=== PATIENT | female | born 1940 | race Caucasian/White ===

== ENCOUNTER 2017-03-06 11:25 | Inpatient (IN) | payer MEDICARE, BC, OTHER ==
[~2017-03-06] VITALS: Ht 152.4 cm; Wt 73.5 kg
[~2017-03-06 11:25] MED LIST: /METO25TAB PO; ALBU17IN INH; AMLO5TAB2 PO; AUGM875T27 PO; FURO20TA2 PO; LEVO25TA4 PO; LISI5TAB PO; MICR10CA PO; MUCI600T34 PO; PANT40TA2 PO; PRED10TA PO; PRED1TAB32 PO; PRED5PAK PO; SIMV20TA2 PO; SPIRIVA INH; SYMB16INH INH; TYLE325T5 PO; ZOCO20TA PO; [UNRECOGNIZED DRUG - OTHER]
[2017-03-06] MEDS ORDERED: methylPREDNISolone INJ 125 MG/2 ML VIAL (J2930) IV ONE (12:30)
[2017-03-06] MEDS: IPRATROPIUM 0.5MG/ALBUTEROL 2.5MG INH SOL UD 3ML (DUONEB)(J7620) NEB PRN ×3 (12:43→13:20)
[2017-03-06 12:47] LABS: BASO % 0.1 % (0.0-1.0); EOS % 0.1 % (0.0-3.0); LARGE UNSTAINED CELL # 0.1 K/mm3 (0.0-0.4); LARGE UNSTAINED CELL % 0.8 % (0.0-4.0); LYMPH # 0.5 K/mm3 (1.5-4.5); LYMPH % 4.7 % (24.0-44.0); MEAN CORPUSCULAR HEMOGLOBIN 31.8 pg (27.0-33.0); MEAN CORPUSCULAR HGB CONC 34.2 g/dl (32.0-36.5); MEAN CORPUSCULAR VOLUME 92.7 fl (80.0-96.0); MONO # 0.3 K/mm3 (0.0-0.8); MONO % 3.1 % (0.0-5.0); NEUTROPHILS # 9.2 K/mm3 (1.8-7.7); NEUTROPHILS % 91.2 % (36.0-66.0); PLATELET COUNT, AUTOMATED 301 k/mm3 (150-450); RED CELL DISTRIBUTION WIDTH 12.7 % (11.5-14.5)
[2017-03-06 12:53] LABS: INR 0.91
[2017-03-06 12:53] LABS: ANION GAP 4 MEQ/L (8-16); BLOOD UREA NITROGEN 34 MG/DL (7-18); CALCIUM LEVEL 9.8 MG/DL (8.8-10.2); CARBON DIOXIDE LEVEL 40 MEQ/L (21-32); CHLORIDE LEVEL 92 MEQ/L (98-107); CREATININE FOR GFR 1.26 MG/DL (0.55-1.02); GLOMERULAR FILTRATION RATE 44.2 (>39); GLUCOSE, FASTING 150 MG/DL (83-110); SODIUM LEVEL 136 MEQ/L (136-145)
--- NOTE | 2017-03-06 12:56 | REP ---
PA and lateral chest: Comparison is 09/21/2012. The lung rinaldi are clear. The cardiac size is normal The dedra, mediastinum, and bony thorax are unremarkable. Impression: Negative PA and lateral chest. There is no interval change. Signed by Rickey Adame MD 03/06/2017 12:47 P
[2017-03-06] MEDS ORDERED: LISI10TA4 PO ×2 (14:05)
[2017-03-06] MEDS ORDERED: AZIT250T3 PO (14:05)
[2017-03-06] MEDS ORDERED: FURO20TA2 PO (14:05)
[2017-03-06] MEDS ORDERED: DOXY100T PO (14:05)
[2017-03-06] MEDS ORDERED: METO12TA PO (14:05)
[2017-03-06] MEDS ORDERED: SPIR12.9 INH (14:05)
[2017-03-06] MEDS ORDERED: SODI3NEB INH (14:05)
[2017-03-06] MEDS ORDERED: ZOCO20TA PO (14:05)
[2017-03-06] MEDS ORDERED: SYMB16INH INH (14:05)
[2017-03-06] MEDS ORDERED: PANT40TA2 PO (14:05)
[2017-03-06] MEDS ORDERED: PRED5TA PO (14:05)
[2017-03-06] MEDS ORDERED: ALBU17IN INH (14:05)
[2017-03-06] MEDS ORDERED: AMLO5TAB2 PO (14:05)
[2017-03-06] MEDS ORDERED: SYNT25TA PO (14:05)
[2017-03-06] MEDS ORDERED: VITA500046 PO (14:08)
[2017-03-06] MEDS ORDERED: MUCI600T34 PO (14:08)
[2017-03-06] MEDS ORDERED: BACITAB3 PO (14:08)
[2017-03-06] MEDS ORDERED: ROBISYP7 PO (14:08)
[2017-03-06] MEDS ORDERED: PRED10TA PO (14:10)
--- NOTE | 2017-03-06 14:36 | HPEPDOC ---
Medical History and Physical Date of Admission 03/06/17 History and Physical ATTENDING: Dr. Walton PCP: Dr [facility] Dr Poe CC: SOB HPI: 76yoF with a past medical history significant for O2/Steroid dependent COPD , who returned from [place] one week ago. She states she has not been feeling well. She called Dr. Poe on Friday and was placed on prednisone 40 mg daily for 5 days. Her PCP diagnosed her with bronchitis and she was placed on oral antibiotics including doxycycline and Zithromax. The patient states this was ineffective. For the past 2-3 days she has been noticing increased dyspnea, sputum production which has been yellow, orthopnea and PND, she has been sleeping in her recliner. She denies fevers or chills. No chest pain. No abdominal pain. Decreased appetite. Denies any FREEMAN, palpitations, N/V/D or changes in bowel or bladder habits. Upon presentation to the hospital the patient was found to have COPD exacerbation, thus the hospitalist team was consulted. PMHx: COPD Hypertension Hypothyroidism Hyperlipidemia CKD3 PSHX: Tubal ligation SOCHX: Resides in: [facility] Marital Status: Tobacco use: quit 5 yr ago ETOH: denies Illicit Drugs: Denies Recent travel: recently drove home from [facility] 1 week ago ROS: As noted in HPI, otherwise 11pt ROS of systems reviewed and unremarkable. PE: GEN: 76yoF, appears stated age. No acute distress. Alert and oriented x 3. HEENT: Normocephalic, atraumatic. Pupils are equal, round, and reactive to light. Extraocular movements are intact. No nystagmus appreciated. Sclera are nonicteric. Conjunctiva without injection. Nose midline. Nasal turbinates without bogginess. EACs both patent BL. TMs both visualized and chilel with good cone of light, no bulging or erythema. No facial asymmetry. Moist mucous membranes. Dentition fair. Pharynx pink and moist, no cobblestoning. Neck supple , trachea midline. No lymphadenopathy or thyromegaly appreciated. CHEST: Regular rate and rhythm, +S1, +S2 LUNGS: Decreased breath sounds bilaterally. Coarse rhonchi, expiratory wheezes scattered. No accessory muscle use. ABD: Round, soft, non-tender, non-distended. +Bowel sounds throughout. No rebound or guarding. No costovertebral angle tenderness. EXT: Pulses 2+ bilaterally dorsalis pedis and radial. Trace RLE edema appreciated. SKIN: [place], dry, warm. Capillary refill <2sec. No rashes. NEURO: Alert and oriented x 3. Cranial nerves III-XII are intact. No focal deficits appreciated. CXR: 03/06/17 Negative PA and lateral chest. There is no interval change. BLOOD CULTURES: pending. A&P: 76yoF with a past medical history significant for O2/Steroid dependent COPD, who returned from [place] one week ago. She states she has not been feeling well. She called Dr. Poe on Friday and was placed on prednisone 40 mg daily for 5 days. Her PCP diagnosed her with bronchitis and she was placed on oral antibiotics including doxycycline and Zithromax. The patient states this was ineffective. For the past 2-3 days she has been noticing increased dyspnea, sputum production which has been yellow, orthopnea and PND, she has been sleeping in her recliner. The patient will be admitted to [facility] for at least [address] Walton's service. 1. COPD exacerbation. Blood culture pending. Sputum culture pending. Supplemental O2, nebulizer treatments, IV Solu-Medrol 60 mg every 6 hours. IV Rocephin 1 g every 24, IV Zithromax 500 mg every 24. 2. COPD. Pt is steroid and O2 dependent at home. 3. Hypertension. Continue metoprolol and Norvasc with hold parameters. 4. Hyperlipidemia. Continue statin 5. CKD3. Baseline 1.08- 1.18. 1.26 on admission. Patient states she has had poor appetite/poor po intake. Will temporarily hold oral Lasix and lisinopril. Reassess with [facility] in a.m. 6. Right lower extremity edema. Will check lower extremity ultrasound to rule out DVT with recent h/o prolonged driving. 7. Hypothyroid. Cont supplement. DVT prophylaxis. The patient is a Full code. Vital Signs Vital Signs Date Time Temp Pulse Resp B/P Pulse Ox O2 Delivery O2 Flow Rate FiO2 03/06/17 13:30 118 93 03/06/17 12:48 18 136/82 Nasal Cannula 3 03/06/17 11:35 98.1 Laboratory Data Labs 24H Laboratory Tests 2 03/06/17 11:42: Anion Gap 4L, B-Type Natriuretic Peptide 30.2, White Blood Count 10.0, Red Blood Count 4.19, Hemoglobin 13.3, Hematocrit 38.9, Mean Corpuscular Volume 92.7 , Mean Corpuscular Hemoglobin 31.8, Mean Corpuscular Hemoglobin Concent 34.2, Red Cell Distribution Width 12.7, Platelet Count 301, Neutrophils (%) (Auto) 91.2H, Lymphocytes (%) (Auto) 4.7L, Monocytes (%) (Auto) 3.1, Eosinophils (%) ( Auto) 0.1, Basophils (%) (Auto) 0.1, Neutrophils # (Auto) 9.2H, Lymphocytes # ( Auto) 0.5L, Monocytes # (Auto) 0.3, Eosinophils # (Auto) 0.0, Basophils # (Auto ) 0.0, Blood Urea Nitrogen 34H, Creatinine 1.26H, Sodium Level 136, Potassium Level 4.0, Chloride Level 92L, Carbon Dioxide Level 40H, Calcium Level 9.8, Glomerular Filtration Rate 44.2, Large Unclassified Cells # 0.1, Large Unclassified Cells % 0.8 03/06/17 12:33: Prothromb Time International Ratio 0.91, Prothrombin Time 12.4 CBC/BMP Laboratory Tests 03/06/17 11:42 Calcium Level 9.8, Red Blood Count 4.19, Mean Corpuscular Volume 92.7, Mean Corpuscular Hemoglobin 31.8, Mean Corpuscular Hemoglobin Concent 34.2, Red Cell Distribution Width 12.7, Neutrophils (%) (Auto) 91.2 H, Lymphocytes (%) (Auto) 4.7 L, Monocytes (%) (Auto) 3.1, Eosinophils (%) (Auto) 0.1, Basophils (%) (Auto ) 0.1, Neutrophils # (Auto) 9.2 H, Lymphocytes # (Auto) 0.5 L, Monocytes # (Auto ) 0.3, Eosinophils # (Auto) 0.0, Basophils # (Auto) 0.0 Microbiology Microbiology 03/06/17 Blood Culture, Received Pending Home Medications Scheduled Amlodipine Besylate (Amlodipine Besylate) 5 Mg Tab 5 MG PO DAILY Azithromycin (Azithromycin) 250 Mg Tab 250 MG PO DAILY TO END ON 03/08/17 Budesonide/Formoterol (Symbicort 160-4.5 Mcg/Act) 60 Puff/Inhaler Aers 2 PUFF INH BID Cholecalciferol (Vitamin D) 5,000 Unit Tab 5,000 UNIT PO DAILY Doxycycline Hyclate (Doxycycline Hyclate) 100 Mg Tab 100 MG PO BID TO END 03/13/17 Furosemide (Furosemide) 20 Mg Tab 20 MG PO DAILY Guaifenesin (Mucinex) 600 Mg Tab 600 MG PO BID Lactobacillus Acidophilus (Bacid) 1 Tab Tab 1 TAB PO DAILY Levothyroxine Sodium (Synthroid) 25 Mcg Tab 25 MCG PO QAM Lisinopril (Lisinopril) 10 Mg Tab 10 MG PO BID Metoprolol Tartrate (Metoprolol Tartrate) 25 Mg Tab 25 MG PO DAILY Pantoprazole Sodium (Pantoprazole Sodium) 40 Mg Tab 40 MG PO DAILY Prednisone (Prednisone) 5 Mg Tab 5 MG PO DAILY Prednisone (Prednisone) 10 Mg Tab 10 MG PO ASDIRECTED TAPERING DOSE ALONG WITH 5MG DAILY 40MG DAILY X 5 DAYS 30MG DAILY X 5 DAYS 20MG DAILY X 5 DAYS 10MG DAILY X 5 DAYS 5MG DAILY X 5 DAYS FILLED 03/03 Simvastatin (Zocor) 20 Mg Tab 20 MG PO QPM Tiotropium Bentley Monohydrate (Spiriva Respimat) 2.5 Mcg/Act Spr 2 INHALATION INH DAILY Scheduled PRN (Robitussin Peak Cold Dm 100-10 mg/5Ml) 1 Syp Syp 10 ML PO Q6H PRN PRN COUGH Albuterol Sulfate (Ventolin Hfa) 200 Puff/8 Gm Aers 2 PUFF INH Q4H PRN PRN SHORTNESS OF BREATH Sodium Chloride (Sodium Chloride 3% Neb Yasmin) 15 Ml Nebu 1 DOSE INH Q4H PRN PRN SHORTNESS OF BREATH Allergies Coded Allergies: No Known Drug Allergy (Unverified Allergy, Unknown, 02/18/13) Corinna Paiz Mar 06, 2017 14:36
[2017-03-06] MEDS: cefTRIAXone SOD 1 GM in D5W MINI-BAG PLUS 50 ML IV SCH (15:18)
[2017-03-06] MEDS: amLODIPine 5 MG TAB PO SCH (15:19)
[2017-03-06] MEDS: METOPROLOL TART 25 MG TABLET PO SCH (15:19)
[2017-03-06] MEDS: PANTOPRAZOLE 40MG TAB (PROTONIX) PO SCH (15:19)
--- NOTE | 2017-03-06 16:11 | REP ---
Duplex extremity venous ultrasound: Bilateral lower extremity. History: Bilateral lower extremity edema. Findings: Scan quality is mildly inhibited by a patient positioning factors. The deep veins are anechoic and fully compressible from the groin to the popliteal fossa in the right and left lower extremity. Color flow imaging is homogeneous. Spectral Doppler interrogation demonstrates intact respiratory variation in flow and normal manual augmentation of flow. There is no evidence of deep vein thrombosis. Impression: Negative bilateral lower extremity duplex venous ultrasound. No evidence of deep vein thrombosis. Signed by Randy Gentile MD 03/06/2017 04:02 P
[2017-03-06] MEDS: AZITHROMYCIN INJ 500 MG, VIAL MATE ADAPTER 1 EACH in D5W 250 ML IV SCH (16:35)
[2017-03-06 17:50] VITALS: BP 182/97
[2017-03-06] MEDS: LACTOBACILLUS ACIDOPHILUS CAP (BACID) PO SCH (17:52)
[2017-03-06] MEDS: methylPREDNISolone INJ 125 MG/2 ML VIAL (J2930) IV SCH (17:52)
[2017-03-06] MEDS: IPRATROPIUM 0.5MG/ALBUTEROL 2.5MG INH SOL UD 3ML (DUONEB)(J7620) NEB SCH (20:14)
[2017-03-06] MEDS: guaiFENesin ER 600 MG TAB PO SCH (21:06)
[2017-03-06] MEDS: SIMVASTATIN 20 MG TAB PO SCH (21:07)
[2017-03-06 22:00] VITALS: BP 170/70
[2017-03-07] MEDS: methylPREDNISolone INJ 125 MG/2 ML VIAL (J2930) IV SCH ×2 (00:42→06:09)
[2017-03-07] MEDS: IPRATROPIUM 0.5MG/ALBUTEROL 2.5MG INH SOL UD 3ML (DUONEB)(J7620) NEB SCH ×4 (02:18→19:38)
[2017-03-07 05:13] LABS: BASO % 0.2 % (0.0-1.0); EOS % 0.3 % (0.0-3.0); LARGE UNSTAINED CELL # 0.1 K/mm3 (0.0-0.4); LARGE UNSTAINED CELL % 0.6 % (0.0-4.0); LYMPH # 0.5 K/mm3 (1.5-4.5); LYMPH % 6.2 % (24.0-44.0); MEAN CORPUSCULAR HEMOGLOBIN 30.2 pg (27.0-33.0); MEAN CORPUSCULAR HGB CONC 32.7 g/dl (32.0-36.5); MEAN CORPUSCULAR VOLUME 92.5 fl (80.0-96.0); MONO # 0.2 K/mm3 (0.0-0.8); MONO % 2.2 % (0.0-5.0); NEUTROPHILS # 6.7 K/mm3 (1.8-7.7); NEUTROPHILS % 90.5 % (36.0-66.0); PLATELET COUNT, AUTOMATED 255 k/mm3 (150-450); RED CELL DISTRIBUTION WIDTH 12.7 % (11.5-14.5); WHITE BLOOD COUNT 7.4 K/mm3 (4.0-10.0)
[2017-03-07 05:35] LABS: ALBUMIN 3.2 GM/DL (3.2-5.2); ALBUMIN/GLOBULIN RATIO 1.14 (1.00-1.93); ALKALINE PHOSPHATASE 46 U/L (45-117); ALT/SGPT 37 U/L (12-78); ANION GAP 3 MEQ/L (8-16); AST/SGOT 31 U/L (15-37); BILIRUBIN,TOTAL 0.3 MG/DL (0.2-1.0); BLOOD UREA NITROGEN 24 MG/DL (7-18); CARBON DIOXIDE LEVEL 38 MEQ/L (21-32); CHLORIDE LEVEL 97 MEQ/L (98-107); CREATININE FOR GFR 0.95 MG/DL (0.55-1.02); GLOMERULAR FILTRATION RATE > 60.0 (>39); GLUCOSE, FASTING 137 MG/DL (83-110); POTASSIUM SERUM 4.5 MEQ/L (3.5-5.1); SODIUM LEVEL 138 MEQ/L (136-145)
[2017-03-07 06:00] VITALS: BP 135/75
[2017-03-07] MEDS: LEVOTHYROXINE 0.025 MG TAB (25 MCG) PO SCH (06:09)
--- NOTE | 2017-03-07 08:44 | IPNPDOC ---
Subjective Date Seen The patient was seen on 03/07/17. Subjective Chief Complaint/HPI The patient is a 76-year-old female admitted with a reason for visit of Copd With Exacerbation. Events since last encounter Pt this morning reports some improvement in her breathing. States hard to tell for sure as I woke her when I came in. She has not been up or moving around yet. General: Denies: Fatigue Constitutional: Denies: Chills, Fever ENT: Denies: Head Aches Pulmonary: Reports: Cough, Dyspnea Cardiovascular: Denies: Chest Pain, Palpitations Gastrointestinal: Denies: Diarrhea, Nausea, Vomiting Neurological: Denies: Weakness Psych: Reports: Mood Normal Objective Physical Examination General Exam: Positive: Alert, No Acute Distress ENT Exam: Positive: Mucous membr. moist/pink Chest Exam: Positive: Diminished, Wheezing (end exp wheeze, throughout), Negative: Clear to auscultation, Normal air movement Heart Exam: Positive: Normal S1, Normal S2, Rate Normal Abdomen Exam: Positive: Normal bowel sounds, Soft, Negative: Tenderness Extremity Exam: Negative: Edema Psych Exam: Positive: Mental status NL, Mood NL Assessment /Plan Problems (1) COPD with exacerbation Status: Acute Response to Treatment: Stable, Improving Discussed With: Patient Problem Specific Plan: Monitor Clinically, Repeat Labs Problem Text: Pt admitted on Solumedrol 60 mg Q6h, will reduce to 40 mg q6h today, she has had improvement in her resp status since arrival. D 2 Azithromycin, Rocephin. Cont Duonebs. Home O2 rate 3LMP. (2) Hypertension Status: Chronic Response to Treatment: Stable Problem Specific Plan: Monitor Clinically Problem Text: On Norvasc 5 mg daily, Lopressor 25 mg daily (HD) - will restart Lisinopril 10 mg daily, cont to hold on Lasix 20 mg daily, monitor. (3) Acute kidney injury Status: Resolved Response to Treatment: Improving Discussed With: Patient Problem Specific Plan: Monitor Clinically, Repeat Labs Problem Text: Scr slightly elevated on admission, improved today. PEDRO and Lasix held on admission. Will resume PEDRO today as pressures are elevated. Plan/VTE VTE Prophylaxis Ordered?: Yes Plan Family Medicine Attending Note: Patient seen and examined this afternoon; I d/w Rosa Barney PA-C and I agree with her note above. Lungs are still quite tight with decreased air movement; patient had recent URI symptoms, which is the likely triggering factor. She does ear 2 L/min of O2 at home, but is requiring O2 above her baseline. She had some desaturations this morning with movement and ambulation, but O2 saturation rapidly recovered after a minute of deep breathing. Continue with plan as above. (KES) VS, I&O, 24H, Fishbone Vital Signs/I&O Vital Signs Date Time Temp Pulse Resp B/P Pulse Ox O2 Delivery O2 Flow Rate FiO2 03/07/17 06:00 100.0 83 18 135/75 98 Nasal Cannula 4.0 I&O- Last 24 Hours up to 6 AM 03/07/17 06:00 Intake Total 170 ml Balance 170 ml Laboratory Data 24H LABS Laboratory Tests 2 03/06/17 11:42: Anion Gap 4L, B-Type Natriuretic Peptide 30.2, White Blood Count 10.0, Red Blood Count 4.19, Hemoglobin 13.3, Hematocrit 38.9, Mean Corpuscular Volume 92.7 , Mean Corpuscular Hemoglobin 31.8, Mean Corpuscular Hemoglobin Concent 34.2, Red Cell Distribution Width 12.7, Platelet Count 301, Neutrophils (%) (Auto) 91.2H, Lymphocytes (%) (Auto) 4.7L, Monocytes (%) (Auto) 3.1, Eosinophils (%) ( Auto) 0.1, Basophils (%) (Auto) 0.1, Neutrophils # (Auto) 9.2H, Lymphocytes # ( Auto) 0.5L, Monocytes # (Auto) 0.3, Eosinophils # (Auto) 0.0, Basophils # (Auto ) 0.0, Blood Urea Nitrogen 34H, Creatinine 1.26H, Sodium Level 136, Potassium Level 4.0, Chloride Level 92L, Carbon Dioxide Level 40H, Calcium Level 9.8, Total Creatine Kinase 244H, Creatine Kinase MB 8.1H, Creatine Kinase MB Relative Index 3.31, Glomerular Filtration Rate 44.2, Large Unclassified Cells # 0.1, Large Unclassified Cells % 0.8, Troponin I < 0.02 03/06/17 12:33: Prothromb Time International Ratio 0.91, Prothrombin Time 12.4 03/07/17 04:40: Anion Gap 3L, White Blood Count 7.4, Red Blood Count 3.94L, Hemoglobin 11.9L, Hematocrit 36.4, Mean Corpuscular Volume 92.5, Mean Corpuscular Hemoglobin 30.2 , Mean Corpuscular Hemoglobin Concent 32.7, Red Cell Distribution Width 12.7, Platelet Count 255, Neutrophils (%) (Auto) 90.5H, Lymphocytes (%) (Auto) 6.2L, Monocytes (%) (Auto) 2.2, Eosinophils (%) (Auto) 0.3, Basophils (%) (Auto) 0.2, Neutrophils # (Auto) 6.7, Lymphocytes # (Auto) 0.5L, Monocytes # (Auto) 0.2, Eosinophils # (Auto) 0.0, Basophils # (Auto) 0.0, Blood Urea Nitrogen 24H, Creatinine 0.95, Sodium Level 138, Potassium Level 4.5, Chloride Level 97L, Carbon Dioxide Level 38H, Calcium Level 9.0, Total Creatine Kinase 234H, Creatine Kinase MB 9.7H, Creatine Kinase MB Relative Index 4.14H, Glomerular Filtration Rate > 60.0, Large Unclassified Cells # 0.1, Large Unclassified Cells % 0.6, Troponin I < 0.02, Aspartate Amino Transf (AST/SGOT) 31, Alanine Aminotransferase (ALT/SGPT) 37, Alkaline Phosphatase 46, Total Bilirubin 0.3, Total Protein 6.0L, Albumin 3.2, Albumin/Globulin Ratio 1.14 CBC/BMP Laboratory Tests 03/06/17 11:42 Calcium Level 9.8, Total Creatine Kinase 244 H, Red Blood Count 4.19, Mean Corpuscular Volume 92.7, Mean Corpuscular Hemoglobin 31.8, Mean Corpuscular Hemoglobin Concent 34.2, Red Cell Distribution Width 12.7, Neutrophils (%) (Auto ) 91.2 H, Lymphocytes (%) (Auto) 4.7 L, Monocytes (%) (Auto) 3.1, Eosinophils (% ) (Auto) 0.1, Basophils (%) (Auto) 0.1, Neutrophils # (Auto) 9.2 H, Lymphocytes # (Auto) 0.5 L, Monocytes # (Auto) 0.3, Eosinophils # (Auto) 0.0, Basophils # ( Auto) 0.0 03/07/17 04:40 Calcium Level 9.0, Total Creatine Kinase 234 H, Red Blood Count 3.94 L, Mean Corpuscular Volume 92.5, Mean Corpuscular Hemoglobin 30.2, Mean Corpuscular Hemoglobin Concent 32.7, Red Cell Distribution Width 12.7, Neutrophils (%) (Auto ) 90.5 H, Lymphocytes (%) (Auto) 6.2 L, Monocytes (%) (Auto) 2.2, Eosinophils (% ) (Auto) 0.3, Basophils (%) (Auto) 0.2, Neutrophils # (Auto) 6.7, Lymphocytes # (Auto) 0.5 L, Monocytes # (Auto) 0.2, Eosinophils # (Auto) 0.0, Basophils # ( Auto) 0.0, Aspartate Amino Transf (AST/SGOT) 31, Alanine Aminotransferase (ALT/ SGPT) 37, Alkaline Phosphatase 46, Total Bilirubin 0.3, Total Protein 6.0 L, Albumin 3.2 Microbiology Microbiology 03/06/17 Blood Culture, Received Pending 03/06/17 Respiratory Virus Panel (PCR) ([facility]) - Final, Complete 03/06/17 Gram Stain - Final, Resulted 03/06/17 Sputum Culture, Resulted Pending ROSA BARNEY PA-C Mar 07, 2017 08:44 NAOMI ESTES MD Mar 07, 2017 15:42
[2017-03-07] MEDS: PANTOPRAZOLE 40MG TAB (PROTONIX) PO SCH (10:11)
[2017-03-07] MEDS: VITAMIN D 1,000 INTERNATIONAL UNITS TABLET PO SCH (10:11)
[2017-03-07] MEDS: ENOXAPARIN 40 MG/0.4 ML SYRINGE (J1650) SC SCH (10:11)
[2017-03-07] MEDS: guaiFENesin ER 600 MG TAB PO SCH ×2 (10:12→20:38)
[2017-03-07] MEDS: LACTOBACILLUS ACIDOPHILUS CAP (BACID) PO SCH (10:12)
[2017-03-07] MEDS: LISINOPRIL 10 MG TAB PO SCH (10:12)
[2017-03-07] MEDS: amLODIPine 5 MG TAB PO SCH (10:13)
[2017-03-07] MEDS: METOPROLOL TART 25 MG TABLET PO SCH (10:13)
[2017-03-07 14:00] VITALS: BP 133/70
[2017-03-07] MEDS: methylPREDNISolone INJ 40 MG/1 ML VIAL (J2920) IV SCH ×2 (14:41→20:38)
[2017-03-07] MEDS: cefTRIAXone SOD 1 GM in D5W MINI-BAG PLUS 50 ML IV SCH (17:09)
[2017-03-07] MEDS: IPRATROPIUM 0.5MG/ALBUTEROL 2.5MG INH SOL UD 3ML (DUONEB)(J7620) NEB PRN (17:24)
[2017-03-07] MEDS: AZITHROMYCIN INJ 500 MG, VIAL MATE ADAPTER 1 EACH in D5W 250 ML IV SCH (17:58)
[2017-03-07 19:30] VITALS: O2SAT 96
[2017-03-07] MEDS: SIMVASTATIN 20 MG TAB PO SCH (20:38)
[2017-03-07 22:00] VITALS: BP 148/70
[2017-03-08] MEDS: IPRATROPIUM 0.5MG/ALBUTEROL 2.5MG INH SOL UD 3ML (DUONEB)(J7620) NEB SCH ×2 (01:12→07:08)
[2017-03-08] MEDS: methylPREDNISolone INJ 40 MG/1 ML VIAL (J2920) IV SCH ×3 (05:49→21:41)
[2017-03-08] MEDS: LEVOTHYROXINE 0.025 MG TAB (25 MCG) PO SCH (05:50)
[2017-03-08 06:00] VITALS: BP 146/78
[2017-03-08 06:06] LABS: BASO % 0.1 % (0.0-1.0); EOS # 0.1 K/mm3 (0.0-0.50); EOS % 0.5 % (0.0-3.0); LARGE UNSTAINED CELL # 0.1 K/mm3 (0.0-0.4); LARGE UNSTAINED CELL % 0.7 % (0.0-4.0); LYMPH # 0.5 K/mm3 (1.5-4.5); LYMPH % 3.2 % (24.0-44.0); MEAN CORPUSCULAR HEMOGLOBIN 30.1 pg (27.0-33.0); MEAN CORPUSCULAR HGB CONC 31.8 g/dl (32.0-36.5); MEAN CORPUSCULAR VOLUME 94.6 fl (80.0-96.0); MONO # 0.7 K/mm3 (0.0-0.8); MONO % 4.7 % (0.0-5.0); NEUTROPHILS # 13.6 K/mm3 (1.8-7.7); NEUTROPHILS % 90.8 % (36.0-66.0); PLATELET COUNT, AUTOMATED 279 k/mm3 (150-450); RED CELL DISTRIBUTION WIDTH 12.5 % (11.5-14.5)
[2017-03-08 06:33] LABS: ALBUMIN 3.4 GM/DL (3.2-5.2); ALBUMIN/GLOBULIN RATIO 1.26 (1.00-1.93); ALKALINE PHOSPHATASE 47 U/L (45-117); ALT/SGPT 37 U/L (12-78); ANION GAP 2 MEQ/L (8-16); AST/SGOT 26 U/L (15-37); BILIRUBIN,TOTAL 0.2 MG/DL (0.2-1.0); BLOOD UREA NITROGEN 26 MG/DL (7-18); CALCIUM LEVEL 9.6 MG/DL (8.8-10.2); CARBON DIOXIDE LEVEL 42 MEQ/L (21-32); CHLORIDE LEVEL 96 MEQ/L (98-107); CREATININE FOR GFR 1.01 MG/DL (0.55-1.02); GLUCOSE, FASTING 120 MG/DL (83-110); POTASSIUM SERUM 4.8 MEQ/L (3.5-5.1); SODIUM LEVEL 140 MEQ/L (136-145); TOTAL PROTEIN 6.1 GM/DL (6.4-8.2)
[2017-03-08] MEDS: METOPROLOL TART 25 MG TABLET PO SCH (10:40)
[2017-03-08] MEDS: VITAMIN D 1,000 INTERNATIONAL UNITS TABLET PO SCH (10:41)
[2017-03-08] MEDS: amLODIPine 5 MG TAB PO SCH (10:41)
[2017-03-08] MEDS: PANTOPRAZOLE 40MG TAB (PROTONIX) PO SCH (10:41)
[2017-03-08] MEDS: LACTOBACILLUS ACIDOPHILUS CAP (BACID) PO SCH (10:42)
[2017-03-08] MEDS: ENOXAPARIN 40 MG/0.4 ML SYRINGE (J1650) SC SCH (10:42)
[2017-03-08] MEDS: guaiFENesin ER 600 MG TAB PO SCH ×2 (10:42→21:42)
[2017-03-08] MEDS: IPRATROPIUM 0.5MG/ALBUTEROL 2.5MG INH SOL UD 3ML (DUONEB)(J7620) NEB PRN ×3 (10:47→23:12)
[2017-03-08] MEDS ORDERED: ALBUTEROL SULFATE 2.5 MG/0.5 ML INH NEB SOLN NEB PRN (11:45)
[2017-03-08 11:57] LABS: ABG BASE EXCESS 8.1 (-2.0-2.0); ABG HCO3 36.6 MEQ/L (22.0-26.0); ABG PARTIAL PRESSURE O2 196.2 mmHg (75.0-100.0); ABG TOTAL CO2 38.8 MEQ/L (23.0-31.0); ABG pH (ARTERIAL) 7.327 UNITS (7.350-7.450)
[2017-03-08 11:59] LABS: ABG PARTIAL PRESSURE CO2 71.5 mmHg (35.0-45.0)
[2017-03-08] MEDS: SODIUM CHLORIDE HYPERTONIC 3% 15ML NEB SOL INH SCH ×4 (12:00→23:13)
[2017-03-08] MEDS: ALBUTEROL SULFATE 2.5 MG/0.5 ML INH NEB SOLN NEB SCH ×3 (12:00→19:45)
[2017-03-08] MEDS: LISINOPRIL 10 MG TAB PO SCH (13:11)
[2017-03-08 14:00] VITALS: BP 144/78
[2017-03-08] MEDS: ACETAMINOPHEN TAB 650MG DOSE (2X325MG) PO PRN (15:48)
[2017-03-08] MEDS: cefTRIAXone SOD 1 GM in D5W MINI-BAG PLUS 50 ML IV SCH (15:48)
[2017-03-08 16:00] VITALS: BP 180/88
--- NOTE | 2017-03-08 16:23 | IPNPDOC ---
Subjective Date Seen The patient was seen on 03/08/17. Subjective Chief Complaint/HPI The patient is a 76-year-old female admitted with a reason for visit of Copd With Exacerbation. Events since last encounter Nursing reports some concerns that she desaturated last night while she was sleeping. She apparently had to be on FiO2 of 50% which they were able to wean back down to her usual 3 L by nasal cannula by shift change at 7 AM. The night nurses reported some concern for sleep apnea. They also wondered whether she was refluxing gastric contents and at this related to her dyspnea and some way. This morning the patient reports that she does not feel well. She feels like she has a lump in her throat. General: Reports: Other Symptoms (globus sensation) Constitutional: Reports: Weakness, Denies: Chills, Fever Pulmonary: Reports: Cough Cardiovascular: Denies: Chest Pain, Palpitations Hematologic: Denies: Bleeding Excessively, Bruising Psych: Reports: Anxiety Objective Physical Examination General Exam: Positive: Alert Eye Exam: Positive: Conjunctiva & lids normal, Negative: Sclera icteric ENT Exam: Positive: Tongue Midline, Negative: Pharyngeal Edema Neck Exam: Negative: Lymphadenopathy Chest Exam: Positive: Diminished, Wheezing (end expiratory) Heart Exam: Positive: Normal S1, Normal S2, Rate Normal, Negative: Gallops Abdomen Exam: Positive: Normal bowel sounds, Soft, Negative: Tenderness Extremity Exam: Negative: Edema Psych Exam: Positive: Anxiety (with no clear focus for her anxiety, other than a sense of tightness in her throat) Assessment /Plan Problems (1) COPD with exacerbation Status: Acute Response to Treatment: Stable, Improving Discussed With: Patient, Family with Pt Consent Problem Specific Plan: Monitor Clinically, Repeat Labs Problem Text: She had an episode last night. Not sure if it was mucus plugging or possibly reflux may be exacerbated by the steroids. Per the family's request I have consulted pulmonology. I'll also order nocturnal oximetry for tonight. On Solumedrol 40 mg q8h today. D 3 Azithromycin, Rocephin. Cont Duonebs. Home O2 rate 3LMP. (2) Hypertension Status: Chronic Response to Treatment: Stable Problem Specific Plan: Monitor Clinically Problem Text: On Norvasc 5 mg daily, Lopressor 25 mg daily (HD), spironolactone 50 mg, lisinopril 10 mg was restarted. Cont to hold on Lasix 20 mg daily, monitor. (3) Acute kidney injury Status: Resolved Response to Treatment: Improving Discussed With: Patient Problem Specific Plan: Monitor Clinically, Repeat Labs Problem Text: After the readdition of PEDRO inhibitor recently her GFR is drifting down again. I spoke about this with Dr. Poe and we opted to stop her spironolactone because she is also becoming hyperkalemic. If this does not work we may need to stop the PEDRO inhibitor as well. We'll monitor. (4) Hyperkalemia Status: Acute Response to Treatment: Worse Discussed With: Forming Process Worker Problem Specific Plan: Repeat Labs Problem Text: I stopped her spironolactone today. We'll monitor potassium level. I ordered a magnesium to be checked in the morning Plan/VTE VTE Prophylaxis Ordered?: Yes (Lovenox and SCDs) VS, I&O, 24H, Fishbone Vital Signs/I&O Vital Signs Date Time Temp Pulse Resp B/P Pulse Ox O2 Delivery O2 Flow Rate FiO2 03/08/17 15:59 100.4 03/08/17 14:00 81 20 144/78 92 Nasal Cannula 2.0 03/08/17 08:22 40 I&O- Last 24 Hours up to 6 AM 03/08/17 06:00 Intake Total 1210 ml Output Total 150 ml Balance 1060 ml Laboratory Data 24H LABS Laboratory Tests 2 03/08/17 05:49: Blood Urea Nitrogen 26H, Creatinine 1.01, Sodium Level 140, Potassium Level 4.8 , Chloride Level 96L, Carbon Dioxide Level 42H, Calcium Level 9.6, Aspartate Amino Transf (AST/SGOT) 26, Alanine Aminotransferase (ALT/SGPT) 37, Alkaline Phosphatase 47, Total Bilirubin 0.2, Total Protein 6.1L, Albumin 3.4, Albumin/ Globulin Ratio 1.26, Anion Gap 2L, White Blood Count 15.0H, Red Blood Count 3.94L, Hemoglobin 11.9L, Hematocrit 37.2, Mean Corpuscular Volume 94.6, Mean Corpuscular Hemoglobin 30.1, Mean Corpuscular Hemoglobin Concent 31.8L, Red Cell Distribution Width 12.5, Platelet Count 279, Neutrophils (%) (Auto) 90.8H, Lymphocytes (%) (Auto) 3.2L, Monocytes (%) (Auto) 4.7, Eosinophils (%) (Auto) 0.5, Basophils (%) (Auto) 0.1, Neutrophils # (Auto) 13.6H, Lymphocytes # (Auto) 0.5L, Monocytes # (Auto) 0.7, Eosinophils # (Auto) 0.1, Basophils # (Auto) 0.0, C-Reactive Protein, Quantitative < 0.30, Glomerular Filtration Rate 57.0, Large Unclassified Cells # 0.1, Large Unclassified Cells % 0.7 03/08/17 11:46: Arterial Blood pH 7.327L, Arterial Blood Partial Pressure CO2 71.5*H, Arterial Blood Partial Pressure O2 196.2H, Arterial Blood Total CO2 38.8H, Arterial Blood HCO3 36.6H, Arterial Blood Base Excess 8.1H, Arterial Blood Oxygen Saturation 99.5H, Blood Gas Bicarbonate Standard 32.0H CBC/BMP Laboratory Tests 03/08/17 05:49 Calcium Level 9.6, Aspartate Amino Transf (AST/SGOT) 26, Alanine Aminotransferase (ALT/SGPT) 37, Alkaline Phosphatase 47, Total Bilirubin 0.2, Total Protein 6.1 L, Albumin 3.4, Red Blood Count 3.94 L, Mean Corpuscular Volume 94.6, Mean Corpuscular Hemoglobin 30.1, Mean Corpuscular Hemoglobin Concent 31.8 L, Red Cell Distribution Width 12.5, Neutrophils (%) (Auto) 90.8 H , Lymphocytes (%) (Auto) 3.2 L, Monocytes (%) (Auto) 4.7, Eosinophils (%) (Auto ) 0.5, Basophils (%) (Auto) 0.1, Neutrophils # (Auto) 13.6 H, Lymphocytes # ( Auto) 0.5 L, Monocytes # (Auto) 0.7, Eosinophils # (Auto) 0.1, Basophils # (Auto ) 0.0 Microbiology Microbiology 03/06/17 Blood Culture - Preliminary, Resulted No Growth after 48 hours. All Specime... 03/06/17 Respiratory Virus Panel (PCR) ([facility]) - Final, Complete 03/06/17 Gram Stain - Final, Complete 03/06/17 Sputum Culture - Final, Complete Yeast Like Organism Garett Jones MD Mar 08, 2017 4:23 pm
[2017-03-08] MEDS: AZITHROMYCIN INJ 500 MG, VIAL MATE ADAPTER 1 EACH in D5W 250 ML IV SCH (16:26)
[2017-03-08 18:34] LABS: ABG BASE EXCESS 8.2 (-2.0-2.0); ABG HCO3 36.6 MEQ/L (22.0-26.0); ABG PARTIAL PRESSURE O2 77.7 mmHg (75.0-100.0); ABG STANDARD HCO3 31.9 MEQ/L (22.0-26.0); ABG TOTAL CO2 38.8 MEQ/L (23.0-31.0)
[2017-03-08 18:35] LABS: ABG PARTIAL PRESSURE CO2 71.1 mmHg (35.0-45.0)
[2017-03-08] MEDS: ACETYLCYSTEINE 20% 4 ML VIAL (200MG/ML) INH SCH (19:45)
[2017-03-08 20:00] VITALS: BP 134/96
[2017-03-08] MEDS: SIMVASTATIN 20 MG TAB PO SCH (21:41)
[2017-03-08 23:59] VITALS: BP 181/113
[2017-03-09] MEDS: IPRATROPIUM 0.5MG/ALBUTEROL 2.5MG INH SOL UD 3ML (DUONEB)(J7620) NEB PRN (02:50)
[2017-03-09] MEDS: SODIUM CHLORIDE HYPERTONIC 3% 15ML NEB SOL INH SCH ×5 (02:50→19:41)
[2017-03-09 04:00] VITALS: BP 166/73
[2017-03-09 05:19] LABS: ABG BASE EXCESS 15.7 (-2.0-2.0); ABG HCO3 44.9 MEQ/L (22.0-26.0); ABG STANDARD HCO3 39.6 MEQ/L (22.0-26.0); ABG TOTAL CO2 47.4 MEQ/L (23.0-31.0)
[2017-03-09 05:22] LABS: ABG PARTIAL PRESSURE CO2 75.6 mmHg (35.0-45.0); ABG PARTIAL PRESSURE O2 146.5 mmHg (75.0-100.0); ABG pH (ARTERIAL) 7.362 UNITS (7.350-7.450)
[2017-03-09] MEDS: methylPREDNISolone INJ 40 MG/1 ML VIAL (J2920) IV SCH ×3 (05:53→21:10)
[2017-03-09] MEDS: LEVOTHYROXINE 0.025 MG TAB (25 MCG) PO SCH (05:53)
[2017-03-09 06:49] LABS: BASO % 0.1 % (0.0-1.0); EOS % 0.1 % (0.0-3.0); LARGE UNSTAINED CELL # 0.1 K/mm3 (0.0-0.4); LARGE UNSTAINED CELL % 0.4 % (0.0-4.0); LYMPH # 0.3 K/mm3 (1.5-4.5); LYMPH % 2.9 % (24.0-44.0); MEAN CORPUSCULAR HEMOGLOBIN 33.1 pg (27.0-33.0); MEAN CORPUSCULAR HGB CONC 34.9 g/dl (32.0-36.5); MEAN CORPUSCULAR VOLUME 94.8 fl (80.0-96.0); MONO # 0.3 K/mm3 (0.0-0.8); MONO % 2.8 % (0.0-5.0); NEUTROPHILS # 10.7 K/mm3 (1.8-7.7); NEUTROPHILS % 93.7 % (36.0-66.0); PLATELET COUNT, AUTOMATED 244 k/mm3 (150-450); RED CELL DISTRIBUTION WIDTH 12.7 % (11.5-14.5); WHITE BLOOD COUNT 11.4 K/mm3 (4.0-10.0)
[2017-03-09 07:07] LABS: ALBUMIN 3.3 GM/DL (3.2-5.2); ALBUMIN/GLOBULIN RATIO 1.22 (1.00-1.93); ALKALINE PHOSPHATASE 43 U/L (45-117); ALT/SGPT 38 U/L (12-78); ANION GAP 3 MEQ/L (8-16); AST/SGOT 25 U/L (15-37); BILIRUBIN,TOTAL 0.3 MG/DL (0.2-1.0); BLOOD UREA NITROGEN 27 MG/DL (7-18); CALCIUM LEVEL 9.6 MG/DL (8.8-10.2); CARBON DIOXIDE LEVEL 42 MEQ/L (21-32); CHLORIDE LEVEL 96 MEQ/L (98-107); CREATININE FOR GFR 0.95 MG/DL (0.55-1.02); GLOMERULAR FILTRATION RATE > 60.0 (>39); GLUCOSE, FASTING 120 MG/DL (83-110); POTASSIUM SERUM 4.3 MEQ/L (3.5-5.1); SODIUM LEVEL 141 MEQ/L (136-145)
[2017-03-09] MEDS: ACETYLCYSTEINE 20% 4 ML VIAL (200MG/ML) INH SCH ×2 (07:47→19:41)
[2017-03-09] MEDS: ALBUTEROL SULFATE 2.5 MG/0.5 ML INH NEB SOLN NEB SCH ×4 (07:47→19:41)
[2017-03-09 08:00] VITALS: BP 177/75
[2017-03-09] MEDS: LACTOBACILLUS ACIDOPHILUS CAP (BACID) PO SCH (09:12)
[2017-03-09] MEDS: guaiFENesin ER 600 MG TAB PO SCH ×2 (09:12→21:10)
[2017-03-09] MEDS: LISINOPRIL 10 MG TAB PO SCH (09:13)
[2017-03-09] MEDS: VITAMIN D 1,000 INTERNATIONAL UNITS TABLET PO SCH (09:13)
[2017-03-09] MEDS: amLODIPine 5 MG TAB PO SCH (09:13)
[2017-03-09] MEDS: METOPROLOL TART 25 MG TABLET PO SCH (09:13)
[2017-03-09] MEDS: PANTOPRAZOLE 40MG TAB (PROTONIX) PO SCH (09:13)
[2017-03-09] MEDS: ENOXAPARIN 40 MG/0.4 ML SYRINGE (J1650) SC SCH (09:14)
[2017-03-09 12:00] VITALS: BP 158/72
[2017-03-09] MEDS: cefTRIAXone SOD 1 GM in D5W MINI-BAG PLUS 50 ML IV SCH (15:57)
[2017-03-09 16:00] VITALS: BP 156/67
[2017-03-09] MEDS: AZITHROMYCIN INJ 500 MG, VIAL MATE ADAPTER 1 EACH in D5W 250 ML IV SCH (17:21)
[2017-03-09 20:00] VITALS: BP 182/96
[2017-03-09] MEDS: SIMVASTATIN 20 MG TAB PO SCH (21:10)
--- NOTE | 2017-03-09 21:44 | IPNPDOC ---
Subjective Date Seen The patient was seen on 03/09/17. Subjective Chief Complaint/HPI The patient is a 76-year-old female admitted with a reason for visit of Copd With Exacerbation. Events since last encounter She reports that she still feels terrible today. However she has coughed up a bunch of since we started working to activate clear her bronchiectasis yesterday. She feels she is not able to get up and move around new the way she would like to and this is discouraging to her. General: Reports: Fatigue Constitutional: Reports: Fever (subjective, this is not borne out by her vitals ), Weakness Pulmonary: Reports: Cough, Dyspnea, Denies: Pleuritic Chest Pain Cardiovascular: Denies: Palpitations Psych: Reports: Anxiety Objective Physical Examination General Exam: Positive: Cooperative (but a little drowsy this afternoon. She has had family visiting was the day and I wonder if she is getting tired out.) Eye Exam: Positive: Conjunctiva & lids normal, Negative: Sclera icteric ENT Exam: Positive: Atraumatic, Mucous membr. moist/pink Neck Exam: Negative: Lymphadenopathy Chest Exam: Positive: Diminished, Other (her bronchitic cough is still present but is much improved from yesterday), Wheezing (end expiratory) Heart Exam: Positive: Normal S1, Normal S2, Rate Normal Extremity Exam: Negative: Edema Psych Exam: Positive: Anxiety (improved from yesterday but still present) Assessment /Plan Problems (1) COPD with exacerbation Status: Acute Response to Treatment: Improving Discussed With: Nurse, Patient, Family with Pt Consent Problem Specific Plan: Monitor Clinically, Repeat Labs Problem Text: She is improved after the Mucomyst administration yesterday and clearance of a large amount of thick mucus. On Solumedrol 40 mg q8h today. D 4 Azithromycin, Rocephin. Cont Duonebs. Home O2 rate 3LMP. (2) Hypertension Status: Chronic Response to Treatment: Stable Problem Specific Plan: Monitor Clinically Problem Text: Her pressures are running a little high today. I believe that it is related to her anxiety and I'm not inclined to change her regimen at this time. On Norvasc 5 mg daily, Lopressor 25 mg daily (HD), spironolactone 50 mg, lisinopril 10 mg was restarted. Cont to hold on Lasix 20 mg daily, monitor. (3) Delirium due to multiple etiologies Status: Acute Response to Treatment: Stable, Improving Problem Text: Her mental status fluctuates a little bit. I think some of this has to do with her age (hospital-acquired delirium) and some this has to do with CO2 retention (CO2 narcosis). At this time none of this is causing a significant problem with her medical care. We will need to monitor her carefully. (4) BMI 33.0-33.9,adult Status: Chronic Response to Treatment: Stable Problem Text: Her obese status does complicate her recovery. In particular she has some difficulty moving around because of this and she is more likely to fatigue while moving a large body mass. Also the weight of her chest wall does not assist her already poor respiration. (5) CKD (chronic kidney disease), stage III Status: Chronic Response to Treatment: Stable Problem Text: If anything her kidneys are functioning well this admission. We' ll monitor. Plan/VTE VTE Prophylaxis Ordered?: Yes (Lovenox and SCDs) VS, I&O, 24H, Fishbone Vital Signs/I&O Vital Signs Date Time Temp Pulse Resp B/P Pulse Ox O2 Delivery O2 Flow Rate FiO2 03/09/17 16:00 97.6 76 18 156/67 97 Nasal Cannula 2.0 03/08/17 08:22 40 I&O- Last 24 Hours up to 6 AM 03/09/17 06:00 Intake Total 960 ml Output Total 0 ml Balance 960 ml Laboratory Data 24H LABS Laboratory Tests 2 03/09/17 04:26: Blood Urea Nitrogen 27H, Creatinine 0.95, Sodium Level 141, Potassium Level 4.3 , Chloride Level 96L, Carbon Dioxide Level 42H, Calcium Level 9.6, Aspartate Amino Transf (AST/SGOT) 25, Alanine Aminotransferase (ALT/SGPT) 38, Alkaline Phosphatase 43L, Total Bilirubin 0.3, Total Protein 6.0L, Albumin 3.3, Albumin/ Globulin Ratio 1.22, Anion Gap 3L, White Blood Count 11.4H, Red Blood Count 3.80L, Hemoglobin 12.6, Hematocrit 36.0, Mean Corpuscular Volume 94.8, Mean Corpuscular Hemoglobin 33.1H, Mean Corpuscular Hemoglobin Concent 34.9, Red Cell Distribution Width 12.7, Platelet Count 244, Neutrophils (%) (Auto) 93.7H, Lymphocytes (%) (Auto) 2.9L, Monocytes (%) (Auto) 2.8, Eosinophils (%) (Auto) 0.1, Basophils (%) (Auto) 0.1, Neutrophils # (Auto) 10.7H, Lymphocytes # (Auto) 0.3L, Monocytes # (Auto) 0.3, Eosinophils # (Auto) 0.0, Basophils # (Auto) 0.0, C-Reactive Protein, Quantitative < 0.30, Glomerular Filtration Rate > 60.0, Large Unclassified Cells # 0.1, Large Unclassified Cells % 0.4 03/09/17 05:13: Arterial Blood pH 7.362, Arterial Blood Partial Pressure CO2 75.6*H, Arterial Blood Partial Pressure O2 146.5H, Arterial Blood Total CO2 47.4H, Arterial Blood HCO3 44.9H, Arterial Blood Base Excess 15.7H, Arterial Blood Oxygen Saturation 98.8, Blood Gas Bicarbonate Standard 39.6H CBC/BMP Laboratory Tests 03/09/17 04:26 Calcium Level 9.6, Aspartate Amino Transf (AST/SGOT) 25, Alanine Aminotransferase (ALT/SGPT) 38, Alkaline Phosphatase 43 L, Total Bilirubin 0.3, Total Protein 6.0 L, Albumin 3.3, Red Blood Count 3.80 L, Mean Corpuscular Volume 94.8, Mean Corpuscular Hemoglobin 33.1 H, Mean Corpuscular Hemoglobin Concent 34.9, Red Cell Distribution Width 12.7, Neutrophils (%) (Auto) 93.7 H, Lymphocytes (%) (Auto) 2.9 L, Monocytes (%) (Auto) 2.8, Eosinophils (%) (Auto) 0.1, Basophils (%) (Auto) 0.1, Neutrophils # (Auto) 10.7 H, Lymphocytes # (Auto ) 0.3 L, Monocytes # (Auto) 0.3, Eosinophils # (Auto) 0.0, Basophils # (Auto) 0.0 Microbiology Microbiology 03/06/17 Blood Culture - Preliminary, Resulted No Growth after 72 hours. All specime... 03/06/17 Respiratory Virus Panel (PCR) ([facility]) - Final, Complete 03/06/17 Gram Stain - Final, Complete 03/06/17 Sputum Culture - Final, Complete Yeast Like Organism Garett Jones MD Mar 09, 2017 9:43 pm
[2017-03-09] MEDS ORDERED: FUROSEMIDE 20 MG TAB PO ONE (22:00)
[2017-03-09 23:59] VITALS: BP 178/96
[2017-03-10] MEDS: SODIUM CHLORIDE HYPERTONIC 3% 15ML NEB SOL INH SCH ×5 (03:20→21:21)
[2017-03-10] MEDS: IPRATROPIUM 0.5MG/ALBUTEROL 2.5MG INH SOL UD 3ML (DUONEB)(J7620) NEB PRN (03:20)
[2017-03-10 05:00] VITALS: BP 174/88
[2017-03-10 05:21] LABS: BASO % 0.1 % (0.0-1.0); EOS % 0.2 % (0.0-3.0); LARGE UNSTAINED CELL % 0.5 % (0.0-4.0); LYMPH # 0.4 K/mm3 (1.5-4.5); LYMPH % 4.2 % (24.0-44.0); MEAN CORPUSCULAR HEMOGLOBIN 30.5 pg (27.0-33.0); MEAN CORPUSCULAR HGB CONC 32.6 g/dl (32.0-36.5); MEAN CORPUSCULAR VOLUME 93.4 fl (80.0-96.0); MONO # 0.4 K/mm3 (0.0-0.8); MONO % 4.5 % (0.0-5.0); NEUTROPHILS # 8.4 K/mm3 (1.8-7.7); NEUTROPHILS % 90.6 % (36.0-66.0); PLATELET COUNT, AUTOMATED 243 k/mm3 (150-450); RED CELL DISTRIBUTION WIDTH 12.6 % (11.5-14.5); WHITE BLOOD COUNT 9.2 K/mm3 (4.0-10.0)
[2017-03-10 05:39] LABS: ALBUMIN 3.1 GM/DL (3.2-5.2); ALBUMIN/GLOBULIN RATIO 1.11 (1.00-1.93); ALKALINE PHOSPHATASE 40 U/L (45-117); ALT/SGPT 33 U/L (12-78); ANION GAP 6 MEQ/L (8-16); AST/SGOT 20 U/L (15-37); BILIRUBIN,TOTAL 0.3 MG/DL (0.2-1.0); BLOOD UREA NITROGEN 29 MG/DL (7-18); CARBON DIOXIDE LEVEL 42 MEQ/L (21-32); CHLORIDE LEVEL 95 MEQ/L (98-107); CREATININE FOR GFR 0.91 MG/DL (0.55-1.02); GLOMERULAR FILTRATION RATE > 60.0 (>39); GLUCOSE, FASTING 130 MG/DL (83-110); POTASSIUM SERUM 4.1 MEQ/L (3.5-5.1); SODIUM LEVEL 143 MEQ/L (136-145); TOTAL PROTEIN 5.9 GM/DL (6.4-8.2)
[2017-03-10] MEDS: methylPREDNISolone INJ 40 MG/1 ML VIAL (J2920) IV SCH ×3 (05:58→21:35)
[2017-03-10] MEDS: LEVOTHYROXINE 0.025 MG TAB (25 MCG) PO SCH (05:58)
[2017-03-10] MEDS: ALBUTEROL SULFATE 2.5 MG/0.5 ML INH NEB SOLN NEB SCH ×4 (07:37→21:21)
[2017-03-10] MEDS: ACETYLCYSTEINE 20% 4 ML VIAL (200MG/ML) INH SCH ×2 (07:37→21:21)
[2017-03-10 08:00] VITALS: BP 174/74
--- NOTE | 2017-03-10 08:08 | IPNPDOC ---
Subjective Date Seen The patient was seen on 03/10/17. Subjective Chief Complaint/HPI The patient is a 76-year-old female admitted with a reason for visit of Copd With Exacerbation. Events since last encounter Pt states she is still SOB. Denies pain. Knows that she is in the hospital and knows the year. Constitutional: Denies: Chills, Fever Pulmonary: Reports: Cough, Dyspnea Cardiovascular: Denies: Chest Pain Gastrointestinal: Denies: Abdominal Pain Objective Physical Examination General Exam: Positive: Alert, No Acute Distress Eye Exam: Positive: Conjunctiva & lids normal, Negative: Sclera icteric ENT Exam: Positive: Atraumatic, Mucous membr. moist/pink Neck Exam: Negative: Lymphadenopathy Chest Exam: Positive: Diminished, Wheezing (end expiratory) Heart Exam: Positive: Normal S1, Normal S2, Rate Normal Extremity Exam: Negative: Edema Psych Exam: Positive: Oriented x 3 Assessment /Plan Problems (1) COPD with exacerbation Status: Acute Response to Treatment: Improving Discussed With: Nurse, Patient, Family with Pt Consent Problem Specific Plan: Monitor Clinically, Repeat Labs Problem Text: 03/10 - On Solumedrol 40 mg q8h today. D 5 Azithromycin, Rocephin. Cont Duonebs. On 2 L O2. Pulmonary following. 03/09 - She is improved after the Mucomyst administration yesterday and clearance of a large amount of thick mucus. On Solumedrol 40 mg q8h today. D 4 Azithromycin, Rocephin. Cont Duonebs. Home O2 rate 3LMP. (2) Hypertension Status: Chronic Response to Treatment: Stable Problem Specific Plan: Monitor Clinically Problem Text: 03/10 - On Norvasc 5 mg daily, Lopressor 25 mg daily (HD), spironolactone 50 mg, lisinopril 10 mg. Lasix 20 mg daily restarted. 03/09 - Her pressures are running a little high today. I believe that it is related to her anxiety and I'm not inclined to change her regimen at this time. On Norvasc 5 mg daily, Lopressor 25 mg daily (HD), spironolactone 50 mg, lisinopril 10 mg was restarted. Cont to hold on Lasix 20 mg daily, monitor. (3) Delirium due to multiple etiologies Status: Acute Response to Treatment: Stable, Improving Problem Text: Her mental status fluctuates a little bit. I think some of this has to do with her age (hospital-acquired delirium) and some this has to do with CO2 retention (CO2 narcosis). At this time none of this is causing a significant problem with her medical care. We will need to monitor her carefully. (4) BMI 33.0-33.9,adult Status: Chronic Response to Treatment: Stable Problem Text: Her obese status does complicate her recovery. In particular she has some difficulty moving around because of this and she is more likely to fatigue while moving a large body mass. Also the weight of her chest wall does not assist her already poor respiration. (5) CKD (chronic kidney disease), stage III Status: Chronic Response to Treatment: Stable Problem Text: If anything her kidneys are functioning well this admission. We' ll monitor. Plan/VTE VTE Prophylaxis Ordered?: Yes (Lovenox and SCDs) VS, I&O, 24H, Fishbone Vital Signs/I&O Vital Signs Date Time Temp Pulse Resp B/P Pulse Ox O2 Delivery O2 Flow Rate FiO2 03/10/17 05:00 98.9 90 20 174/88 98 Nasal Cannula 2.0 03/08/17 08:22 40 I&O- Last 24 Hours up to 6 AM 03/10/17 06:00 Intake Total 1400 ml Output Total 0 ml Balance 1400 ml Laboratory Data 24H LABS Laboratory Tests 2 03/10/17 04:37: Blood Urea Nitrogen 29H, Creatinine 0.91, Sodium Level 143, Potassium Level 4.1 , Chloride Level 95L, Carbon Dioxide Level 42H, Calcium Level 9.0, Aspartate Amino Transf (AST/SGOT) 20, Alanine Aminotransferase (ALT/SGPT) 33, Alkaline Phosphatase 40L, Total Bilirubin 0.3, Total Protein 5.9L, Albumin 3.1L, Albumin/ Globulin Ratio 1.11, Anion Gap 6L, White Blood Count 9.2, Red Blood Count 4.01, Hemoglobin 12.2, Hematocrit 37.4, Mean Corpuscular Volume 93.4, Mean Corpuscular Hemoglobin 30.5, Mean Corpuscular Hemoglobin Concent 32.6, Red Cell Distribution Width 12.6, Platelet Count 243, Neutrophils (%) (Auto) 90.6H, Lymphocytes (%) (Auto) 4.2L, Monocytes (%) (Auto) 4.5, Eosinophils (%) (Auto) 0.2, Basophils (%) (Auto) 0.1, Neutrophils # (Auto) 8.4H, Lymphocytes # (Auto) 0.4L, Monocytes # (Auto) 0.4, Eosinophils # (Auto) 0.0, Basophils # (Auto) 0.0, Glomerular Filtration Rate > 60.0, Large Unclassified Cells # 0.0, Large Unclassified Cells % 0.5 CBC/BMP Laboratory Tests 03/10/17 04:37 Calcium Level 9.0, Aspartate Amino Transf (AST/SGOT) 20, Alanine Aminotransferase (ALT/SGPT) 33, Alkaline Phosphatase 40 L, Total Bilirubin 0.3, Total Protein 5.9 L, Albumin 3.1 L, Red Blood Count 4.01, Mean Corpuscular Volume 93.4, Mean Corpuscular Hemoglobin 30.5, Mean Corpuscular Hemoglobin Concent 32.6, Red Cell Distribution Width 12.6, Neutrophils (%) (Auto) 90.6 H, Lymphocytes (%) (Auto) 4.2 L, Monocytes (%) (Auto) 4.5, Eosinophils (%) (Auto) 0.2, Basophils (%) (Auto) 0.1, Neutrophils # (Auto) 8.4 H, Lymphocytes # (Auto) 0.4 L, Monocytes # (Auto) 0.4, Eosinophils # (Auto) 0.0, Basophils # (Auto) 0.0 Microbiology Microbiology 03/06/17 Blood Culture - Preliminary, Resulted No Growth after 72 hours. All specime... 03/06/17 Respiratory Virus Panel (PCR) ([facility]) - Final, Complete 03/06/17 Gram Stain - Final, Complete 03/06/17 Sputum Culture - Final, Complete Yeast Like Organism Edu Rendon RPA-C Mar 10, 2017 08:08
[2017-03-10] MEDS: VITAMIN D 1,000 INTERNATIONAL UNITS TABLET PO SCH (10:06)
[2017-03-10] MEDS: LACTOBACILLUS ACIDOPHILUS CAP (BACID) PO SCH (10:06)
[2017-03-10] MEDS: guaiFENesin ER 600 MG TAB PO SCH ×2 (10:07→21:35)
[2017-03-10] MEDS: PANTOPRAZOLE 40MG TAB (PROTONIX) PO SCH (10:07)
[2017-03-10] MEDS: amLODIPine 5 MG TAB PO SCH (10:08)
[2017-03-10] MEDS: LISINOPRIL 10 MG TAB PO SCH (10:09)
[2017-03-10] MEDS: METOPROLOL TART 25 MG TABLET PO SCH (10:10)
[2017-03-10] MEDS: ENOXAPARIN 40 MG/0.4 ML SYRINGE (J1650) SC SCH (10:11)
[2017-03-10] MEDS: FUROSEMIDE 20 MG TAB PO SCH (10:19)
[2017-03-10 12:00] VITALS: BP 152/70
[2017-03-10] MEDS: ACETAMINOPHEN TAB 650MG DOSE (2X325MG) PO PRN (14:56)
[2017-03-10] MEDS: cefTRIAXone SOD 1 GM in D5W MINI-BAG PLUS 50 ML IV SCH (15:50)
[2017-03-10 16:00] VITALS: BP 158/72
[2017-03-10] MEDS: AZITHROMYCIN INJ 500 MG, VIAL MATE ADAPTER 1 EACH in D5W 250 ML IV SCH (17:37)
[2017-03-10 20:08] VITALS: BP 163/70
[2017-03-10] MEDS: SIMVASTATIN 20 MG TAB PO SCH (21:35)
[2017-03-10 23:15] VITALS: BP 155/69
[2017-03-11] VITALS (7 sets, daily range): BP systolic 135–182; BP diastolic 65–102
[2017-03-11] MEDS: SODIUM CHLORIDE HYPERTONIC 3% 15ML NEB SOL INH SCH ×6 (04:00→21:12)
[2017-03-11 05:44] LABS: BASO % 0.1 % (0.0-1.0); EOS % 0.2 % (0.0-3.0); LARGE UNSTAINED CELL # 0.1 K/mm3 (0.0-0.4); LARGE UNSTAINED CELL % 0.5 % (0.0-4.0); LYMPH # 0.5 K/mm3 (1.5-4.5); LYMPH % 4.5 % (24.0-44.0); MEAN CORPUSCULAR HEMOGLOBIN 31.2 pg (27.0-33.0); MEAN CORPUSCULAR HGB CONC 33.9 g/dl (32.0-36.5); MEAN CORPUSCULAR VOLUME 92.1 fl (80.0-96.0); MONO # 0.4 K/mm3 (0.0-0.8); MONO % 4.6 % (0.0-5.0); NEUTROPHILS # 8.5 K/mm3 (1.8-7.7); PLATELET COUNT, AUTOMATED 250 k/mm3 (150-450); RED CELL DISTRIBUTION WIDTH 12.4 % (11.5-14.5); WHITE BLOOD COUNT 9.5 K/mm3 (4.0-10.0)
[2017-03-11] MEDS: LEVOTHYROXINE 0.025 MG TAB (25 MCG) PO SCH (05:47)
[2017-03-11] MEDS: methylPREDNISolone INJ 40 MG/1 ML VIAL (J2920) IV SCH ×3 (05:47→22:32)
[2017-03-11 06:06] LABS: ALBUMIN/GLOBULIN RATIO 1.11 (1.00-1.93); ALKALINE PHOSPHATASE 37 U/L (45-117); ALT/SGPT 29 U/L (12-78); ANION GAP 4 MEQ/L (8-16); AST/SGOT 20 U/L (15-37); BILIRUBIN,TOTAL 0.3 MG/DL (0.2-1.0); BLOOD UREA NITROGEN 33 MG/DL (7-18); CALCIUM LEVEL 8.7 MG/DL (8.8-10.2); CARBON DIOXIDE LEVEL 44 MEQ/L (21-32); CHLORIDE LEVEL 93 MEQ/L (98-107); CREATININE FOR GFR 0.82 MG/DL (0.55-1.02); GLOMERULAR FILTRATION RATE > 60.0 (>39); GLUCOSE, FASTING 115 MG/DL (83-110); POTASSIUM SERUM 4.1 MEQ/L (3.5-5.1); SODIUM LEVEL 141 MEQ/L (136-145); TOTAL PROTEIN 5.7 GM/DL (6.4-8.2)
[2017-03-11] MEDS: ALBUTEROL SULFATE 2.5 MG/0.5 ML INH NEB SOLN NEB SCH ×4 (08:05→21:12)
[2017-03-11] MEDS: ACETYLCYSTEINE 20% 4 ML VIAL (200MG/ML) INH SCH ×2 (08:05→21:12)
[2017-03-11] MEDS: guaiFENesin ER 600 MG TAB PO SCH ×2 (08:38→22:33)
[2017-03-11] MEDS: VITAMIN D 1,000 INTERNATIONAL UNITS TABLET PO SCH (08:38)
[2017-03-11] MEDS: LISINOPRIL 10 MG TAB PO SCH (08:38)
[2017-03-11] MEDS: LACTOBACILLUS ACIDOPHILUS CAP (BACID) PO SCH (08:38)
[2017-03-11] MEDS: ENOXAPARIN 40 MG/0.4 ML SYRINGE (J1650) SC SCH (08:39)
[2017-03-11] MEDS: amLODIPine 5 MG TAB PO SCH (08:39)
[2017-03-11] MEDS: METOPROLOL TART 25 MG TABLET PO SCH (08:39)
[2017-03-11] MEDS: PANTOPRAZOLE 40MG TAB (PROTONIX) PO SCH (08:39)
[2017-03-11] MEDS: FUROSEMIDE 20 MG TAB PO SCH (08:39)
--- NOTE | 2017-03-11 09:14 | IPNPDOC ---
Subjective Date Seen The patient was seen on 03/11/17. Subjective Chief Complaint/HPI The patient is a 76-year-old female admitted with a reason for visit of Copd With Exacerbation. Events since last encounter Still with SOB but pt notes slow improvement. Denies CP, Abd pain. Constitutional: Denies: Chills, Fever Pulmonary: Reports: Cough, Dyspnea Cardiovascular: Denies: Chest Pain Gastrointestinal: Denies: Abdominal Pain, Nausea, Vomiting Objective Physical Examination General Exam: Positive: Alert, No Acute Distress Eye Exam: Positive: Conjunctiva & lids normal, Negative: Sclera icteric ENT Exam: Positive: Atraumatic, Mucous membr. moist/pink Neck Exam: Negative: Lymphadenopathy Chest Exam: Positive: Diminished, Wheezing (end expiratory) Heart Exam: Positive: Normal S1, Normal S2, Rate Normal Extremity Exam: Negative: Edema Psych Exam: Positive: Oriented x 3 Assessment /Plan Problems (1) COPD with exacerbation Status: Acute Response to Treatment: Improving Discussed With: Nurse, Patient, Family with Pt Consent Problem Specific Plan: Monitor Clinically, Repeat Labs Problem Text: 03/11 - On Solumedrol 40 mg q8h. Received 5 days Azithromycin, Rocephin. Will D/C and start PO Omnicef. Cont Duonebs. On 2 L O2. Pulmonary following 03/10 - On Solumedrol 40 mg q8h today. D 5 Azithromycin, Rocephin. Cont Duonebs. On 2 L O2. Pulmonary following. 03/09 - She is improved after the Mucomyst administration yesterday and clearance of a large amount of thick mucus. On Solumedrol 40 mg q8h today. D 4 Azithromycin, Rocephin. Cont Duonebs. Home O2 rate 3LMP. (2) Hypertension Status: Chronic Response to Treatment: Stable Problem Specific Plan: Monitor Clinically Problem Text: 03/11 - On Norvasc 5 mg daily, Lopressor 25 mg daily (HD), spironolactone 50 mg, lisinopril 10 mg, Lasix 20 mg daily. BPs still high. Will increase Norvasc to 10 mg daily. 03/10 - On Norvasc 5 mg daily, Lopressor 25 mg daily (HD), spironolactone 50 mg, lisinopril 10 mg. Lasix 20 mg daily restarted. 03/09 - Her pressures are running a little high today. I believe that it is related to her anxiety and I'm not inclined to change her regimen at this time. On Norvasc 5 mg daily, Lopressor 25 mg daily (HD), spironolactone 50 mg, lisinopril 10 mg was restarted. Cont to hold on Lasix 20 mg daily, monitor. (3) Delirium due to multiple etiologies Status: Acute Response to Treatment: Stable, Improving Problem Text: Her mental status fluctuates a little bit. I think some of this has to do with her age (hospital-acquired delirium) and some this has to do with CO2 retention (CO2 narcosis). At this time none of this is causing a significant problem with her medical care. We will need to monitor her carefully. (4) BMI 33.0-33.9,adult Status: Chronic Response to Treatment: Stable Problem Text: Her obese status does complicate her recovery. In particular she has some difficulty moving around because of this and she is more likely to fatigue while moving a large body mass. Also the weight of her chest wall does not assist her already poor respiration. (5) CKD (chronic kidney disease), stage III Status: Chronic Response to Treatment: Stable Problem Text: If anything her kidneys are functioning well this admission. We' ll monitor. Plan/VTE VTE Prophylaxis Ordered?: Yes (Lovenox and SCDs) VS, [facility] Vital Signs Date Time Temp Pulse Resp B/P Pulse Ox O2 Delivery O2 Flow Rate FiO2 03/11/17 08:39 75 182/102 03/11/17 07:45 98.3 24 97 Nasal Cannula 2.0 03/08/17 08:22 40 I&O- Last 24 Hours up to 6 AM 03/11/17 06:00 Intake Total 2720 ml Output Total 0 ml Balance 2720 ml Laboratory Data 24H LABS Laboratory Tests 2 03/11/17 05:00: Blood Urea Nitrogen 33H, Creatinine 0.82, Sodium Level 141, Potassium Level 4.1 , Chloride Level 93L, Carbon Dioxide Level 44H, Calcium Level 8.7L, Aspartate Amino Transf (AST/SGOT) 20, Alanine Aminotransferase (ALT/SGPT) 29, Alkaline Phosphatase 37L, Total Bilirubin 0.3, Total Protein 5.7L, Albumin 3.0L, Albumin/ Globulin Ratio 1.11, Anion Gap 4L, White Blood Count 9.5, Red Blood Count 4.24, Hemoglobin 13.3, Hematocrit 39.1, Mean Corpuscular Volume 92.1, Mean Corpuscular Hemoglobin 31.2, Mean Corpuscular Hemoglobin Concent 33.9, Red Cell Distribution Width 12.4, Platelet Count 250, Neutrophils (%) (Auto) 90.0H, Lymphocytes (%) (Auto) 4.5L, Monocytes (%) (Auto) 4.6, Eosinophils (%) (Auto) 0.2, Basophils (%) (Auto) 0.1, Neutrophils # (Auto) 8.5H, Lymphocytes # (Auto) 0.5L, Monocytes # (Auto) 0.4, Eosinophils # (Auto) 0.0, Basophils # (Auto) 0.0, Glomerular Filtration Rate > 60.0, Large Unclassified Cells # 0.1, Large Unclassified Cells % 0.5 CBC/BMP Laboratory Tests 03/11/17 05:00 Calcium Level 8.7 L, Aspartate Amino Transf (AST/SGOT) 20, Alanine Aminotransferase (ALT/SGPT) 29, Alkaline Phosphatase 37 L, Total Bilirubin 0.3, Total Protein 5.7 L, Albumin 3.0 L, Red Blood Count 4.24, Mean Corpuscular Volume 92.1, Mean Corpuscular Hemoglobin 31.2, Mean Corpuscular Hemoglobin Concent 33.9, Red Cell Distribution Width 12.4, Neutrophils (%) (Auto) 90.0 H, Lymphocytes (%) (Auto) 4.5 L, Monocytes (%) (Auto) 4.6, Eosinophils (%) (Auto) 0.2, Basophils (%) (Auto) 0.1, Neutrophils # (Auto) 8.5 H, Lymphocytes # (Auto) 0.5 L, Monocytes # (Auto) 0.4, Eosinophils # (Auto) 0.0, Basophils # (Auto) 0.0 Microbiology Microbiology 03/06/17 Blood Culture - Preliminary, Resulted No Growth after 72 hours. All specime... 03/10/17 Gram Stain - Final, Resulted 03/10/17 Sputum Culture, Resulted Pending 03/06/17 Respiratory Virus Panel (PCR) ([facility]) - Final, Complete 03/06/17 Gram Stain - Final, Complete 03/06/17 Sputum Culture - Final, Complete Yeast Like Organism Edu Rendon RPA-C Mar 11, 2017 09:14
[2017-03-11] MEDS ORDERED: amLODIPine 5 MG TAB PO ONE (09:30)
[2017-03-11] MEDS: CEFDINIR 300 MG CAP (OMNICEF) PO SCH ×2 (11:11→22:32)
[2017-03-11] MEDS: THEOPHYLLINE (THEO-24) 100MG SR **CAPSULE PO SCH (12:04)
[2017-03-11] MEDS: SIMVASTATIN 20 MG TAB PO SCH (22:33)
[2017-03-12] MEDS: SODIUM CHLORIDE HYPERTONIC 3% 15ML NEB SOL INH SCH ×6 (04:00→19:22)
[2017-03-12 04:48] VITALS: BP 145/67
[2017-03-12] MEDS: LEVOTHYROXINE 0.025 MG TAB (25 MCG) PO SCH (05:20)
[2017-03-12] MEDS: methylPREDNISolone INJ 40 MG/1 ML VIAL (J2920) IV SCH (05:21)
[2017-03-12 05:51] LABS: BASO % 0.3 % (0.0-1.0); EOS % 0.4 % (0.0-3.0); LARGE UNSTAINED CELL % 0.3 % (0.0-4.0); LYMPH # 0.4 K/mm3 (1.5-4.5); LYMPH % 3.2 % (24.0-44.0); MEAN CORPUSCULAR HEMOGLOBIN 29.9 pg (27.0-33.0); MEAN CORPUSCULAR HGB CONC 32.1 g/dl (32.0-36.5); MEAN CORPUSCULAR VOLUME 93.4 fl (80.0-96.0); MONO # 0.4 K/mm3 (0.0-0.8); MONO % 3.6 % (0.0-5.0); NEUTROPHILS # 11.3 K/mm3 (1.8-7.7); NEUTROPHILS % 92.2 % (36.0-66.0); PLATELET COUNT, AUTOMATED 254 k/mm3 (150-450); RED CELL DISTRIBUTION WIDTH 12.5 % (11.5-14.5); WHITE BLOOD COUNT 12.2 K/mm3 (4.0-10.0)
[2017-03-12 07:06] LABS: ALKALINE PHOSPHATASE 33 U/L (45-117); ALT/SGPT 27 U/L (12-78); AST/SGOT 17 U/L (15-37); BILIRUBIN,TOTAL 0.4 MG/DL (0.2-1.0); BLOOD UREA NITROGEN 36 MG/DL (7-18); CALCIUM LEVEL 9.5 MG/DL (8.8-10.2); CHLORIDE LEVEL 94 MEQ/L (98-107); CREATININE FOR GFR 0.81 MG/DL (0.55-1.02); GLUCOSE, FASTING 126 MG/DL (83-110); POTASSIUM SERUM 3.9 MEQ/L (3.5-5.1); SODIUM LEVEL 143 MEQ/L (136-145); TOTAL PROTEIN 5.4 GM/DL (6.4-8.2)
[2017-03-12 07:16] LABS: ANION GAP 7 MEQ/L (8-16); CARBON DIOXIDE LEVEL 42 MEQ/L (21-32)
[2017-03-12 08:00] VITALS: BP 170/87
[2017-03-12 08:03] LABS: ALBUMIN 2.9 GM/DL (3.2-5.2); ALBUMIN/GLOBULIN RATIO 1.16 (1.00-1.93)
[2017-03-12] MEDS: ACETYLCYSTEINE 20% 4 ML VIAL (200MG/ML) INH SCH ×2 (08:13→19:22)
[2017-03-12] MEDS: ALBUTEROL SULFATE 2.5 MG/0.5 ML INH NEB SOLN NEB SCH ×4 (08:14→19:22)
--- NOTE | 2017-03-12 08:23 | IPNPDOC ---
Subjective Date Seen The patient was seen on 03/12/17. Subjective Chief Complaint/HPI The patient is a 76-year-old female admitted with a reason for visit of Copd With Exacerbation. Events since last encounter Pt states she is feeling a little better today. Denies CP, SOB. Constitutional: Denies: Chills, Fever Pulmonary: Reports: Dyspnea Cardiovascular: Denies: Chest Pain Gastrointestinal: Denies: Abdominal Pain Objective Physical Examination General Exam: Positive: Alert, No Acute Distress Eye Exam: Positive: Conjunctiva & lids normal, Negative: Sclera icteric ENT Exam: Positive: Atraumatic, Mucous membr. moist/pink Neck Exam: Negative: Lymphadenopathy Chest Exam: Positive: Wheezing (end expiratory), Diminished Heart Exam: Positive: Rate Normal, Normal S1, Normal S2 Extremity Exam: Negative: Edema Psych Exam: Positive: Oriented x 3 Assessment /Plan Problems (1) COPD with exacerbation Status: Acute Response to Treatment: Improving Discussed With: Nurse, Patient, Family with Pt Consent Problem Specific Plan: Monitor Clinically, Repeat Labs Problem Text: 03/12 - On Solumedrol 40 mg q8h. Received 5 days Azithromycin, Rocephin. No on PO Omnicef. Getting nebs. On 2L O2. Pulmonary following. Getting chest PT. 03/11 - On Solumedrol 40 mg q8h. Received 5 days Azithromycin, Rocephin. Will D /C and start PO Omnicef. Cont Duonebs. On 2 L O2. Pulmonary following 03/10 - On Solumedrol 40 mg q8h today. D 5 Azithromycin, Rocephin. Cont Duonebs. On 2 L O2. Pulmonary following. 03/09 - She is improved after the Mucomyst administration yesterday and clearance of a large amount of thick mucus. On Solumedrol 40 mg q8h today. D 4 Azithromycin, Rocephin. Cont Duonebs. Home O2 rate 3LMP. (2) Hypertension Status: Chronic Response to Treatment: Stable Problem Specific Plan: Monitor Clinically Problem Text: 03/12 - Yesterday, Norvasc was increased from 5 mg to 10 mg daily. BPs improved. Also on Lopressor 25 mg daily (HD), spironolactone 50 mg , lisinopril 10 mg, Lasix 20 mg daily. 03/11 - On Norvasc 5 mg daily, Lopressor 25 mg daily (HD), spironolactone 50 mg, lisinopril 10 mg, Lasix 20 mg daily. BPs still high. Will increase Norvasc to 10 mg daily. 03/10 - On Norvasc 5 mg daily, Lopressor 25 mg daily (HD), spironolactone 50 mg, lisinopril 10 mg. Lasix 20 mg daily restarted. 03/09 - Her pressures are running a little high today. I believe that it is related to her anxiety and I'm not inclined to change her regimen at this time. On Norvasc 5 mg daily, Lopressor 25 mg daily (HD), spironolactone 50 mg, lisinopril 10 mg was restarted. Cont to hold on Lasix 20 mg daily, monitor. (3) Delirium due to multiple etiologies Status: Acute Response to Treatment: Stable, Improving Problem Text: Her mental status fluctuates a little bit. I think some of this has to do with her age (hospital-acquired delirium) and some this has to do with CO2 retention (CO2 narcosis). At this time none of this is causing a significant problem with her medical care. We will need to monitor her carefully. (4) BMI 33.0-33.9,adult Status: Chronic Response to Treatment: Stable Problem Text: Her obese status does complicate her recovery. In particular she has some difficulty moving around because of this and she is more likely to fatigue while moving a large body mass. Also the weight of her chest wall does not assist her already poor respiration. (5) CKD (chronic kidney disease), stage III Status: Chronic Response to Treatment: Stable Problem Text: If anything her kidneys are functioning well this admission. We' ll monitor. Plan/VTE VTE Prophylaxis Ordered?: Yes (Lovenox and SCDs) VS, I&O, 24H, Fishbone Vital Signs/I&O Vital Signs Date Time Temp Pulse Resp B/P (MAP) Pulse Ox O2 Delivery O2 Flow Rate FiO2 03/12/17 04:48 99.1 78 20 145/67 (93) 97 Nasal Cannula 2.0 03/08/17 08:22 40 I&O- Last 24 Hours up to 6 AM 03/12/17 06:00 Intake Total 1280 ml Output Total 1000 ml Balance 280 ml Laboratory Data 24H LABS Laboratory Tests 2 03/12/17 05:37: White Blood Count 12.2H, Red Blood Count 4.32, Hemoglobin 12.9, Hematocrit 40.3 , Mean Corpuscular Volume 93.4, Mean Corpuscular Hemoglobin 29.9, Mean Corpuscular Hemoglobin Concent 32.1, Red Cell Distribution Width 12.5, Platelet Count 254, Neutrophils (%) (Auto) 92.2H, Lymphocytes (%) (Auto) 3.2L, Monocytes (%) (Auto) 3.6, Eosinophils (%) (Auto) 0.4, Basophils (%) (Auto) 0.3, Neutrophils # (Auto) 11.3H, Lymphocytes # (Auto) 0.4L, Monocytes # (Auto) 0.4, Eosinophils # (Auto) 0.0, Basophils # (Auto) 0.0, Large Unclassified Cells % 0.3 , Large Unclassified Cells # 0.0 03/12/17 06:26: CBC/BMP Laboratory Tests 03/12/17 05:37 Red Blood Count 4.32, Mean Corpuscular Volume 93.4, Mean Corpuscular Hemoglobin 29.9, Mean Corpuscular Hemoglobin Concent 32.1, Red Cell Distribution Width 12.5 , Neutrophils (%) (Auto) 92.2 H, Lymphocytes (%) (Auto) 3.2 L, Monocytes (%) ( Auto) 3.6, Eosinophils (%) (Auto) 0.4, Basophils (%) (Auto) 0.3, Neutrophils # ( Auto) 11.3 H, Lymphocytes # (Auto) 0.4 L, Monocytes # (Auto) 0.4, Eosinophils # (Auto) 0.0, Basophils # (Auto) 0.0 Microbiology Microbiology 03/06/17 Blood Culture - Final, Complete NO GROWTH AFTER 5 DAYS 03/10/17 Gram Stain - Final, Resulted 03/10/17 Sputum Culture, Resulted Pending 03/06/17 Respiratory Virus Panel (PCR) ([facility]) - Final, Complete 03/06/17 Gram Stain - Final, Complete 03/06/17 Sputum Culture - Final, Complete Yeast Like Organism Edu Rendon RPA-C Mar 12, 2017 08:22
[2017-03-12] MEDS: ENOXAPARIN 40 MG/0.4 ML SYRINGE (J1650) SC SCH (09:36)
[2017-03-12] MEDS: THEOPHYLLINE (THEO-24) 100MG SR **CAPSULE PO SCH (09:36)
[2017-03-12] MEDS: CEFDINIR 300 MG CAP (OMNICEF) PO SCH ×2 (09:36→20:21)
[2017-03-12] MEDS: LACTOBACILLUS ACIDOPHILUS CAP (BACID) PO SCH (09:37)
[2017-03-12] MEDS: guaiFENesin ER 600 MG TAB PO SCH ×2 (09:37→20:22)
[2017-03-12] MEDS: LISINOPRIL 10 MG TAB PO SCH (09:37)
[2017-03-12] MEDS: amLODIPine 10 MG TAB PO SCH (09:37)
[2017-03-12] MEDS: VITAMIN D 1,000 INTERNATIONAL UNITS TABLET PO SCH (09:37)
[2017-03-12] MEDS: PANTOPRAZOLE 40MG TAB (PROTONIX) PO SCH (09:37)
[2017-03-12] MEDS: predniSONE 20 MG TAB PO SCH (09:37)
[2017-03-12] MEDS: METOPROLOL TART 25 MG TABLET PO SCH (09:38)
[2017-03-12] MEDS: FUROSEMIDE 20 MG TAB PO SCH (09:38)
[2017-03-12] MEDS ORDERED: SLF 3 ML SYR IV PRN (10:15)
[2017-03-12 12:30] VITALS: BP 152/68
[2017-03-12] MEDS: SLF 3 ML SYR IV SCH ×2 (13:22→20:22)
[2017-03-12] MEDS: NYSTATIN 500,000 U/5 ML SUSP UDC SS SCH (20:21)
[2017-03-12] MEDS: SIMVASTATIN 20 MG TAB PO SCH (20:22)
[2017-03-12 20:58] VITALS: BP 123/65
[2017-03-13] MEDS: NYSTATIN 500,000 U/5 ML SUSP UDC SS SCH ×5 (00:22→23:44)
[2017-03-13] MEDS: IPRATROPIUM 0.5MG/ALBUTEROL 2.5MG INH SOL UD 3ML (DUONEB)(J7620) NEB PRN (02:12)
[2017-03-13] MEDS: SODIUM CHLORIDE HYPERTONIC 3% 15ML NEB SOL INH SCH ×5 (02:13→19:36)
[2017-03-13 03:44] VITALS: BP 119/54
[2017-03-13] MEDS: SLF 3 ML SYR IV SCH ×3 (05:44→22:32)
[2017-03-13] MEDS: LEVOTHYROXINE 0.025 MG TAB (25 MCG) PO SCH (05:44)
[2017-03-13 05:48] LABS: BASO % 0.4 % (0.0-1.0); EOS # 0.1 K/mm3 (0.0-0.50); EOS % 0.5 % (0.0-3.0); LARGE UNSTAINED CELL # 0.1 K/mm3 (0.0-0.4); LYMPH # 1.1 K/mm3 (1.5-4.5); LYMPH % 8.4 % (24.0-44.0); MEAN CORPUSCULAR HGB CONC 32.6 g/dl (32.0-36.5); MONO % 7.9 % (0.0-5.0); NEUTROPHILS # 9.8 K/mm3 (1.8-7.7); NEUTROPHILS % 81.8 % (36.0-66.0); PLATELET COUNT, AUTOMATED 237 k/mm3 (150-450); RED CELL DISTRIBUTION WIDTH 12.5 % (11.5-14.5)
[2017-03-13 06:00] LABS: ALBUMIN 2.7 GM/DL (3.2-5.2); ALBUMIN/GLOBULIN RATIO 1.17 (1.00-1.93); BILIRUBIN,TOTAL 0.3 MG/DL (0.2-1.0); CALCIUM LEVEL 9.5 MG/DL (8.8-10.2); CREATININE FOR GFR 1.01 MG/DL (0.55-1.02); POTASSIUM SERUM 3.2 MEQ/L (3.5-5.1)
[2017-03-13] MEDS: ACETYLCYSTEINE 20% 4 ML VIAL (200MG/ML) INH SCH ×2 (07:36→19:37)
[2017-03-13] MEDS: ALBUTEROL SULFATE 2.5 MG/0.5 ML INH NEB SOLN NEB SCH ×4 (07:36→19:36)
--- NOTE | 2017-03-13 07:55 | IPNPDOC ---
Subjective Date Seen The patient was seen on 03/13/17. Subjective Chief Complaint/HPI The patient is a 76-year-old female admitted with a reason for visit of Copd With Exacerbation. Events since last encounter Pt states she doesn't feel good today. Still with SOB. Denies CP, Abd pain. Currently Afebrile but temp was 100.6 last night. Constitutional: Denies: Chills, Fever Pulmonary: Reports: Dyspnea Cardiovascular: Denies: Chest Pain Gastrointestinal: Denies: Abdominal Pain Objective Physical Examination General Exam: Positive: Alert, No Acute Distress Eye Exam: Positive: Conjunctiva & lids normal, Negative: Sclera icteric ENT Exam: Positive: Atraumatic, Mucous membr. moist/pink Neck Exam: Negative: Lymphadenopathy Chest Exam: Positive: Wheezing (end expiratory), Diminished Heart Exam: Positive: Rate Normal, Normal S1, Normal S2 Extremity Exam: Negative: Edema Psych Exam: Positive: Oriented x 3 Assessment /Plan Problems (1) COPD with exacerbation Status: Acute Response to Treatment: Improving Discussed With: Nurse, Patient, Family with Pt Consent Problem Specific Plan: Monitor Clinically, Repeat Labs Problem Text: 03/13 - Currently afebrile but had temp of 100.6 last night aroung 8pm. Received 5 days Azithromycin, Rocephin. Now on PO Omnicef. Now on PO Prednisone and off IV Solumedrol. Getting nebs. On 2L O2. Pulmonary following. Getting chest PT. Not yet safe per PT. 03/12 - On Solumedrol 40 mg q8h. Received 5 days Azithromycin, Rocephin. Now on PO Omnicef. Getting nebs. On 2L O2. Pulmonary following. Getting chest PT. 03/11 - On Solumedrol 40 mg q8h. Received 5 days Azithromycin, Rocephin. Will D /C and start PO Omnicef. Cont Duonebs. On 2 L O2. Pulmonary following 03/10 - On Solumedrol 40 mg q8h today. D 5 Azithromycin, Rocephin. Cont Duonebs. On 2 L O2. Pulmonary following. 03/09 - She is improved after the Mucomyst administration yesterday and clearance of a large amount of thick mucus. On Solumedrol 40 mg q8h today. D 4 Azithromycin, Rocephin. Cont Duonebs. Home O2 rate 3LMP. (2) Hypertension Status: Chronic Response to Treatment: Stable Problem Specific Plan: Monitor Clinically Problem Text: 03/13 - Norvasc was recently increased from 5 mg to 10 mg daily. BPs improved. Also on Lopressor 25 mg daily (HD), spironolactone 50 mg, lisinopril 10 mg, Lasix 20 mg daily. 03/12 - Yesterday, Norvasc was increased from 5 mg to 10 mg daily. BPs improved. Also on Lopressor 25 mg daily (HD), spironolactone 50 mg, lisinopril 10 mg, Lasix 20 mg daily. 03/11 - On Norvasc 5 mg daily, Lopressor 25 mg daily (HD), spironolactone 50 mg, lisinopril 10 mg, Lasix 20 mg daily. BPs still high. Will increase Norvasc to 10 mg daily. 03/10 - On Norvasc 5 mg daily, Lopressor 25 mg daily (HD), spironolactone 50 mg, lisinopril 10 mg. Lasix 20 mg daily restarted. 03/09 - Her pressures are running a little high today. I believe that it is related to her anxiety and I'm not inclined to change her regimen at this time. On Norvasc 5 mg daily, Lopressor 25 mg daily (HD), spironolactone 50 mg, lisinopril 10 mg was restarted. Cont to hold on Lasix 20 mg daily, monitor. (3) Delirium due to multiple etiologies Status: Acute Response to Treatment: Stable, Improving Problem Text: Her mental status fluctuates a little bit. I think some of this has to do with her age (hospital-acquired delirium) and some this has to do with CO2 retention (CO2 narcosis). At this time none of this is causing a significant problem with her medical care. We will need to monitor her carefully. (4) BMI 33.0-33.9,adult Status: Chronic Response to Treatment: Stable Problem Text: Her obese status does complicate her recovery. In particular she has some difficulty moving around because of this and she is more likely to fatigue while moving a large body mass. Also the weight of her chest wall does not assist her already poor respiration. (5) CKD (chronic kidney disease), stage III Status: Chronic Response to Treatment: Stable Problem Text: If anything her kidneys are functioning well this admission. We' ll monitor. (6) Hypokalemia Status: Acute Problem Specific Plan: Monitor Clinically, Repeat Labs Problem Text: 03/13 - K 3.2. Will give replacement today. Monitor. Plan/VTE VTE Prophylaxis Ordered?: Yes (Lovenox and SCDs) VS, I&O, 24H, Fishbone Vital Signs/I&O Vital Signs Date Time Temp Pulse Resp B/P (MAP) Pulse Ox O2 Delivery O2 Flow Rate FiO2 03/13/17 07:42 Nasal Cannula 2.0 03/13/17 03:44 98.7 69 18 119/54 (75) 98 03/08/17 08:22 40 I&O- Last 24 Hours up to 6 AM 03/13/17 05:59 Intake Total 1140 ml Output Total 1050 ml Balance 90 ml Laboratory Data 24H LABS Laboratory Tests 2 03/13/17 05:14: White Blood Count 12.0H, Red Blood Count 3.93L, Hemoglobin 11.8L, Hematocrit 36.2, Mean Corpuscular Volume 92.0, Mean Corpuscular Hemoglobin 30.0, Mean Corpuscular Hemoglobin Concent 32.6, Red Cell Distribution Width 12.5, Platelet Count 237, Neutrophils (%) (Auto) 81.8H, Lymphocytes (%) (Auto) 8.4L, Monocytes (%) (Auto) 7.9H, Eosinophils (%) (Auto) 0.5, Basophils (%) (Auto) 0.4, Neutrophils # (Auto) 9.8H, Lymphocytes # (Auto) 1.1L, Monocytes # (Auto) 1.0H, Eosinophils # (Auto) 0.1, Basophils # (Auto) 0.0, Large Unclassified Cells % 1.0 , Large Unclassified Cells # 0.1, Anion Gap 3L, Glomerular Filtration Rate 57.0 , Blood Urea Nitrogen 34H, Creatinine 1.01, Sodium Level 143, Potassium Level 3.2L, Chloride Level 96L, Carbon Dioxide Level 44H, Calcium Level 9.5, Aspartate Amino Transf (AST/SGOT) 16, Alanine Aminotransferase (ALT/SGPT) 26, Alkaline Phosphatase 29L, Total Bilirubin 0.3, Total Protein 5.0L, Albumin 2.7L , Albumin/Globulin Ratio 1.17 CBC/BMP Laboratory Tests 03/13/17 05:14 Red Blood Count 3.93 L, Mean Corpuscular Volume 92.0, Mean Corpuscular Hemoglobin 30.0, Mean Corpuscular Hemoglobin Concent 32.6, Red Cell Distribution Width 12.5, Neutrophils (%) (Auto) 81.8 H, Lymphocytes (%) (Auto) 8.4 L, Monocytes (%) (Auto) 7.9 H, Eosinophils (%) (Auto) 0.5, Basophils (%) ( Auto) 0.4, Neutrophils # (Auto) 9.8 H, Lymphocytes # (Auto) 1.1 L, Monocytes # ( Auto) 1.0 H, Eosinophils # (Auto) 0.1, Basophils # (Auto) 0.0, Calcium Level 9.5 , Aspartate Amino Transf (AST/SGOT) 16, Alanine Aminotransferase (ALT/SGPT) 26, Alkaline Phosphatase 29 L, Total Bilirubin 0.3, Total Protein 5.0 L, Albumin 2.7 L Microbiology Microbiology 03/06/17 Blood Culture - Final, Complete NO GROWTH AFTER 5 DAYS 03/10/17 Gram Stain - Final, Complete 03/10/17 Sputum Culture - Final, Complete Organism Part Of Normal Zoraida Yeast Like Organism 03/06/17 Respiratory Virus Panel (PCR) ([facility]) - Final, Complete 03/06/17 Gram Stain - Final, Complete 03/06/17 Sputum Culture - Final, Complete Yeast Like Organism 03/13/17 Viral Culture, Received Pending Edu Rendon Mar 13, 2017 07:54
[2017-03-13] MEDS ORDERED: POTASSIUM CHLORIDE 10 MEQ SR TABLET PO ONE (08:00)
[2017-03-13 08:07] VITALS: BP 172/78
[2017-03-13] MEDS: THEOPHYLLINE (THEO-24) 100MG SR **CAPSULE PO SCH (09:05)
[2017-03-13] MEDS: guaiFENesin ER 600 MG TAB PO SCH ×2 (09:05→20:00)
[2017-03-13] MEDS: FUROSEMIDE 20 MG TAB PO SCH (09:05)
[2017-03-13] MEDS: predniSONE 20 MG TAB PO SCH (09:05)
[2017-03-13] MEDS: LACTOBACILLUS ACIDOPHILUS CAP (BACID) PO SCH (09:05)
[2017-03-13] MEDS: PANTOPRAZOLE 40MG TAB (PROTONIX) PO SCH (09:06)
[2017-03-13] MEDS: CEFDINIR 300 MG CAP (OMNICEF) PO SCH ×2 (09:06→20:00)
[2017-03-13] MEDS: VITAMIN D 1,000 INTERNATIONAL UNITS TABLET PO SCH (09:07)
[2017-03-13] MEDS: METOPROLOL TART 25 MG TABLET PO SCH (09:07)
[2017-03-13] MEDS: amLODIPine 10 MG TAB PO SCH (09:07)
[2017-03-13] MEDS: LISINOPRIL 10 MG TAB PO SCH (09:08)
[2017-03-13] MEDS: ENOXAPARIN 40 MG/0.4 ML SYRINGE (J1650) SC SCH (09:08)
[2017-03-13 15:40] VITALS: BP 130/65
[2017-03-13 16:20] VITALS: BP 146/65
[2017-03-13] MEDS: SIMVASTATIN 20 MG TAB PO SCH (20:00)
[2017-03-13 22:00] VITALS: BP 129/60
[2017-03-13] MEDS: ACETAMINOPHEN TAB 650MG DOSE (2X325MG) PO PRN (23:44)
[2017-03-14] MEDS: SODIUM CHLORIDE HYPERTONIC 3% 15ML NEB SOL INH SCH ×6 (04:00→19:07)
[2017-03-14] MEDS: NYSTATIN 500,000 U/5 ML SUSP UDC SS SCH ×4 (05:03→23:04)
[2017-03-14] MEDS: ACETAMINOPHEN TAB 650MG DOSE (2X325MG) PO PRN ×2 (05:03→22:59)
[2017-03-14] MEDS: LEVOTHYROXINE 0.025 MG TAB (25 MCG) PO SCH (05:54)
[2017-03-14] MEDS: SLF 3 ML SYR IV SCH ×3 (05:54→20:02)
[2017-03-14 06:00] VITALS: BP 115/57
[2017-03-14 06:00] LABS: BASO % 0.2 % (0.0-1.0); EOS % 0.5 % (0.0-3.0); LARGE UNSTAINED CELL # 0.1 K/mm3 (0.0-0.4); LARGE UNSTAINED CELL % 1.3 % (0.0-4.0); LYMPH # 1.4 K/mm3 (1.5-4.5); LYMPH % 14.4 % (24.0-44.0); MEAN CORPUSCULAR HEMOGLOBIN 31.2 pg (27.0-33.0); MEAN CORPUSCULAR HGB CONC 33.3 g/dl (32.0-36.5); MEAN CORPUSCULAR VOLUME 93.6 fl (80.0-96.0); MONO # 0.8 K/mm3 (0.0-0.8); MONO % 8.3 % (0.0-5.0); NEUTROPHILS # 7.3 K/mm3 (1.8-7.7); NEUTROPHILS % 75.2 % (36.0-66.0); PLATELET COUNT, AUTOMATED 222 k/mm3 (150-450); RED CELL DISTRIBUTION WIDTH 12.5 % (11.5-14.5); WHITE BLOOD COUNT 9.7 K/mm3 (4.0-10.0)
[2017-03-14 06:15] LABS: ALBUMIN 2.6 GM/DL (3.2-5.2); ALBUMIN/GLOBULIN RATIO 1.18 (1.00-1.93); ALKALINE PHOSPHATASE 31 U/L (45-117); ALT/SGPT 31 U/L (12-78); ANION GAP 3 MEQ/L (8-16); AST/SGOT 16 U/L (15-37); BILIRUBIN,TOTAL 0.4 MG/DL (0.2-1.0); BLOOD UREA NITROGEN 26 MG/DL (7-18); CALCIUM LEVEL 8.5 MG/DL (8.8-10.2); CARBON DIOXIDE LEVEL 42 MEQ/L (21-32); CHLORIDE LEVEL 98 MEQ/L (98-107); CREATININE FOR GFR 0.93 MG/DL (0.55-1.02); GLOMERULAR FILTRATION RATE > 60.0 (>39); GLUCOSE, FASTING 95 MG/DL (83-110); POTASSIUM SERUM 3.1 MEQ/L (3.5-5.1); SODIUM LEVEL 143 MEQ/L (136-145); THEOPHYLLINE LEVEL 10.9 UG/ML (10.0-20.0); TOTAL PROTEIN 4.8 GM/DL (6.4-8.2)
[2017-03-14] MEDS: ACETYLCYSTEINE 20% 4 ML VIAL (200MG/ML) INH SCH ×2 (08:04→19:06)
[2017-03-14] MEDS: ALBUTEROL SULFATE 2.5 MG/0.5 ML INH NEB SOLN NEB SCH ×4 (08:04→19:07)
[2017-03-14] MEDS ORDERED: POTASSIUM CHLORIDE 10 MEQ SR TABLET PO ONE (08:15)
--- NOTE | 2017-03-14 08:25 | IPNPDOC ---
Subjective Date Seen The patient was seen on 03/14/17. Subjective Chief Complaint/HPI The patient is a 76-year-old female admitted with a reason for visit of Copd With Exacerbation. Events since last encounter States breathing is not at baseline. temp overnight: 99.6 otherwise afebrile. Constitutional: Denies: Chills, Fever, Night Sweats Skin: Denies: Rash, Lesions, Breakdown Pulmonary: Denies: Dyspnea, Cough Gastrointestinal: Denies: Nausea, Vomiting, Abdominal Pain, Diarrhea, Constipation Genitourinary: Denies: Dysuria, Frequency, Incontinence, Retention Psych: Reports: Mood Normal, Denies: Depression, Memory Issues Objective Physical Examination General Exam: Positive: Alert, No Acute Distress Eye Exam: Positive: Conjunctiva & lids normal, Negative: Sclera icteric ENT Exam: Positive: Atraumatic, Mucous membr. moist/pink Neck Exam: Negative: Lymphadenopathy Chest Exam: Positive: Wheezing (end expiratory), Diminished Heart Exam: Positive: Rate Normal, Normal S1, Normal S2 Extremity Exam: Negative: Edema Psych Exam: Positive: Oriented x 3 Assessment /Plan Problems (1) COPD with exacerbation Status: Acute Response to Treatment: Improving Discussed With: Nurse, Patient, Family with Pt Consent Problem Specific Plan: Monitor Clinically, Repeat Labs Problem Text: 03/14/2017: feels not at baseline. Anticipate DC home tomorrow. Has oxygen and walker at home. 03/13 - Currently afebrile but had temp of 100.6 last night around 8pm. Received 5 days Azithromycin, Rocephin. Now on PO Omnicef. Now on PO Prednisone and off IV Solumedrol. Getting nebs. On 2L O2. Pulmonary following. Getting chest PT. Not yet safe per PT. 03/12 - On Solumedrol 40 mg q8h. Received 5 days Azithromycin, Rocephin. Now on PO Omnicef. Getting nebs. On 2L O2. Pulmonary following. Getting chest PT. 03/11 - On Solumedrol 40 mg q8h. Received 5 days Azithromycin, Rocephin. Will D /C and start PO Omnicef. Cont Duonebs. On 2 L O2. Pulmonary following 03/10 - On Solumedrol 40 mg q8h today. D 5 Azithromycin, Rocephin. Cont Duonebs. On 2 L O2. Pulmonary following. 03/09 - She is improved after the Mucomyst administration yesterday and clearance of a large amount of thick mucus. On Solumedrol 40 mg q8h today. D 4 Azithromycin, Rocephin. Cont Duonebs. Home O2 rate 3LMP. (2) Hypertension Status: Chronic Response to Treatment: Stable Problem Specific Plan: Monitor Clinically Problem Text: 03/13 - Norvasc was recently increased from 5 mg to 10 mg daily. BPs improved. Also on Lopressor 25 mg daily (HD), spironolactone 50 mg, lisinopril 10 mg, Lasix 20 mg daily. 03/12 - Yesterday, Norvasc was increased from 5 mg to 10 mg daily. BPs improved. Also on Lopressor 25 mg daily (HD), spironolactone 50 mg, lisinopril 10 mg, Lasix 20 mg daily. 03/11 - On Norvasc 5 mg daily, Lopressor 25 mg daily (HD), spironolactone 50 mg, lisinopril 10 mg, Lasix 20 mg daily. BPs still high. Will increase Norvasc to 10 mg daily. 03/10 - On Norvasc 5 mg daily, Lopressor 25 mg daily (HD), spironolactone 50 mg, lisinopril 10 mg. Lasix 20 mg daily restarted. 03/09 - Her pressures are running a little high today. I believe that it is related to her anxiety and I'm not inclined to change her regimen at this time. On Norvasc 5 mg daily, Lopressor 25 mg daily (HD), spironolactone 50 mg, lisinopril 10 mg was restarted. Cont to hold on Lasix 20 mg daily, monitor. (3) Delirium due to multiple etiologies Status: Acute Response to Treatment: Stable, Improving Problem Text: Her mental status fluctuates a little bit. I think some of this has to do with her age (hospital-acquired delirium) and some this has to do with CO2 retention (CO2 narcosis). At this time none of this is causing a significant problem with her medical care. We will need to monitor her carefully. (4) BMI 33.0-33.9,adult Status: Chronic Response to Treatment: Stable Problem Text: Her obese status does complicate her recovery. In particular she has some difficulty moving around because of this and she is more likely to fatigue while moving a large body mass. Also the weight of her chest wall does not assist her already poor respiration. (5) CKD (chronic kidney disease), stage III Status: Chronic Response to Treatment: Stable Problem Text: If anything her kidneys are functioning well this admission. We' ll monitor. (6) Hypokalemia Status: Acute Problem Specific Plan: Monitor Clinically, Repeat Labs Problem Text: 03/13 - K 3.2. Will give replacement today. Monitor. Plan/VTE VTE Prophylaxis Ordered?: Yes (Lovenox and SCDs) VS, I&O, 24H, Fishbone Vital Signs/I&O Vital Signs Date Time Temp Pulse Resp B/P (MAP) Pulse Ox O2 Delivery O2 Flow Rate FiO2 03/14/17 06:00 96.9 70 20 115/57 (76) 99 Nasal Cannula 2.0 03/08/17 08:22 40 I&O- Last 24 Hours up to 6 AM 03/14/17 06:00 Intake Total 540 ml Output Total 850 ml Balance -310 ml Laboratory Data 24H LABS Laboratory Tests 2 03/14/17 05:37: White Blood Count 9.7, Red Blood Count 3.88L, Hemoglobin 12.1, Hematocrit 36.3, Mean Corpuscular Volume 93.6, Mean Corpuscular Hemoglobin 31.2, Mean Corpuscular Hemoglobin Concent 33.3, Red Cell Distribution Width 12.5, Platelet Count 222, Neutrophils (%) (Auto) 75.2H, Lymphocytes (%) (Auto) 14.4L, Monocytes (%) (Auto) 8.3H, Eosinophils (%) (Auto) 0.5, Basophils (%) (Auto) 0.2 , Neutrophils # (Auto) 7.3, Lymphocytes # (Auto) 1.4L, Monocytes # (Auto) 0.8, Eosinophils # (Auto) 0.0, Basophils # (Auto) 0.0, Large Unclassified Cells % 1.3 , Large Unclassified Cells # 0.1, Anion Gap 3L, Glomerular Filtration Rate > 60.0, Blood Urea Nitrogen 26H, Creatinine 0.93, Sodium Level 143, Potassium Level 3.1L, Chloride Level 98, Carbon Dioxide Level 42H, Calcium Level 8.5L, Aspartate Amino Transf (AST/SGOT) 16, Alanine Aminotransferase (ALT/SGPT) 31, Alkaline Phosphatase 31L, Total Bilirubin 0.4, Total Protein 4.8L, Albumin 2.6L , Albumin/Globulin Ratio 1.18, Theophylline Level 10.9 CBC/BMP Laboratory Tests 03/14/17 05:37 Red Blood Count 3.88 L, Mean Corpuscular Volume 93.6, Mean Corpuscular Hemoglobin 31.2, Mean Corpuscular Hemoglobin Concent 33.3, Red Cell Distribution Width 12.5, Neutrophils (%) (Auto) 75.2 H, Lymphocytes (%) (Auto) 14.4 L, Monocytes (%) (Auto) 8.3 H, Eosinophils (%) (Auto) 0.5, Basophils (%) ( Auto) 0.2, Neutrophils # (Auto) 7.3, Lymphocytes # (Auto) 1.4 L, Monocytes # ( Auto) 0.8, Eosinophils # (Auto) 0.0, Basophils # (Auto) 0.0, Calcium Level 8.5 L , Aspartate Amino Transf (AST/SGOT) 16, Alanine Aminotransferase (ALT/SGPT) 31, Alkaline Phosphatase 31 L, Total Bilirubin 0.4, Total Protein 4.8 L, Albumin 2.6 L Microbiology Microbiology 03/06/17 Blood Culture - Final, Complete NO GROWTH AFTER 5 DAYS 03/10/17 Gram Stain - Final, Complete 03/10/17 Sputum Culture - Final, Complete Organism Part Of Normal Zoraida Yeast Like Organism 03/06/17 Respiratory Virus Panel (PCR) ([facility]) - Final, Complete 03/06/17 Gram Stain - Final, Complete 03/06/17 Sputum Culture - Final, Complete Yeast Like Organism 03/13/17 Viral Culture, Received Pending Brianna Springer [facility] Mar 14, 2017 08:25
[2017-03-14] MEDS: THEOPHYLLINE (THEO-24) 100MG SR **CAPSULE PO SCH (08:55)
[2017-03-14] MEDS: CEFDINIR 300 MG CAP (OMNICEF) PO SCH ×2 (08:56→20:01)
[2017-03-14] MEDS: LACTOBACILLUS ACIDOPHILUS CAP (BACID) PO SCH (08:56)
[2017-03-14] MEDS: VITAMIN D 1,000 INTERNATIONAL UNITS TABLET PO SCH (08:56)
[2017-03-14] MEDS: PANTOPRAZOLE 40MG TAB (PROTONIX) PO SCH (08:56)
[2017-03-14] MEDS: LISINOPRIL 10 MG TAB PO SCH (08:56)
[2017-03-14] MEDS: predniSONE 20 MG TAB PO SCH (08:57)
[2017-03-14] MEDS: FUROSEMIDE 20 MG TAB PO SCH (08:57)
[2017-03-14 08:58] VITALS: BP 136/62
[2017-03-14] MEDS: amLODIPine 10 MG TAB PO SCH (08:58)
[2017-03-14] MEDS: guaiFENesin ER 600 MG TAB PO SCH ×2 (08:58→20:01)
[2017-03-14] MEDS: METOPROLOL TART 25 MG TABLET PO SCH (08:58)
[2017-03-14] MEDS: ENOXAPARIN 40 MG/0.4 ML SYRINGE (J1650) SC SCH (08:59)
[2017-03-14 12:38] LABS: CALCIUM LEVEL 9.1 MG/DL (8.8-10.2); CREATININE FOR GFR 1.14 MG/DL (0.55-1.02); GLOMERULAR FILTRATION RATE 49.6 (>39)
[2017-03-14 14:00] VITALS: BP 134/74
[2017-03-14] MEDS: SIMVASTATIN 20 MG TAB PO SCH (20:02)
[2017-03-14 20:55] VITALS: BP 121/59
[2017-03-15] MEDS: NYSTATIN 500,000 U/5 ML SUSP UDC SS SCH ×2 (05:35→12:09)
[2017-03-15] MEDS: LEVOTHYROXINE 0.025 MG TAB (25 MCG) PO SCH (05:35)
[2017-03-15 06:25] VITALS: BP 145/65
[2017-03-15] MEDS: SODIUM CHLORIDE HYPERTONIC 3% 15ML NEB SOL INH SCH ×4 (07:31→12:00)
[2017-03-15] MEDS: SLF 3 ML SYR IV SCH (07:31)
[2017-03-15] MEDS: predniSONE 20 MG TAB PO SCH (08:01)
[2017-03-15] MEDS: amLODIPine 10 MG TAB PO SCH (08:01)
[2017-03-15] MEDS: LISINOPRIL 10 MG TAB PO SCH (08:01)
[2017-03-15] MEDS: FUROSEMIDE 20 MG TAB PO SCH (08:01)
[2017-03-15] MEDS: CEFDINIR 300 MG CAP (OMNICEF) PO SCH (08:01)
[2017-03-15] MEDS: VITAMIN D 1,000 INTERNATIONAL UNITS TABLET PO SCH (08:01)
[2017-03-15] MEDS: PANTOPRAZOLE 40MG TAB (PROTONIX) PO SCH (08:02)
[2017-03-15] MEDS: THEOPHYLLINE (THEO-24) 100MG SR **CAPSULE PO SCH (08:02)
[2017-03-15] MEDS: guaiFENesin ER 600 MG TAB PO SCH (08:02)
[2017-03-15] MEDS: METOPROLOL TART 25 MG TABLET PO SCH (08:02)
[2017-03-15] MEDS: LACTOBACILLUS ACIDOPHILUS CAP (BACID) PO SCH (08:02)
[2017-03-15] MEDS: ENOXAPARIN 40 MG/0.4 ML SYRINGE (J1650) SC SCH (08:03)
[2017-03-15] MEDS: IPRATROPIUM 0.5MG/ALBUTEROL 2.5MG INH SOL UD 3ML (DUONEB)(J7620) NEB PRN (08:34)
[2017-03-15] MEDS: ACETYLCYSTEINE 20% 4 ML VIAL (200MG/ML) INH SCH (08:35)
[2017-03-15] MEDS: ALBUTEROL SULFATE 2.5 MG/0.5 ML INH NEB SOLN NEB SCH ×2 (08:36→12:00)
[2017-03-15] MEDS ORDERED: PRED10TA PO (11:51)
[2017-03-15] MEDS ORDERED: PRED5TA PO (11:51)
[2017-03-15] MEDS ORDERED: BREO1INH INH (11:51)
[2017-03-15] MEDS ORDERED: PRED20TA PO (11:51)
--- NOTE | 2017-03-15 11:53 | DS.PDOC ---
Discharge Summary General Date of Admission Mar 06, 2017 at 15:06 Date of Discharge 03/15/17 Primary Care Physician: Abdulaziz Headley M.D. Attending Physician: PATRICIA CLEMENTE MD Discharge Summary PROCEDURES PERFORMED DURING STAY: None. ADMITTING DIAGNOSES: 1. COPD exacerbation 2. COPD 3. Hypertension 4. Hyperlipidemia 5. CK D stage III 6. Right lower extreme edema 7. Hypothyroidism DISCHARGE DIAGNOSES: 1. Acute on chronic hypoxic respiratory failure 2. COPD exacerbation 3. Hypertension 4. Hyperlipidemia 5. CK D stage III 6. Dependent edema 7. Hypothyroidism COMPLICATIONS/CHIEF COMPLAINT: Copd With Exacerbation. HISTORY OF PRESENT ILLNESS/ Hospital course: This is a 76-year-old patient of Dr. Headley, who presented to the hospital 2016, and was admitted for acute on chronic hypoxic respiratory failure secondary to COPD exacerbation. She was treated with oxygen, steroids, azithromycin, and ceftriaxone. On the day of discharge, her breathing was at baseline, she reported minimal wheezing, denied shortness of breath, and was on her home dose of oxygen. She denies any complaints or concerns, fevers, chills, or sweats. She plans to follow-up with Dr. Headley, and Dr. Poe after discharge. A prescription for Breo was transmitted to her pharmacy for her to try in place of Symbicort. Patient notes that she frequently forgets to take her Symbicort twice daily. She will follow-up Dr. Poe to discuss other possibilities to reduce her incidence of COPD exacerbation. DISCHARGE MEDICATIONS: Please see below. ALLERGIES: Please see below. PHYSICAL EXAMINATION ON DISCHARGE: VITAL SIGNS: Please see below. GENERAL: Alert, sitting at bedside, no acute distress, chronically ill-appearing HEENT: Nasal cannula in place, bilateral conjunctival injection NECK: Increased diameter CARDIOVASCULAR EXAMINATION: Regular rate and rhythm, S1, S2, no murmurs, no rubs , no gallops, faint heart tones RESPIRATORY EXAMINATION: Occasional expiratory wheeze, poor air movement throughout, prolonged expiratory phase, increased AP diameter ABDOMINAL EXAMINATION: Soft, nontender, nondistended, + bowel sounds EXTREMITIES: Trace right lower extremity edema SKIN: Warm, dry, photo aged NEUROLOGICAL EXAMINATION: A and O 3, no focal deficits PSYCHIATRIC EXAMINATION: Normal mood and affect LABORATORY DATA: Please see below. IMAGING: Chest x-ray: Clear lung rinaldi, normal cardiac size, dedra and mediastinum unremarkable PROGNOSIS: Fair; chronic progressive ACTIVITY: As tolerated. DIET: Regular DISCHARGE PLAN: Discharge to home DISPOSITION: Self-care DISCHARGE INSTRUCTIONS: 1. Try Breo once daily inhaler in place of Symbicort 2. Continue Spiriva 3. Continue rescue inhaler with spacer as needed for shortness of breath 4. Continue home oxygen at 2 L 5. Complete prednisone taper as instructed 6. Follow-up with Dr. Headley on Friday or Friday; follow-up Dr. Poe in 1-2 weeks ITEMS TO FOLLOWUP ON ON OUTPATIENT: 1. Review therapy for COPD; patient reports forgetting to take her Symbicort; Breo may or may not be approved but would be once daily so she may have better compliance with this. DISCHARGE CONDITION: Stable. TIME SPENT ON DISCHARGE: Greater than 30 minutes. Patricia Clemente MD Vital Signs/I&Os Vital Signs Date Time Temp Pulse Resp B/P (MAP) Pulse Ox O2 Delivery O2 Flow Rate FiO2 03/15/17 09:00 Nasal Cannula 2.0 03/15/17 06:25 98.5 79 17 145/65 (91) 98 I&O- Last 24 Hours up to 6 AM 03/15/17 06:00 Intake Total 1440 ml Output Total 775 ml Balance 665 ml Laboratory Data Labs 24H Laboratory Tests 2 03/14/17 11:54: Anion Gap 6L, Glomerular Filtration Rate 49.6, Blood Urea Nitrogen 26H, Creatinine 1.14H, Sodium Level 142, Potassium Level 4.0#, Chloride Level 96L, Carbon Dioxide Level 40H, Calcium Level 9.1 CBC/BMP Laboratory Tests 03/14/17 11:54 Calcium Level 9.1 Microbiology Microbiology 03/06/17 Blood Culture - Final, Complete NO GROWTH AFTER 5 DAYS 03/10/17 Gram Stain - Final, Complete 03/10/17 Sputum Culture - Final, Complete Organism Part Of Normal Zoraida Yeast Like Organism 03/06/17 Respiratory Virus Panel (PCR) ([facility]AN) - Final, Complete 03/06/17 Gram Stain - Final, Complete 03/06/17 Sputum Culture - Final, Complete Yeast Like Organism 03/13/17 Viral Culture, Received Pending Discharge Medications Scheduled Amlodipine Besylate (Amlodipine Besylate) 5 Mg Tab, 5 MG PO DAILY, (Reported) Cholecalciferol (Vitamin D) 5,000 Unit Tab, 5,000 UNIT PO DAILY, (Reported) Doxycycline Hyclate (Doxycycline Hyclate) 100 Mg Tab, 100 MG PO BID, (Reported) TO END 03/13/17 Fluticasone/Vilanterol (Breo Ellipta 100-25 Mcg/INH) 1 Inh Inh, 1 PUFF INH DAILY Furosemide (Furosemide) 20 Mg Tab, 20 MG PO DAILY, (Reported) Guaifenesin (Mucinex) 600 Mg Tab, 600 MG PO BID, (Reported) Lactobacillus Acidophilus (Bacid) 1 Tab Tab, 1 TAB PO DAILY, (Reported) Levothyroxine Sodium (Synthroid) 25 Mcg Tab, 25 MCG PO QAM, (Reported) Lisinopril (Lisinopril) 10 Mg Tab, 10 MG PO BID, (Reported) Metoprolol Tartrate (Metoprolol Tartrate) 25 Mg Tab, 25 MG PO DAILY, (Reported) Pantoprazole Sodium (Pantoprazole Sodium) 40 Mg Tab, 40 MG PO DAILY, (Reported) Prednisone (Prednisone) 5 Mg Tab, 5 MG PO DAILY Start after completing 10 mg tabs. Take 5 mg daily for 10 days, then stop Prednisone (Prednisone) 10 Mg Tab, 10 MG PO DAILY Start after completing 20 mg tabs. Take 10 mg daily for 5 days, then change to 5 mg tabs. Prednisone (Prednisone) 20 Mg Tab, 20 MG PO DAILY Simvastatin (Zocor) 20 Mg Tab, 20 MG PO QPM, (Reported) Tiotropium Fraser Monohydrate (Spiriva Respimat) 2.5 Mcg/Act Spr, 2 INHALATION INH DAILY, (Reported) Scheduled PRN Albuterol Sulfate (Ventolin Hfa) 200 Puff/8 Gm Aers, 2 PUFF INH Q4H PRN for SHORTNESS OF BREATH, (Reported) Sodium Chloride (Sodium Chloride 3% Neb Yasmin) 15 Ml Nebu, 1 DOSE INH Q4H PRN for SHORTNESS OF BREATH, (Reported) Allergies Coded Allergies: No Known Drug Allergy (Unverified Allergy, Unknown, 02/18/13) PATRICIA CLEMENTE MD Mar 15, 2017 11:52
== END 2017-03-15 14:08 | disposition home or self-care (01) | DRG 191 ==
LOC: EDBD 11:25 → M ED 13:05 → M ED INP 15:06 → M MS5PR 17:10 → M PCU 03-08 16:05 → M MSPAV 03-13 16:17
PROVIDERS: ADMIT Internal Medicine; ATTEND Family Medicine
DX: J44.1 Chronic obstructive pulmonary disease with (acute) exacerbation (principal); F05 Delirium due to known physiological condition; I12.9 Hypertensive chronic kidney disease with stage 1 through stage 4 chronic kidney disease, or unspecified chronic kidney disease; E78.5 Hyperlipidemia, unspecified; N18.3 Chronic kidney disease, stage 3 (moderate); E03.9 Hypothyroidism, unspecified; R60.0 Localized edema; E66.9 Obesity, unspecified; Z99.81 Dependence on supplemental oxygen; Z79.52 Long term (current) use of systemic steroids; Z79.899 Other long term (current) drug therapy; Z98.51 Tubal ligation status; Z87.891 Personal history of nicotine dependence; Z68.33 Body mass index [BMI] 33.0-33.9, adult

== ENCOUNTER → 2017-04-03 | Outpatient (REF) | payer MEDICARE, OTHER ==
[~2017-04-03] MED LIST changes: +AZIT250T3 PO; +BACITAB3 PO; +BREO1INH INH; +DOXY100T PO; +LISI10TA4 PO; +METO12TA PO; +PRED20TA PO; +PRED5TA PO; +ROBISYP7 PO; +SODI3NEB INH; +SPIR12.9 INH; +SYNT25TA PO; +VITA500046 PO
[2017-04-03 15:59] LABS: BASO % 0.5 % (0.0-1.0); EOS # 0.2 K/mm3 (0.0-0.50); EOS % 2.6 % (0.0-3.0); LARGE UNSTAINED CELL # 0.1 K/mm3 (0.0-0.4); LARGE UNSTAINED CELL % 1.7 % (0.0-4.0); LYMPH % 11.1 % (24.0-44.0); MEAN CORPUSCULAR HEMOGLOBIN 31.1 pg (27.0-33.0); MEAN CORPUSCULAR HGB CONC 32.4 g/dl (32.0-36.5); MEAN CORPUSCULAR VOLUME 95.9 fl (80.0-96.0); MONO # 0.6 K/mm3 (0.0-0.8); MONO % 6.6 % (0.0-5.0); NEUTROPHILS # 6.6 K/mm3 (1.8-7.7); NEUTROPHILS % 77.5 % (36.0-66.0); PLATELET COUNT, AUTOMATED 385 k/mm3 (150-450); RED CELL DISTRIBUTION WIDTH 12.9 % (11.5-14.5); WHITE BLOOD COUNT 8.5 K/mm3 (4.0-10.0)
[2017-04-03 17:00] LABS: ALBUMIN 3.4 GM/DL (3.2-5.2); ALBUMIN/GLOBULIN RATIO 1.26 (1.00-1.93); ALKALINE PHOSPHATASE 52 U/L (45-117); ALT/SGPT 27 U/L (12-78); ANION GAP 7 MEQ/L (8-16); AST/SGOT 17 U/L (15-37); BILIRUBIN,TOTAL 0.5 MG/DL (0.2-1.0); BLOOD UREA NITROGEN 20 MG/DL (7-18); CALCIUM LEVEL 9.1 MG/DL (8.8-10.2); CARBON DIOXIDE LEVEL 35 MEQ/L (21-32); CHLORIDE LEVEL 101 MEQ/L (98-107); CHOLESTEROL LEVEL 201 MG/DL (<200); CREATININE FOR GFR 1.02 MG/DL (0.55-1.02); FERRITIN 187 NG/ML (8-252); FREE T4 1.44 NG/DL (0.76-1.46); GLOMERULAR FILTRATION RATE 56.4 (>39); GLUCOSE, FASTING 89 MG/DL (83-110); PERCENT SATURATION 23.8 % (13.2-37.4); POTASSIUM SERUM 3.8 MEQ/L (3.5-5.1); SODIUM LEVEL 143 MEQ/L (136-145); TOTAL IRON BINDING CAPACITY 260 UG/DL (250-450); TOTAL PROTEIN 6.1 GM/DL (6.4-8.2); TRIGLYCERIDES LEVEL 151 MG/DL (<150)
[2017-04-03 17:03] LABS: VITAMIN B12 LEVEL 980 PG/ML (247-911)
[2017-04-08 11:58] LABS: ALBUMIN % 57.3 % (55.8-66.1); GAMMA GLOBULIN % 6.8 % (11.1-18.8)
== END ==
LOC: M SFHCPLAZ 12:37
PROVIDERS: ATTEND Family Medicine
DX: N18.3 Chronic kidney disease, stage 3 (moderate) (principal); E78.2 Mixed hyperlipidemia; E03.9 Hypothyroidism, unspecified; Z79.899 Other long term (current) drug therapy
CPT/HCPCS: 36415; 80053; 80061; 82550; 82607; 82728; 83550; 84165; 84439; 84443; 85025; G0463

== ENCOUNTER → 2017-08-19 | Outpatient (REF) | payer MEDICARE, OTHER ==
[~2017-08-19] MED LIST changes: +AZIT-12 PO; -AZIT250T3 PO; +BACITAB PO; -BACITAB3 PO; -METO12TA PO; +METO1TAB87 PO; +MUCI600T37 PO; +PRED10TA2 PO
[2017-08-19 15:50] LABS: BASO # 0.1 10^3/uL (0.0-0.2); BASO % 0.5 % (0.0-1.0); EOS # 0.1 10^3/uL (0.0-0.50); EOS % 0.8 % (0.0-3.0); IMMATURE GRANULOCYTE % 1.1 % (0-0); LYMPH # 1.6 10^3/uL (1.5-4.5); LYMPH % 13.8 % (24.0-44.0); MEAN CORPUSCULAR HGB CONC 32.6 g/dl (32.0-36.5); MONO # 0.7 10^3/uL (0.0-0.8); NEUTROPHILS # 8.8 10^3/uL (1.8-7.7); NEUTROPHILS % 77.8 % (36.0-66.0); PLATELET COUNT, AUTOMATED 272 10^3/uL (150-450); RED CELL DISTRIBUTION WIDTH 12.6 % (11.5-14.5); WHITE BLOOD COUNT 11.4 10^3/uL (4.0-10.0)
[2017-08-19 16:37] LABS: ADD MORPHOLOGY? NO; ALBUMIN 3.9 GM/DL (3.2-5.2); ALBUMIN/GLOBULIN RATIO 1.44 (1.00-1.93); ALKALINE PHOSPHATASE 52 U/L (45-117); ALT/SGPT 24 U/L (12-78); ANION GAP 6 MEQ/L (8-16); AST/SGOT 16 U/L (15-37); BILIRUBIN,TOTAL 0.6 MG/DL (0.2-1.0); BLOOD UREA NITROGEN 15 MG/DL (7-18); CALCIUM LEVEL 9.2 MG/DL (8.8-10.2); CARBON DIOXIDE LEVEL 36 MEQ/L (21-32); CHLORIDE LEVEL 101 MEQ/L (98-107); FREE T4 1.25 NG/DL (0.76-1.46); GLOMERULAR FILTRATION RATE 57.5 (>39); GLUCOSE, FASTING 87 MG/DL (83-110); MAGNESIUM LEVEL 2.2 MG/DL (1.8-2.4); POTASSIUM SERUM 4.2 MEQ/L (3.5-5.1); SODIUM LEVEL 143 MEQ/L (136-145); TOTAL PROTEIN 6.6 GM/DL (6.4-8.2)
== END ==
LOC: M SFHCPLAZ 14:44
PROVIDERS: ATTEND Family Medicine
DX: N18.3 Chronic kidney disease, stage 3 (moderate) (principal); D75.89 Other specified diseases of blood and blood-forming organs; E55.9 Vitamin D deficiency, unspecified; E03.9 Hypothyroidism, unspecified; J44.9 Chronic obstructive pulmonary disease, unspecified; Z79.52 Long term (current) use of systemic steroids; Z79.82 Long term (current) use of aspirin; Z79.899 Other long term (current) drug therapy
CPT/HCPCS: 36415; 80053; 82306; 83036; 83735; 83880; 83970; 84439; 84443; 85025; 86334; G0463

== ENCOUNTER → 2018-03-30 | Outpatient (REF) | payer MEDICARE, OTHER ==
[2018-03-30 16:00] LABS: BASO # 0.1 10^3/uL (0.0-0.2); BASO % 0.7 % (0.0-1.0); EOS # 0.1 10^3/uL (0.0-0.50); EOS % 0.7 % (0.0-3.0); HEMATOCRIT 37.8 % (36.0-47.0); HEMOGLOBIN 12.3 g/dl (12.0-15.5); IMMATURE GRANULOCYTE % 1.2 % (0-3.0); LYMPH # 1.2 10^3/uL (1.5-4.5); LYMPH % 14.5 % (24.0-44.0); MEAN CORPUSCULAR HEMOGLOBIN 30.6 pg (27.0-33.0); MEAN CORPUSCULAR HGB CONC 32.5 g/dl (32.0-36.5); MONO # 0.6 10^3/uL (0.0-0.8); MONO % 6.7 % (0.0-5.0); NEUTROPHILS # 6.5 10^3/uL (1.8-7.7); NEUTROPHILS % 76.2 % (36.0-66.0); PLATELET COUNT, AUTOMATED 260 10^3/uL (150-450); RED BLOOD COUNT 4.02 10^6/uL (4.00-5.40); RED CELL DISTRIBUTION WIDTH 12.9 % (11.5-14.5); RETIC HEMOGLOBIN EQUIVALENT 36.1 pg (24-36); RETICULOCYTE # 62.7 10^9/L (17-77); RETICULOCYTE % 1.6 % (0.5-1.5); WHITE BLOOD COUNT 8.6 10^3/uL (4.0-10.0)
[2018-03-30 16:20] LABS: ALBUMIN 3.8 GM/DL (3.2-5.2); ALBUMIN/GLOBULIN RATIO 1.41 (1.00-1.93); ALKALINE PHOSPHATASE 43 U/L (45-117); ALT/SGPT 23 U/L (12-78); ANION GAP 6 MEQ/L (8-16); AST/SGOT 17 U/L (7-37); BILIRUBIN,TOTAL 0.5 MG/DL (0.2-1.0); BLOOD UREA NITROGEN 17 MG/DL (7-18); CALCIUM LEVEL 8.9 MG/DL (8.8-10.2); CARBON DIOXIDE LEVEL 33 MEQ/L (21-32); CHLORIDE LEVEL 106 MEQ/L (98-107); CREATININE FOR GFR 1.01 MG/DL (0.55-1.30); ESTIMATED AVERAGE GLUCOSE 91 MG/DL (60-110); FREE T4 1.15 NG/DL (0.76-1.46); GLOMERULAR FILTRATION RATE 56.9 (>39); GLUCOSE, FASTING 97 MG/DL (70-100); HEMOGLOBIN A1c 4.8 %; SODIUM LEVEL 145 MEQ/L (136-145); TOTAL PROTEIN 6.5 GM/DL (6.4-8.2)
[2018-03-30 16:23] LABS: PTH INTACT 93.2 PG/ML (18.5-88.0)
== END ==
LOC: M SFHCPLAZ 14:18
DX: R73.01 Impaired fasting glucose (principal); E03.9 Hypothyroidism, unspecified; N18.3 Chronic kidney disease, stage 3 (moderate); E55.9 Vitamin D deficiency, unspecified
CPT/HCPCS: 83525

== ENCOUNTER 2019-03-08 02:22 | Inpatient (IN) | payer MEDICARE, BC, OTHER ==
[~2019-03-08] VITALS: Ht 152.4 cm; Wt 74.3 kg
[2019-03-08] VITALS (7 sets, daily range): BP systolic 160–216; BP diastolic 67–97
[~2019-03-08 02:22] MED LIST changes: -/METO25TAB PO; +AMLO5TAB6 PO; +PANT40TA3 PO; +PRED-351 PO; -PRED10TA PO
[2019-03-08] MEDS ORDERED: IPRATROPIUM 0.5MG/ALBUTEROL 2.5MG INH SOL UD 3ML (DUONEB)(J7620) NEB ONE (02:45)
[2019-03-08 02:53] LABS: ABG BASE EXCESS 3.3 (-2.0-2.0); ABG HCO3 32.8 MEQ/L (22.0-26.0); ABG O2 SATURATION 99.5 % (95.0-99.0); ABG PARTIAL PRESSURE O2 221.1 mmHg (75.0-100.0); ABG STANDARD HCO3 27.4 MEQ/L (22.0-26.0); ABG TOTAL CO2 35.2 MEQ/L (23.0-31.0)
[2019-03-08 02:56] LABS: ABG pH (ARTERIAL) 7.237 UNITS (7.350-7.450)
[2019-03-08 02:57] LABS: ABG PARTIAL PRESSURE CO2 78.9 mmHg (35.0-45.0)
[2019-03-08 03:01] LABS: BASO # 0.1 10^3/uL (0.0-0.2); BASO % 0.8 % (0.0-1.0); EOS # 0.2 10^3/uL (0.0-0.50); EOS % 1.1 % (0.0-3.0); HEMOGLOBIN 12.7 g/dl (12.0-15.5); LYMPH # 2.9 10^3/uL (1.5-4.5); LYMPH % 19.2 % (24.0-44.0); MEAN CORPUSCULAR HEMOGLOBIN 30.8 pg (27.0-33.0); MEAN CORPUSCULAR HGB CONC 31.8 g/dl (32.0-36.5); MEAN CORPUSCULAR VOLUME 96.9 fl (80.0-96.0); MONO # 1.3 10^3/uL (0.0-0.8); MONO % 8.5 % (0.0-5.0); NEUTROPHILS # 10.2 10^3/uL (1.8-7.7); NEUTROPHILS % 68.7 % (36.0-66.0); PLATELET COUNT, AUTOMATED 287 10^3/uL (150-450); RED BLOOD COUNT 4.13 10^6/uL (4.00-5.40); WHITE BLOOD COUNT 14.9 10^3/uL (4.0-10.0)
[2019-03-08 03:20] LABS: BLOOD UREA NITROGEN 19 MG/DL (7-18); CARBON DIOXIDE LEVEL 37 MEQ/L (21-32); CHLORIDE LEVEL 99 MEQ/L (98-107); CPK CREATINE PHOSPHOKINASE 227 U/L (26-192); CREATININE FOR GFR 1.26 MG/DL (0.55-1.30); GLUCOSE, FASTING 144 MG/DL (70-100); MB/CK RELATIVE INDEX 2.64 (< OR =4); NT-PRO BNP 460 PG/ML (<450); POTASSIUM SERUM 4.5 MEQ/L (3.5-5.1); SODIUM LEVEL 142 MEQ/L (136-145); TROPONIN I < 0.02 NG/ML (< 0.10)
[2019-03-08] MEDS ORDERED: ISOVUE-370 76% 100ML VIAL (Q9967) As Ordered ONE (03:40)
[2019-03-08 04:35] LABS: ABG BASE EXCESS 7.4 (-2.0-2.0); ABG HCO3 33.9 MEQ/L (22.0-26.0); ABG O2 SATURATION 98.9 % (95.0-99.0); ABG PARTIAL PRESSURE CO2 57.1 mmHg (35.0-45.0); ABG PARTIAL PRESSURE O2 168.8 mmHg (75.0-100.0); ABG STANDARD HCO3 31.2 MEQ/L (22.0-26.0); ABG TOTAL CO2 35.6 MEQ/L (23.0-31.0); ABG pH (ARTERIAL) 7.391 UNITS (7.350-7.450)
--- NOTE | 2019-03-08 05:06 | REPVR ---
EXAM: CT Angiography Chest With Contrast EXAM DATE/TIME: 03/08/2019 4:50 AM CLINICAL HISTORY: 78 years old, female; Chest pain; Additional info: SOB, long car ride TECHNIQUE: Imaging protocol: Axial computed tomographic angiography images of the chest with intravenous contrast using CT angiography protocol. Coronal and sagittal reformatted images were created and reviewed. 3D rendering: MIP reconstructed images were created and reviewed. Radiation optimization: All CT scans at this facility use at least one of these dose optimization techniques: automated exposure control; mA and/or kV adjustment per patient size (includes targeted exams where dose is matched to clinical indication); or iterative reconstruction. Contrast material: ISO 370; Contrast volume: 75 ml; Contrast route: IV; COMPARISON: CT Chest without contrast 04/14/2015 3:43 PM FINDINGS: Pulmonary arteries: The main pulmonary artery measures 26 mm. No pulmonary embolism is identified. Aorta: The ascending thoracic aorta measures 33 mm. Lungs: Minimal bullous change, greatest in the lower lobes with minimal scattered interstitial prominence and scar and minimal patchy infiltrates in the right lung. Pleural space: Normal. No pneumothorax. No pleural effusion. Heart: Normal. No cardiomegaly. No pericardial effusion. Liver: Left hepatic cyst with associated calcifications which measures 11 mm. Lymph nodes: Unremarkable. No enlarged lymph nodes. Bones/joints: Unremarkable. No acute fracture. Soft tissues: Unremarkable. IMPRESSION: 1. Minimal bullous change, greatest in the lower lobes with minimal scattered interstitial prominence and scar and minimal patchy infiltrates in the right lung. 2. No pulmonary embolism is identified. Electronically signed by: Jeremy Khan On 03/08/2019 05:06:26 AM
[2019-03-08] MEDS ORDERED: LevoFLOXacin IV 750 MG in APPROPRIATE DILUENT 1 EA IV ONE (05:45)
[2019-03-08] MEDS ORDERED: VENTAER INH (05:56)
[2019-03-08] MEDS ORDERED: IPRATROPIUM 0.5MG/ALBUTEROL 2.5MG INH SOL UD 3ML (DUONEB)(J7620) NEB PRN (06:00)
[2019-03-08] MEDS ORDERED: methylPREDNISolone INJ 40 MG/1 ML VIAL (J2920) IV SCH (06:00)
--- NOTE | 2019-03-08 06:04 | HPEPDOC ---
General Date of Admission Mar 08, 2019 at 05:46 Chief Complaint The patient is a 78-year-old female admitted with a reason for visit of Acute R espiratory Failure With Hypercapnia. History of Present Illness 78-year-old female with past medical history of hypertension, dyslipidemia, hypothyroidism, CKD stage III, steroid and oxygen dependent COPD presents to the ER with a chief complaint of increased shortness of breath, nonproductive cough over the last several days. The patient states that she has been driving up from [place] over the last 3 days and reached [place] today. As soon as she got home, the patient states that she came to the emergency room because her shortness of breath and cough had progressed. In addition, the patient also noted having subjective fevers and chills during this time. She denies any chest pain, palpitations, abdominal pain, sick contacts, increasing lower extremity edema, PND, orthopnea, or any nausea/vomiting/diarrhea. In the ER, the patient was noted to be in hypercapnic respiratory failure. She was started on BiPAP and has been taken off at this time by the ER as her ABG n umbers have normalized. The patient will be admitted under the [facility] for further evaluation and management this morning. Home Medications Scheduled Amlodipine Besylate (Amlodipine Besylate) 5 Mg Tab, 5 MG PO DAILY, (Reported) Cholecalciferol (Vitamin D) 5,000 Unit Tab, 5,000 UNIT PO DAILY, (Reported) Doxycycline Hyclate (Doxycycline Hyclate) 100 Mg Tab, 100 MG PO BID, (Reported) TO END 03/13/17 Fluticasone/Vilanterol (Breo Ellipta 100-25 Mcg INH) 1 Inh Inh, 1 PUFF INH DAILY Furosemide (Furosemide) 20 Mg Tab, 20 MG PO DAILY, (Reported) Guaifenesin (Mucinex) 600 Mg Tab, 600 MG PO BID, (Reported) L.acidoph/L.bulg/B.bif/S.therm (Bacid Caplet) 1 Tab Tab, 1 TAB PO DAILY, (Reported) Levothyroxine Sodium (Synthroid) 25 Mcg Tab, 25 MCG PO QAM, (Reported) Lisinopril (Lisinopril) 10 Mg Tab, 10 MG PO BID, (Reported) Metoprolol Tartrate (Metoprolol Tartrate) 25 Mg Tab, 25 MG PO DAILY, (Reported) Pantoprazole Sodium (Pantoprazole Sodium) 40 Mg Tab, 40 MG PO DAILY, (Reported) Prednisone (Prednisone) 5 Mg Tab, 5 MG PO DAILY Start after completing 10 mg tabs. Take 5 mg daily for 10 days, then stop Prednisone (Prednisone) 10 Mg Tab, 10 MG PO DAILY Start after completing 20 mg tabs. Take 10 mg daily for 5 days, then change to 5 mg tabs. Prednisone (Prednisone) 20 Mg Tab, 20 MG PO DAILY Simvastatin (Zocor) 20 Mg Tab, 20 MG PO QPM, (Reported) Tiotropium [place] (Spiriva Respimat) 2.5 Mcg/Act Spr, 2 INHALATION INH DAILY, (Reported) Scheduled PRN Albuterol Sulfate (Ventolin Hfa) 18 Gm Hfa.aer.ad, 2 PUFF INH Q4-6HP PRN for wheezing, (Reported) Sodium Chloride (Sodium Chloride 3% Neb Yasmin) 15 Ml Nebu, 1 DOSE INH Q4H PRN for SHORTNESS OF BREATH, (Reported) Allergies Coded Allergies: No Known Allergies (Unverified , 03/08/19) Past Medical History Medical History As noted in HPI. Surgical History Tubal ligation Social History * Smoker: former Smoker (smoked 1 pack per day for 30+ years, quit in 2011) Alcohol: occationally Drugs: denies Review of Systems Other systems 10 point review of systems negative unless otherwise specified in HPI. Physical Examination General Exam: Positive: Alert, Cooperative, No Acute Distress ENT Exam: Positive: Atraumatic, Mucous membr. moist/pink Chest Exam: Positive: Wheezing (faint expiratory wheezing noted diffusely), Diminished; Negative: Rales Heart Exam: Positive: Rate Normal, Normal S1, Normal S2 Abdomen Exam: Positive: Soft; Negative: Tenderness Extremity Exam: Positive: Swelling (right lower extremity with 1+ edema, left lower extremity normal); Negative: Tenderness Psych Exam: Positive: Oriented x 3 Vital Signs Vital Signs Date Time Temp Pulse Resp B/P (MAP) Pulse Ox O2 Delivery O2 Flow Rate FiO2 03/08/19 04:48 172/74 (106) 03/08/19 04:37 85 03/08/19 04:22 21 98 NIPPV (BIPAP/CPAP) 03/08/19 02:54 40 03/08/19 02:34 98.8 03/08/19 02:27 6.0 Laboratory Data Labs 24H Laboratory Tests 2 03/08/19 02:38: Blood Gas Bicarbonate Standard 27.4H, Arterial Blood pH 7.237*L, Arterial Blood Partial Pressure CO2 78.9*H, Arterial Blood Partial Pressure O2 221.1H, Arterial Blood Total CO2 35.2H, Arterial Blood HCO3 32.8H, Arterial Blood Base Excess 3.3H, Arterial Blood Oxygen Saturation 99.5H 03/08/19 02:39: Immature Granulocyte % (Auto) 1.7, White Blood Count 14.9H, Red Blood Count 4.13, Hemoglobin 12.7, Hematocrit 40.0, Mean Corpuscular Volume 96.9H, Mean Corpuscular Hemoglobin 30.8, Mean Corpuscular Hemoglobin Concent 31.8L, Red Cell Distribution Width 13.1, Platelet Count 287, Neutrophils (%) (Auto) 68.7H, Lymphocytes (%) (Auto) 19.2L, Monocytes (%) (Auto) 8.5H, Eosinophils (%) (Auto) 1.1, Basophils (%) (Auto) 0.8, Neutrophils # (Auto) 10.2H, Lymphocytes # (Auto) 2.9, Monocytes # (Auto) 1.3H, Eosinophils # (Auto) 0.2, Basophils # (Auto) 0.1, Nucleated Red Blood Cells % (auto) 0.0, Anion Gap 6L, Glomerular Filtration Rate 44.0, Lactic Acid Level 0.8, Blood Urea Nitrogen 19H, Creatinine 1.26, Sodium Level 142, Potassium Level 4.5, Chloride Level 99, Carbon Dioxide Level 37H, Calcium Level 9.0, Total Creatine Kinase 227H, Creatine Kinase MB 6.0H, Creatine Kinase MB Relative Index 2.64, Troponin I < 0.02, SH-Ptc-B-Type Natriuretic Peptide 460H 03/08/19 03:34: Blood Gas Bicarbonate Standard 31.2H, Arterial Blood pH 7.391, Arterial Blood Partial Pressure CO2 57.1H, Arterial Blood Partial Pressure O2 168.8H, Arterial Blood Total CO2 35.6H, Arterial Blood HCO3 33.9H, Arterial Blood Base Excess 7.4H, Arterial Blood Oxygen Saturation 98.9 CBC/BMP Laboratory Tests 03/08/19 02:39 Red Blood Count 4.13, Mean Corpuscular Volume 96.9 H, Mean Corpuscular Hemoglobin 30.8, Mean Corpuscular Hemoglobin Concent 31.8 L, Red Cell Distribution Width 13.1, Neutrophils (%) (Auto) 68.7 H, Lymphocytes (%) (Auto) 19.2 L, Monocytes (%) (Auto) 8.5 H, Eosinophils (%) (Auto) 1.1, Basophils (%) (Auto) 0.8, Neutrophils # (Auto) 10.2 H, Lymphocytes # (Auto) 2.9, Monocytes # (Auto) 1.3 H, Eosinophils # (Auto) 0.2, Basophils # (Auto) 0.1, Calcium Level 9.0, Total Creatine Kinase 227 H Microbiology Microbiology 03/08/19 Blood Culture, Received Pending 03/08/19 Blood Culture, Received Pending 03/08/19 Respiratory Virus Panel (PCR) (DILLAN), Received Pending Plan / VTE VTE Prophylaxis Ordered?: Yes Plan Plan Hypercapnic Respiratory Failure 2/2 COPD Exacerbation CTA Chest negative for PE, however patchy infiltrates noted Resp panel, procalcitonin level, and sputum culture ordered We will cover the patient with Rocephin and azithromycin at this time IV Solumedrol, Serial Nebs, and Inhaler therapy as ordered The patient has been taken off of BiPAP in the ER as her ABG numbers have normalized, and she is able to speak in full sentences at this time. However, we will admit the patient to the intensive care unit in case the patient needs to be placed back on BiPAP. RLE swelling edema Patient states that this is chronic--however given her long road trip we will obtain an U/S of the LE to r/o DVT Hypertension Continue meds as ordered Dyslipidemia Continue statin Chronic kidney disease stage III Serum creatinine at baseline Hypothyroidism Continue levothyroxine GERD Continue PPI DVT prophylaxis Lovenox subcutaneous The patient will be admitted under the service of Dr. Jones of the [facility] who will begin to follow the patient on 03/08/19 at 7 AM. ALEJANDRO SUBRAMANIAN MD Mar 08, 2019 06:04
[2019-03-08] MEDS ORDERED: PROAAER10 INH (06:05)
[2019-03-08] MEDS ORDERED: NATU1TAB5 PO (06:05)
[2019-03-08] MEDS ORDERED: SYMB16INH INH (06:05)
[2019-03-08] MEDS ORDERED: ALBU83IN NEB (06:05)
[2019-03-08] MEDS ORDERED: PRED5TA PO (06:05)
[2019-03-08] MEDS ORDERED: BUDE0.254 INH (06:05)
[2019-03-08] MEDS ORDERED: MUCI600T31 PO (06:05)
[2019-03-08] MEDS: cefTRIAXone SOD 1 GM in D5W MINI-BAG PLUS 50 ML IV SCH (06:50)
[2019-03-08] MEDS ORDERED: FUROSEMIDE 40 MG/4 ML VIAL (J1940) IV ONE (07:45)
--- NOTE | 2019-03-08 07:50 | IPNPDOC ---
Subjective Date Seen The patient was seen on 03/08/19. Subjective Chief Complaint/HPI SOB, hypercapnia Events since last encounter Admitted overnight with hypercapnia, respiratory distress. Has been feeling ill for 1 week prior to presentation to ED. Recently returned from [place], [place] angio negative for PE> + RLE swelling which patient states is chronic, LE duplex is pending. States compliance with medications and inhalers at home. Uses 2lNC continuous at baseline. Placed on BIpap overnight. Removed BIpap at 0600 this am. Today, states mild improvement. Constitutional: Denies: Chills, Fever, Night Sweats ENT: Denies: Head Aches, Ear Pain, Dysphagia Pulmonary: Reports: Dyspnea, Cough Cardiovascular: Reports: Orthopnea, Edema; Denies: Chest Pain, Palpitations, Lt Headedness Gastrointestinal: Denies: Nausea, Vomiting, Abdominal Pain, Diarrhea, Constipation Genitourinary: Denies: Dysuria, Frequency, Incontinence, Retention Hematologic: Reports: Bruising (chronic easy bruising since started taking prednisone chronically) Psych: Reports: Mood Normal; Denies: Depression, Memory Issues Objective Physical Examination General Exam: Positive: Alert, Cooperative, No Acute Distress ENT Exam: Positive: Atraumatic, Mucous membr. moist/pink Chest Exam: Positive: Diminished (throughout, minimal breath sounds); Negative: Rales, Wheezing Heart Exam: Positive: Rate Normal, Normal S1, Normal S2 Abdomen Exam: Positive: Normal bowel sounds, Soft; Negative: Tenderness Extremity Exam: Positive: Swelling (right lower extremity with trace edema, ecchymosis to BLE); Negative: Tenderness Skin Exam: Positive: Other skin issue (ecchymotis areas to BLE) Psych Exam: Positive: Oriented x 3 Assessment /Plan Problems (1) Acute respiratory failure with hypercapnia Status: Acute Problem Text: Day #1 Rocephin and azithromycin for RLL patchy infiltrates. Solumedrol 80 mg IV q 8 hrs. Continue with nebs. Currently requiring 4LNC oxygen. Bipap DCd this am. Respiratory panel + for parainfluenza (2) Parainfluenza Status: Acute Problem Text: see above plan. Pro-calcitonin levels are still pending. (3) Hypertension Status: Chronic Problem Text: poorly controlled BP today. Will resume anti-hypertensives: amlodipine, Lisinopril and Metoprolol. Furosemide 40 mg IV x 1 added on. (4) CKD (chronic kidney disease), stage III Status: Chronic Response to Treatment: Stable (5) Edema Status: Acute Problem Text: RLE edema. hx of TVR. Last echo was 2010 in [place]. will repeat echo today. Plan/VTE VTE Prophylaxis Ordered?: Yes Plan Family Medicine Attending Note: I saw and examined Ms. Gonzalez, discussed with KARLA Kirby. Agree with her note as documented. The patient was comfortable when I saw her around lunchtime. She did report she doesn't have much of an appetite and doesn't feel great yet. About 2:30 this afternoon an ABG was reported to me that shows she is very mildly acidotic, her pCO2 levels drifting back up, and her pO2 level is coming down. Nonetheless she is still has a high pO2, and an adequate oxygen saturation. I asked the nursing staff to slowly wean her oxygen until her saturations are in the 88-92% range. I ordered a repeat ABG in about 4 hours. Hopefully this resolves the problem, if not, I will need to consult pulmonology for assistance with management of noninvasive ventilation. 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) VS, I&O, 24H, Fishbone Vital Signs/I&O Vital Signs Date Time Temp Pulse Resp B/P (MAP) Pulse Ox O2 Delivery O2 Flow Rate FiO2 03/08/19 06:52 98.1 88 24 216/96 (136) 98 4.0 03/08/19 06:03 Nasal Cannula 03/08/19 02:54 40 Laboratory Data 24H LABS Laboratory Tests 2 03/08/19 02:38: Blood Gas Bicarbonate Standard 27.4H, Arterial Blood pH 7.237*L, Arterial Blood Partial Pressure CO2 78.9*H, Arterial Blood Partial Pressure O2 221.1H, Arterial Blood Total CO2 35.2H, Arterial Blood HCO3 32.8H, Arterial Blood Base Excess 3.3H, Arterial Blood Oxygen Saturation 99.5H 03/08/19 02:39: Immature Granulocyte % (Auto) 1.7, White Blood Count 14.9H, Red Blood Count 4.13, Hemoglobin 12.7, Hematocrit 40.0, Mean Corpuscular Volume 96.9H, Mean Corpuscular Hemoglobin 30.8, Mean Corpuscular Hemoglobin Concent 31.8L, Red Cell Distribution Width 13.1, Platelet Count 287, Neutrophils (%) (Auto) 68.7H, Lymphocytes (%) (Auto) 19.2L, Monocytes (%) (Auto) 8.5H, Eosinophils (%) (Auto) 1.1, Basophils (%) (Auto) 0.8, Neutrophils # (Auto) 10.2H, Lymphocytes # (Auto) 2.9, Monocytes # (Auto) 1.3H, Eosinophils # (Auto) 0.2, Basophils # (Auto) 0.1, Nucleated Red Blood Cells % (auto) 0.0, Anion Gap 6L, Glomerular Filtration Rate 44.0, Lactic Acid Level 0.8, Blood Urea Nitrogen 19H, Creatinine 1.26, Sodium Level 142, Potassium Level 4.5, Chloride Level 99, Carbon Dioxide Level 37H, Calcium Level 9.0, Total Creatine Kinase 227H, Creatine Kinase MB 6.0H, Creatine Kinase MB Relative Index 2.64, Troponin I < 0.02, IG-Oiw-N-Type Natriuretic Peptide 460H 03/08/19 03:34: Blood Gas Bicarbonate Standard 31.2H, Arterial Blood pH 7.391, Arterial Blood Partial Pressure CO2 57.1H, Arterial Blood Partial Pressure O2 168.8H, Arterial Blood Total CO2 35.6H, Arterial Blood HCO3 33.9H, Arterial Blood Base Excess 7.4H, Arterial Blood Oxygen Saturation 98.9 CBC/BMP Laboratory Tests 03/08/19 02:39 Red Blood Count 4.13, Mean Corpuscular Volume 96.9 H, Mean Corpuscular Hemoglobin 30.8, Mean Corpuscular Hemoglobin Concent 31.8 L, Red Cell Distribution Width 13.1, Neutrophils (%) (Auto) 68.7 H, Lymphocytes (%) (Auto) 19.2 L, Monocytes (%) (Auto) 8.5 H, Eosinophils (%) (Auto) 1.1, Basophils (%) (Auto) 0.8, Neutrophils # (Auto) 10.2 H, Lymphocytes # (Auto) 2.9, Monocytes # (Auto) 1.3 H, Eosinophils # (Auto) 0.2, Basophils # (Auto) 0.1, Calcium Level 9.0, Total Creatine Kinase 227 H Microbiology Microbiology 03/08/19 Blood Culture, Received Pending 03/08/19 Blood Culture, Received Pending 03/08/19 Respiratory Virus Panel (PCR) (DILLAN) - Final, Complete Parainfluenza 3 (Piv3) Alberry,Brianna D MAGNETIZER Mar 08, 2019 07:50 Garett Jones MD Mar 08, 2019 14:41
[2019-03-08] MEDS: IPRATROPIUM 0.5MG/ALBUTEROL 2.5MG INH SOL UD 3ML (DUONEB)(J7620) NEB SCH ×5 (08:01→23:53)
[2019-03-08] MEDS: ADVAIR HFA 230/21MCG INHALER INH SCH ×2 (08:01→21:11)
[2019-03-08 08:03] LABS: BASO # 0.1 10^3/uL (0.0-0.2); BASO % 0.4 % (0.0-1.0); HEMATOCRIT 37.9 % (36.0-47.0); HEMOGLOBIN 12.2 g/dl (12.0-15.5); LYMPH # 0.3 10^3/uL (1.5-4.5); LYMPH % 2.6 % (24.0-44.0); MEAN CORPUSCULAR HEMOGLOBIN 30.4 pg (27.0-33.0); MEAN CORPUSCULAR HGB CONC 32.2 g/dl (32.0-36.5); MEAN CORPUSCULAR VOLUME 94.5 fl (80.0-96.0); MONO # 0.3 10^3/uL (0.0-0.8); MONO % 2.4 % (0.0-5.0); NEUTROPHILS % 93.3 % (36.0-66.0); PLATELET COUNT, AUTOMATED 253 10^3/uL (150-450); RED BLOOD COUNT 4.01 10^6/uL (4.00-5.40); WHITE BLOOD COUNT 12.8 10^3/uL (4.0-10.0)
--- NOTE | 2019-03-08 08:09 | REP ---
Oral chest x-ray: Single view. History: Shortness of breath. Comparison chest x-ray: March 14, 2017. Findings: EKG monitoring electrodes overlie the chest. Lungs are well inflated and clear. The pleural angles are sharp. Heart is not enlarged. Pulmonary vasculature is not increased. The aorta is calcific. Impression: No acute disease. Electronically Signed by Randy Gentile MD 03/08/2019 08:01 A
[2019-03-08] MEDS: AZITHROMYCIN INJ 500 MG, VIAL MATE ADAPTER 1 EACH in D5W 250 ML IV SCH (08:16)
[2019-03-08] MEDS: amLODIPine 5 MG TAB PO SCH (08:17)
[2019-03-08] MEDS: LISINOPRIL 10 MG TAB PO SCH ×2 (08:17→20:03)
[2019-03-08] MEDS: LEVOTHYROXINE 25MCG TABLET (0.025MG) PO SCH (08:17)
[2019-03-08] MEDS: PANTOPRAZOLE 40MG TAB (PROTONIX) PO SCH (08:17)
[2019-03-08] MEDS: ENOXAPARIN 40 MG/0.4 ML SYRINGE (J1650) SC SCH (08:18)
[2019-03-08] MEDS ORDERED: METOPROLOL TART 25 MG TABLET PO SCH (09:00)
[2019-03-08 09:05] LABS: ALBUMIN 3.8 GM/DL (3.2-5.2); BILIRUBIN,TOTAL 0.6 MG/DL (0.2-1.0); CALCIUM LEVEL 9.2 MG/DL (8.8-10.2); CREATININE FOR GFR 1.3 MG/DL (0.55-1.30); GLOMERULAR FILTRATION RATE 42.4 (>39); POTASSIUM SERUM 4.6 MEQ/L (3.5-5.1); TOTAL PROTEIN 6.7 GM/DL (6.4-8.2)
[2019-03-08 14:10] LABS: ABG BASE EXCESS 6.4 (-2.0-2.0); ABG O2 SATURATION 97.7 % (95.0-99.0); ABG PARTIAL PRESSURE O2 105.8 mmHg (75.0-100.0); ABG STANDARD HCO3 30.3 MEQ/L (22.0-26.0); ABG TOTAL CO2 37.2 MEQ/L (23.0-31.0); ABG pH (ARTERIAL) 7.311 UNITS (7.350-7.450)
[2019-03-08 14:13] LABS: ABG PARTIAL PRESSURE CO2 70.9 mmHg (35.0-45.0)
[2019-03-08] MEDS: methylPREDNISolone INJ 125 MG/2 ML VIAL (J2930) IV SCH ×2 (15:43→22:37)
[2019-03-08 18:11] LABS: ABG HCO3 35.7 MEQ/L (22.0-26.0); ABG O2 SATURATION 95.5 % (95.0-99.0); ABG STANDARD HCO3 31.8 MEQ/L (22.0-26.0); ABG TOTAL CO2 37.7 MEQ/L (23.0-31.0); ABG pH (ARTERIAL) 7.357 UNITS (7.350-7.450)
[2019-03-08 18:14] LABS: ABG PARTIAL PRESSURE CO2 65.1 mmHg (35.0-45.0)
[2019-03-08] MEDS: SIMVASTATIN 20 MG TAB PO SCH (20:02)
[2019-03-09] VITALS (12 sets, daily range): BP systolic 128–204; BP diastolic 65–88
[2019-03-09] MEDS ORDERED: **hydrALAZINE HCL** 25 MG TAB As Ordered ONE ×2 (00:20→02:53)
--- NOTE | 2019-03-09 01:09 | ECGEPIP ---
Stationary ECG Study [facility] - ED Test Date: 2019-03-08 Pat Name: HONEY KRISHNAN Department: Room: [place] [address] Gender: F Project Technician: YOON : 1940 Requested By: WANDA Riojas Order Number: [id number] Reading MD: Campos Pruitt Measurements Intervals [place] Rate: 94 P: 70 NC: 142 QRS: 61 QRSD: 80 T: 62 QT: 340 QTc: 426 Interpretive Statements SINUS RHYTHM WITH SINUS ARRHYTHMIA NO PRIORS FOR COMPARISON Electronically Signed On 03-09-2019 1:09:06 EDT by Campos Pruitt
[2019-03-09] MEDS ORDERED: **hydrALAZINE HCL** 25 MG TAB PO ONE (03:00)
[2019-03-09] MEDS: IPRATROPIUM 0.5MG/ALBUTEROL 2.5MG INH SOL UD 3ML (DUONEB)(J7620) NEB SCH ×6 (03:34→23:34)
[2019-03-09] MEDS: cefTRIAXone SOD 1 GM in D5W MINI-BAG PLUS 50 ML IV SCH (05:04)
[2019-03-09] MEDS: LEVOTHYROXINE 25MCG TABLET (0.025MG) PO SCH (05:04)
[2019-03-09 05:18] LABS: HEMATOCRIT 36.5 % (36.0-47.0); HEMOGLOBIN 11.8 g/dl (12.0-15.5); MEAN CORPUSCULAR HEMOGLOBIN 30.2 pg (27.0-33.0); MEAN CORPUSCULAR HGB CONC 32.3 g/dl (32.0-36.5); MEAN CORPUSCULAR VOLUME 93.4 fl (80.0-96.0); PLATELET COUNT, AUTOMATED 279 10^3/uL (150-450); RED BLOOD COUNT 3.91 10^6/uL (4.00-5.40); WHITE BLOOD COUNT 16.7 10^3/uL (4.0-10.0)
[2019-03-09 05:52] LABS: ALBUMIN 3.8 GM/DL (3.2-5.2); BILIRUBIN,TOTAL 0.4 MG/DL (0.2-1.0); CALCIUM LEVEL 9.4 MG/DL (8.8-10.2); CREATININE FOR GFR 1.33 MG/DL (0.55-1.30); GLOMERULAR FILTRATION RATE 41.3 (>39); MAGNESIUM LEVEL 2.4 MG/DL (1.8-2.4); POTASSIUM SERUM 4.5 MEQ/L (3.5-5.1)
[2019-03-09] MEDS ORDERED: **hydrALAZINE HCL** 25 MG TAB PO SCH ×2 (06:00)
[2019-03-09] MEDS: methylPREDNISolone INJ 125 MG/2 ML VIAL (J2930) IV SCH (06:20)
--- NOTE | 2019-03-09 07:06 | ECHO ---
DATE OF PROCEDURE: 03/08/2019 REFERRING PROVIDER: Brianna Springer INDICATION: Edema. HEIGHT: 152 cm WEIGHT: 79 kg DIMENSIONS: IVS: 0.9. LV: 4.3 LVPW: 0.9 LA: 2.8 Aorta: 2.9 Mitral E wave velocity: 71 A wave: 96 E prime septal: 8.1 E prime lateral: 8.4 IVC: 1.3 FINDINGS: The study is of very limited technical quality with difficult visualization. The patient is in sinus rhythm. Left ventricle is normal size and systolic function, I estimate ejection fraction (EF) around 60%. This is based on very poor visualization and consequently subtle wall motion abnormalities could have been easily missed. Right ventricle was poorly seen, but appears grossly normal. Both atria appear normal. Aortic, mitral and tricuspid valves were poorly visualized, but grossly appear normal. The pulmonic valve was not seen. Very prominent pericardial fat pad is noted. Inferior vena cava is normal size. Aortic root is normal. Aortic arch and abdominal aorta were not seen. Doppler interrogation reveals no significant aortic, mitral or tricuspid valvular disease. Mitral inflow pattern and tissue Doppler imaging of mitral annulus revealed grade 1 diastolic dysfunction. CONCLUSIONS: 1. Study is of very limited technical quality. 2. Normal LV size with grossly preserved LV systolic function and grade 1 diastolic dysfunction. 3. No significant aortic, mitral and tricuspid valvular disease. 4. Likely normal central venous pressure. 5. Unable to reliably estimate pulmonary artery pressure. COMMENT: Subacute bacterial endocarditis (SBE) prophylaxis is not recommended. The study is not overly supportive of diagnosis of congestive heart failure and it seems likely that the patient's edema is of a noncardiac etiology.
[2019-03-09] MEDS: ADVAIR HFA 230/21MCG INHALER INH SCH ×2 (08:32→19:55)
[2019-03-09] MEDS ORDERED: ALPRAZolam 0.25 MG TAB PO PRN (08:45)
[2019-03-09] MEDS ORDERED: FUROSEMIDE 20 MG TAB PO SCH (09:00)
--- NOTE | 2019-03-09 09:03 | IPNPDOC ---
Subjective Date Seen The patient was seen on 03/09/19. Subjective Chief Complaint/HPI hypoxia, SOB Events since last encounter Weaned oxygen down to 2LNC. Nursing and patient/ report increased agitation and anxiety associated with SOB. Also noting HTN: 200s/100s. Received doses of hydralazine with effect. Constitutional: Denies: Chills, Fever, Night Sweats Pulmonary: Reports: Dyspnea, Cough Cardiovascular: Denies: Chest Pain, Palpitations, Orthopnea, Paroxysmal Noc. Dyspnea, Lt Headedness Gastrointestinal: Denies: Nausea, Vomiting, Abdominal Pain, Diarrhea, Constipation Genitourinary: Denies: Dysuria, Frequency, Incontinence, Retention Psych: Reports: Anxiety Objective Physical Examination General Exam: Positive: Alert, Cooperative, Mild Distress (respiratory distress related to her anxiety) ENT Exam: Positive: Atraumatic, Mucous membr. moist/pink Chest Exam: Positive: Diminished (throughout); Negative: Rales, Wheezing Heart Exam: Positive: Rate Normal, Normal S1, Normal S2 Abdomen Exam: Positive: Normal bowel sounds, Soft; Negative: Tenderness Extremity Exam: Negative: Tenderness, Swelling Skin Exam: Positive: Other skin issue (ecchymotis areas to BLE) Psych Exam: Positive: Oriented x 3 Assessment /Plan Problems (1) Acute respiratory failure with hypercapnia Status: Acute Problem Text: 03/09/19: Day #2 Rocephin and Azithromycin. continue with abx. Procalcitonin level of 0.27 noted. Wean oxygen. wean solumedrol to po Prednisone due to agitation. WBC elevated, may be steroid effect. repeat CXR today. Day #1 Rocephin and azithromycin for RLL patchy infiltrates. Solumedrol 80 mg IV q 8 hrs. Continue with nebs. Currently requiring 4LNC oxygen. Bipap DCd this am. Respiratory panel + for parainfluenza (2) Parainfluenza Status: Acute Problem Text: see above plan. (3) Hypertension Status: Chronic Problem Text: 03/09/19: Increased Metoprolol dosing to 50 mg po daily as her HTN is also associated with tachycardia. Stop Hydralazine as anxiety is a side effect. Monitor. poorly controlled BP today. Will resume anti-hypertensives: amlodipine, Lisinopril and Metoprolol. Furosemide 40 mg IV x 1 added on. (4) CKD (chronic kidney disease), stage III Status: Chronic Response to Treatment: Stable (5) Edema Status: Acute Problem Text: 03/09/19: US completed. results are pending. RLE edema. hx of TVR. Last echo was 2010 in [place]. will repeat echo today. (6) Hyponatremia Status: Acute Problem Text: Na level trending down. elevated BUN/Cr/ noted. Added on NaCl IVF at 100 cc per hour. monitor. Plan/VTE VTE Prophylaxis Ordered?: Yes Plan Family Medicine Attending Note: I saw and examined Ms. Gonzalez, discussed with KARLA Kirby. Agree with her note as documented. Nursing reported concern for increased lethargy over the morning. This was after she received the alprazolam for anxiety. Repeat blood gases were done which showed a pH of 7.25 in the pCO2 of 86. I consulted pulmonology and they're managing her with noninvasive ventilation now. Appreciate their assistance. 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) VS, I&O, 24H, Fishbone Vital Signs/I&O Vital Signs Date Time Temp Pulse Resp B/P (MAP) Pulse Ox O2 Delivery O2 Flow Rate FiO2 03/09/19 06:00 102 24 146/65 (92) 96 2.0 03/09/19 04:00 97.0 03/08/19 06:03 Nasal Cannula 03/08/19 02:54 40 I&O- Last 24 Hours up to 6 AM 03/09/19 06:00 Intake Total 1240 ml Output Total 500 ml Balance 740 ml Laboratory Data 24H LABS Laboratory Tests 2 03/08/19 13:36: Blood Gas Bicarbonate Standard 30.3H, Arterial Blood pH 7.311L, Arterial Blood Partial Pressure CO2 70.9*H, Arterial Blood Partial Pressure O2 105.8H, Arterial Blood Total CO2 37.2H, Arterial Blood HCO3 35.0H, Arterial Blood Base Excess 6.4H, Arterial Blood Oxygen Saturation 97.7 03/08/19 18:01: Blood Gas Bicarbonate Standard 31.8H, Arterial Blood pH 7.357, Arterial Blood Partial Pressure CO2 65.1*H, Arterial Blood Partial Pressure O2 79.0, Arterial Blood Total CO2 37.7H, Arterial Blood HCO3 35.7H, Arterial Blood Base Excess 8.0H, Arterial Blood Oxygen Saturation 95.5 03/09/19 04:55: Nucleated Red Blood Cells % (auto) 0.0, Anion Gap 5L, Glomerular Filtration Rate 41.3, Blood Urea Nitrogen 31H, Creatinine 1.33H, Sodium Level 134L, Potassium Level 4.5, Chloride Level 95L, Carbon Dioxide Level 34H, Calcium Level 9.4, Aspartate Amino Transf (AST/SGOT) 51H, Alanine Aminotransferase (ALT/SGPT) 30, Alkaline Phosphatase 55, Total Bilirubin 0.4, Total Protein 7.0, Albumin 3.8, Magnesium Level 2.4, Albumin/Globulin Ratio 1.19 CBC/BMP Laboratory Tests 03/09/19 04:55 Red Blood Count 3.91 L, Mean Corpuscular Volume 93.4, Mean Corpuscular Hemoglobin 30.2, Mean Corpuscular Hemoglobin Concent 32.3, Red Cell Distribution Width 13.0, Calcium Level 9.4, Aspartate Amino Transf (AST/SGOT) 51 H, Alanine Aminotransferase (ALT/SGPT) 30, Alkaline Phosphatase 55, Total Bilirubin 0.4, Total Protein 7.0, Albumin 3.8 Microbiology Microbiology 03/08/19 Blood Culture - Preliminary, Resulted No growth after 24 hours . All specim... 03/08/19 Blood Culture - Preliminary, Resulted No growth after 24 hours . All specim... 03/08/19 Respiratory Virus Panel (PCR) (DILLAN) - Final, Complete Parainfluenza 3 (Piv3) Brianna Springer Mar 09, 2019 09:03 Garett Jones MD Mar 09, 2019 16:21
[2019-03-09] MEDS: PANTOPRAZOLE 40MG TAB (PROTONIX) PO SCH (09:08)
[2019-03-09] MEDS: amLODIPine 5 MG TAB PO SCH (09:16)
[2019-03-09] MEDS: LISINOPRIL 10 MG TAB PO SCH ×2 (09:16→20:11)
[2019-03-09] MEDS: METOPROLOL TART 50 MG TAB PO SCH (09:17)
[2019-03-09] MEDS: AZITHROMYCIN INJ 500 MG, VIAL MATE ADAPTER 1 EACH in D5W 250 ML IV SCH (09:18)
[2019-03-09] MEDS: ENOXAPARIN 40 MG/0.4 ML SYRINGE (J1650) SC SCH (09:18)
[2019-03-09] MEDS: NS 1,000 ML IV SCH ×2 (09:19→19:42)
--- NOTE | 2019-03-09 11:25 | REP ---
Duplex extremity venous ultrasound: Bilateral lower extremity. History: Rule out DVT. Findings: The deep veins are anechoic and fully compressible from the groin to the popliteal fossa in the left and right lower extremity. Color flow imaging is homogeneous. Spectral Doppler interrogation demonstrates intact respiratory variation in flow and normal manual augmentation of flow. There is no evidence of deep vein thrombosis. Impression: Negative bilateral lower extremity duplex venous ultrasound. No evidence of deep vein thrombosis. Electronically Signed by Randy Gentile MD 03/09/2019 11:16 A
[2019-03-09 12:16] LABS: ABG HCO3 37.1 MEQ/L (22.0-26.0); ABG O2 SATURATION 91.9 % (95.0-99.0); ABG PARTIAL PRESSURE O2 70.1 mmHg (75.0-100.0); ABG STANDARD HCO3 30.7 MEQ/L (22.0-26.0); ABG TOTAL CO2 39.7 MEQ/L (23.0-31.0); ABG pH (ARTERIAL) 7.254 UNITS (7.350-7.450)
[2019-03-09 12:19] LABS: ABG PARTIAL PRESSURE CO2 85.7 mmHg (35.0-45.0)
[2019-03-09] MEDS: guaiFENesin ER 600 MG TAB PO SCH ×2 (12:28→20:11)
[2019-03-09] MEDS ORDERED: predniSONE 20 MG TAB PO ONE (13:00)
[2019-03-09 17:52] LABS: ABG HCO3 30.4 MEQ/L (22.0-26.0); ABG O2 SATURATION 85.6 % (95.0-99.0); ABG PARTIAL PRESSURE O2 54.4 mmHg (75.0-100.0); ABG STANDARD HCO3 26.9 MEQ/L (22.0-26.0); ABG TOTAL CO2 32.3 MEQ/L (23.0-31.0); ABG pH (ARTERIAL) 7.322 UNITS (7.350-7.450)
[2019-03-09 17:56] LABS: ABG PARTIAL PRESSURE CO2 60.1 mmHg (35.0-45.0)
[2019-03-09] MEDS: SIMVASTATIN 20 MG TAB PO SCH (20:11)
[2019-03-10] VITALS (17 sets, daily range): BP systolic 123–167; BP diastolic 60–106
[2019-03-10] MEDS: IPRATROPIUM 0.5MG/ALBUTEROL 2.5MG INH SOL UD 3ML (DUONEB)(J7620) NEB SCH ×5 (03:43→19:52)
[2019-03-10] MEDS: NS 1,000 ML IV SCH ×2 (05:00→18:31)
[2019-03-10 05:50] LABS: ALBUMIN 3.5 GM/DL (3.2-5.2); CREATININE FOR GFR 1.45 MG/DL (0.55-1.30); GLOMERULAR FILTRATION RATE 37.4 (>39); POTASSIUM SERUM 4.5 MEQ/L (3.5-5.1)
[2019-03-10] MEDS: cefTRIAXone SOD 1 GM in D5W MINI-BAG PLUS 50 ML IV SCH (06:00)
[2019-03-10] MEDS: LEVOTHYROXINE 25MCG TABLET (0.025MG) PO SCH (06:15)
[2019-03-10] MEDS: ADVAIR HFA 230/21MCG INHALER INH SCH ×2 (07:07→19:53)
[2019-03-10] MEDS: AZITHROMYCIN INJ 500 MG, VIAL MATE ADAPTER 1 EACH in D5W 250 ML IV SCH (08:00)
--- NOTE | 2019-03-10 08:35 | IPNPDOC ---
Subjective Date Seen The patient was seen on 03/10/19. Subjective Chief Complaint/HPI hypoxia, pneumonia Events since last encounter Developed lethargy and hypoxia with increased work of breathing. placed on Bipap after Pulmonary consult. Evaluated alongside Pulmonary this morning. See Pulm consult note. Patient continues to c/o dyspnea, SOB. Afebrile. Rested well overnight. Constitutional: Denies: Chills, Fever, Night Sweats Pulmonary: Reports: Dyspnea, Cough Cardiovascular: Denies: Chest Pain, Palpitations, Orthopnea, Paroxysmal Noc. Dyspnea, Lt Headedness Gastrointestinal: Denies: Nausea, Vomiting, Abdominal Pain, Diarrhea, Constipation Psych: Reports: Mood Normal, Anxiety; Denies: Depression, Memory Issues Objective Physical Examination General Exam: Positive: Alert, Cooperative, Mild Distress (respiratory distress related to her anxiety) ENT Exam: Positive: Atraumatic, Mucous membr. moist/pink Chest Exam: Positive: Diminished (throughout); Negative: Rales, Wheezing Heart Exam: Positive: Rate Normal, Normal S1, Normal S2 Abdomen Exam: Positive: Normal bowel sounds, Soft; Negative: Tenderness Extremity Exam: Negative: Tenderness, Swelling Skin Exam: Positive: Other skin issue (ecchymotis areas to BLE) Psych Exam: Positive: Oriented x 3 Assessment /Plan Problems (1) Acute respiratory failure with hypercapnia Status: Acute Problem Text: 03/10/19: DC abx per Pulmonology recommendations. Prednisone 60 mg po today then 40 mg po tomorrow. Continue nebs, CPT, acapella. Trial off of Bipa p today. Encouraged po fluids. level 2 soft diet ordered to limit work of breathing with nutrition. DC Xanax due to poor response yesterday. Attempt alternate methods to assist with anxiety related to SOB/dyspnea. Reviewed code status with patient and daughter: remains FULL CODE. Keep Oxygen saturations between 85-90% due to hypercapnia. Reviewed plan with patient and daughter. 03/09/19: Day #2 Rocephin and Azithromycin. continue with abx. Procalcitonin level of 0.27 noted. Wean oxygen. wean solumedrol to po Prednisone due to agitation. WBC elevated, may be steroid effect. repeat CXR today. Day #1 Rocephin and azithromycin for RLL patchy infiltrates. Solumedrol 80 mg IV q 8 hrs. Continue with nebs. Currently requiring 4LNC oxygen. Bipap DCd this am. Respiratory panel + for parainfluenza (2) Parainfluenza Status: Acute Problem Text: see above plan. (3) Pneumonia Status: Acute Problem Text: received 2 doses of Azithromycin and Rocephin. Stopped abx. Most likely viral in etiology. (4) Hypertension Status: Chronic Problem Text: 03/09/19: Increased Metoprolol dosing to 50 mg po daily as her HTN is also associated with tachycardia. Stop Hydralazine as anxiety is a side effect. Monitor. poorly controlled BP today. Will resume anti-hypertensives: amlodipine, Lisinopril and Metoprolol. Furosemide 40 mg IV x 1 added on. (5) CKD (chronic kidney disease), stage III Status: Chronic Response to Treatment: Stable (6) Edema Status: Acute Problem Text: 03/09/19: US completed. results are pending. RLE edema. hx of TVR. Last echo was 2010 in [place]. will repeat echo today. (7) Hyponatremia Status: Resolved Problem Text: 03/10/19: Sodium normalized today. Na level trending down. elevated BUN/Cr/ noted. Added on NaCl IVF at 100 cc per hour. monitor. Plan/VTE VTE Prophylaxis Ordered?: Yes Plan Family Medicine Attending Note: I saw and examined Ms. Gonzalez, discussed with KARLA Kirby. Agree with her note as documented. 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) VS, I&O, 24H, Fishbone Vital Signs/I&O Vital Signs Date Time Temp Pulse Resp B/P (MAP) Pulse Ox O2 Delivery O2 Flow Rate FiO2 03/10/19 08:02 93 24 03/10/19 07:29 99 132/79 (96) 03/10/19 04:00 99.0 32 03/09/19 11:30 2.0 03/08/19 06:03 Nasal Cannula I&O- Last 24 Hours up to 6 AM 03/10/19 06:00 Intake Total 2110 ml Balance 2110 ml Laboratory Data 24H LABS Laboratory Tests 2 03/09/19 12:03: Blood Gas Bicarbonate Standard 30.7H, Arterial Blood pH 7.254L, Arterial Blood Partial Pressure CO2 85.7*H, Arterial Blood Partial Pressure O2 70.1L, Arterial Blood Total CO2 39.7H, Arterial Blood HCO3 37.1H, Arterial Blood Base Excess 7.0H, Arterial Blood Oxygen Saturation 91.9L 03/09/19 17:34: Blood Gas Bicarbonate Standard 26.9H, Arterial Blood pH 7.322L, Arterial Blood P artial Pressure CO2 60.1*H, Arterial Blood Partial Pressure O2 54.4L, Arterial Blood Total CO2 32.3H, Arterial Blood HCO3 30.4H, Arterial Blood Base Excess 3.0H, Arterial Blood Oxygen Saturation 85.6L 03/10/19 05:01: Blood Urea Nitrogen 45H, Creatinine 1.45H, Sodium Level 136, Potassium Level 4.5, Chloride Level 97L, Carbon Dioxide Level 30, Anion Gap 9, Glomerular Filtration Rate 37.4L, Calcium Level 9.0, Phosphorus Level 4.0, HD-Rcq-F-Type Natriuretic Peptide 7H, Albumin 3.5 CBC/BMP Laboratory Tests 03/10/19 05:01 Anion Gap 9 Microbiology Microbiology 03/08/19 Blood Culture - Preliminary, Resulted No Growth after 48 hours. All Specime... 03/08/19 Blood Culture - Preliminary, Resulted No Growth after 48 hours. All Specime... 03/08/19 Respiratory Virus Panel (PCR) ([facility]) - Final, Complete Parainfluenza 3 (Piv3) Brianna Springer Mar 10, 2019 08:35 Garett Jones MD Mar 10, 2019 19:22
[2019-03-10] MEDS: guaiFENesin ER 600 MG TAB PO SCH ×2 (08:39→20:14)
[2019-03-10] MEDS: ENOXAPARIN 40 MG/0.4 ML SYRINGE (J1650) SC SCH (08:40)
[2019-03-10] MEDS: PANTOPRAZOLE 40MG TAB (PROTONIX) PO SCH (08:40)
[2019-03-10] MEDS: LISINOPRIL 10 MG TAB PO SCH ×2 (08:41→20:14)
[2019-03-10] MEDS: amLODIPine 5 MG TAB PO SCH (08:41)
[2019-03-10] MEDS: METOPROLOL TART 50 MG TAB PO SCH (08:41)
[2019-03-10] MEDS ORDERED: predniSONE 20 MG TAB PO SCH (09:00)
--- NOTE | 2019-03-10 10:40 | CR ---
DATE OF CONSULTATION: 03/09/2019 CHIEF COMPLAINT: Asked by Dr. Jones to emergently evaluate Ms. Gonzalez for acute chronic hypercapnic respiratory failure. Ms. Goznalez is a 78-year-old white female with a past medical history most significant for chronic obstructive pulmonary disease (COPD) who presented to the emergency department on 03/08/2019 with increased shortness of breath and a nonproductive cough over several days. She had been driving up from [place] for the 3 days prior to her presentation to the emergency department. She has had subjective fevers and chills. She denies chest pain, palpitations, abdominal pain, sick contacts, lower extremity edema, paroxysmal nocturnal dyspnea (PND), orthopnea, or nausea, vomiting, or emesis. She was evaluated in the emergency department, where she was felt to have acute and chronic hypercapnic respiratory failure. The acute portion felt secondary to a COPD exacerbation. She had a CT pulmonary angiogram done, which was negative for pulmonary emboli but did show some patchy infiltrates. In the emergency department, she was treated with Rocephin and azithromycin, as well as intravenous (IV) Solu-Medrol and bronchodilator therapy. She had initially been on noninvasive mechanical ventilation, but that was discontinued in the emergency department (ED), as her blood gas was normalized, and she was able to speak in full sentences. She was admitted to the intensive care unit. Apparently, over the next 24 hours, she has had several blood gases, which had shown some fluctuation, though I am not certain that she required going back on the noninvasive mechanical ventilation (NIMV). This morning, she was agitated and was given a Xanax 0.25 mg dose. After that, she became somnolent. Arterial blood gas again showed acute and chronic hypercapnic respiratory failure, and telephone services sales representative was consulted for NIMV intervention. After she had been on that modality for several hours, an arterial blood gas showed improvement in her respiratory acidemia, though not complete resolution. At the present time, she is wearing the noninvasive mechanical ventilator mask. She is easily arousable. She indicates she is getting enough air. She denies any discomfort. ALLERGIES: No known drug allergies. MEDICATIONS ON ADMISSION: - albuterol nebulization every 4 hours as needed - ProAir HFA two puffs every 4 hours as needed - amlodipine 5 mg by mouth every day - budesonide 0.25 mg nebulization twice a day - Symbicort 160/4.5 mcg two puffs twice a day - vitamin D3 5000 units by mouth every day - Lasix 20 mg by mouth every day - Mucinex 600 mg by mouth twice a day - Bacid caplet one by mouth every day - Synthroid 25 mcg by mouth every day - lisinopril 10 mg by mouth twice a day - metoprolol 25 mg by mouth every day - pantoprazole 40 mg by mouth every day - prednisone 5 mg by mouth every day - Zocor 20 mg by mouth nightly - sodium chloride 3% nebulization one every 4 hours as needed - Spiriva 2.5 mcg two puffs daily PAST MEDICAL HISTORY: 1. COPD, very severe. A. FEV1 0.38 (23%) and FVC 0.89 (40%), FEV1/FVC ratio 43% (57% predicted) on spirometry 04/20/2018. B. Hypercapnia and hypoxemia. C. Outpatient medications include bronchodilators, prednisone 5 mg daily, Trelegy, and azithromycin. 2. Emphysema. 3. History of pulmonary nodule. 4. History of childhood asthma. 5. Hypertension. 6. Dyslipidemia. 7. Anxiety. 8. Allergic rhinitis. 9. Gastroesophageal reflux disease (GERD). 10. Hypothyroidism. 11. Chronic kidney disease stage III. 12. History of tobacco usage. SOCIAL HISTORY: Ms. Gonzalez has a [id number] history and quit in 2010. Occasional alcohol intake. No illicit drug usage. She previously worked in the [employer] in [employer]. FAMILY HISTORY: Her father at age 35 from myocardial infarction. She has grandchildren with asthma. REVIEW OF SYSTEMS: Per history of present illness (HPI). Remainder of pertinent review of systems is negative. PHYSICAL EXAMINATION: Ms. Gonzalez is lying in bed, in no acute distress. She appears comfortable on the NIMV. VITAL SIGNS: Temperature 97.5, respiratory rate 21, pulse 82, blood pressure 164/76 with a mean arterial pressure (MAP) of 105, SpO2 96% on FIO2 of 0.3 through an NIMV with an inspiratory positive airway pressure (IPAP) at 16 and expiratory positive airway pressure (EPAP) of 6. HEENT: Anicteric. Pupil on the left side is 2 mm and reactive on the right side 3 mm and reactive. Nares and oropharynx not examined secondary to full face mask. NECK: Supple, without appreciable jugular venous distention (JVD), though difficult examination given body habitus and noninvasive mechanical ventilation mask. LYMPHATICS: Without cervical or supraclavicular lymphadenopathy. CHEST: increased AP diameter. LUNGS: Symmetric excursion, markedly diminished air entry. No wheeze, rhonchi, or crackle appreciated on tidal excursion. prolonged expiratory phase. No accessory muscle usage or retractions. CARDIOVASCULAR: Regular rate and rhythm with a normal S1, S2. No murmur, rub, or gallop appreciated. ABDOMEN: Normoactive bowel sounds, soft, nondistended, nontender. No hepatosplenomegaly or masses appreciated. EXTREMITIES: Warm and well-perfused without clubbing or cyanosis. Positive edema. LABORATORY DATA: Arterial blood gas from this morning was 7.254/86/70 with a measured saturation of 92% and a base excess 7.0. That was drawn on 2 or 4 liters by nasal cannula. Repeat arterial blood gas on NIMV with an IPAP of 16, EPAP of 6, and an FIO2 0.3 was 7.32/60/54 with a measured saturation of 86% and a base excess of 3.0. MICROBIOLOGY: Was positive parainfluenza. Blood cultures are negative to date. Chemistries show sodium 134, potassium 4.5, chloride 95, bicarbonate 34, anion gap 5, BUN 31, creatinine 1.3, glucose 147, calcium 9.4, magnesium 2.4, total bilirubin 0.4, AST 51, ALT 30, alkaline phosphatase 55, total protein 7.0, albumin 3.8, procalcitonin 0.27. Complete blood count (CBC) from this morning showed a hemoglobin of 11.8, hematocrit 36.5, platelet count 279,000, white blood cell count 16,700. I reviewed her chest CT pulmonary angiogram, as well as the report, from 03/08/2019. That CT scan showed normal-appearing cardiac silhouette, pulmonary vascular shadows. No mediastinal or hilar adenopathy. There were bilateral emphysematous changes. There are minimal patchy infiltrates in the right lung. No pulmonary emboli. IMPRESSION: 1. Acute and chronic respiratory failure, both hypoxemic and hypercapnic. I suspect that her acute problem is secondary to a COPD exacerbation, but the event this morning was likely related to the benzodiazepine. 2. Parainfluenza pneumonia. 3. Minimal patchy right-sided ground-glass infiltrates. 4. Chronic obstructive pulmonary disease exacerbation secondary to parainfluenza. 5. Chronic obstructive pulmonary disease, very severe at baseline with hypercapnia and hypoxemia. 6. Chronic high-risk medication usage (prednisone). 7. Obesity. 8. Question obstructive sleep apnea. 9. Hypothyroidism. RECOMMENDATIONS: 1. Will continue noninvasive mechanical ventilation overnight, as her respiratory acidemia is not completely corrected, and I suspect that she has underlying obstructive sleep apnea. 2. If an anxiolytic is needed, would consider further decreasing the Xanax dose. I have anecdotally had success with using 0.125 mg three times a day as needed. 3. Given the low procalcitonin findings, parainfluenza, and minimal chest CT findings, I would discontinue the antibiotics. 4. I feel it is reasonable to continue on the azithromycin orally that she is on as an outpatient. 5. Continue systemic corticosteroids and hopefully can begin to wean tomorrow. CRITICAL CARE TIME: 35 minutes, not including procedure time. JOHN
[2019-03-10] MEDS: ACETAMINOPHEN TAB 650MG DOSE (2X325MG) PO PRN (11:39)
[2019-03-10] MEDS: AZITHROMYCIN 250 MG TAB PO SCH (12:37)
[2019-03-10] MEDS ORDERED: LIDOCAINE 1% MDV 20ML VIAL As Ordered ONE (16:30)
[2019-03-10 16:57] LABS: ABG BASE EXCESS -2.8 (-2.0-2.0); ABG HCO3 23.8 MEQ/L (22.0-26.0); ABG O2 SATURATION 96.1 % (95.0-99.0); ABG PARTIAL PRESSURE CO2 48.6 mmHg (35.0-45.0); ABG PARTIAL PRESSURE O2 93.2 mmHg (75.0-100.0); ABG STANDARD HCO3 22.1 MEQ/L (22.0-26.0); ABG TOTAL CO2 25.2 MEQ/L (23.0-31.0); ABG pH (ARTERIAL) 7.307 UNITS (7.350-7.450)
[2019-03-10] MEDS: SIMVASTATIN 20 MG TAB PO SCH (20:15)
[2019-03-10] MEDS ORDERED: SODIUM CHLORIDE 0.9% INJ 10 ML SYR IV PRN (20:30)
[2019-03-11] VITALS (14 sets, daily range): BP systolic 137–190; BP diastolic 63–115
[2019-03-11] MEDS: IPRATROPIUM 0.5MG/ALBUTEROL 2.5MG INH SOL UD 3ML (DUONEB)(J7620) NEB SCH ×6 (00:24→20:00)
[2019-03-11 05:00] LABS: BASO % 0.2 % (0.0-1.0); HEMATOCRIT 34.4 % (36.0-47.0); LYMPH # 0.6 10^3/uL (1.5-4.5); LYMPH % 4.8 % (24.0-44.0); MEAN CORPUSCULAR HEMOGLOBIN 30.1 pg (27.0-33.0); MEAN CORPUSCULAR VOLUME 94.2 fl (80.0-96.0); MONO % 8.2 % (0.0-5.0); NEUTROPHILS # 10.4 10^3/uL (1.8-7.7); PLATELET COUNT, AUTOMATED 261 10^3/uL (150-450); RED BLOOD COUNT 3.65 10^6/uL (4.00-5.40); WHITE BLOOD COUNT 12.1 10^3/uL (4.0-10.0)
[2019-03-11 05:29] LABS: ALBUMIN 3.4 GM/DL (3.2-5.2); BILIRUBIN,TOTAL 0.4 MG/DL (0.2-1.0); CALCIUM LEVEL 9.2 MG/DL (8.8-10.2); CREATININE FOR GFR 1.39 MG/DL (0.55-1.30); GLOMERULAR FILTRATION RATE 39.2 (>39); POTASSIUM SERUM 4.3 MEQ/L (3.5-5.1); TOTAL PROTEIN 6.2 GM/DL (6.4-8.2)
[2019-03-11] MEDS: SODIUM CHLORIDE 0.9% INJ 10 ML SYR IV SCH ×2 (06:09→17:59)
[2019-03-11] MEDS: LEVOTHYROXINE 25MCG TABLET (0.025MG) PO SCH (06:10)
--- NOTE | 2019-03-11 07:50 | CCN ---
DATE: 03/10/2019 Ms. Gonzalez remains critically ill with acute on chronic respiratory failure leading to non-invasive mechanical ventilation. She tolerated the device overnight. This morning she is alert and awake. She denies chest pain or pressure. She still notes some shortness of breath. When the mask was removed, she felt more short of breath, but I am not certain how far that is from her baseline. She also has had difficulty with anxiety because of shortness of breath. No paroxysmal nocturnal dyspnea (PND) or orthopnea. No nausea or emesis. She is concerned that she is not getting intravenous (IV) fluids (no access at this time). OBJECTIVE: PHYSICAL EXAMINATION: GENERAL: Ms. Gonzalez is ill appearing and lying on her left side with the non-invasive mechanical ventilation on her face. VITAL SIGNS: Temperature 96.8 with a maximal temperature of 99, pulse of 119, blood pressure 160/65 with a mean arterial pressure (MAP) of 96, SpO2 of 98% on FiO2 of 3 after the non-invasive mechanical ventilation was removed. HEENT: Anicteric. Nares and oropharynx not examined secondary to full-face mask. NECK: Supple without jugular venous distention (JVD), without thyromegaly or masses. Trachea is midline. LYMPH: Without cervical or supraclavicular lymphadenopathy. LUNGS: Symmetric excursion. Markedly diminished air entry. No wheeze, rhonchi, or crackle on tidal excursion. Prolonged expiratory phase. No accessory muscle usage or retractions. CARDIOVASCULAR: Tachycardic, regular rhythm. Normal S1, S2. No murmur, rub, or gallop appreciated. ABDOMEN: Positive bowel sounds. Soft, nondistended. No hepatosplenomegaly or masses appreciated. EXTREMITIES: Without clubbing, cyanosis, or edema. SKIN: No significant subcutaneous heme on her upper extremities. LABORATORY DATA: CBC showed a hemoglobin 11.8, hematocrit 36.5, platelet count 279,000, white blood cell count 16,700. Chemistries showed sodium 136, potassium 4.5, chloride 97, bicarbonate 30, anion gap 9, BUN 45, creatinine 1.5, glucose 119, calcium 9.0, phosphorus 4.0. BNP 2027. Albumin 3.5. IMPRESSION: 1. Acute on chronic hypercapnic hypoxemic respiratory failure. Acute portion felt secondary to chronic obstructive pulmonary disease (COPD) exacerbation accentuated by the use of benzodiazepine. 2. Parainfluenza pneumonia. 3. Minimal patchy right upper lobe infiltrate, likely related to the virus. 4. COPD exacerbation secondary to parainfluenza. 5. COPD, very severe at baseline with hypercapnia and hypoxemia. 6. Chronic high-risk medication usage, prednisone (on 5 mg daily as outpatient). 7. Obesity. 8. Questionable obstructive sleep apnea. 9. Hypothyroidism. RECOMMENDATIONS: 1. We will discontinue the bilevel device at this time and see how she does clinically. She appeared to have enough resolution of her COPD exacerbation yesterday to not require it, and yesterday's requirement was felt secondary to benzodiazepine. 2. Continue to wean corticosteroid. Suggest going to 40 mg by mouth daily. 3. Agree with peripherally inserted central catheter (PICC) line placement. 4. Would discontinue IV antibiotics but would continue the oral azithromycin that she is on at baseline. 5. Depending on how she does today, will obtain an arterial blood gas this afternoon. Would recommend use of bilevel therapy nocturnally and with naps for the immediate future and wean from that. As she does not wear bilevel /CPAP as an outpatient, I am doubtful she would tolerate them given her level of anxiety. 6. Further discussions need to be made regarding code status, particularly given her known FEV1 of 24% with hypercapnic and hypoxemia. She is on an external ventilator and unlikely to do significantly better if intubated and would be difficult to extubate if she fails the external modality. This discussion may be assisted with her primary marketing account executive, Dr. Poe, who takes over the service evening. CRITICAL CARE TIME: 25 minutes, not including procedure time. JOHN
[2019-03-11] MEDS: ADVAIR HFA 230/21MCG INHALER INH SCH (08:08)
--- NOTE | 2019-03-11 08:27 | REP ---
Oral chest x-ray: Single view. History: Follow-up pneumonia. Comparison study: March 08, 2019 and March 06, 2017. Findings: The lungs are hyperinflated. Pleural angles are sharp. Heart size is normal. No significant bony abnormality is seen. There is a nodular opacity the left perihilar region superimposed on the 6th posterior rib. This measures 9 mm in diameter. No pulmonary nodule is seen in the left lung on chest CT study from March 08, 2019 to correspond with this. It is most likely artifact therefore. Thorax overlying costal cartilage. Impression: No active disease. Some hyperinflation. No infiltrate seen. Electronically Signed by Randy Gentile MD 03/11/2019 08:18 A
--- NOTE | 2019-03-11 09:15 | IPNPDOC ---
Subjective Date Seen The patient was seen on 03/11/19. Subjective Chief Complaint/HPI hypoxia, pnuemonia, COPD Events since last encounter c/o continuing dyspnea. Nursing reports difficulty weaning patient off of Bipap. Remains afebrile. Poor tolerance of chest PT. Constitutional: Denies: Chills, Fever, Night Sweats Pulmonary: Reports: Dyspnea, Cough Cardiovascular: Reports: Paroxysmal Noc. Dyspnea; Denies: Chest Pain, Palpitations, Orthopnea, Lt Headedness Psych: Reports: Anxiety Objective Physical Examination General Exam: Positive: Alert, Cooperative, Mild Distress (respiratory distress related to her anxiety) ENT Exam: Positive: Atraumatic, Mucous membr. moist/pink Chest Exam: Positive: Diminished (throughout); Negative: Rales, Wheezing Heart Exam: Positive: Rate Normal, Normal S1, Normal S2 Abdomen Exam: Positive: Normal bowel sounds, Soft; Negative: Tenderness Extremity Exam: Negative: Tenderness, Swelling Skin Exam: Positive: Other skin issue (ecchymotis areas to BLE) Psych Exam: Positive: Oriented x 3 A-FIB/CHADSVASC A-FIB History Current/History of A-Fib/PAF?: No Assessment /Plan Problems (1) Acute respiratory failure with hypercapnia Status: Acute Problem Text: 03/11/19: Poor tolerance of weaning off of Bipap. Continue to attempt to wean as much as possible. Continue CPT, acapella and nebs. Transition to Prednisone 40 mg po daily per Pulmonology recommendations. Patient expressed interest in DNR/advanced directives when family not at bedside to nursing staff. Will attempt to have discussion with patient later today. 03/10/19: DC abx per Pulmonology recommendations. Prednisone 60 mg po today then 40 mg po tomorrow. Continue nebs, CPT, acapella. Trial off of Bipap today. Encouraged po fluids. level 2 soft diet ordered to limit work of breathing with nutrition. DC Xanax due to poor response yesterday. Attempt alternate methods to assist with anxiety related to SOB/dyspnea. Reviewed code status with patient and daughter: remains FULL CODE. Keep Oxygen saturations between 85-90% due to hypercapnia. Reviewed plan with patient and daughter. 03/09/19: Day #2 Rocephin and Azithromycin. continue with abx. Procalcitonin level of 0.27 noted. Wean oxygen. wean solumedrol to po Prednisone due to agitation. WBC elevated, may be steroid effect. repeat CXR today. Day #1 Rocephin and azithromycin for RLL patchy infiltrates. Solumedrol 80 mg IV q 8 hrs. Continue with nebs. Currently requiring 4LNC oxygen. Bipap DCd this am. Respiratory panel + for parainfluenza (2) Parainfluenza Status: Acute Problem Text: see above plan. (3) Pneumonia Status: Acute Problem Text: received 2 doses of Azithromycin and Rocephin. Stopped abx. Most likely viral (parainfluenza) in etiology. (4) Edema Status: Acute Problem Text: 03/11/19: negative DVT. Most likely Chronic venous changes. Will resume Lasix today and monitor cr. levels. 03/09/19: US completed. results are pending. RLE edema. hx of TVR. Last echo was 2010 in [place]. will repeat echo today. (5) Hypertension Status: Chronic Problem Text: 03/09/19: Increased Metoprolol dosing to 50 mg po daily as her HTN is also associated with tachycardia. Stop Hydralazine as anxiety is a side effect. Monitor. poorly controlled BP today. Will resume anti-hypertensives: amlodipine, Lisinopril and Metoprolol. Furosemide 40 mg IV x 1 added on. (6) CKD (chronic kidney disease), stage III Status: Chronic Response to Treatment: Stable Problem Text: Cr improved today. monitor. (7) Hyponatremia Status: Resolved Problem Text: 03/10/19: Sodium normalized today. Na level trending down. elevated BUN/Cr/ noted. Added on NaCl IVF at 100 cc per hour. monitor. Plan/VTE VTE Prophylaxis Ordered?: Yes (Lovenox) Plan Family Medicine Attending Note: I saw and examined Ms. Gonzalez, discussed with KARLA Kirby. Agree with her note as documented. When I saw the patient in the afternoon she was still on bilevel noninvasive pressure support. Her daughter (who is in the room with her) reported she had been sleeping most of the day. I will work to further discuss the patient's advanced directives with her, but when she is more alert, and when her per family is not present. Continue current regimen for now. 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, I&O, 24H, Fishbone Vital Signs/I&O Vital Signs Date Time Temp Pulse Resp B/P (MAP) Pulse Ox O2 Delivery O2 Flow Rate FiO2 03/11/19 08:10 24 03/11/19 07:35 97.4 90 32 187/83 (117) 92 03/10/19 15:35 3.0 03/08/19 06:03 Nasal Cannula I&O- Last 24 Hours up to 6 AM 03/11/19 06:00 Intake Total 990 ml Output Total 1265 ml Balance -275 ml Laboratory Data 24H LABS Laboratory Tests 2 03/10/19 16:47: Blood Gas Bicarbonate Standard 22.1, Arterial Blood pH 7.307L, Arterial Blood Partial Pressure CO2 48.6H, Arterial Blood Partial Pressure O2 93.2, Arterial Blood Total CO2 25.2, Arterial Blood HCO3 23.8, Arterial Blood Base Excess - 2.8L, Arterial Blood Oxygen Saturation 96.1 03/11/19 04:14: Immature Granulocyte % (Auto) 0.8, White Blood Count 12.1H, Red Blood Count 3.65L, Hemoglobin 11.0L, Hematocrit 34.4L, Mean Corpuscular Volume 94.2, Mean Corpuscular Hemoglobin 30.1, Mean Corpuscular Hemoglobin Concent 32.0, Red Cell Distribution Width 13.0, Platelet Count 261, Neutrophils (%) (Auto) 86.0H, Lymphocytes (%) (Auto) 4.8L, Monocytes (%) (Auto) 8.2H, Eosinophils (%) (Auto) 0.0, Basophils (%) (Auto) 0.2, Neutrophils # (Auto) 10.4H, Lymphocytes # (Auto) 0.6L, Monocytes # (Auto) 1.0H, Eosinophils # (Auto) 0.0, Basophils # (Auto) 0.0, Nucleated Red Blood Cells % (auto) 0.0, Anion Gap 6L, Glomerular Filtration Rate 39.2, Blood Urea Nitrogen 52H, Creatinine 1.39H, Sodium Level 139, Potassium Level 4.3, Chloride Level 101, Carbon Dioxide Level 32, Calcium Level 9.2, Aspartate Amino Transf (AST/SGOT) 42H, Alanine Aminotransferase (ALT/SGPT) 36, Alkaline Phosphatase 44L, Total Bilirubin 0.4, Total Protein 6.2L, Albumin 3.4, Albumin/Globulin Ratio 1.21 CBC/BMP Laboratory Tests 03/11/19 04:14 Red Blood Count 3.65 L, Mean Corpuscular Volume 94.2, Mean Corpuscular Hemo globin 30.1, Mean Corpuscular Hemoglobin Concent 32.0, Red Cell Distribution Width 13.0, Neutrophils (%) (Auto) 86.0 H, Lymphocytes (%) (Auto) 4.8 L, Monocytes (%) (Auto) 8.2 H, Eosinophils (%) (Auto) 0.0, Basophils (%) (Auto) 0.2, Neutrophils # (Auto) 10.4 H, Lymphocytes # (Auto) 0.6 L, Monocytes # (Auto) 1.0 H, Eosinophils # (Auto) 0.0, Basophils # (Auto) 0.0, Calcium Level 9.2, Aspartate Amino Transf (AST/SGOT) 42 H, Alanine Aminotransferase (ALT/SGPT) 36, Alkaline Phosphatase 44 L, Total Bilirubin 0.4, Total Protein 6.2 L, Albumin 3.4 Microbiology Microbiology 03/08/19 Blood Culture - Preliminary, Resulted No Growth after 72 hours. All specime... 03/08/19 Blood Culture - Preliminary, Resulted No Growth after 72 hours. All specime... 03/08/19 Respiratory Virus Panel (PCR) ([facility]) - Final, Complete Parainfluenza 3 (Piv3) Brianna Springer Mar 11, 2019 09:15 Garett Jones MD Mar 11, 2019 20:42
[2019-03-11] MEDS ORDERED: FUROSEMIDE 20 MG/2 ML VIAL (J1940) IV ONE (09:30)
[2019-03-11] MEDS: ENOXAPARIN 40 MG/0.4 ML SYRINGE (J1650) SC SCH (09:31)
[2019-03-11] MEDS: guaiFENesin ER 600 MG TAB PO SCH ×2 (09:32→21:00)
[2019-03-11] MEDS: AZITHROMYCIN 250 MG TAB PO SCH (09:32)
[2019-03-11] MEDS: predniSONE 20 MG TAB PO SCH (09:33)
[2019-03-11] MEDS: PANTOPRAZOLE 40MG TAB (PROTONIX) PO SCH (09:33)
[2019-03-11] MEDS: LISINOPRIL 10 MG TAB PO SCH ×2 (09:37→21:00)
[2019-03-11] MEDS: amLODIPine 5 MG TAB PO SCH (09:37)
[2019-03-11] MEDS: METOPROLOL TART 50 MG TAB PO SCH (09:37)
[2019-03-11] MEDS: NS 1,000 ML IV SCH (10:43)
--- NOTE | 2019-03-11 11:00 | REP ---
MIDLINE INSERTION WITH ULTRASOUND GUIDANCE: REASON FOR EXAM: Poor IV access PROCEDURE: Midline catheter insertion under ultrasound guidance at the bedside. This procedure was performed by CELESTINA Laing, under the direct supervision of Dr. Johnson. The risks and benefits of the procedure were explained to the patient and informed consent was obtained prior to the procedure. The right lateral brachial vein was localized using ultrasound guidance. The skin was prepped and draped in a sterile fashion. 1% lidocaine was used as a local anesthetic. Using ultrasound guidance the right lateral brachial vein was cannulated and a 0.018 guidewire was inserted. The needle was removed and a 5.5 Slovenian dilator and a Peel-Away sheath was inserted over the guidewire. A 5.5 Slovenian dual lumen catheter was cut to the length of 8 cm. The dilator was removed and the catheter was inserted over the guidewire. The Peel-Away sheath was removed and the catheter was flushed with heparinized saline as per hospital protocol. The catheter was affixed to the skin and a sterile dressing was applied. The patient tolerated the procedure well and there were no immediate complications. Reviewed by CELESTINA Santos 03/11/2019 08:26 A Electronically Signed by Rickey Johnson MD 03/11/2019 10:50 A
[2019-03-11] MEDS ORDERED: ALBUTEROL SULFATE 2.5 MG/0.5 ML INH NEB SOLN NEB PRN (14:15)
[2019-03-11 14:48] LABS: ABG HCO3 32.8 MEQ/L (22.0-26.0); ABG O2 SATURATION 97.5 % (95.0-99.0); ABG PARTIAL PRESSURE O2 105.5 mmHg (75.0-100.0); ABG TOTAL CO2 34.8 MEQ/L (23.0-31.0); ABG pH (ARTERIAL) 7.307 UNITS (7.350-7.450)
--- NOTE | 2019-03-11 18:18 | CCN ---
DATE: 03/11/2019 NOTE: Ms. Gonzalez remains critically ill with acute and chronic hypercapnic and hypoxemic respiratory failure. Yesterday, we tried to give her some time off the bilevel hoping to move the device to nocturnal and naps. However, during the afternoon, she again became more short of breath, and started having her saturations drop and she became more air hungry. The noninvasive mechanical ventilator had to be reinstituted. She had again developed acute hypercapnia in the setting of her chronic hypercapnia. She tolerated the device overnight but she was described as being restless and anxious last evening. Today, she indicates that she is getting enough air. No cough as long as the mask is in place. She does not note chest pain or pressure. No nausea or abdominal pain. No paroxysmal nocturnal dyspnea (PND) or orthopnea. Hemodynamically, she remained stable overnight. Apparently, last evening, she did indicate to the staff that she would not want cardiopulmonary resuscitation (CPR). We will follow with a discussion on that later in this dictation. OBJECTIVE: PHYSICAL EXAMINATION: GENERAL: Ms. Gonzalez is lying in bed with the full face mask in place. She is tolerating the device and is synchronous with the device. VITAL SIGNS: Temperature 97.4 with a maximum temperature (T-max) of 98.0, respiratory rate high 20s to low 30s, pulse 90, blood pressure 157/68, SpO2 92% on an fraction of inspired oxygen (FiO2) of 0.24 via the noninvasive mechanical ventilation (NIMV) with an inspiratory positive airway pressure (IPAP) of 16 and an expiratory positive airway pressure (EPAP) of 6. HEENT: Anicteric. Pupils equal, round, and reactive to light and accommodation. Oropharynx and nares not examined secondary to full face mask. NECK: Supple, without apparent jugular venous distention (JVD), without thyromegaly or masses. Trachea is midline. LYMPHATICS: Without cervical or supraclavicular lymphadenopathy. CHEST: Increased anteroposterior (AP) diameter. LUNGS: Symmetric excursion, markedly diminished air entry. No wheeze, rhonchi or crackle on tidal excursion. No prolonged expiratory phase. No accessory muscle usage or retractions. CARDIOVASCULAR: Distant, regular rate and rhythm with a normal S1, S2. No murmur, rub or gallop appreciated. ABDOMEN: Positive bowel sounds, soft, nontender, nondistended. No hepatosplenomegaly or masses appreciated. EXTREMITIES: Warm and well-perfused, without clubbing, cyanosis or significant edema. LABORATORY DATA: CBC from today showed a hemoglobin of 11, hematocrit 34.5, platelet count 261,000, white blood cell count 12,100 with a differential of 86% neutrophils, 5% lymphocytes, and 8% monocytes. Chemistries showed a sodium of 139, potassium 4.3, chloride 101, bicarbonate 32, anion gap 6, BUN 52, creatinine 1.4, glucose 88, calcium 9.2, total bilirubin 0.4, AST 42, ALT 36, alkaline phosphatase 44, total protein 6.2, albumin 3.1. Arterial blood gas yesterday after she was on bilevel for a short period of time (perhaps 20-30 minutes) was 7.31/49/96 with a measured saturation of 92.8. I reviewed her chest x-ray as well as the report from earlier today. That x-ray showed normal-appearing cardiac silhouette and pulmonary vascular shadows. Normal-appearing mediastinal and hilar regions. There is a small nodular opacity seen in the left parahilar region that was not appreciated on chest CT scan from 03/08/2019 and is likely artifact. No consolidated regions. There is evidence of hyperinflation. Yesterday's intake and output were 630 in and 990 out making her negative 360. Thus far today, 510 in and 645 out making her negative 135. Weight 75.2. IMPRESSION: 1. Acute and chronic respiratory failure secondary to chronic obstructive pulmonary disease (COPD) exacerbation. Some of her acute difficulties may be secondary to either mucus plugging, though she does not appear to have significant secretions and are more likely secondary to anxiety and air trapping. 2. Parainfluenza pneumonia. 3. Minimal patchy right upper lobe infiltrate, likely related to the virus. 4. COPD exacerbation, secondary to parainfluenza. 5. COPD, very severe at baseline with hypercapnia and hypoxemia. 6. Chronic high-risk medication usage (prednisone 5 mg daily). 7. Obesity. 8. Questionable obstructive sleep apnea. 9. Hypothyroidism. 10. Infectious disease (ID): Azithromycin which she is on as an outpatient. 11. Deep vein thrombosis (DVT) prophylaxis with enoxaparin. 12. Stress ulcer prophylaxis with proton pump inhibitor. RECOMMENDATIONS: 1. Would continue on prednisone at 40 mg daily with plans to slowly wean back to her baseline of 5 mg. 2. Would continue on inhaled corticosteroid and long-acting bronchodilator. However, given that she is spending a significant amount of her time on noninvasive mechanical ventilation (NIMV), we will change those medications to nebulized format so it can be delivered easily. 3. Continue as-needed bronchodilators and DuoNeb every four hours. 4. We will obtain an arterial blood gas. If it is acceptable, we will give her breaks off the noninvasive mechanical ventilator and try to convert this to bilevel therapy nocturnally and with naps. 5. Nutrition needs to be addressed at some point, as she has not had much time to eat because of being on-and-off of the NIMV. 6. I spent extensive time talking to initially Ms. Gonzalez and then later her daughter and to a lesser extent with her regarding her clinical situation. It was explained to them that she is on noninvasive mechanical ventilation at this time and that this is not bilevel positive airway pressure (BiPAP) but rather full ventilatory support. I discussed limitations with them such as not instituting heroic measures of cardiopulmonary resuscitation (CPR) and intubation. I discussed with them that if she failed the noninvasive there is very little gain to convert that to an intubated version of ventilation. Furthermore, I discussed with them that the services are fearful of instituting measures for her anxiety as long as she is still a full code. I explained to them that what I meant was that if we gave her a low dose of benzodiazepine (Xanax 0.125), she likely would do well. However, if she had worsening respiratory status and was a full code, it most likely may very well lead to intubation. If she was not a full code, I discussed with them that there are more manipulations that we could do with the NIMV but that would not typically be our first choice if she worsened and therefore providers are reluctant to prescribe anxiolytics. Part of that I explained to them is that the fear that she may not be extubatable and certainly it is not thought that she is likely to survive any full arrest that would involve CPR. They are going to discuss it further. I encouraged them to discuss it now. At the present time, she is still considered a full code. CRITICAL CARE TIME: 45 minutes not including procedure time. JOHN
[2019-03-11] MEDS: FORMOTEROL FUMARATE 20 MCG/2 ML INHALATION SOLUTION (PERFOROMIST) INH SCH (20:00)
[2019-03-11] MEDS: BUDESONIDE 0.5 MG/2 ML INHALATION SUSPENSION INH SCH (20:00)
[2019-03-11] MEDS: SIMVASTATIN 20 MG TAB PO SCH (21:00)
[2019-03-12] VITALS (16 sets, daily range): BP systolic 133–190; BP diastolic 65–91; O2SAT 87
[2019-03-12] MEDS: ACETAMINOPHEN TAB 650MG DOSE (2X325MG) PO PRN (00:29)
[2019-03-12] MEDS: IPRATROPIUM 0.5MG/ALBUTEROL 2.5MG INH SOL UD 3ML (DUONEB)(J7620) NEB SCH ×6 (00:45→21:13)
[2019-03-12] MEDS: NS 1,000 ML IV SCH (03:50)
[2019-03-12 04:47] LABS: BASO % 0.3 % (0.0-1.0); HEMATOCRIT 35.4 % (36.0-47.0); HEMOGLOBIN 11.3 g/dl (12.0-15.5); LYMPH # 0.6 10^3/uL (1.5-4.5); LYMPH % 6.1 % (24.0-44.0); MEAN CORPUSCULAR HEMOGLOBIN 30.2 pg (27.0-33.0); MEAN CORPUSCULAR HGB CONC 31.9 g/dl (32.0-36.5); MEAN CORPUSCULAR VOLUME 94.7 fl (80.0-96.0); MONO # 1.2 10^3/uL (0.0-0.8); MONO % 11.7 % (0.0-5.0); NEUTROPHILS # 8.1 10^3/uL (1.8-7.7); NEUTROPHILS % 78.9 % (36.0-66.0); PLATELET COUNT, AUTOMATED 247 10^3/uL (150-450); RED BLOOD COUNT 3.74 10^6/uL (4.00-5.40); WHITE BLOOD COUNT 10.3 10^3/uL (4.0-10.0)
[2019-03-12 05:08] LABS: ALBUMIN 3.3 GM/DL (3.2-5.2); BILIRUBIN,TOTAL 0.3 MG/DL (0.2-1.0); CALCIUM LEVEL 8.9 MG/DL (8.8-10.2); CREATININE FOR GFR 1.12 MG/DL (0.55-1.30); GLOMERULAR FILTRATION RATE 50.4 (>39); POTASSIUM SERUM 4.4 MEQ/L (3.5-5.1); TOTAL PROTEIN 6.3 GM/DL (6.4-8.2)
[2019-03-12] MEDS ORDERED: METOPROLOL TART 50 MG TAB PO ONE (05:30)
[2019-03-12] MEDS: LEVOTHYROXINE 25MCG TABLET (0.025MG) PO SCH (05:31)
[2019-03-12] MEDS: SODIUM CHLORIDE 0.9% INJ 10 ML SYR IV SCH ×2 (06:00→17:40)
[2019-03-12] MEDS: BUDESONIDE 0.5 MG/2 ML INHALATION SUSPENSION INH SCH ×2 (08:27→21:09)
[2019-03-12] MEDS: FORMOTEROL FUMARATE 20 MCG/2 ML INHALATION SOLUTION (PERFOROMIST) INH SCH ×2 (08:27→21:09)
[2019-03-12] MEDS ORDERED: FUROSEMIDE 40 MG/4 ML VIAL (J1940) IV ONE (08:30)
--- NOTE | 2019-03-12 08:52 | IPNPDOC ---
Subjective Date Seen The patient was seen on 03/12/19. Subjective Chief Complaint/HPI C/O Dyspnea. Developed rapid A-fib again overnight. 50 mg po Lopressor given at 5:30 am - rate improved - still Atrial fib Constitutional: Denies: Chills, Fever Pulmonary: Reports: Dyspnea, Cough Cardiovascular: Denies: Chest Pain, Palpitations Gastrointestinal: Denies: Nausea, Vomiting, Abdominal Pain, Diarrhea, Constipation Objective Physical Examination General Exam: Positive: Alert, Cooperative, Moderate Distress (Breathing appears labored - wearing BIPAP) ENT Exam: Positive: Atraumatic, Mucous membr. moist/pink Chest Exam: Positive: Diminished (Porr A/E throughout); Negative: Rales, Rhonchi, Wheezing Heart Exam: Positive: Tachycardic, Irregular Rhythm, Normal S1, Normal S2 Telemetry: Positive: Atrial fibrillation (rate currently around 100) Abdomen Exam: Positive: Normal bowel sounds, Soft; Negative: Tenderness Extremity Exam: Negative: Tenderness, Swelling Skin Exam: Positive: Other skin issue (ecchymotis areas to BLE) A-FIB/CHADSVASC A-FIB History Current/History of A-Fib/PAF?: Yes Current Oral Anticoagulant The: No Age/Risk Factor Scoring CHADSVASC: CHADSVASC Response (Comments) Value Age Risk Factor Age >/= 75 years old 2 Gender Risk Factor Female 1 Hx of CHF No 0 Hx of HTN Yes 1 Hx of Stroke/TIA/or VTE No 0 Hx of Diabetes No 0 Hx of Vascular Disease No 0 Total 4 Treatment Treatment ordered: NONE Reason Anticoagulant not given: Other Other reason anticoagulant not: converted to SR yesterday, now with recurrent atrial fib- likely will start Assessment /Plan Problems (1) Atrial fibrillation Status: Acute Problem Text: Converted to SR yesterday after receiving Metoprolol, However Additional Metoprolol needed this am for A-fib with RVR. Currently rate improved, but still in SR. May need to initiate Anticoag if does not convert. Currently on DVT px dose of Lovenox. (2) Acute respiratory failure with hypercapnia Status: Acute Problem Text: 03/12 - Chronic oxygen dependent COPD with acute Parainfluenza causing acute resp failure - Pulmonary following - significant air hunger - BIPAP adjusted. On prednisone. Remains on Zithromax. Patient's prognosis is guarded - Continue ongoing discussion regarding code status. 03/11/19: Poor tolerance of weaning off of Bipap. Continue to attempt to wean as much as possible. Continue CPT, acapella and nebs. Transition to Prednisone 40 mg po daily per Pulmonology recommendations. Patient expressed interest in DNR/advanced directives when family not at bedside to nursing staff. Will attempt to have discussion with patient later today. 03/10/19: DC abx per Pulmonology recommendations. Prednisone 60 mg po today then 40 mg po tomorrow. Continue nebs, CPT, acapella. Trial off of Bipap today. Encouraged po fluids. level 2 soft diet ordered to limit work of breathing with nutrition. DC Xanax due to poor response yesterday. Attempt alternate methods to assist with anxiety related to SOB/dyspnea. Reviewed code status with patient and daughter: remains FULL CODE. Keep Oxygen saturations between 85-90% due to hypercapnia. Reviewed plan with patient and daughter. 03/09/19: Day #2 Rocephin and Azithromycin. continue with abx. Procalcitonin level of 0.27 noted. Wean oxygen. wean solumedrol to po Prednisone due to agitation. WBC elevated, may be steroid effect. repeat CXR today. Day #1 Rocephin and azithromycin for RLL patchy infiltrates. Solumedrol 80 mg IV q 8 hrs. Continue with nebs. Currently requiring 4LNC oxygen. Bipap DCd this am. Respiratory panel + for parainfluenza (3) Parainfluenza Status: Acute Problem Text: see above plan. (4) Pneumonia Status: Acute Problem Text: received 2 doses of Azithromycin and Rocephin. Stopped abx. Most likely viral (parainfluenza) in etiology. (5) CKD (chronic kidney disease), stage III Status: Chronic Response to Treatment: Stable Problem Text: Cr improved today. monitor. (6) Hypertension Status: Chronic Problem Text: 03/12 - BP elevated this am - Due for Norvasc, Lisinopril and Metoprolol - monitor trend. 03/09/19: Increased Metoprolol dosing to 50 mg po daily as her HTN is also associated with tachycardia. Stop Hydralazine as anxiety is a side effect. Monitor. poorly controlled BP today. Will resume anti-hypertensives: amlodipine, Lisino pril and Metoprolol. Furosemide 40 mg IV x 1 added on. (7) Edema Status: Acute Problem Text: 03/12 - Lasix given this am x 1 - No edema. BUN/Cre improved today, but that is with IVF running at 60 cc/hr - not taking much po - will cont slow rate IVF for now 03/11/19: negative DVT. Most likely Chronic venous changes. Will resume Lasix today and monitor cr. levels. 03/09/19: US completed. results are pending. RLE edema. hx of TVR. Last echo was 2010 in [place]. will repeat echo today. (8) Hyponatremia Status: Resolved Problem Text: 03/12 - resolved with IVF 03/10/19: Sodium normalized today. Na level trending down. elevated BUN/Cr/ noted. Added on NaCl IVF at 100 cc per hour. monitor. Plan/VTE VTE Prophylaxis Ordered?: Yes (Lovenox) Plan Family Medicine Attending Note: I saw and examined Ms. Gonzalez, discussed with KAZ Quevedo. Agree with her note as documented. Unfortunately, at this time the patient is able to be off BiPAP for less than an hour only. There is slow and ongoing discussion with regards to her CODE STATUS, but it is clear there is some differences of understanding within her family members regarding her prognosis. Of course this will make it more difficult for her to make a clear decision. Regarding her recurrent atrial fibrillation, I do believe she should start an oral anticoagulant because of the paroxysmal nature that she is demonstrating at this time. Unfortunately, it's not entirely clear to me when this should start. The reason is that at this point much less aggressive/palliative care is being considered and starting a full anticoagulant is not without risks. If she does not make a decision to go with palliative care, the anticoagulant should probably be started soon; likely be within the next couple days. For clarification of the azithromycin above. The full dose treatment azithromycin was stopped, however, we did continue her half dose prophylactic azithromycin which she had been taking to decrease COPD flares and hospitalizations. It should also be noted that azithromycin may be arrhythmogenic in and of itself. If she continues to have difficulty with atrial fibrillation, we might want to reconsider the use of prophylactic azithromycin. 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, I&O, 24H, Fishbone Vital Signs/I&O Vital Signs Date Time Temp Pulse Resp B/P (MAP) Pulse Ox O2 Delivery O2 Flow Rate FiO2 03/12/19 08:28 24 03/12/19 05:51 128 164/71 (102) 92 03/12/19 04:00 98.1 22 03/10/19 15:35 3.0 03/08/19 06:03 Nasal Cannula I&O- Last 24 Hours up to 6 AM 03/12/19 06:00 Intake Total 1620 ml Output Total 1605 ml Balance 15 ml Laboratory Data 24H LABS Laboratory Tests 2 03/11/19 14:39: Blood Gas Bicarbonate Standard 29.0H, Arterial Blood pH 7.307L, Arterial Blood Partial Pressure CO2 67.0*H, Arterial Blood Partial Pressure O2 105.5H, Arterial Blood Total CO2 34.8H, Arterial Blood HCO3 32.8H, Arterial Blood Base Excess 5.0H, Arterial Blood Oxygen Saturation 97.5 03/12/19 04:22: Immature Granulocyte % (Auto) 3.0, White Blood Count 10.3H, Red Blood Count 3.74L, Hemoglobin 11.3L, Hematocrit 35.4L, Mean Corpuscular Volume 94.7, Mean Corpuscular Hemoglobin 30.2, Mean Corpuscular Hemoglobin Concent 31.9L, Red Cell Distribution Width 12.9, Platelet Count 247, Neutrophils (%) (Auto) 78.9H, Lymphocytes (%) (Auto) 6.1L, Monocytes (%) (Auto) 11.7H, Eosinophils (%) (Auto) 0.0, Basophils (%) (Auto) 0.3, Neutrophils # (Auto) 8.1H, Lymphocytes # (Auto) 0.6L, Monocytes # (Auto) 1.2H, Eosinophils # (Auto) 0.0, Basophils # (Auto) 0.0, Nucleated Red Blood Cells % (auto) 0.0, Anion Gap 6L, Glomerular Filtration Rate 50.4, Blood Urea Nitrogen 51H, Creatinine 1.12, Sodium Level 143, Potassium Level 4.4, Chloride Level 105, Carbon Dioxide Level 32, Calcium Level 8.9, Aspartate Amino Transf (AST/SGOT) 30, Alanine Aminotransferase (ALT/SGPT) 35, Alkaline Phosphatase 44L, Total Bilirubin 0.3, Total Protein 6.3L, Albumin 3.3, Albumin/Globulin Ratio 1.10 CBC/BMP Laboratory Tests 4/26/19 04:22 Red Blood Count 3.74 L, Mean Corpuscular Volume 94.7, Mean Corpuscular Hemoglobin 30.2, Mean Corpuscular Hemoglobin Concent 31.9 L, Red Cell Distribution Width 12.9, Neutrophils (%) (Auto) 78.9 H, Lymphocytes (%) (Auto) 6.1 L, Monocytes (%) (Auto) 11.7 H, Eosinophils (%) (Auto) 0.0, Basophils (%) (Auto) 0.3, Neutrophils # (Auto) 8.1 H, Lymphocytes # (Auto) 0.6 L, Monocytes # (Auto) 1.2 H, Eosinophils # (Auto) 0.0, Basophils # (Auto) 0.0, Calcium Level 8.9, Aspartate Amino Transf (AST/SGOT) 30, Alanine Aminotransferase (ALT/SGPT) 35, Alkaline Phosphatase 44 L, Total Bilirubin 0.3, Total Protein 6.3 L, Albumin 3.3 Microbiology Microbiology 03/08/19 Blood Culture - Preliminary, Resulted No Growth after 72 hours. All specime... 03/08/19 Blood Culture - Preliminary, Resulted No Growth after 72 hours. All specime... 03/08/19 Respiratory Virus Panel (PCR) ([facility]) - Final, Complete Parainfluenza 3 (Piv3) LUCILLE BRAGA PA-C Mar 12, 2019 8:52 am Garett Jones MD Mar 12, 2019 6:45 pm
[2019-03-12 08:57] LABS: ABG BASE EXCESS 4.3 (-2.0-2.0); ABG HCO3 31.8 MEQ/L (22.0-26.0); ABG O2 SATURATION 94.2 % (95.0-99.0); ABG PARTIAL PRESSURE O2 76.4 mmHg (75.0-100.0); ABG STANDARD HCO3 28.2 MEQ/L (22.0-26.0); ABG TOTAL CO2 33.7 MEQ/L (23.0-31.0); ABG pH (ARTERIAL) 7.327 UNITS (7.350-7.450)
[2019-03-12 09:01] LABS: ABG PARTIAL PRESSURE CO2 62.1 mmHg (35.0-45.0)
--- NOTE | 2019-03-12 09:12 | CCN ---
DATE OF SERVICE: 03/12/2019 Critical care time was 45 minutes, this excludes all procedures. At the bedside this morning the patient's daughter was there. She was updated on the patient's care. It appears that overnight the patient is quite agitated, during the day she is sleeping. She has not had an arterial blood gas. She is slightly difficult to arouse, but is able to open her eyes and respond to yes or no questions, but then quickly falls asleep. At this point in time, the patient's family is contemplating whether they would want resuscitation further than noninvasive therapy. She was in atrial fibrillation with rapid ventricular response (RVR) overnight, however this morning is rate controlled. She is not yet on any anticoagulation. She is hypertensive despite resting however, her blood pressure is being taken on her leg. The patient offers no complaints of pain and as mentioned above, is somnolent. Current temperature is 98.1, pulse is ranging 82-140 with an irregular rate and rhythm. Blood pressure systolic ranging 164-177, diastolic currently at 71. Oxygen saturation is 92% currently on bilevel 16/2 achieving tidal volumes in the mid 300 range. At bedside, I increased her pressure to 18/6. HEENT: Sclera are clear but are edematous. Pupils are 4 mm and reactive to light. Mucous membranes are moist. Tongue is midline. Mask is fitting well without significant air leak. NECK: Supple. No obvious elevation of jugular venous pressure (JVP), difficult to assess due to body habitus. Carotid upstroke is variable in intensity. There are no bruits. LYMPH: No cervical, supraclavicular, or axillary adenopathy. CARDIAC: Distant, irregularly irregular S1-S2 without audible murmur, rub or gallop. JVP as mentioned above. EXTREMITIES: Minimal dependent edema. PULMONARY: Decreased breath sounds throughout, very poor air entry in the upper lobes. There is a slight expiratory wheeze with prolonged expiratory phases. There is no rhonchi or rales. ABDOMEN: Soft, nontender, nondistended. No hepatosplenomegaly, masses or hernia. EXTREMITIES: Minimal dependent edema as mentioned above. No cyanosis or clubbing. SKIN: No rash, jaundice or bruising. Laboratory evaluation shows sodium 143, potassium 4.4, chloride 105, bicarb of 32, BUN of 51, creatinine of 1.12. The arterial blood gas from yesterday shows worsening pCO2 to 67 with a pH of 7.31, pCO2 of 67, pAO2 of 106. Hemoglobin is 11.3, hematocrit 35.4 with a platelet count of 247. IMPRESSION: 1. Acute on chronic hypercarbic respiratory failure with recent parainfluenza virus. The patient is quite weak, in bed, somnolent. Will recheck arterial blood gas this morning. If it is adequate would consider a trial off noninvasive therapy to improve mobilization. If it is worse will have to have discussions regarding more aggressive measures. She has known Gold stage 4 chronic obstructive pulmonary disease (COPD) for a number of years, steroid dependent. I agree with attempting to decrease the steroids some. Will continue budesonide and Perforomist. 2. COPD. As mentioned above, the patient does have a history of difficulty clearing mucus secretions. If she has significant mucus secretions with mucus plugging we could try N-acetylcysteine nebulized. At this point in time it does not seem to be an issue. 3. Scleral edema, dependent edema. Will write for one dose of Lasix, especially in the face of her hypertension. 4. Gastrointestinal (GI): The patient has had poor p.o. intake. Will write for Ensure to be given when she is able to come off the BiPAP. Overall, the patient's prognosis extremely guarded. She has a high risk of given the severity of her end-stage lung disease. I did have a discussion regarding advanced directives with the patient's daughter who is not the decision maker, however, she is in frequent discussion with the patient's . At this point in time, I have recommended that CPR not be performed because of the severity of her lung disease; however, they are contemplating whether or not they will make her DNR. I provided them with information regarding comfort measures and also provided them with information regarding resuscitation to help them make a decision.
[2019-03-12] MEDS: METOPROLOL TART 50 MG TAB PO SCH (09:31)
[2019-03-12] MEDS: LISINOPRIL 10 MG TAB PO SCH ×2 (09:31→20:06)
[2019-03-12] MEDS: PANTOPRAZOLE 40MG TAB (PROTONIX) PO SCH (09:31)
[2019-03-12] MEDS: predniSONE 20 MG TAB PO SCH (09:32)
[2019-03-12] MEDS: guaiFENesin ER 600 MG TAB PO SCH ×2 (09:32→20:06)
[2019-03-12] MEDS: AZITHROMYCIN 250 MG TAB PO SCH (09:32)
[2019-03-12] MEDS: amLODIPine 5 MG TAB PO SCH (09:32)
[2019-03-12] MEDS: ENOXAPARIN 40 MG/0.4 ML SYRINGE (J1650) SC SCH (09:33)
[2019-03-12] MEDS: ACETYLCYSTEINE 20% 4 ML VIAL (200MG/ML) INH SCH ×2 (15:52→21:11)
[2019-03-12] MEDS ORDERED: ACETYLCYSTEINE 10% 30 ML VIAL INH SCH (20:00)
[2019-03-12] MEDS: SIMVASTATIN 20 MG TAB PO SCH (20:06)
[2019-03-13] VITALS (19 sets, daily range): BP systolic 105–182; BP diastolic 51–107; O2SAT 88–89
[2019-03-13] MEDS: IPRATROPIUM 0.5MG/ALBUTEROL 2.5MG INH SOL UD 3ML (DUONEB)(J7620) NEB SCH ×7 (00:07→23:29)
[2019-03-13 04:58] LABS: HEMATOCRIT 34.6 % (36.0-47.0); HEMOGLOBIN 11.3 g/dl (12.0-15.5); MEAN CORPUSCULAR HGB CONC 32.7 g/dl (32.0-36.5); MEAN CORPUSCULAR VOLUME 95.1 fl (80.0-96.0); PLATELET COUNT, AUTOMATED 253 10^3/uL (150-450); RED BLOOD COUNT 3.64 10^6/uL (4.00-5.40); WHITE BLOOD COUNT 10.3 10^3/uL (4.0-10.0)
[2019-03-13 05:24] LABS: ALBUMIN 3.1 GM/DL (3.2-5.2); BILIRUBIN,TOTAL 0.5 MG/DL (0.2-1.0); CALCIUM LEVEL 9.2 MG/DL (8.8-10.2); CREATININE FOR GFR 1.18 MG/DL (0.55-1.30); GLOMERULAR FILTRATION RATE 47.4 (>39); POTASSIUM SERUM 3.9 MEQ/L (3.5-5.1); TOTAL PROTEIN 6.2 GM/DL (6.4-8.2)
[2019-03-13 05:48] LABS: ATYPICAL LYMPH 1 % (0-5); LYMPHOCYTES 7 % (16-52); METAMYELOCYTES 2 % (0-0); MONOCYTES 12 % (0-8); MYELOCYTES 1 % (0-0); NEUTROPHILS 76 % (35-75)
[2019-03-13 05:49] LABS: PLATELET ESTIMATE NORMAL (NORMAL)
[2019-03-13] MEDS: SODIUM CHLORIDE 0.9% INJ 10 ML SYR IV SCH ×2 (06:00→18:08)
[2019-03-13 06:19] LABS: ABG BASE EXCESS 7.6 (-2.0-2.0); ABG HCO3 33.6 MEQ/L (22.0-26.0); ABG PARTIAL PRESSURE CO2 53.9 mmHg (35.0-45.0); ABG PARTIAL PRESSURE O2 57.9 mmHg (75.0-100.0); ABG STANDARD HCO3 31.3 MEQ/L (22.0-26.0); ABG TOTAL CO2 35.3 MEQ/L (23.0-31.0); ABG pH (ARTERIAL) 7.413 UNITS (7.350-7.450)
[2019-03-13] MEDS: LEVOTHYROXINE 25MCG TABLET (0.025MG) PO SCH (06:41)
[2019-03-13] MEDS: ACETYLCYSTEINE 20% 4 ML VIAL (200MG/ML) INH SCH ×2 (07:04→20:03)
[2019-03-13] MEDS: BUDESONIDE 0.5 MG/2 ML INHALATION SUSPENSION INH SCH ×2 (07:04→20:01)
[2019-03-13] MEDS: FORMOTEROL FUMARATE 20 MCG/2 ML INHALATION SOLUTION (PERFOROMIST) INH SCH ×2 (07:04→20:01)
[2019-03-13] MEDS: predniSONE 20 MG TAB PO SCH (08:54)
[2019-03-13] MEDS: AZITHROMYCIN 250 MG TAB PO SCH (08:54)
[2019-03-13] MEDS: METOPROLOL TART 50 MG TAB PO SCH (08:54)
[2019-03-13] MEDS: PANTOPRAZOLE 40MG TAB (PROTONIX) PO SCH (08:54)
[2019-03-13] MEDS: ENOXAPARIN 40 MG/0.4 ML SYRINGE (J1650) SC SCH (08:54)
[2019-03-13] MEDS: guaiFENesin ER 600 MG TAB PO SCH ×2 (08:54→20:17)
[2019-03-13] MEDS: LISINOPRIL 10 MG TAB PO SCH ×2 (08:55→20:19)
[2019-03-13] MEDS: amLODIPine 5 MG TAB PO SCH (08:55)
--- NOTE | 2019-03-13 11:13 | CCN ---
DATE OF SERVICE: 03/13/2019 HISTORY OF PRESENT ILLNESS (HPI): Overnight patient remained on bilevel noninvasive therapy. She had a good amount of sputum production with the use of the acetylcysteine, had copious amounts of mucus after chest physiotherapy (PT) this morning. She is more aware of on bilevel positive airway pressure (BiPAP) but is requesting to sleep more. Denies chest pain. Currently no headaches. She does appear very weak. PHYSICAL EXAM: Temperature is 98.2, pulse is 90, respiratory rate is 22, blood pressure is 161/65 with oxygen saturation 92% on 0.24 FiO2 through bilevel noninvasive therapy with intake and output of 750 in, 2185 out. General: Somnolent but definitely more arousable to minimal stimuli such as voice. Opens her eyes briskly. Speech is fairly clear. She is still using accessory muscles to breathe. HEENT: Sclerae clear and anicteric. Pupils equal, react to light. Mucous membranes are moist without lesions. Tongue is midline. Neck is supple. No tracheal deviation or mass. Jugular venous pulse (JVP) is difficult to assess due to body habitus. Lymph: No cervical, supraclavicular or axillary adenopathy. Cardiac: Distant S1, S2, without audible murmur, rub or gallop. Difficult to assess JVP. No significant lower extremity edema. Pulmonary: Diffusely abnormal with prolonged expiratory phase, prolonged expiratory wheeze, diffuse rhonchi. Abdomen is soft, nontender, nondistended. No hepatosplenomegaly. No masses or hernia. Extremities: She has multiple bruises over all extremities of what appears to be from chronic prednisone therapy. She has a peripherally inserted central catheter (PICC) line on the right without surrounding erythema or exudate but some bruising. Laboratory evaluation shows a white blood cell count of 10.3, hemoglobin 11.3, platelet count of 253. Sodium 145, potassium 3.9, chloride 104, bicarbonate 37, BUN of 45, creatinine of 1.18 with a glucose of 86, albumin 3.1. Arterial blood gas is pH of 7.41, pCO2 of 54, pAO2 of 50. No new imaging this morning. IMPRESSION: 1. 78-year-old female with severe end-stage lung disease with hypercarbic hypoxic respiratory failure actually compensated for the first time this morning. Will attempt trials off bilevel today. Promote mucociliary clearance as she does have a history of poor mucociliary clearance. Mucus is thick. Therefore, we are using acetylcysteine. This did seem to benefit her over the past 24 hours. We will attempt to at least have her sit at the side of the bed today in order to help with muscle weakness. Overall, she is at risk for critical illness neuropathy and weakness because of her chronic prednisone use and immobility. We will continue Mucomyst, Pulmicort Perforomist, and albuterol nebulizers. Will continue prednisone due to the severity of her wheezing and her chronic prednisone use. She is currently on azithromycin more for its anti-inflammatory effects as she grew parainfluenza. 2. Deep venous thrombosis (DVT) prophylaxis with Lovenox. 3. Gastrointestinal (GI) prophylaxis with Protonix. This can be discontinued once patient is tolerating diet.
--- NOTE | 2019-03-13 12:05 | ECGEPIP ---
Stationary ECG Study [facility] Test Date: 2019-03-12 Pat Name: HONEY KRISHNAN Department: Room: [place] [address] Gender: F Oral Hygienist: AMRITA : 1940 Requested By: Chaparro Morales Order Number: [id number] Reading MD: Oniel Pan Measurements Intervals [place] Rate: 98 P: MS: 0 QRS: 61 QRSD: 76 T: 66 QT: 319 QTc: 409 Interpretive Statements ATRIAL FIBRILLATION LOW QRS VOLTAGE IN EXTREMITY LEADS Artifact limits interpretation Previous tracing showed sinus rhythm on 03-08-19 Electronically Signed On 03-13-2019 12:05:48 EDT by Oniel Pan
--- NOTE | 2019-03-13 16:42 | IPNPDOC ---
Subjective Date Seen The patient was seen on 03/13/19. Subjective Chief Complaint/HPI Nursing reports that Trinidad has been able to tolerate off pressure support for an hour and a half or more today. She is noted to be sleepy. It's not clear whether she is having more difficulty with carbon dioxide, which doesn't make as much sense with her clinical improvement, or perhaps just tired from the last several days and healing more. Her family also notes that she's had multiple visitors today; this certainly could be a cause for her fatigue. She converted back to sinus rhythm yesterday after her morning dose of metoprolol and has remained so. General: Reports: ROS Unobtainable (patient was sleepy and not very responsive to my questions today) Objective Physical Examination General Exam: Positive: No Acute Distress (she was on BiPAP when I entered, but the nurse took it off when I interviewed her. She seemed more comfortable both with and without the mask on than she did yesterday. ); Negative: Alert, Cooperative Eye Exam: Negative: Sclera icteric ENT Exam: Positive: Atraumatic, Mucous membr. moist/pink Chest Exam: Positive: Clear to auscultation, Diminished (total very poor movement of air, however more than I have heard recently); Negative: Rales, Rhonchi, Wheezing Heart Exam: Positive: Rate Normal, Regular Rhythm, Normal S1, Normal S2 Telemetry: Positive: Sinus Abdomen Exam: Positive: Normal bowel sounds, Soft; Negative: Tenderness Extremity Exam: Negative: Tenderness, Swelling Skin Exam: Positive: Other skin issue (ecchymotis areas to BLE) A-FIB/CHADSVASC A-FIB History Current/History of A-Fib/PAF?: Yes Current Oral Anticoagulant The: No Age/Risk Factor Scoring CHADSVASC: CHADSVASC Response (Comments) Value Age Risk Factor Age >/= 75 years old 2 Gender Risk Factor Female 1 Hx of CHF No 0 Hx of HTN Yes 1 Hx of Stroke/TIA/or VTE No 0 Hx of Diabetes No 0 Hx of Vascular Disease No 0 Total 4 Treatment Treatment ordered: NONE Reason Anticoagulant not given: Other (I discussed this with critical care. We will reconsider starting oral anticoagulants when she is in a more stable position. While this is important to keep in mind, her risk of the VTE is in the 1-3% per year, and there are many other more dangerous things going on with her health at this time.) Assessment /Plan Problems (1) Acute respiratory failure with hypercapnia Status: Acute Problem Text: 03/13: Some clinical improvement based on the time she can spend spend off pressure support. The patient has been more sleepy/lethargic today. Continue to monitor her carefully. 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 On prednisone. Remains on Zithromax. Patient's prognosis is guarded - Continue ongoing discussion regarding code status. 03/11/19: Poor tolerance of weaning off of Bipap. Continue to attempt to wean as much as possible. Continue CPT, acapella and nebs. Transition to Prednisone 40 mg po daily per Pulmonology recommendations. Patient expressed interest in DNR/advanced directives when family not at bedside to nursing staff. Will attempt to have discussion with patient later today. 03/10/19: DC abx per Pulmonology recommendations. Prednisone 60 mg po today then 40 mg po tomorrow. Continue nebs, CPT, acapella. Trial off of Bipap today. Encouraged po fluids. level 2 soft diet ordered to limit work of breathing with nutrition. DC Xanax due to poor response yesterday. Attempt alternate methods to assist with anxiety related to SOB/dyspnea. Reviewed code status with patient and daughter: remains FULL CODE. Keep Oxygen saturations between 85-90% due to hypercapnia. Reviewed plan with patient and daughter. 03/09/19: Day #2 Rocephin and Azithromycin. continue with abx. Procalcitonin level of 0.27 noted. Wean oxygen. wean solumedrol to po Prednisone due to agita tion. WBC elevated, may be steroid effect. repeat CXR today. Day #1 Rocephin and azithromycin for RLL patchy infiltrates. Solumedrol 80 mg IV q 8 hrs. Continue with nebs. Currently requiring 4LNC oxygen. Bipap DCd this am. Respiratory panel + for parainfluenza (2) Atrial fibrillation Status: Acute Problem Text: Converted to SR yesterday after receiving Metoprolol. She is remained in sinus rhythm since then. We'll consider oral anticoagulation when she is in a more stable position, but there are other more risky concerns at this time. We did decide to hold her azithromycin at this time. If this is restarted for prophylaxis, we should consider a Friday regimen. (3) Parainfluenza Status: Acute Problem Text: see above plan. (4) Pneumonia Status: Acute Problem Text: 03/13: Patient has difficulty clearing her secretions and the secretions are thick. She's been started on a regimen of Mucomyst and chest physiotherapy by pulmonology. I will defer to them for further management. received 2 doses of Azithromycin and Rocephin. Stopped abx. Most likely viral (parainfluenza) in etiology. (5) Hypertension Status: Chronic Problem Text: 03/13: Her blood pressures have been a little labile today, however, I do not think adjustment is in her best interest at this time. We'll continue to monitor for now. 03/12 - BP elevated this am - Due for Norvasc, Lisinopril and Metoprolol - monitor trend. 03/09/19: Increased Metoprolol dosing to 50 mg po daily as her HTN is also associated with tachycardia. Stop Hydralazine as anxiety is a side effect. Monitor. poorly controlled BP today. Will resume anti-hypertensives: amlodipine, Lisinopril and Metoprolol. Furosemide 40 mg IV x 1 added on. (6) Edema Status: Acute Problem Text: 03/13: There is not significant leg edema at this time. We'll continue current regimen. 03/12 - Lasix given this am x 1 - No edema. BUN/Cre improved today, but that is with IVF running at 60 cc/hr - not taking much po - will cont slow rate IVF for now 03/11/19: negative DVT. Most likely Chronic venous changes. Will resume Lasix today and monitor cr. levels. 03/09/19: US completed. results are pending. RLE edema. hx of TVR. Last echo was 2010 in [place]. will repeat echo today. (7) CKD (chronic kidney disease), stage III Status: Chronic Response to Treatment: Stable (8) Hyponatremia Status: Resolved Problem Text: 03/12 - resolved with IVF 03/10/19: Sodium normalized today. Na level trending down. elevated BUN/Cr/ noted. Added on NaCl IVF at 100 cc per hour. monitor. Plan/VTE VTE Prophylaxis Ordered?: Yes (Sandrax) VS, I&O, 24H, [facility] Vital Signs/I&O Vital Signs Date Time Temp Pulse Resp B/P (MAP) Pulse Ox O2 Delivery O2 Flow Rate FiO2 03/13/19 15:07 30 03/13/19 12:00 70 22 134/63 (86) 92 03/13/19 08:00 97.6 03/13/19 03:29 BIPAP/CPAP 03/10/19 15:35 3.0 I&O- Last 24 Hours up to 6 AM 03/13/19 05:59 Intake Total 750 ml Output Total 2260 ml Balance -1510 ml Laboratory Data 24H LABS Laboratory Tests 2 03/13/19 04:41: Immature Granulocyte % (Auto) , Nucleated Red Blood Cells % (auto) 0.0, Neutrophils 76H, Band Neutrophils 1, Lymphocytes (Manual) 7L, Monocytes (Manual) 12H, Metamyelocytes 2H, Myelocytes 1H, Atypical Lymphocytes 1, Platelet Estimate NORMAL, Blood Gas Bicarbonate Standard 31.3H, Arterial Blood pH 7.413, Arterial Blood Partial Pressure CO2 53.9H, Arterial Blood Partial Pressure O2 57.9L, Arterial Blood Total CO2 35.3H, Arterial Blood HCO3 33.6H, Arterial Blood Base Excess 7.6H, Arterial Blood Oxygen Saturation 90.0L, Anion Gap 4L, Glomerular Filtration Rate 47.4, Blood Urea Nitrogen 45H, Creatinine 1.18, Sodium Level 145, Potassium Level 3.9, Chloride Level 104, Carbon Dioxide Level 37H, Calcium Level 9.2, Aspartate Amino Transf (AST/SGOT) 21, Alanine Aminotransferase (ALT/SGPT) 31, Alkaline Phosphatase 40L, Total Bilirubin 0.5#, Total Protein 6.2L, Albumin 3.1L, Albumin/Globulin Ratio 1.00 CBC/BMP Laboratory Tests 03/13/19 04:41 Red Blood Count 3.64 L, Mean Corpuscular Volume 95.1, Mean Corpuscular Hemoglobin 31.0, Mean Corpuscular Hemoglobin Concent 32.7, Red Cell Distribution Width 12.8, Calcium Level 9.2, Aspartate Amino Transf (AST/SGOT) 21, Alanine Aminotransferase (ALT/SGPT) 31, Alkaline Phosphatase 40 L, Total Bilirubin 0.5 #, Total Protein 6.2 L, Albumin 3.1 L Microbiology Microbiology 03/08/19 Blood Culture - Final, Complete NO GROWTH AFTER 5 DAYS 03/08/19 Blood Culture - Final, Complete NO GROWTH AFTER 5 DAYS 03/08/19 Respiratory Virus Panel (PCR) ([facility]) - Final, Complete Parainfluenza 3 (Piv3) Garett Jones MD Mar 13, 2019 16:42
[2019-03-13] MEDS: SIMVASTATIN 20 MG TAB PO SCH (20:17)
[2019-03-14] VITALS (14 sets, daily range): BP systolic 133–181; BP diastolic 58–101; O2SAT 94
[2019-03-14] MEDS: IPRATROPIUM 0.5MG/ALBUTEROL 2.5MG INH SOL UD 3ML (DUONEB)(J7620) NEB SCH ×5 (03:44→19:45)
[2019-03-14] MEDS: LEVOTHYROXINE 25MCG TABLET (0.025MG) PO SCH (05:15)
[2019-03-14] MEDS: SODIUM CHLORIDE 0.9% INJ 10 ML SYR IV SCH ×2 (05:21→18:19)
[2019-03-14 05:26] LABS: HEMATOCRIT 36.8 % (36.0-47.0); HEMOGLOBIN 11.6 g/dl (12.0-15.5); MEAN CORPUSCULAR HEMOGLOBIN 29.7 pg (27.0-33.0); MEAN CORPUSCULAR HGB CONC 31.5 g/dl (32.0-36.5); MEAN CORPUSCULAR VOLUME 94.1 fl (80.0-96.0); PLATELET COUNT, AUTOMATED 265 10^3/uL (150-450); RED BLOOD COUNT 3.91 10^6/uL (4.00-5.40); WHITE BLOOD COUNT 12.3 10^3/uL (4.0-10.0)
[2019-03-14 05:47] LABS: ALBUMIN 3.1 GM/DL (3.2-5.2); BILIRUBIN,TOTAL 0.4 MG/DL (0.2-1.0); CALCIUM LEVEL 9.4 MG/DL (8.8-10.2); CREATININE FOR GFR 0.99 MG/DL (0.55-1.30); GLOMERULAR FILTRATION RATE 58.1 (>39); POTASSIUM SERUM 3.8 MEQ/L (3.5-5.1); TOTAL PROTEIN 5.9 GM/DL (6.4-8.2)
[2019-03-14 06:21] LABS: ATYPICAL LYMPH 1 % (0-5); LYMPHOCYTES 12 % (16-52); METAMYELOCYTES 2 % (0-0); MONOCYTES 8 % (0-8); MYELOCYTES 1 % (0-0); NEUTROPHILS 76 % (35-75)
[2019-03-14 06:22] LABS: PLATELET ESTIMATE NORMAL (NORMAL)
[2019-03-14] MEDS: ACETYLCYSTEINE 20% 4 ML VIAL (200MG/ML) INH SCH ×2 (07:08→19:45)
[2019-03-14] MEDS: FORMOTEROL FUMARATE 20 MCG/2 ML INHALATION SOLUTION (PERFOROMIST) INH SCH ×2 (07:08→19:45)
[2019-03-14] MEDS: BUDESONIDE 0.5 MG/2 ML INHALATION SUSPENSION INH SCH ×2 (07:09→19:45)
[2019-03-14] MEDS: PANTOPRAZOLE 40MG TAB (PROTONIX) PO SCH (08:49)
[2019-03-14] MEDS: ENOXAPARIN 40 MG/0.4 ML SYRINGE (J1650) SC SCH (08:49)
[2019-03-14] MEDS: predniSONE 20 MG TAB PO SCH (08:50)
[2019-03-14] MEDS: guaiFENesin ER 600 MG TAB PO SCH ×2 (08:50→21:21)
[2019-03-14] MEDS: LISINOPRIL 10 MG TAB PO SCH ×2 (08:50→21:22)
[2019-03-14] MEDS: amLODIPine 5 MG TAB PO SCH (08:51)
[2019-03-14] MEDS: METOPROLOL TART 50 MG TAB PO SCH (08:51)
[2019-03-14] MEDS: ACETAMINOPHEN TAB 650MG DOSE (2X325MG) PO PRN ×2 (09:36→18:19)
--- NOTE | 2019-03-14 10:36 | REP ---
Chest one-view HISTORY: Respiratory failure Comparison: 03/11/2019 The lungs are hyperinflated. The lungs are clear. The heart is normal in size. The pulmonary vasculature is normal in appearance. Impression: No acute disease. Electronically Signed by Gulshan Ramsey MD 03/14/2019 10:27 A
[2019-03-14 10:40] LABS: ABG BASE EXCESS 6.7 (-2.0-2.0); ABG HCO3 32.3 MEQ/L (22.0-26.0); ABG O2 SATURATION 95.3 % (95.0-99.0); ABG PARTIAL PRESSURE CO2 50.9 mmHg (35.0-45.0); ABG PARTIAL PRESSURE O2 79.9 mmHg (75.0-100.0); ABG STANDARD HCO3 30.6 MEQ/L (22.0-26.0); ABG TOTAL CO2 33.9 MEQ/L (23.0-31.0); ABG pH (ARTERIAL) 7.421 UNITS (7.350-7.450)
--- NOTE | 2019-03-14 13:33 | IPNPDOC ---
Subjective Date Seen The patient was seen on 03/14/19. Subjective Chief Complaint/HPI Trinidad reports she feels little better today. She still feeling sleepy, but less than yesterday. She is very pleased that she was up and walking around a little today. Her family seems pleased with the progress she is making. Constitutional: Denies: Chills, Fever Pulmonary: Reports: Dyspnea, Cough; Denies: Pleuritic Chest Pain Cardiovascular: Denies: Chest Pain Gastrointestinal: Denies: Nausea, Abdominal Pain Objective Physical Examination General Exam: Positive: Alert, Cooperative (laying relatively flat in a Daiana chair when I entered the room.), No Acute Distress Eye Exam: Negative: Sclera icteric ENT Exam: Positive: Atraumatic, Mucous membr. moist/pink Neck Exam: Positive: Supple Chest Exam: Positive: Clear to auscultation, Diminished (very poor movement of air, however, slight continued improvement); Negative: Rales, Rhonchi, Wheezing Heart Exam: Positive: Rate Normal, Regular Rhythm, Normal S1, Normal S2 Telemetry: Positive: Sinus Abdomen Exam: Positive: BS Hypoactive, Soft; Negative: Tenderness Extremity Exam: Negative: Edema, Tenderness Skin Exam: Negative: Rash Psych Exam: Positive: Mood NL, Oriented x 3 A-FIB/CHADSVASC A-FIB History Current/History of A-Fib/PAF?: Yes Current Oral Anticoagulant The: No Age/Risk Factor Scoring CHADSVASC: CHADSVASC Response (Comments) Value Age Risk Factor Age >/= 75 years old 2 Gender Risk Factor Female 1 Hx of CHF No 0 Hx of HTN Yes 1 Hx of Stroke/TIA/or VTE No 0 Hx of Diabetes No 0 Hx of Vascular Disease No 0 Total 4 Treatment Treatment ordered: NONE (not currently stable enough to consider an anticoagulant) Assessment /Plan Problems (1) Acute respiratory failure with hypercapnia Status: Acute Problem Text: 03/14: She seems to continue to make slow but very steady improvement. With the patient and family are pleased with the progress she has made in the last 24 hours. Her morning ABGs continued to show compensation. 03/13: Some clinical improvement based on the time she can spend spend off pressure support. The patient has been more sleepy/lethargic today. Continue to monitor her carefully. 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 On prednisone. Remains on Zithromax. Patient's prognosis is guarded - Continue ongoing discussion regarding code status. 03/11/19: Poor tolerance of weaning off of Bipap. Continue to attempt to wean as much as possible. Continue CPT, acapella and nebs. Transition to Prednisone 40 mg po daily per Pulmonology recommendations. Patient expressed interest in DNR/advanced directives when family not at bedside to nursing staff. Will attempt to have discussion with patient later today. 03/10/19: DC abx per Pulmonology recommendations. Prednisone 60 mg po today then 40 mg po tomorrow. Continue nebs, CPT, acapella. Trial off of Bipap today. Encouraged po fluids. level 2 soft diet ordered to limit work of breathing with nutrition. DC Xanax due to poor response yesterday. Attempt alternate methods to assist with anxiety related to SOB/dyspnea. Reviewed code status with patient and daughter: remains FULL CODE. Keep Oxygen saturations between 85-90% due to hypercapnia. Reviewed plan with patient and daughter. 03/09/19: Day #2 Rocephin and Azithromycin. continue with abx. Procalcitonin le kenisha of 0.27 noted. Wean oxygen. wean solumedrol to po Prednisone due to agitation. WBC elevated, may be steroid effect. repeat CXR today. Day #1 Rocephin and azithromycin for RLL patchy infiltrates. Solumedrol 80 mg IV q 8 hrs. Continue with nebs. Currently requiring 4LNC oxygen. Bipap DCd this am. Respiratory panel + for parainfluenza (2) Atrial fibrillation Status: Chronic Response to Treatment: Stable Problem Specific Plan: Monitor Clinically Problem Text: She remains in sinus rhythm at this time. She is not stable enough yet to consider oral anticoagulation. (3) Parainfluenza Status: Acute Problem Text: see above plan. (4) Pneumonia Status: Acute Problem Text: 03/14: She continues to have a deep bronchitic cough, but the amount of secretions she is clearing on a daily basis seems to be slowing now. Overall I would consider this a good sign. 03/13: Patient has difficulty clearing her secretions and the secretions are thick. She's been started on a regimen of Mucomyst and chest physiotherapy by pulmonology. I will defer to them for further management. received 2 doses of Azithromycin and Rocephin. Stopped abx. Most likely viral (parainfluenza) in etiology. (5) Hypertension Status: Chronic Discussed With: Nurse Problem Specific Plan: Monitor Clinically Problem Text: 03/13: Her blood pressures have been a little labile today, however, I do not think adjustment is in her best interest at this time. We'll continue to monitor for now. 03/12 - BP elevated this am - Due for Norvasc, Lisinopril and Metoprolol - monitor trend. 03/09/19: Increased Metoprolol dosing to 50 mg po daily as her HTN is also associated with tachycardia. Stop Hydralazine as anxiety is a side effect. Monitor. poorly controlled BP today. Will resume anti-hypertensives: amlodipine, Lisinopril and Metoprolol. Furosemide 40 mg IV x 1 added on. (6) Edema Status: Acute Problem Text: 03/13: There is not significant leg edema at this time. We'll continue current regimen. 03/12 - Lasix given this am x 1 - No edema. BUN/Cre improved today, but that is with IVF running at 60 cc/hr - not taking much po - will cont slow rate IVF for now 03/11/19: negative DVT. Most likely Chronic venous changes. Will resume Lasix today and monitor cr. levels. 03/09/19: US completed. results are pending. RLE edema. hx of TVR. Last echo was 2010 in [place]. will repeat echo today. (7) CKD (chronic kidney disease), stage III Status: Chronic Response to Treatment: Stable (8) Hyponatremia Status: Resolved Problem Text: 03/12 - resolved with IVF 03/10/19: Sodium normalized today. Na level trending down. elevated BUN/Cr/ noted. Added on NaCl IVF at 100 cc per hour. monitor. Plan/VTE VTE Prophylaxis Ordered?: Yes (Lovenox) VS, I&O, 24H, Fishbone Vital Signs/I&O Vital Signs Date Time Temp Pulse Resp B/P (MAP) Pulse Ox O2 Delivery O2 Flow Rate FiO2 03/14/19 08:51 85 181/72 03/14/19 07:09 24 03/14/19 07:09 21 03/14/19 06:00 90 03/14/19 04:00 98.2 03/14/19 00:10 BIPAP/CPAP 03/13/19 20:30 2.0 I&O- Last 24 Hours up to 6 AM 03/14/19 06:00 Intake Total 720 ml Output Total 1235 ml Balance -515 ml Laboratory Data 24H LABS Laboratory Tests 2 03/14/19 04:58: Immature Granulocyte % (Auto) , Nucleated Red Blood Cells % (auto) 0.2H, Neutrophils 76H, Lymphocytes (Manual) 12L, Monocytes (Manual) 8, Metamyelocytes 2H, Myelocytes 1H, Atypical Lymphocytes 1, Platelet Estimate NORMAL, Red Blood Cell Morphology NORMAL, Anion Gap 5L, Glomerular Filtration Rate 58.1, Blood Urea Nitrogen 35H, Creatinine 0.99, Sodium Level 145, Potassium Level 3.8, Chloride Level 106, Carbon Dioxide Level 34H, Calcium Level 9.4, Aspartate Amino Transf (AST/SGOT) 20, Alanine Aminotransferase (ALT/SGPT) 29, Alkaline Phosphata se 36L, Total Bilirubin 0.4, Total Protein 5.9L, Albumin 3.1L, Albumin/Globulin Ratio 1.11 03/14/19 10:27: Blood Gas Bicarbonate Standard 30.6H, Arterial Blood pH 7.421, Arterial Blood Partial Pressure CO2 50.9H, Arterial Blood Partial Pressure O2 79.9, Arterial Blood Total CO2 33.9H, Arterial Blood HCO3 32.3H, Arterial Blood Base Excess 6.7H, Arterial Blood Oxygen Saturation 95.3 CBC/BMP Laboratory Tests 03/14/19 04:58 Red Blood Count 3.91 L, Mean Corpuscular Volume 94.1, Mean Corpuscular Hemoglobin 29.7, Mean Corpuscular Hemoglobin Concent 31.5 L, Red Cell Distribution Width 13.2, Calcium Level 9.4, Aspartate Amino Transf (AST/SGOT) 20, Alanine Aminotransferase (ALT/SGPT) 29, Alkaline Phosphatase 36 L, Total Bilirubin 0.4, Total Protein 5.9 L, Albumin 3.1 L Microbiology Microbiology 03/08/19 Blood Culture - Final, Complete NO GROWTH AFTER 5 DAYS 03/08/19 Blood Culture - Final, Complete NO GROWTH AFTER 5 DAYS 03/08/19 Respiratory Virus Panel (PCR) ([facility]) - Final, Complete Parainfluenza 3 (Piv3) Garett Jones MD Mar 14, 2019 13:33
--- NOTE | 2019-03-14 17:33 | CCN ---
DATE: 03/14/2019 The patient is out of bed to chair for the first time. She is awake, able to have a conversation. Her cough has decreased in severity. She is able to produce mucus during times of chest PT and nebulization. Mucus remains thick. There is no hemoptysis. She has had no fevers or chills overnight. Intermittently she has atrial fibrillation with rapid ventricular response. This has been managed by her primary team. Currently her heart rate is controlled but remains in atrial fibrillation with a rate of 80. Blood pressure is elevated this morning. The patient has no symptoms of angina. No chest discomfort. No neck or jaw pain. She is having no diaphoresis. Arterial blood gases pending for this morning. Chest x-ray as outlined below. PHYSICAL EXAMINATION: Temperature is 98.2, pulse is 85, blood pressure ranging 156-181 over 72, however, the patient just received antihypertensive medications, oxygen saturation is 90% on 0.24 FiO2. The patient is tolerating bilevel at night. Off during the day. General: Awake, alert and oriented. Affect and mood are appropriate. She is able to complete sentences, much more alert today. HEENT: Sclerae clear and anicteric. Pupils equal, react to light. Mucous membranes are moist without lesions. Oropharynx without erythema or exudate. Neck is supple. No tracheal deviation or mass. JVP is difficult to assess due to body habitus. Pulmonary: Diffuse rhonchi throughout with prolonged expiratory phase. Lungs are hyperexpanded. The rhonchi has better is less prominent than yesterday but still quite diffuse. There is no wheeze. There are no rales. Abdomen: Soft, nontender, nondistended. No hepatosplenomegaly. No masses but she does have a reducible umbilical hernia. Extremities: No cyanosis, clubbing or edema. Skin: Multiple bruises. No jaundice. LABORATORY EVALUATION: Shows a sodium 145, potassium 3.8, chloride 106, bicarbonate of 34, BUN is 35, creatinine 0.99, AST is 20, ALT is 29, alkaline phosphatase is 36, albumin is 3.1. White count is up to 12.3, thought to be steroid induced, hemoglobin is 11.6, hematocrit of 36.8 with a platelet count of 265. Chest x-ray shows resolution of the nodule that was seen on 03/11/2019 chest x-ray. There is hyperinflation without any evidence of cephalization. Pulmonary arteries are prominent and there is some rotation of the film. No new infiltrate or mass. IMPRESSION: 1. Hypercarbic respiratory failure from acute on chronic COPD exacerbation from parainfluenza virus. Will continue bilevel at night. I have ordered physical therapy today to promote mobilization as the patient is quite weak. She is much more alert than yesterday. Continued pulmonary toilet with chest PT, nebulization with Mucomyst until her rhonchi has significantly improved. Will continue to follow.
[2019-03-14] MEDS: SIMVASTATIN 20 MG TAB PO SCH (21:22)
[2019-03-15] VITALS (7 sets, daily range): BP systolic 96–143; BP diastolic 53–70; O2SAT 95–96
[2019-03-15] MEDS: IPRATROPIUM 0.5MG/ALBUTEROL 2.5MG INH SOL UD 3ML (DUONEB)(J7620) NEB SCH ×7 (00:01→23:59)
[2019-03-15 05:07] LABS: HEMATOCRIT 33.6 % (36.0-47.0); HEMOGLOBIN 10.5 g/dl (12.0-15.5); MEAN CORPUSCULAR HEMOGLOBIN 29.3 pg (27.0-33.0); MEAN CORPUSCULAR HGB CONC 31.3 g/dl (32.0-36.5); MEAN CORPUSCULAR VOLUME 93.9 fl (80.0-96.0); PLATELET COUNT, AUTOMATED 261 10^3/uL (150-450); RED BLOOD COUNT 3.58 10^6/uL (4.00-5.40); WHITE BLOOD COUNT 13.7 10^3/uL (4.0-10.0)
[2019-03-15 05:25] LABS: LYMPHOCYTES 19 % (16-52); METAMYELOCYTES 3 % (0-0); MONOCYTES 7 % (0-8); MYELOCYTES 1 % (0-0); NEUTROPHILS 70 % (35-75)
[2019-03-15 05:26] LABS: PLATELET CLUMPS SMALL AMT; PLATELET ESTIMATE NORMAL (NORMAL)
[2019-03-15 05:31] LABS: BILIRUBIN,TOTAL 0.4 MG/DL (0.2-1.0); GLOMERULAR FILTRATION RATE 57.4 (>39); POTASSIUM SERUM 3.8 MEQ/L (3.5-5.1); TOTAL PROTEIN 5.5 GM/DL (6.4-8.2)
[2019-03-15] MEDS: LEVOTHYROXINE 25MCG TABLET (0.025MG) PO SCH (06:00)
[2019-03-15] MEDS: SODIUM CHLORIDE 0.9% INJ 10 ML SYR IV SCH ×2 (06:00→17:17)
[2019-03-15] MEDS: BUDESONIDE 0.5 MG/2 ML INHALATION SUSPENSION INH SCH ×2 (07:35→19:45)
[2019-03-15] MEDS: ACETYLCYSTEINE 20% 4 ML VIAL (200MG/ML) INH SCH ×2 (07:35→19:45)
[2019-03-15] MEDS: FORMOTEROL FUMARATE 20 MCG/2 ML INHALATION SOLUTION (PERFOROMIST) INH SCH ×2 (07:35→19:45)
[2019-03-15] MEDS: predniSONE 20 MG TAB PO SCH (09:05)
[2019-03-15] MEDS: LISINOPRIL 10 MG TAB PO SCH ×3 (09:05→20:36)
[2019-03-15] MEDS: ENOXAPARIN 40 MG/0.4 ML SYRINGE (J1650) SC SCH (09:05)
[2019-03-15] MEDS: amLODIPine 5 MG TAB PO SCH (09:06)
[2019-03-15] MEDS: guaiFENesin ER 600 MG TAB PO SCH ×2 (09:06→20:24)
[2019-03-15] MEDS: METOPROLOL TART 50 MG TAB PO SCH (09:07)
[2019-03-15] MEDS: PANTOPRAZOLE 40MG TAB (PROTONIX) PO SCH (09:07)
--- NOTE | 2019-03-15 10:16 | CCN ---
DATE: 03/15/2019 Ms. Gonzalez is seen in the ICU. She states that she is slowly, but progressively, improving. She is using Acapella and is continuing to try to mobilize her mucus. She states her breathing has been improving. She denies fevers or chills. The patient has been using BiPAP with sleep and is currently on oxygen by nasal cannula. She was out of bed and in a chair when she was seen. Heart rate is controlled. PHYSICAL EXAMINATION VITALS: Temperature 99.1, pulse 83, respiratory rate 18, blood pressure is 136/63, pulse ox is 96%. GENERAL: The patient is alert and oriented times three. Mood and affect appropriate. She speaks in complete sentences. She is sitting in a chair with family at bedside. HEENT: Head is normocephalic, atraumatic. Moist mucous membranes. NECK: Neck is supple. No cervical lymphadenopathy. No obvious JVD. Trachea is midline. CARDIAC: Regular rate and rhythm. S1-S2. PULMONARY: The patient had scattered, diffuse rhonchi throughout. There was prolonged expiratory phase. No rales. No accessory muscle use. ABDOMEN: Positive bowel sounds, soft, nontender. No obvious hepatosplenomegaly. EXTREMITIES: No clubbing, cyanosis or edema. LABORATORY DATA: WBC 13.7, hemoglobin 10.5, hematocrit 33.6, platelets 261. Sodium 143, potassium 3.8, chloride 104, carbon dioxide 34, BUN 30, creatinine 1.00, glucose 82, calcium 9.0, total bili 0.4, AST 22, ALT 32, alk phos 33, total protein 5.5, albumin 3.0. General: Are not some sorry on ASSESSMENT/PLAN: 1. Hypercarbic respiratory failure from acute on chronic COPD exacerbation from parainfluenza virus. The patient has been on bilevel for sleep. Plan is to check blood gas now. If blood gas is remains good, then we you will likely try her off BiPAP tonight. Continue to work on mobilization. Continue with physical therapy. The patient will remain on Mucomyst at least for today and will reassess tomorrow. Will decrease her prednisone from 40 daily to 30 daily.
[2019-03-15 10:41] LABS: ABG BASE EXCESS 8.5 (-2.0-2.0); ABG O2 SATURATION 98.2 % (95.0-99.0); ABG PARTIAL PRESSURE CO2 51.5 mmHg (35.0-45.0); ABG PARTIAL PRESSURE O2 111.6 mmHg (75.0-100.0); ABG STANDARD HCO3 32.3 MEQ/L (22.0-26.0); ABG TOTAL CO2 35.6 MEQ/L (23.0-31.0); ABG pH (ARTERIAL) 7.438 UNITS (7.350-7.450)
--- NOTE | 2019-03-15 10:53 | IPNPDOC ---
Subjective Date Seen The patient was seen on 03/15/19. Subjective Chief Complaint/HPI Pt this morning without new concerns. Her dgt is at bedside. General: Reports: Fatigue Constitutional: Denies: Chills, Fever Pulmonary: Reports: Dyspnea, Cough Cardiovascular: Denies: Chest Pain, Palpitations, Lt Headedness Gastrointestinal: Denies: Nausea, Vomiting, Abdominal Pain, Diarrhea Neurological: Reports: Weakness Psych: Reports: Mood Normal Objective Physical Examination General Exam: Positive: Alert, No Acute Distress Eye Exam: Negative: Sclera icteric ENT Exam: Positive: Atraumatic, Mucous membr. moist/pink Chest Exam: Positive: Diminished (very poor movement of air); Negative: Clear to auscultation, Rales, Rhonchi, Wheezing Heart Exam: Positive: Rate Normal, Regular Rhythm, Normal S1, Normal S2 Telemetry: Positive: Sinus Abdomen Exam: Positive: Normal bowel sounds, Soft; Negative: Tenderness Extremity Exam: Negative: Edema, Tenderness Skin Exam: Negative: Rash Psych Exam: Positive: Mood NL, Oriented x 3 A-FIB/CHADSVASC A-FIB History Current/History of A-Fib/PAF?: Yes Current Oral Anticoagulant The: No Age/Risk Factor Scoring CHADSVASC: CHADSVASC Response (Comments) Value Age Risk Factor Age >/= 75 years old 2 Gender Risk Factor Female 1 Hx of CHF No 0 Hx of HTN Yes 1 Hx of Stroke/TIA/or VTE No 0 Hx of Diabetes No 0 Hx of Vascular Disease No 0 Total 4 Treatment Treatment ordered: Other Assessment /Plan Assessment 03/15: Pulmonology plans to wean off Bipap today. She did some work with PT, but it was pretty limited, and she was very tired afterward. assists in her history. -- CDT Problems (1) Acute respiratory failure with hypercapnia Status: Acute Problem Text: 03/15 Pulm, cont to follow and manage. 03/14: She seems to continue to make slow but very steady improvement. With the patient and family are pleased with the progress she has made in the last 24 hours. Her morning ABGs continued to show compensation. 03/13: Some clinical improvement based on the time she can spend spend off pressure support. The patient has been more sleepy/lethargic today. Continue to monitor her carefully. 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 On prednisone. Remains on Zithromax. Patient's prognosis is guarded - Continue ongoing discussion regarding code status. 03/11/19: Poor tolerance of weaning off of Bipap. Continue to attempt to wean as much as possible. Continue CPT, acapella and nebs. Transition to Prednisone 40 mg po daily per Pulmonology recommendations. Patient expressed interest in DNR/advanced directives when family not at bedside to nursing staff. Will attempt to have discussion with patient later today. 03/10/19: DC abx per Pulmonology recommendations. Prednisone 60 mg po today then 40 mg po tomorrow. Continue nebs, CPT, acapella. Trial off of Bipap today. Encouraged po fluids. level 2 soft diet ordered to limit work of breathing with nutrition. DC Xanax due to poor response yesterday. Attempt alternate methods to assist with anxiety related to SOB/dyspnea. Reviewed code status with patient and daughter: remains FULL CODE. Keep Oxygen saturations between 85-90% due to hypercapnia. Reviewed plan with patient and daughter. 03/09/19: Day #2 Rocephin and Azithromycin. continue with abx. Procalcitonin level of 0.27 noted. Wean oxygen. wean solumedrol to po Prednisone due to agitation. WBC elevated, may be steroid effect. repeat CXR today. Day #1 Rocephin and azithromycin for RLL patchy infiltrates. Solumedrol 80 mg IV q 8 hrs. Continue with nebs. Currently requiring 4LNC oxygen. Bipap DCd this am. Respiratory panel + for parainfluenza (2) Atrial fibrillation Status: Chronic Response to Treatment: Stable Problem Specific Plan: Monitor Clinically Problem Text: She remains in sinus rhythm at this time. She is not stable enough yet to consider oral anticoagulation. (3) Parainfluenza Status: Acute Problem Text: see above plan. (4) Pneumonia Status: Acute Problem Text: 03/14: She continues to have a deep bronchitic cough, but the amount of secretions she is clearing on a daily basis seems to be slowing now. Overall I would consider this a good sign. 03/13: Patient has difficulty clearing her secretions and the secretions are thick. She's been started on a regimen of Mucomyst and chest physiotherapy by pulmonology. I will defer to them for further management. received 2 doses of Azithromycin and Rocephin. Stopped abx. Most likely viral (parainfluenza) in etiology. (5) Hypertension Status: Chronic Discussed With: Nurse Problem Specific Plan: Monitor Clinically Problem Text: 03/15 Pressures improved, monitor. 03/13: Her blood pressures have been a little labile today, however, I do not think adjustment is in her best interest at this time. We'll continue to monitor for now. 03/12 - BP elevated this am - Due for Norvasc, Lisinopril and Metoprolol - monitor trend. 03/09/19: Increased Metoprolol dosing to 50 mg po daily as her HTN is also associated with tachycardia. Stop Hydralazine as anxiety is a side effect. Monitor. poorly controlled BP today. Will resume anti-hypertensives: amlodipine, Lisinopril and Metoprolol. Furosemide 40 mg IV x 1 added on. (6) Edema Status: Acute Problem Text: 03/13: There is not significant leg edema at this time. We'll continue current regimen. 03/12 - Lasix given this am x 1 - No edema. BUN/Cre improved today, but that is with IVF running at 60 cc/hr - not taking much po - will cont slow rate IVF for now 03/11/19: negative DVT. Most likely Chronic venous changes. Will resume Lasix today and monitor cr. levels. 03/09/19: US completed. results are pending. RLE edema. hx of TVR. Last echo was 2010 in [place]. will repeat echo today. (7) CKD (chronic kidney disease), stage III Status: Chronic Response to Treatment: Stable (8) Hyponatremia Status: Resolved Problem Text: 03/12 - resolved with IVF 03/10/19: Sodium normalized today. Na level trending down. elevated BUN/Cr/ noted. Added on NaCl IVF at 100 cc per hour. monitor. Plan/VTE VTE Prophylaxis Ordered?: Yes (Lovenox) VS, I&O, 24H, Fishbone Vital Signs/I&O Vital Signs Date Time Temp Pulse Resp B/P (MAP) Pulse Ox O2 Delivery O2 Flow Rate FiO2 03/15/19 09:06 83 03/15/19 09:05 136/63 03/15/19 08:00 2.0 03/15/19 08:00 98.7 22 89 03/15/19 04:00 24 03/15/19 04:00 BIPAP/CPAP I&O- Last 24 Hours up to 6 AM 03/15/19 06:00 Intake Total 665 ml Output Total 780 ml Balance -115 ml Laboratory Data 24H LABS Laboratory Tests 2 03/15/19 04:32: Immature Granulocyte % (Auto) , Nucleated Red Blood Cells % (auto) 0.0, Neutrophils 70, Lymphocytes (Manual) 19, Monocytes (Manual) 7, Metamyelocytes 3H, Myelocytes 1H, Platelet Estimate NORMAL, Clumped Platelets SMALL AMT, Red Blood Cell Morphology NORMAL, Anion Gap 5L, Glomerular Filtration Rate 57.4, Blood Urea Nitrogen 30H, Creatinine 1.00, Sodium Level 143, Potassium Level 3.8, Chloride Level 104, Carbon Dioxide Level 34H, Calcium Level 9.0, Aspartate Amino Transf (AST/SGOT) 22, Alanine Aminotransferase (ALT/SGPT) 32, Alkaline Phosphatase 33L, Total Bilirubin 0.4, Total Protein 5.5L, Albumin 3.0L, Albumin/Globulin Ratio 1.20 03/15/19 10:34: Blood Gas Bicarbonate Standard 32.3H, Arterial Blood pH 7.438, Arterial Blood Partial Pressure CO2 51.5H, Arterial Blood Partial Pressure O2 111.6H, Arterial Blood Total CO2 35.6H, Arterial Blood HCO3 34.0H, Arterial Blood Base Excess 8.5H, Arterial Blood Oxygen Saturation 98.2 CBC/BMP Laboratory Tests 03/15/19 04:32 Red Blood Count 3.58 L, Mean Corpuscular Volume 93.9, Mean Corpuscular Hemoglobin 29.3, Mean Corpuscular Hemoglobin Concent 31.3 L, Red Cell Distribution Width 13.1, Calcium Level 9.0, Aspartate Amino Transf (AST/SGOT) 22, Alanine Aminotransferase (ALT/SGPT) 32, Alkaline Phosphatase 33 L, Total Bilirubin 0.4, Total Protein 5.5 L, Albumin 3.0 L Microbiology Microbiology 03/08/19 Blood Culture - Final, Complete NO GROWTH AFTER 5 DAYS 03/08/19 Blood Culture - Final, Complete NO GROWTH AFTER 5 DAYS 03/08/19 Respiratory Virus Panel (PCR) ([facility]) - Final, Complete Parainfluenza 3 (Piv3) ROSA BARNEY PA-C Mar 15, 2019 10:53 SONIYA SERRANO DO Mar 15, 2019 23:01
[2019-03-15] MEDS: SIMVASTATIN 20 MG TAB PO SCH (20:24)
[2019-03-16] VITALS: BP 128/61
[2019-03-16 04:00] VITALS: BP 163/72
[2019-03-16] MEDS: IPRATROPIUM 0.5MG/ALBUTEROL 2.5MG INH SOL UD 3ML (DUONEB)(J7620) NEB SCH ×6 (04:40→23:40)
[2019-03-16 05:40] LABS: HEMATOCRIT 30.5 % (36.0-47.0); MEAN CORPUSCULAR HEMOGLOBIN 31.3 pg (27.0-33.0); MEAN CORPUSCULAR HGB CONC 32.8 g/dl (32.0-36.5); MEAN CORPUSCULAR VOLUME 95.3 fl (80.0-96.0); PLATELET COUNT, AUTOMATED 219 10^3/uL (150-450); WHITE BLOOD COUNT 12.6 10^3/uL (4.0-10.0)
[2019-03-16] MEDS: SODIUM CHLORIDE 0.9% INJ 10 ML SYR IV SCH ×2 (05:54→18:00)
[2019-03-16] MEDS: LEVOTHYROXINE 25MCG TABLET (0.025MG) PO SCH (05:54)
[2019-03-16 06:03] LABS: ALBUMIN 2.6 GM/DL (3.2-5.2); ALT/SGPT 26 U/L (12-78); BILIRUBIN,TOTAL 0.4 MG/DL (0.2-1.0); BLOOD UREA NITROGEN 31 MG/DL (7-18); CALCIUM LEVEL 8.9 MG/DL (8.8-10.2); CARBON DIOXIDE LEVEL 35 MEQ/L (21-32); CHLORIDE LEVEL 105 MEQ/L (98-107); GLOMERULAR FILTRATION RATE > 60.0 (>39); GLUCOSE, FASTING 79 MG/DL (70-100); POTASSIUM SERUM 3.6 MEQ/L (3.5-5.1); SODIUM LEVEL 145 MEQ/L (136-145); TOTAL PROTEIN 4.9 GM/DL (6.4-8.2)
[2019-03-16 06:08] LABS: LYMPHOCYTES 14 % (16-52); MONOCYTES 8 % (0-8); NEUTROPHILS 77 % (35-75); PLATELET ESTIMATE NORMAL (NORMAL)
[2019-03-16] MEDS: FORMOTEROL FUMARATE 20 MCG/2 ML INHALATION SOLUTION (PERFOROMIST) INH SCH ×2 (07:12→20:33)
[2019-03-16] MEDS: BUDESONIDE 0.5 MG/2 ML INHALATION SUSPENSION INH SCH ×2 (07:12→20:33)
[2019-03-16] MEDS: ACETYLCYSTEINE 20% 4 ML VIAL (200MG/ML) INH SCH ×2 (07:12→20:33)
[2019-03-16 08:00] VITALS: BP 120/57
[2019-03-16 08:35] LABS: ABG BASE EXCESS 8.1 (-2.0-2.0); ABG HCO3 33.6 MEQ/L (22.0-26.0); ABG O2 SATURATION 92.3 % (95.0-99.0); ABG PARTIAL PRESSURE CO2 51.6 mmHg (35.0-45.0); ABG STANDARD HCO3 31.8 MEQ/L (22.0-26.0); ABG TOTAL CO2 35.2 MEQ/L (23.0-31.0); ABG pH (ARTERIAL) 7.432 UNITS (7.350-7.450)
[2019-03-16] MEDS: PANTOPRAZOLE 40MG TAB (PROTONIX) PO SCH (09:03)
[2019-03-16] MEDS: LISINOPRIL 10 MG TAB PO SCH ×2 (09:04→20:49)
[2019-03-16] MEDS: METOPROLOL TART 50 MG TAB PO SCH (09:04)
[2019-03-16] MEDS: amLODIPine 5 MG TAB PO SCH (09:05)
[2019-03-16] MEDS: predniSONE 10 MG TAB PO SCH (09:05)
[2019-03-16] MEDS: guaiFENesin ER 600 MG TAB PO SCH ×2 (09:05→20:49)
[2019-03-16] MEDS: ENOXAPARIN 40 MG/0.4 ML SYRINGE (J1650) SC SCH (09:05)
--- NOTE | 2019-03-16 09:32 | IPNPDOC ---
Subjective Date Seen The patient was seen on 03/16/19. Subjective Chief Complaint/HPI Patient sitting in chair eating breakfast as I entered the room. She reports to be feeling better Constitutional: Denies: Chills, Fever Pulmonary: Reports: Dyspnea, Cough; Denies: Pleuritic Chest Pain Cardiovascular: Denies: Chest Pain, Palpitations, Orthopnea, Edema Gastrointestinal: Denies: Nausea, Vomiting, Abdominal Pain Psych: Reports: Mood Normal Objective Physical Examination General Exam: Positive: Alert, No Acute Distress Eye Exam: Negative: Sclera icteric ENT Exam: Positive: Atraumatic, Mucous membr. moist/pink Chest Exam: Positive: Diminished (very poor movement of air); Negative: Clear to auscultation, Rales, Rhonchi, Wheezing Heart Exam: Positive: Rate Normal, Regular Rhythm, Normal S1, Normal S2 Telemetry: Positive: Sinus Abdomen Exam: Positive: Normal bowel sounds, Soft; Negative: Tenderness Extremity Exam: Negative: Edema, Tenderness Skin Exam: Negative: Rash Psych Exam: Positive: Mood NL, Oriented x 3 A-FIB/CHADSVASC A-FIB History Current/History of A-Fib/PAF?: Yes Current Oral Anticoagulant The: No (Patient has been considered unstable for DOAC ) Age/Risk Factor Scoring CHADSVASC: CHADSVASC Response (Comments) Value Age Risk Factor Age >/= 75 years old 2 Gender Risk Factor Female 1 Hx of CHF No 0 Hx of HTN Yes 1 Hx of Stroke/TIA/or VTE No 0 Hx of Diabetes No 0 Hx of Vascular Disease No 0 Total 4 Assessment /Plan Problems (1) Acute respiratory failure with hypercapnia Status: Acute Problem Text: 03/16/19: Pulmonary continues to follow and manage. Patient was off BIPAP last night. She remains on O2 n/c 03/15 Pulm, cont to follow and manage. 03/14: She seems to continue to make slow but very steady improvement. With the patient and family are pleased with the progress she has made in the last 24 hours. Her morning ABGs continued to show compensation. 03/13: Some clinical improvement based on the time she can spend spend off pressure support. The patient has been more sleepy/lethargic today. Continue to monitor her carefully. 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 On prednisone. Remains on Zithromax. Patient's prognosis is guarded - Continue ongoing discussion regarding code status. 03/11/19: Poor tolerance of weaning off of Bipap. Continue to attempt to wean as much as possible. Continue CPT, acapella and nebs. Transition to Prednisone 40 mg po daily per Pulmonology recommendations. Patient expressed interest in DNR/advanced directives when family not at bedside to nursing staff. Will attempt to have discussion with patient later today. 03/10/19: DC abx per Pulmonology recommendations. Prednisone 60 mg po today then 40 mg po tomorrow. Continue nebs, CPT, acapella. Trial off of Bipap today. Encouraged po fluids. level 2 soft diet ordered to limit work of breathing with nutrition. DC Xanax due to poor response yesterday. Attempt alternate methods to assist with anxiety related to SOB/dyspnea. Reviewed code status with patient and daughter: remains FULL CODE. Keep Oxygen saturations between 85-90% due to hypercapnia. Reviewed plan with patient and daughter. 03/09/19: Day #2 Rocephin and Azithromycin. continue with abx. Procalcitonin level of 0.27 noted. Wean oxygen. wean solumedrol to po Prednisone due to agitation. WBC elevated, may be steroid effect. repeat CXR today. Day #1 Rocephin and azithromycin for RLL patchy infiltrates. Solumedrol 80 mg IV q 8 hrs. Continue with nebs. Currently requiring 4LNC oxygen. Bipap DCd this am. Respiratory panel + for parainfluenza (2) Atrial fibrillation Status: Chronic Response to Treatment: Stable Problem Specific Plan: Monitor Clinically Problem Text: 03/16/19: Patient remains in NSR today. I will discuss with attending when would be appropriate to consider oral anticoagulation. She is currently on Lovenox She remains in sinus rhythm at this time. She is not stable enough yet to consider oral anticoagulation. (3) Parainfluenza Status: Acute Problem Text: see above plan. (4) Pneumonia Status: Acute Problem Text: 03/14: She continues to have a deep bronchitic cough, but the amount of secretions she is clearing on a daily basis seems to be slowing now. Overall I would consider this a good sign. 03/13: Patient has difficulty clearing her secretions and the secretions are thick. She's been started on a regimen of Mucomyst and chest physiotherapy by pulmonology. I will defer to them for further management. received 2 doses of Azithromycin and Rocephin. Stopped abx. Most likely viral (parainfluenza) in etiology. (5) Hypertension Status: Chronic Discussed With: Nurse Problem Specific Plan: Monitor Clinically Problem Text: 03/16/19: Pressures are trending much better. Slightly elevated this morning. We will continue to monitor 03/15 Pressures improved, monitor. 03/13: Her blood pressures have been a little labile today, however, I do not think adjustment is in her best interest at this time. We'll continue to monitor for now. 03/12 - BP elevated this am - Due for Norvasc, Lisinopril and Metoprolol - monitor trend. 03/09/19: Increased Metoprolol dosing to 50 mg po daily as her HTN is also associated with tachycardia. Stop Hydralazine as anxiety is a side effect. Monitor. poorly controlled BP today. Will resume anti-hypertensives: amlodipine, Lisinopril and Metoprolol. Furosemide 40 mg IV x 1 added on. (6) Edema Status: Acute Problem Text: 03/16/19: No edema noted on physical exam this morning 03/13: There is not significant leg edema at this time. We'll continue current regimen. 03/12 - Lasix given this am x 1 - No edema. BUN/Cre improved today, but that is with IVF running at 60 cc/hr - not taking much po - will cont slow rate IVF for now 03/11/19: negative DVT. Most likely Chronic venous changes. Will resume Lasix today and monitor cr. levels. 03/09/19: US completed. results are pending. RLE edema. hx of TVR. Last echo was 2010 in [place]. will repeat echo today. (7) CKD (chronic kidney disease), stage III Status: Chronic Response to Treatment: Stable (8) Hyponatremia Status: Resolved Problem Text: 03/12 - resolved with IVF 03/10/19: Sodium normalized today. Na level trending down. elevated BUN/Cr/ noted. Added on NaCl IVF at 100 cc per hour. monitor. Plan/VTE VTE Prophylaxis Ordered?: Yes (Lovenox) VS, I&O, 24H, Fishbone Vital Signs/I&O Vital Signs Date Time Temp Pulse Resp B/P (MAP) Pulse Ox O2 Delivery O2 Flow Rate FiO2 03/16/19 09:04 74 03/16/19 09:04 120/57 03/16/19 04:00 1.0 03/16/19 04:00 98.4 20 92 03/15/19 11:06 24 03/15/19 04:00 BIPAP/CPAP I&O- Last 24 Hours up to 6 AM 03/16/19 06:00 Intake Total 820 ml Output Total 595 ml Balance 225 ml Laboratory Data 24H LABS Laboratory Tests 2 03/15/19 10:34: Blood Gas Bicarbonate Standard 32.3H, Arterial Blood pH 7.438, Arterial Blood Partial Pressure CO2 51.5H, Arterial Blood Partial Pressure O2 111.6H, Arterial Blood Total CO2 35.6H, Arterial Blood HCO3 34.0H, Arterial Blood Base Excess 8.5H, Arterial Blood Oxygen Saturation 98.2 03/16/19 05:10: Immature Granulocyte % (Auto) , Nucleated Red Blood Cells % (auto) 0.0, Neutrophils 77H, Band Neutrophils 1, Lymphocytes (Manual) 14L, Monocytes (Manual) 8, Platelet Estimate NORMAL, Basophilic Stippling 1+, Anion Gap 5L, Glomerular Filtration Rate > 60.0, Blood Urea Nitrogen 31H, Creatinine 0.90, Sodium Level 145, Potassium Level 3.6, Chloride Level 105, Carbon Dioxide Level 35H, Calcium Level 8.9, Aspartate Amino Transf (AST/SGOT) 16, Alanine Aminotransferase (ALT/SGPT) 26, Alkaline Phosphatase 31L, Total Bilirubin 0.4, Total Protein 4.9L, Albumin 2.6L, Albumin/Globulin Ratio 1.13 03/16/19 08:27: Blood Gas Bicarbonate Standard 31.8H, Arterial Blood pH 7.432, Arterial Blood Partial Pressure CO2 51.6H, Arterial Blood Partial Pressure O2 63.0L, Arterial Blood Total CO2 35.2H, Arterial Blood HCO3 33.6H, Arterial Blood Base Excess 8.1H, Arterial Blood Oxygen Saturation 92.3L CBC/BMP Laboratory Tests 03/16/19 05:10 Red Blood Count 3.20 L, Mean Corpuscular Volume 95.3, Mean Corpuscular Hemoglobin 31.3, Mean Corpuscular Hemoglobin Concent 32.8, Red Cell Distribution Width 13.0, Calcium Level 8.9, Aspartate Amino Transf (AST/SGOT) 16, Alanine Aminotransferase (ALT/SGPT) 26, Alkaline Phosphatase 31 L, Total Bilirubin 0.4, Total Protein 4.9 L, Albumin 2.6 L Microbiology Microbiology 03/08/19 Blood Culture - Final, Complete NO GROWTH AFTER 5 DAYS 03/08/19 Blood Culture - Final, Complete NO GROWTH AFTER 5 DAYS 03/08/19 Respiratory Virus Panel (PCR) ([facility]) - Final, Complete Parainfluenza 3 (Piv3) [facility] Mar 16, 2019 09:32
[2019-03-16 11:59] VITALS: BP 121/58
[2019-03-16 18:00] VITALS: BP 124/62
[2019-03-16] MEDS: ACETAMINOPHEN TAB 650MG DOSE (2X325MG) PO PRN (20:48)
[2019-03-16] MEDS: SIMVASTATIN 20 MG TAB PO SCH (20:49)
[2019-03-16 22:00] VITALS: BP 132/62
[2019-03-17] MEDS: IPRATROPIUM 0.5MG/ALBUTEROL 2.5MG INH SOL UD 3ML (DUONEB)(J7620) NEB SCH ×6 (04:01→23:28)
[2019-03-17 06:00] VITALS: BP 138/68
[2019-03-17] MEDS: SODIUM CHLORIDE 0.9% INJ 10 ML SYR IV SCH ×2 (06:00→17:12)
[2019-03-17] MEDS: LEVOTHYROXINE 25MCG TABLET (0.025MG) PO SCH (06:52)
[2019-03-17 07:01] LABS: HEMATOCRIT 31.8 % (36.0-47.0); MEAN CORPUSCULAR HEMOGLOBIN 30.2 pg (27.0-33.0); MEAN CORPUSCULAR HGB CONC 31.4 g/dl (32.0-36.5); MEAN CORPUSCULAR VOLUME 96.1 fl (80.0-96.0); PLATELET COUNT, AUTOMATED 222 10^3/uL (150-450); RED BLOOD COUNT 3.31 10^6/uL (4.00-5.40); WHITE BLOOD COUNT 11.4 10^3/uL (4.0-10.0)
[2019-03-17 07:31] LABS: ALBUMIN 2.5 GM/DL (3.2-5.2); ALT/SGPT 26 U/L (12-78); BILIRUBIN,TOTAL 0.3 MG/DL (0.2-1.0); BLOOD UREA NITROGEN 28 MG/DL (7-18); CALCIUM LEVEL 8.7 MG/DL (8.8-10.2); CARBON DIOXIDE LEVEL 35 MEQ/L (21-32); CHLORIDE LEVEL 107 MEQ/L (98-107); CREATININE FOR GFR 0.91 MG/DL (0.55-1.30); GLOMERULAR FILTRATION RATE > 60.0 (>39); GLUCOSE, FASTING 77 MG/DL (70-100); POTASSIUM SERUM 3.7 MEQ/L (3.5-5.1); SODIUM LEVEL 146 MEQ/L (136-145); TOTAL PROTEIN 5.1 GM/DL (6.4-8.2)
[2019-03-17 07:56] LABS: ATYPICAL LYMPH 4 % (0-5); LYMPHOCYTES 19 % (16-52); METAMYELOCYTES 1 % (0-0); MONOCYTES 6 % (0-8); MYELOCYTES 3 % (0-0); NEUTROPHILS 67 % (35-75); PLATELET ESTIMATE NORMAL (NORMAL)
[2019-03-17 07:58] LABS: ANISOCYTOSIS 1+
[2019-03-17] MEDS: FORMOTEROL FUMARATE 20 MCG/2 ML INHALATION SOLUTION (PERFOROMIST) INH SCH ×2 (08:25→20:49)
[2019-03-17] MEDS: ACETYLCYSTEINE 20% 4 ML VIAL (200MG/ML) INH SCH ×2 (08:25→20:48)
[2019-03-17] MEDS: BUDESONIDE 0.5 MG/2 ML INHALATION SUSPENSION INH SCH ×2 (08:25→20:49)
[2019-03-17] MEDS: predniSONE 10 MG TAB PO SCH (08:51)
[2019-03-17] MEDS: METOPROLOL TART 25 MG TABLET PO SCH (08:51)
[2019-03-17] MEDS: guaiFENesin ER 600 MG TAB PO SCH ×2 (08:51→21:17)
[2019-03-17] MEDS: amLODIPine 5 MG TAB PO SCH (08:51)
[2019-03-17] MEDS: LISINOPRIL 10 MG TAB PO SCH ×2 (08:52→21:17)
[2019-03-17] MEDS: PANTOPRAZOLE 40MG TAB (PROTONIX) PO SCH (08:52)
[2019-03-17] MEDS: ENOXAPARIN 40 MG/0.4 ML SYRINGE (J1650) SC SCH (08:52)
[2019-03-17 14:00] VITALS: BP 138/72
[2019-03-17] MEDS: NYSTATIN 500,000 U/5 ML SUSP UDC SS SCH ×2 (15:37→21:17)
[2019-03-17] MEDS: ACETAMINOPHEN TAB 650MG DOSE (2X325MG) PO PRN (17:11)
[2019-03-17] MEDS: SIMVASTATIN 20 MG TAB PO SCH (21:17)
[2019-03-17 22:00] VITALS: BP 142/76
--- NOTE | 2019-03-18 01:45 | IPNPDOC ---
Subjective Date Seen The patient was seen on 03/17/19. Subjective Chief Complaint/HPI Patient seen and examined; she reports that she was feeling too tired to work with PT today, hopes to pass PT tomorrow and be discharged home. Otherwise states that she feels well. Constitutional: Reports: Fatigue; Denies: Chills, Fever Pulmonary: Reports: Dyspnea, Cough Cardiovascular: Denies: Chest Pain Gastrointestinal: Denies: Nausea, Vomiting, Diarrhea, Constipation Objective Physical Examination General Exam: Positive: Alert, No Acute Distress Eye Exam: Negative: Sclera icteric ENT Exam: Positive: Atraumatic, Mucous membr. moist/pink Chest Exam: Positive: Diminished (very poor movement of air); Negative: Clear to auscultation, Rales, Rhonchi, Wheezing Heart Exam: Positive: Rate Normal, Regular Rhythm, Normal S1, Normal S2 Telemetry: Positive: Sinus Abdomen Exam: Positive: Normal bowel sounds, Soft; Negative: Tenderness Extremity Exam: Negative: Edema, Tenderness Skin Exam: Negative: Rash Psych Exam: Positive: Mood NL, Oriented x 3 A-FIB/CHADSVASC A-FIB History Current/History of A-Fib/PAF?: Yes Current Oral Anticoagulant The: No Age/Risk Factor Scoring CHADSVASC: CHADSVASC Response (Comments) Value Age Risk Factor Age >/= 75 years old 2 Gender Risk Factor Female 1 Hx of CHF No 0 Hx of HTN Yes 1 Hx of Stroke/TIA/or VTE No 0 Hx of Diabetes No 0 Hx of Vascular Disease No 0 Total 4 Treatment Reason Anticoagulant not given: Other (? bleeding, hemoglobin trending down, stool occult blood pending) Assessment /Plan Problems (1) Acute respiratory failure with hypercapnia Status: Acute Problem Text: 03/17: stable off Bipap, much improved. Patient hopes to be discharged soon. 03/16/19: Pulmonary continues to follow and manage. Patient was off BIPAP last night. She remains on O2 n/c 03/15 Pulm, cont to follow and manage. 03/14: She seems to continue to make slow but very steady improvement. With the patient and family are pleased with the progress she has made in the last 24 hours. Her morning ABGs continued to show compensation. 03/13: Some clinical improvement based on the time she can spend spend off pressure support. The patient has been more sleepy/lethargic today. Continue to monitor her carefully. 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 On prednisone. Remains on Zithromax. Patient's prognosis is guarded - Continue ongoing discussion regarding code status. 03/11/19: Poor tolerance of weaning off of Bipap. Continue to attempt to wean as much as possible. Continue CPT, acapella and nebs. Transition to Prednisone 40 mg po daily per Pulmonology recommendations. Patient expressed interest in DNR/advanced directives when family not at bedside to nursing staff. Will attempt to have discussion with patient later today. 03/10/19: DC abx per Pulmonology recommendations. Prednisone 60 mg po today then 40 mg po tomorrow. Continue nebs, CPT, acapella. Trial off of Bipap today. Encouraged po fluids. level 2 soft diet ordered to limit work of breathing with nutrition. DC Xanax due to poor response yesterday. Attempt alternate methods to assist with anxiety related to SOB/dyspnea. Reviewed code status with patient and daughter: remains FULL CODE. Keep Oxygen saturations between 85-90% due to hypercapnia. Reviewed plan with patient and daughter. 03/09/19: Day #2 Rocephin and Azithromycin. continue with abx. Procalcitonin level of 0.27 noted. Wean oxygen. wean solumedrol to po Prednisone due to agitation. WBC elevated, may be steroid effect. repeat CXR today. Day #1 Rocephin and azithromycin for RLL patchy infiltrates. Solumedrol 80 mg IV q 8 hrs. Continue with nebs. Currently requiring 4LNC oxygen. Bipap DCd this am. Respiratory panel + for parainfluenza (2) Atrial fibrillation Status: Chronic Response to Treatment: Stable Problem Specific Plan: Monitor Clinically Problem Text: 03/17: Hemoglobin has trended down over admission; stool for occult blood ordered. 03/16/19: Patient remains in NSR today. I will discuss with attending when would be appropriate to consider oral anticoagulation. She is currently on Lovenox She remains in sinus rhythm at this time. She is not stable enough yet to consider oral anticoagulation. (3) Pneumonia Status: Acute Problem Text: 03/14: She continues to have a deep bronchitic cough, but the amount of secretions she is clearing on a daily basis seems to be slowing now. Overall I would consider this a good sign. 03/13: Patient has difficulty clearing her secretions and the secretions are thick. She's been started on a regimen of Mucomyst and chest physiotherapy by pulmonology. I will defer to them for further management. received 2 doses of Azithromycin and Rocephin. Stopped abx. Most likely viral (parainfluenza) in etiology. (4) Parainfluenza Status: Acute Problem Text: see above plan. (5) Hypertension Status: Chronic Discussed With: Nurse Problem Specific Plan: Monitor Clinically Problem Text: 03/16/19: Pressures are trending much better. Slightly elevated this morning. We will continue to monitor 03/15 Pressures improved, monitor. 03/13: Her blood pressures have been a little labile today, however, I do not think adjustment is in her best interest at this time. We'll continue to monitor for now. 03/12 - BP elevated this am - Due for Norvasc, Lisinopril and Metoprolol - monitor trend. 03/09/19: Increased Metoprolol dosing to 50 mg po daily as her HTN is also associated with tachycardia. Stop Hydralazine as anxiety is a side effect. Monitor. poorly controlled BP today. Will resume anti-hypertensives: amlodipine, Lisinopril and Metoprolol. Furosemide 40 mg IV x 1 added on. (6) Edema Status: Acute Problem Text: 03/16/19: No edema noted on physical exam this morning 03/13: There is not significant leg edema at this time. We'll continue current regimen. 03/12 - Lasix given this am x 1 - No edema. BUN/Cre improved today, but that is with IVF running at 60 cc/hr - not taking much po - will cont slow rate IVF for now 03/11/19: negative DVT. Most likely Chronic venous changes. Will resume Lasix today and monitor cr. levels. 03/09/19: US completed. results are pending. RLE edema. hx of TVR. Last echo was 2010 in [place]. will repeat echo today. (7) CKD (chronic kidney disease), stage III Status: Chronic Response to Treatment: Stable (8) Hyponatremia Status: Resolved Problem Text: 03/12 - resolved with IVF 03/10/19: Sodium normalized today. Na level trending down. elevated BUN/Cr/ noted. Added on NaCl IVF at 100 cc per hour. monitor. Plan/VTE VTE Prophylaxis Ordered?: Yes (Lovenox) VS, I&O, 24H, Fishbone Vital Signs/I&O Vital Signs Date Time Temp Pulse Resp B/P (MAP) Pulse Ox O2 Delivery O2 Flow Rate FiO2 03/17/19 22:00 99.4 70 20 142/76 (98) 97 1.0 03/15/19 11:06 24 03/15/19 04:00 BIPAP/CPAP I&O- Last 24 Hours up to 6 AM 03/18/19 05:59 Intake Total 640 ml Output Total 1000 ml Balance -360 ml Laboratory Data 24H LABS Laboratory Tests 2 03/17/19 06:20: Immature Granulocyte % (Auto) , Nucleated Red Blood Cells % (auto) 0.0, Neutrophils 67, Lymphocytes (Manual) 19, Monocytes (Manual) 6, Metamyelocytes 1H, Myelocytes 3H, Atypical Lymphocytes 4, Platelet Estimate NORMAL, Anisocytosis 1+, Macrocytosis 1+, Anion Gap 4L, Glomerular Filtration Rate > 60.0, Blood Urea Nitrogen 28H, Creatinine 0.91, Sodium Level 146H, Potassium Level 3.7, Chloride Level 107, Carbon Dioxide Level 35H, Calcium Level 8.7L, Aspartate Amino Transf (AST/SGOT) 17, Alanine Aminotransferase (ALT/SGPT) 26, Alkaline Phosphatase 33L, Total Bilirubin 0.3, Total Protein 5.1L, Albumin 2.5L, Albumin/Globulin Ratio 0.96L CBC/BMP Laboratory Tests 03/17/19 06:20 Red Blood Count 3.31 L, Mean Corpuscular Volume 96.1 H, Mean Corpuscular Hemoglobin 30.2, Mean Corpuscular Hemoglobin Concent 31.4 L, Red Cell Distribution Width 13.1, Calcium Level 8.7 L, Aspartate Amino Transf (AST/SGOT) 17, Alanine Aminotransferase (ALT/SGPT) 26, Alkaline Phosphatase 33 L, Total Bilirubin 0.3, Total Protein 5.1 L, Albumin 2.5 L Microbiology Microbiology 03/08/19 Blood Culture - Final, Complete NO GROWTH AFTER 5 DAYS 03/08/19 Blood Culture - Final, Complete NO GROWTH AFTER 5 DAYS 03/08/19 Respiratory Virus Panel (PCR) ([facility]) - Final, Complete Parainfluenza 3 (Piv3) SONIYA SERRANO DO March 18, 2019 01:44
[2019-03-18] MEDS: IPRATROPIUM 0.5MG/ALBUTEROL 2.5MG INH SOL UD 3ML (DUONEB)(J7620) NEB SCH ×5 (03:21→20:49)
[2019-03-18 06:00] VITALS: BP 146/78
[2019-03-18] MEDS: LEVOTHYROXINE 25MCG TABLET (0.025MG) PO SCH (06:05)
[2019-03-18] MEDS: SODIUM CHLORIDE 0.9% INJ 10 ML SYR IV SCH (06:06)
[2019-03-18] MEDS: FORMOTEROL FUMARATE 20 MCG/2 ML INHALATION SOLUTION (PERFOROMIST) INH SCH ×2 (07:34→20:49)
[2019-03-18] MEDS: BUDESONIDE 0.5 MG/2 ML INHALATION SUSPENSION INH SCH ×2 (07:34→20:49)
[2019-03-18] MEDS: ACETYLCYSTEINE 20% 4 ML VIAL (200MG/ML) INH SCH ×2 (07:35→20:49)
[2019-03-18 08:43] VITALS: BP 142/82
[2019-03-18] MEDS: PANTOPRAZOLE 40MG TAB (PROTONIX) PO SCH (09:15)
[2019-03-18] MEDS: predniSONE 10 MG TAB PO SCH (09:15)
[2019-03-18] MEDS: amLODIPine 5 MG TAB PO SCH (09:16)
[2019-03-18] MEDS: guaiFENesin ER 600 MG TAB PO SCH ×2 (09:16→20:26)
[2019-03-18] MEDS: NYSTATIN 500,000 U/5 ML SUSP UDC SS SCH ×3 (09:16→20:28)
[2019-03-18] MEDS: LISINOPRIL 10 MG TAB PO SCH ×2 (09:16→20:28)
[2019-03-18] MEDS: METOPROLOL TART 25 MG TABLET PO SCH (09:17)
[2019-03-18] MEDS: ENOXAPARIN 40 MG/0.4 ML SYRINGE (J1650) SC SCH (09:18)
[2019-03-18] MEDS ORDERED: IPRA0.00 NEB (12:25)
[2019-03-18] MEDS ORDERED: PRED10TA2 PO (12:25)
--- NOTE | 2019-03-18 14:09 | IPNPDOC ---
Subjective Date Seen The patient was seen on 03/18/19. Subjective Chief Complaint/HPI Patient reports to be feeling well and is ready for discharge. She states she cleared PT Constitutional: Denies: Chills, Fever Pulmonary: Reports: Dyspnea (Chronic, improved and back to baseline ), Cough; Denies: Pleuritic Chest Pain Cardiovascular: Denies: Chest Pain, Palpitations, Orthopnea Gastrointestinal: Denies: Nausea, Vomiting, Abdominal Pain Psych: Reports: Mood Normal Objective Physical Examination General Exam: Positive: Alert, No Acute Distress Eye Exam: Negative: Sclera icteric ENT Exam: Positive: Atraumatic, Mucous membr. moist/pink Chest Exam: Positive: Diminished (very poor movement of air); Negative: Clear to auscultation, Rales, Rhonchi, Wheezing Heart Exam: Positive: Rate Normal, Regular Rhythm, Normal S1, Normal S2 Telemetry: Positive: Sinus Abdomen Exam: Positive: Normal bowel sounds, Soft; Negative: Tenderness Extremity Exam: Negative: Edema, Tenderness Skin Exam: Negative: Rash Psych Exam: Positive: Mood NL, Oriented x 3 A-FIB/CHADSVASC A-FIB History Current/History of A-Fib/PAF?: Yes Current Oral Anticoagulant The: No Age/Risk Factor Scoring CHADSVASC: CHADSVASC Response (Comments) Value Age Risk Factor Age >/= 75 years old 2 Gender Risk Factor Female 1 Hx of CHF No 0 Hx of HTN Yes 1 Hx of Stroke/TIA/or VTE No 0 Hx of Diabetes No 0 Hx of Vascular Disease No 0 Total 4 Assessment /Plan Assessment 03/18: Patient's stool is negative for occult blood and repeat hemoglobin significantly higher than previous (which were trending down.) Passed PT. -- CDT Problems (1) Acute respiratory failure with hypercapnia Status: Acute Problem Text: 03/18/19: Stable and back to her baseline 03/17: stable off Bipap, much improved. Patient hopes to be discharged soon. 03/16/19: Pulmonary continues to follow and manage. Patient was off BIPAP last night. She remains on O2 n/c 03/15 Pulm, cont to follow and manage. 03/14: She seems to continue to make slow but very steady improvement. With the patient and family are pleased with the progress she has made in the last 24 hours. Her morning ABGs continued to show compensation. 03/13: Some clinical improvement based on the time she can spend spend off pressure support. The patient has been more sleepy/lethargic today. Continue to monitor her carefully. 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 On prednisone. Remains on Zithromax. Patient's prognosis is guarded - Continue ongoing discussion regarding code status. 03/11/19: Poor tolerance of weaning off of Bipap. Continue to attempt to wean as much as possible. Continue CPT, acapella and nebs. Transition to Prednisone 40 mg po daily per Pulmonology recommendations. Patient expressed interest in DNR/advanced directives when family not at bedside to nursing staff. Will attempt to have discussion with patient later today. 03/10/19: DC abx per Pulmonology recommendations. Prednisone 60 mg po today then 40 mg po tomorrow. Continue nebs, CPT, acapella. Trial off of Bipap today. Encouraged po fluids. level 2 soft diet ordered to limit work of breathing with nutrition. DC Xanax due to poor response yesterday. Attempt alternate methods to assist with anxiety related to SOB/dyspnea. Reviewed code status with patient and daughter: remains FULL CODE. Keep Oxygen saturations between 85-90% due to hypercapnia. Reviewed plan with patient and daughter. 03/09/19: Day #2 Rocephin and Azithromycin. continue with abx. Procalcitonin level of 0.27 noted. Wean oxygen. wean solumedrol to po Prednisone due to agitation. WBC elevated, may be steroid effect. repeat CXR today. Day #1 Rocephin and azithromycin for RLL patchy infiltrates. Solumedrol 80 mg IV q 8 hrs. Continue with nebs. Currently requiring 4LNC oxygen. Bipap DCd this am. Respiratory panel + for parainfluenza (2) Atrial fibrillation Status: Chronic Response to Treatment: Stable Problem Specific Plan: Monitor Clinically Problem Text: 03/18/19: Repeat Hgb today. We need to obtain stool for occult to determine if she is a suitable candidate for DOAC 03/17: Hemoglobin has trended down over admission; stool for occult blood ordered. 03/16/19: Patient remains in NSR today. I will discuss with attending when would be appropriate to consider oral anticoagulation. She is currently on Lovenox She remains in sinus rhythm at this time. She is not stable enough yet to consider oral anticoagulation. (3) Parainfluenza Status: Acute Problem Text: see above plan. (4) Hypertension Status: Chronic Discussed With: Nurse Problem Specific Plan: Monitor Clinically Problem Text: 03/16/19: Pressures are trending much better. Slightly elevated this morning. We will continue to monitor 03/15 Pressures improved, monitor. 03/13: Her blood pressures have been a little labile today, however, I do not think adjustment is in her best interest at this time. We'll continue to monitor for now. 03/12 - BP elevated this am - Due for Norvasc, Lisinopril and Metoprolol - monitor trend. 03/09/19: Increased Metoprolol dosing to 50 mg po daily as her HTN is also associated with tachycardia. Stop Hydralazine as anxiety is a side effect. Monitor. poorly controlled BP today. Will resume anti-hypertensives: amlodipine, Lisinopril and Metoprolol. Furosemide 40 mg IV x 1 added on. (5) Edema Status: Acute Problem Text: 03/16/19: No edema noted on physical exam this morning 03/13: There is not significant leg edema at this time. We'll continue current regimen. 03/12 - Lasix given this am x 1 - No edema. BUN/Cre improved today, but that is with IVF running at 60 cc/hr - not taking much po - will cont slow rate IVF for now 03/11/19: negative DVT. Most likely Chronic venous changes. Will resume Lasix today and monitor cr. levels. 03/09/19: US completed. results are pending. RLE edema. hx of TVR. Last echo was 2010 in [place]. will repeat echo today. (6) CKD (chronic kidney disease), stage III Status: Chronic Response to Treatment: Stable (7) Hyponatremia Status: Resolved Problem Text: 03/12 - resolved with IVF 03/10/19: Sodium normalized today. Na level trending down. elevated BUN/Cr/ noted. Added on NaCl IVF at 100 cc per hour. monitor. (8) Pneumonia Status: Resolved Problem Text: 03/14: She continues to have a deep bronchitic cough, but the amount of secretions she is clearing on a daily basis seems to be slowing now. Overall I would consider this a good sign. 03/13: Patient has difficulty clearing her secretions and the secretions are thick. She's been started on a regimen of Mucomyst and chest physiotherapy by pulmonology. I will defer to them for further management. received 2 doses of Azithromycin and Rocephin. Stopped abx. Most likely viral (parainfluenza) in etiology. Plan/VTE VTE Prophylaxis Ordered?: Yes (Lovenox) VS, I&O, 24H, Fishbone Vital Signs/I&O Vital Signs Date Time Temp Pulse Resp B/P (MAP) Pulse Ox O2 Delivery O2 Flow Rate FiO2 03/18/19 09:50 2.0 03/18/19 09:17 78 03/18/19 09:16 142/82 03/18/19 08:43 99.3 20 96 03/15/19 11:06 24 03/15/19 04:00 BIPAP/CPAP I&O- Last 24 Hours up to 6 AM 03/18/19 06:00 Intake Total 800 ml Output Total 1000 ml Balance -200 ml Laboratory Data Microbiology Microbiology 03/08/19 Blood Culture - Final, Complete NO GROWTH AFTER 5 DAYS 03/08/19 Blood Culture - Final, Complete NO GROWTH AFTER 5 DAYS 03/08/19 Respiratory Virus Panel (PCR) ([facility]) - Final, Complete Parainfluenza 3 (Piv3) MARITO COLLINS March 18, 2019 14:09 SONIYA SERRANO DO March 18, 2019 23:46
[2019-03-18 14:44] LABS: HEMATOCRIT 35.6 % (36.0-47.0); HEMOGLOBIN 11.3 g/dl (12.0-15.5); MEAN CORPUSCULAR HGB CONC 31.7 g/dl (32.0-36.5); MEAN CORPUSCULAR VOLUME 97.5 fl (80.0-96.0); PLATELET COUNT, AUTOMATED 295 10^3/uL (150-450); RED BLOOD COUNT 3.65 10^6/uL (4.00-5.40); WHITE BLOOD COUNT 17.1 10^3/uL (4.0-10.0)
[2019-03-18] MEDS: SIMVASTATIN 20 MG TAB PO SCH (20:26)
[2019-03-18] MEDS: ACETAMINOPHEN TAB 650MG DOSE (2X325MG) PO PRN (20:26)
[2019-03-18 22:00] VITALS: BP 119/46
[2019-03-19] MEDS: IPRATROPIUM 0.5MG/ALBUTEROL 2.5MG INH SOL UD 3ML (DUONEB)(J7620) NEB SCH ×3 (00:33→07:47)
[2019-03-19 06:00] VITALS: BP 111/53
[2019-03-19] MEDS: LEVOTHYROXINE 25MCG TABLET (0.025MG) PO SCH (06:04)
[2019-03-19] MEDS: ACETYLCYSTEINE 20% 4 ML VIAL (200MG/ML) INH SCH (07:47)
[2019-03-19] MEDS: FORMOTEROL FUMARATE 20 MCG/2 ML INHALATION SOLUTION (PERFOROMIST) INH SCH (07:47)
[2019-03-19] MEDS: BUDESONIDE 0.5 MG/2 ML INHALATION SUSPENSION INH SCH (07:47)
[2019-03-19] MEDS: PANTOPRAZOLE 40MG TAB (PROTONIX) PO SCH (08:13)
[2019-03-19] MEDS: predniSONE 10 MG TAB PO SCH (08:14)
[2019-03-19] MEDS: LISINOPRIL 10 MG TAB PO SCH (08:14)
[2019-03-19] MEDS: amLODIPine 5 MG TAB PO SCH (08:14)
[2019-03-19] MEDS: guaiFENesin ER 600 MG TAB PO SCH (08:14)
[2019-03-19 08:15] VITALS: BP 111/53
[2019-03-19] MEDS: ENOXAPARIN 40 MG/0.4 ML SYRINGE (J1650) SC SCH (08:15)
[2019-03-19] MEDS: METOPROLOL TART 25 MG TABLET PO SCH (08:15)
[2019-03-19] MEDS: NYSTATIN 500,000 U/5 ML SUSP UDC SS SCH (09:00)
[2019-03-19] MEDS ORDERED: ELIQ5TAB PO (10:26)
--- NOTE | 2019-03-19 18:16 | DS.PDOC ---
Discharge Summary General Date of Admission Mar 08, 2019 at 05:46 Date of Discharge 03/19/19 Primary Care Physician: Abdulaziz Headley M.D. Attending Physician: SONIYA SERRANO DO Specialist/Consultants Involve: THOMAS STALEY Discharge Summary PROCEDURES PERFORMED DURING STAY: ECHO CONCLUSIONS: 1. Study is of very limited technical quality. 2. Normal LV size with grossly preserved LV systolic function and grade 1 diastolic dysfunction. 3. No significant aortic, mitral and tricuspid valvular disease. 4. Likely normal central venous pressure. 5. Unable to reliably estimate pulmonary artery pressure. DIAGNOSES: 1. Acute respiratory failure with hypercapnia 2. Atrial fibrillation 3. Parainfluenza 4. Hypertension 5. Edema 6. Hyponatremia 7. Pneumonia COMPLICATIONS/CHIEF COMPLAINT: Acute Respiratory Failure With Hypercapnia. HISTORY OF PRESENT ILLNESS: 78-year-old female patient of Dr. Headley with past medical history of hypertension, dyslipidemia, hypothyroidism, CKD stage III, steroid and oxygen dependent COPD presents to the ER with a chief complaint of increased shortness of breath, nonproductive cough over the last several days. The patient states that she had been driving up from [place] over the course of 3 days. As soon as she got home, the patient stated she came to the emergency room because her shortness of breath and cough had progressed. In addition, the patient also noted having subjective fevers and chills during this time. She denies any chest pain, palpitations, abdominal pain, sick contacts, increasing lower extremity edema, PND, orthopnea, or any nausea/vomiting/diarrhea. In the ER, the patient was noted to be in hypercapnic respiratory failure. She was started on BiPAP and had been taken off by the ER as her ABG numbers had normalized. The patient was admitted for further management. HOSPITAL COURSE: 1. Acute respiratory failure with hypercapnia: Patient was admitted to ICU started on Rocephin and azithromycin for RLL patchy infiltrates. Solumedrol 80 mg IV q 8 hrs. Continue with her nebs tx and was maintained on oxygen. Her respiratory panel + for parainfluenza. Pulmonary was consulted. Patient was maintained on noninvasive mechanical ventilation. She was weaned off successful on 03/16/19. Abx were discontinued on on D3 d/t low procalcitonin findings, parainfluenza, and minimal chest CT findings. She received CPT and acapella. Patient progressed back to her baseline, transferred off unit on 03/16 and d/c home on 03/19/19. She was given a taper dose of prednisone to wean back to her baseline of 5 mg daily 2. Atrial fibrillation: She had recurrent A-fib during her hospital admission. She was converted to NSR after receiving additional doses of Metoprolol. She was discharged home on Eliquis 5mg po bid 3. Parainfluenza: Management per assessment #1 4. Hypertension: Metoprolol was increased d/t atrial fib as above. She was maint ained on her Lisinopril and Norvasc 5. Edema: She had some RLE. U/S was negative for DVT Treated with Lasix. ECHO was updated (results as above) 6. Hyponatremia: Treated with IVF and resolved on 03/12 7. Pneumonia: She received Azithromycin and Rocephin. Abx stopped as discussed above. This was most likely viral (parainfluenza) in etiology. DISCHARGE MEDICATIONS: Please see below. ALLERGIES: Please see below. PHYSICAL EXAMINATION ON DISCHARGE: VITAL SIGNS: Please see below. GENERAL: AOx3, NAD HEENT: unremarkable NECK: no JVD, soft, supple CARDIOVASCULAR EXAMINATION:RRR RESPIRATORY EXAMINATION: Diminished ABDOMINAL EXAMINATION: soft, non-tender, non-distended EXTREMITIES: no edema LABORATORY DATA: Please see below. IMAGING: Chest X-ray 03/08/19: No acute disease CT Angio 03/08/19: IMPRESSION: 1. Minimal bullous change, greatest in the lower lobes with minimal scattered interstitial prominence and scar and minimal patchy infiltrates in the right lung. 2. No pulmonary embolism is identified. Lower Extremity doppler 03/08/19: Impression: Negative bilateral lower extremity duplex venous ultrasound. No evidence of deep vein thrombosis. Chest X-ray 03/11/19: Impression: No active disease. Some hyperinflation. No infiltrate seen. Chest X-scottie 03/14/19: The lungs are hyperinflated. The lungs are clear. The heart is normal in size. The pulmonary vasculature is normal in appearance. Impression: No acute disease. ACTIVITY: As tolerated. DISCHARGE PLAN: Home; F/U with PCP in one week DISCHARGE INSTRUCTIONS: 1. F/U with PCP in one week 2. F/U with pulmonary 1-2 weeks Vital Signs/I&Os Vital Signs Date Time Temp Pulse Resp B/P (MAP) Pulse Ox O2 Delivery O2 Flow Rate FiO2 03/18/19 09:50 2.0 03/18/19 09:17 78 03/18/19 09:16 142/82 03/18/19 08:43 99.3 20 96 03/15/19 11:06 24 03/15/19 04:00 BIPAP/CPAP I&O- Last 24 Hours up to 6 AM 03/18/19 06:00 Intake Total 800 ml Output Total 1000 ml Balance -200 ml Microbiology Microbiology 03/08/19 Blood Culture - Final, Complete NO GROWTH AFTER 5 DAYS 03/08/19 Blood Culture - Final, Complete NO GROWTH AFTER 5 DAYS 03/08/19 Respiratory Virus Panel (PCR) ([facility]) - Final, Complete Parainfluenza 3 (Piv3) Discharge Medications Scheduled Amlodipine Besylate (Amlodipine Besylate) 5 Mg Tab, 5 MG PO DAILY, (Reported) Apixaban (Eliquis) 5 Mg Tablet, 5 MG PO BID Budesonide (Budesonide) 0.25 Mg/2 Ml Ampul.neb, 0.25 MG INH BID, (Reported) Budesonide/Formoterol (Symbicort 160-4.5 Mcg Inhaler) 6 Gm Hfa.aer.ad, 2 PUFF INH BID, (Reported) Cholecalciferol (Vitamin D3) (Vitamin D3) 5,000 Unit Tablet, 5,000 UNIT PO DAILY, (Reported) Furosemide (Furosemide) 20 Mg Tab, 20 MG PO DAILY, (Reported) Guaifenesin (Mucinex) 600 Mg Tab.er.12h, 600 MG PO BID, (Reported) Ipratropium/Albuterol Sulfate (Iprat-Albut 0.5-3(2.5) mg/3 ml) 3 Ml Ampul.neb, 3 ML NEB RQ4H L.acidoph/L.bulg/B.bif/S.therm (Bacid Caplet) 1 Tab Tab, 1 TAB PO DAILY, (Reported) Levothyroxine Sodium (Synthroid) 25 Mcg Tab, 25 MCG PO DAILY, (Reported) Lisinopril (Lisinopril) 10 Mg Tab, 10 MG PO BID, (Reported) Metoprolol Tartrate (Metoprolol Tartrate) 25 Mg Tab, 25 MG PO DAILY, (Reported) Pantoprazole Sodium (Pantoprazole Sodium) 40 Mg Tab, 40 MG PO DAILY, (Reported) Prednisone (Prednisone) 5 Mg Tablet, 5 MG PO DAILY, (Reported) Prednisone (Prednisone) 10 Mg Tablet, 30 MG PO DAILY Taper: 30 mg po q day for 3 days, 20 mg po q day for 5 days, 10 mg po q day for 5 days, daily maintenace dose of 5 mg Simvastatin (Zocor) 20 Mg Tab, 20 MG PO QHS, (Reported) Tiotropium [place] (Spiriva Respimat) 2.5 Mcg/Act Spr, 2 INHALATION INH DAILY, (Reported) Scheduled PRN Albuterol Sulf (Albuterol Sulfate) 2.5 Mg/3 Ml Vial.neb, 1 VIAL NEB Q4H PRN for wheezing, (Reported) Albuterol Sulfate (Proair Hfa) 8.5 Gm Hfa.aer.ad, 2 PUFF INH Q4-6H PRN for SHORTNESS OF BREATH, (Reported) Sodium Chloride (Sodium Chloride 3% Neb Yasmin) 15 Ml Nebu, 1 DOSE INH Q4H PRN for SHORTNESS OF BREATH, (Reported) Allergies Coded Allergies: No Known Allergies (Unverified , 03/08/19) MARITO COLLINS March 18, 2019 12:14
== END 2019-03-19 11:35 | disposition home or self-care (01) | DRG 193 ==
LOC: M ED 02:22 → M ED INP 05:46 → M ICU 06:36 → M MS5PR 03-16 17:44
PROVIDERS: ADMIT Internal Medicine; ATTEND Family Medicine
PROC: 02HV33Z Insertion of Infusion Device into Superior Vena Cava, Percutaneous Approach (ICD-10-PCS; principal; 2019-03-10)
DX: J12.2 Parainfluenza virus pneumonia (principal); J96.02 Acute respiratory failure with hypercapnia; J44.1 Chronic obstructive pulmonary disease with (acute) exacerbation; E87.1 Hypo-osmolality and hyponatremia; J44.0 Chronic obstructive pulmonary disease with (acute) lower respiratory infection; N18.3 Chronic kidney disease, stage 3 (moderate); E66.9 Obesity, unspecified; I48.91 Unspecified atrial fibrillation; I12.9 Hypertensive chronic kidney disease with stage 1 through stage 4 chronic kidney disease, or unspecified chronic kidney disease; R60.9 Edema, unspecified; E03.9 Hypothyroidism, unspecified; Z79.52 Long term (current) use of systemic steroids; Z99.81 Dependence on supplemental oxygen; Z79.899 Other long term (current) drug therapy; Z87.891 Personal history of nicotine dependence

== ENCOUNTER 2019-07-09 12:42 | Outpatient (RCR) | payer MEDICARE, BC, OTHER ==
[~2019-07-09 12:42] MED LIST changes: +ALBU83IN NEB; +BUDE0.254 INH; +ELIQ5TAB PO; +IPRA0.00 NEB; +MUCI600T31 PO; +NATU1TAB5 PO; +PROAAER10 INH; +VENTAER INH
[2019-07-09] MEDS ORDERED: AZIT-12 PO (13:14)
[2019-07-09] MEDS ORDERED: ELIQ5TAB PO (13:14)
[2019-07-09] MEDS ORDERED: CVS1CAP2 PO (13:14)
== END 2019-07-17 ==
LOC: M PR 12:42
PROVIDERS: ATTEND Internal Medicine Pulmonary Disease
DX: J44.9 Chronic obstructive pulmonary disease, unspecified (principal)

== ENCOUNTER → 2019-08-16 | Outpatient (RCR) | payer MEDICARE, BC, OTHER ==
[~2019-08-16] MED LIST changes: +CVS1CAP2 PO
== END ==
LOC: M PR 07-21 13:59
PROVIDERS: ATTEND Internal Medicine Pulmonary Disease
DX: J44.9 Chronic obstructive pulmonary disease, unspecified (principal)
CPT/HCPCS: G0424 ×10

== ENCOUNTER → 2019-08-19 | Outpatient (REF) | payer MEDICARE, OTHER ==
[2019-08-19 11:55] LABS: BASO # 0.1 10^3/uL (0.0-0.2); BASO % 0.7 % (0.0-1.0); EOS # 0.1 10^3/uL (0.0-0.5); EOS % 0.7 % (0.0-3.0); HEMATOCRIT 37.2 % (36.0-47.0); HEMOGLOBIN 11.7 g/dl (12.0-15.5); LYMPH # 1.6 10^3/uL (1.5-5.0); LYMPH % 15.4 % (24.0-44.0); MEAN CORPUSCULAR HEMOGLOBIN 29.7 pg (27.0-33.0); MEAN CORPUSCULAR HGB CONC 31.5 g/dl (32.0-36.5); MEAN CORPUSCULAR VOLUME 94.4 fl (80.0-96.0); MONO # 0.8 10^3/uL (0.0-0.8); MONO % 7.9 % (0.0-5.0); NEUTROPHILS # 7.7 10^3/uL (1.5-8.5); NEUTROPHILS % 73.9 % (36.0-66.0); PLATELET COUNT, AUTOMATED 287 10^3/uL (150-450); RED BLOOD COUNT 3.94 10^6/uL (4.00-5.40); WHITE BLOOD COUNT 10.4 10^3/uL (4.0-10.0)
[2019-08-19 12:32] LABS: ALBUMIN 3.7 GM/DL (3.2-5.2); BILIRUBIN,TOTAL 0.5 MG/DL (0.2-1.0); CALCIUM LEVEL 9.4 MG/DL (8.8-10.2); CHOLESTEROL RISK RATIO 1.982 (<5); CREATININE FOR GFR 1.24 MG/DL (0.55-1.30); FREE T4 1.22 NG/DL (0.76-1.46); GLOMERULAR FILTRATION RATE 44.7 (>39); MAGNESIUM LEVEL 2.1 MG/DL (1.8-2.4); POTASSIUM SERUM 3.9 MEQ/L (3.5-5.1); THYROID STIMULATING HORMONE 3.37 uIU/ML (0.358-3.740); TOTAL PROTEIN 6.4 GM/DL (6.4-8.2)
[2019-08-19 12:36] LABS: TOTAL 25(OH) VITAMIN D 89.4 NG/ML (30.0-100.0)
[2019-08-19 12:37] LABS: PTH INTACT 82.1 PG/ML (18.5-88.0)
== END ==
LOC: M SFHCPLAZ 10:44
PROVIDERS: ATTEND Family Medicine
DX: I10 Essential (primary) hypertension (principal); D75.89 Other specified diseases of blood and blood-forming organs; E78.2 Mixed hyperlipidemia; E03.9 Hypothyroidism, unspecified; E55.9 Vitamin D deficiency, unspecified; Z79.899 Other long term (current) drug therapy

== ENCOUNTER → 2019-09-16 | Outpatient (RCR) | payer MEDICARE, BC, OTHER | LOC: M PR 08-23 14:40 | PROVIDERS: ATTEND Internal Medicine Pulmonary Disease | DX: J44.9 Chronic obstructive pulmonary disease, unspecified (principal) | CPT/HCPCS: G0424 ×7 ==

== ENCOUNTER 2019-10-13 14:16 | Outpatient (RCR) | payer MEDICARE, BC, OTHER ==
--- NOTE | 2019-10-04 15:06 | PULMREHAB ---
DATE: 10/04/2019 Trinidad is a very pleasant and 79-year-old female well-known to me for end-stage chronic obstructive pulmonary disease (COPD), Gold stage IV with hypoxic respiratory failure. According to her recent start date in July and comparing to her most recent exercise on 09/29/2019, it shows that she has a significant decrease in the number times that she has to rest. Her strength training has increased in weight and in endurance. Her new step has also increased from a level L1 to a level L3 and increased from 10 to 15 minutes. Reported by the respiratory staff, she has some trouble with the bicycle. I have asked her to attempt to reinstate this into her exercise regimen. The patient herself states she finds significant improvement with pulmonary rehab. She has noticed increased ability to perform activities of daily living without significant shortness of breath. She states that it also helps her mental condition. She feels she is in a much better mood when she is exercising. We also discussed exercise conditioning, breathing retraining and she is on both step and strengthening exercises. She is on a combination of endurance and strength training at least twice per week. She is no longer smoking. She has been smoke free for a number of years. She has no intentions of returning smoking. The patient has no chest discomfort. She denies any anginal symptoms. PHYSICAL EXAMINATION: On exam today, pulmonary exam, lung sounds decreased, expiratory phase prolonged. No rales, rhonchi or wheezes. No dullness to percussion. There is prolongation in expiratory phase and increased thoracic kyphosis. There is no lower extremity edema, calf pain. ASSESSMENT: 1. As mentioned above, beginning exercise plan was compared to her most recent plan and there has been significant improvement and progression of both intensity and duration of strength training and aerobic training. She will continue this program as outlined except with the addition of bicycle. Will start for least 3 minutes to see how she tolerates and build on that. JOHN
== END 2019-10-16 ==
LOC: M PR 14:16
PROVIDERS: ATTEND Internal Medicine Pulmonary Disease
DX: J44.9 Chronic obstructive pulmonary disease, unspecified (principal)
CPT/HCPCS: G0424 ×7

== ENCOUNTER → 2020-03-24 | Outpatient (REF) | payer MEDICARE, OTHER | LOC: M SFHCCLAY 12:15 | PROVIDERS: ATTEND Family Medicine | DX: J44.9 Chronic obstructive pulmonary disease, unspecified (principal); E55.9 Vitamin D deficiency, unspecified; I10 Essential (primary) hypertension ==

== ENCOUNTER → 2020-04-06 | Outpatient (REF) | payer MEDICARE, OTHER ==
[2020-04-06 12:04] LABS: BASO % 0.5 % (0.0-1.0); EOS # 0.1 10^3/uL (0.0-0.5); EOS % 1.1 % (0.0-3.0); HEMATOCRIT 32.8 % (36.0-47.0); HEMOGLOBIN 10.3 g/dl (12.0-15.5); LYMPH # 1.6 10^3/uL (1.5-5.0); LYMPH % 20.4 % (24.0-44.0); MEAN CORPUSCULAR HGB CONC 31.4 g/dl (32.0-36.5); MEAN CORPUSCULAR VOLUME 92.4 fl (80.0-96.0); MONO # 0.7 10^3/uL (0.0-0.8); NEUTROPHILS # 5.4 10^3/uL (1.5-8.5); PLATELET COUNT, AUTOMATED 327 10^3/uL (150-450); RED BLOOD COUNT 3.55 10^6/uL (4.00-5.40); WHITE BLOOD COUNT 7.9 10^3/uL (4.0-10.0)
[2020-04-06 12:29] LABS: FREE T4 1.17 NG/DL (0.76-1.46); THYROID STIMULATING HORMONE 2.8 uIU/ML (0.358-3.740)
[2020-04-06 12:39] LABS: CALCIUM LEVEL 9.1 MG/DL (8.8-10.2); CREATININE FOR GFR 1.29 MG/DL (0.55-1.30); GLOMERULAR FILTRATION RATE 42.7 (>39)
== END ==
LOC: M SFHCCLAY 09:20
PROVIDERS: ATTEND Family Medicine
DX: I10 Essential (primary) hypertension (principal); E03.9 Hypothyroidism, unspecified

== ENCOUNTER → 2020-06-07 | Outpatient (REF) | payer MEDICARE, OTHER ==
[~2020-06-07] MED LIST changes: +AMLO1TAB24 PO; -AMLO5TAB6 PO; +PANT40TA29 PO; -PANT40TA3 PO
[2020-06-07 16:34] LABS: HEMATOCRIT 31.3 % (36.0-47.0); HEMOGLOBIN 10.2 g/dl (12.0-15.5); MEAN CORPUSCULAR HEMOGLOBIN 28.2 pg (27.0-33.0); MEAN CORPUSCULAR HGB CONC 32.6 g/dl (32.0-36.5); MEAN CORPUSCULAR VOLUME 86.5 fl (80.0-96.0); PLATELET COUNT, AUTOMATED 327 10^3/uL (150-450); RED BLOOD COUNT 3.62 10^6/uL (4.00-5.40); WHITE BLOOD COUNT 12.5 10^3/uL (4.0-10.0)
[2020-06-07 16:45] LABS: CALCIUM LEVEL 9.8 MG/DL (8.8-10.2); CREATININE FOR GFR 1.65 MG/DL (0.55-1.30); GLOMERULAR FILTRATION RATE 32.1 (>39); PERCENT SATURATION 19.2 % (13.2-45.0); POTASSIUM SERUM 4.9 MEQ/L (3.5-5.1)
[2020-06-07 16:56] LABS: FOLATE 7.3 NG/ML (>5.4)
== END ==
LOC: M SFHCCLAY 13:28
PROVIDERS: ATTEND Family Medicine
DX: D64.9 Anemia, unspecified (principal)

== ENCOUNTER → 2020-08-15 | Outpatient (REF) | payer MEDICARE, OTHER ==
[2020-08-15 18:52] LABS: CALCIUM LEVEL 9.3 MG/DL (8.8-10.2); CREATININE FOR GFR 1.34 MG/DL (0.55-1.30); GLOMERULAR FILTRATION RATE 40.7 (>39)
== END ==
LOC: M SFHCCLAY 15:58
PROVIDERS: ATTEND Family Medicine
DX: I10 Essential (primary) hypertension (principal); J44.9 Chronic obstructive pulmonary disease, unspecified

== ENCOUNTER → 2021-04-16 | Outpatient (CLI) | payer MEDICARE, BC, OTHER ==
[~2021-04-16] MED LIST changes: +LISI10TA22 PO; -LISI10TA4 PO
--- NOTE | 2021-04-16 15:46 | REP ---
INDICATION: CHRONIC OBSTRUCTIVE PULMONARY DISEASE, UNSPECIFIED COMPARISON: 03/14/2019 TECHNIQUE: PA and lateral. FINDINGS: The mediastinum and cardiac silhouette are normal. The lung rinaldi are clear and without acute consolidation, effusion, or pneumothorax. The skeletal structures are intact and normal. IMPRESSION: No acute cardiopulmonary process. <Electronically signed by Remy Rizo > 04/16/21 [id number]
== END ==
LOC: M RAD 15:15
PROVIDERS: ATTEND Internal Medicine Pulmonary Disease
DX: J44.9 Chronic obstructive pulmonary disease, unspecified (principal)

== ENCOUNTER 2021-04-30 13:41 | Emergency (ER) | payer MEDICARE, BC, OTHER ==
[~2021-04-30] VITALS: Ht 152.4 cm; Wt 72.7 kg
[2021-04-30 16:15] LABS: HEMATOCRIT 32.6 % (36.0-47.0); HEMOGLOBIN 9.5 g/dl (12.0-15.5); MEAN CORPUSCULAR HGB CONC 29.1 g/dl (32.0-36.5); MEAN CORPUSCULAR VOLUME 92.6 fl (80.0-96.0); PLATELET COUNT, AUTOMATED 269 10^3/uL (150-450); RED BLOOD COUNT 3.52 10^6/uL (4.00-5.40); WHITE BLOOD COUNT 12.7 10^3/uL (4.0-10.0)
--- NOTE | 2021-04-30 16:15 | REP ---
INDICATION: DYSPNEA/COUGH. COMPARISON: 04/16/2021 TECHNIQUE: Portable FINDINGS: The technique utilized in obtaining the radiograph has magnified the cardiac silhouette and accentuated the interstitial markings. Additionally, the radiograph was obtained with extreme apical lordosis. This further limits the exam. The superior mediastinal structures are midline. The cardiac silhouette is unremarkable in size, shape, and position. The diaphragmatic surfaces of the lungs are regular, and the costophrenic angles are clear. The pulmonary rinaldi are clear. The imaged osseous structures are intact. IMPRESSION: There is no acute cardiopulmonary disease. No significant change other than technique <Electronically signed by Noah Pinto > 04/30/21 [id number]
[2021-04-30 16:55] LABS: BASOPHILS 1 % (0-1); LYMPHOCYTES 5 % (16-44); METAMYELOCYTES 2 % (0-0); MONOCYTES 1 % (0-5); NEUTROPHILS 88 % (28-66)
[2021-04-30 16:56] LABS: PLATELET CLUMPS SMALL AMT
[2021-04-30 16:57] LABS: ANISOCYTOSIS 1+; PLATELET ESTIMATE NORMAL (NORMAL)
[2021-04-30 17:02] LABS: ALBUMIN 3.1 GM/DL (3.2-5.2); ALT/SGPT 19 U/L (12-78); BILIRUBIN,DIRECT < 0.1 MG/DL (0.0-0.2); BILIRUBIN,TOTAL 0.4 MG/DL (0.2-1.0); BLOOD UREA NITROGEN 35 MG/DL (7-18); CALCIUM LEVEL 9.9 MG/DL (8.8-10.2); CARBON DIOXIDE LEVEL 32 MEQ/L (21-32); CHLORIDE LEVEL 105 MEQ/L (98-107); CK-MB VALUE MASS < 1.0 NG/ML (<3.6); CPK CREATINE PHOSPHOKINASE 68 U/L (26-192); CREATININE FOR GFR 1.78 MG/DL (0.55-1.30); GLOMERULAR FILTRATION RATE 29.3 (>39); GLUCOSE, FASTING 92 MG/DL (70-100); MB/CK RELATIVE INDEX 1.47 (< OR =4); NT-PRO BNP 350 PG/ML (<450); POTASSIUM SERUM 5.5 MEQ/L (3.5-5.1); SODIUM LEVEL 142 MEQ/L (136-145); THYROXINE (T4) 7.5 UG/DL (4.5-12.0); TOTAL PROTEIN 5.8 GM/DL (6.4-8.2); TROPONIN I < 0.02 NG/ML (< 0.10)
--- NOTE | 2021-04-30 17:08 | ECGEPIP ---
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
[2021-04-30] MEDS ORDERED: ISOVUE-370 76% 100ML VIAL As Ordered ONE (17:20)
--- NOTE | 2021-04-30 18:24 | REPVR ---
PROCEDURE INFORMATION: Exam: CT Abdomen And Pelvis With Contrast Exam date and time: 04/30/2021 4:34 PM Age: 80 years old Clinical indication: Abdominal pain; Additional info: Abdominal pain, post prandial TECHNIQUE: Imaging protocol: Computed tomography of the abdomen and pelvis with contrast. Radiation optimization: All CT scans at this facility use at least one of these dose optimization techniques: automated exposure control; mA and/or kV adjustment per patient size (includes targeted exams where dose is matched to clinical indication); or iterative reconstruction. Contrast material: ISOVUE 370; Contrast volume: 100 ml; Contrast route: INTRAVENOUS (IV); COMPARISON: No relevant prior studies available. FINDINGS: Liver: Multiple a subcentimeter hypodense lesions in the right hepatic lobe, too small to be characterized. 1.5 cm lesion in the left hepatic lobe, possibly a hemangioma. Gallbladder and bile ducts: Normal. No calcified stones. No ductal dilation. Pancreas: Normal. No ductal dilation. Spleen: Normal. No splenomegaly. Adrenal glands: Normal. No mass. Kidneys and ureters: 4.7 cm cyst at the lower pole of the right kidney. Multiple cysts in the left kidney with the largest measuring 3.1 cm at the lower pole. Stomach and bowel: Diverticulosis of the sigmoid colon. Appendix: No evidence of appendicitis. Intraperitoneal space: Unremarkable. No free air. No significant fluid collection. Vasculature: Atherosclerotic calcification of the abdominal aorta and bilateral iliac vessels. Lymph nodes: Unremarkable. No enlarged lymph nodes. Urinary bladder: Unremarkable as visualized. Reproductive: Unremarkable as visualized. Bones/joints: Multilevel degenerative disc disease. Diffuse demineralization of the bones. Soft tissues: Unremarkable. IMPRESSION: No acute abdominal or pelvic abnormality. COMMENTS: Consistent with the [employer]'s Incidental Findings Committee white paper (J Am Lionel Radiol 2018): Any incidental renal lesion less than 1 cm or classified as too small to characterize, or any incidental cystic renal lesion characterized as simple-appearing, is likely benign. No follow-up imaging is recommended for these lesions per consensus recommendations based on imaging criteria. Electronically signed by: Matthew Doss On 04/30/2021 18:24:33 PM
--- NOTE | 2021-04-30 18:38 | REPVR ---
PROCEDURE INFORMATION: Exam: CTA Chest With Contrast Exam date and time: 04/30/2021 4:34 PM Age: 80 years old Clinical indication: Shortness of breath TECHNIQUE: Imaging protocol: Computed tomographic angiography of the chest with contrast. 3D rendering (Not supervised by radiologist): MIP and/or 3D reconstructed images were created by the technologist. Radiation optimization: All CT scans at this facility use at least one of these dose optimization techniques: automated exposure control; mA and/or kV adjustment per patient size (includes targeted exams where dose is matched to clinical indication); or iterative reconstruction. Contrast material: ISOVUE 370; Contrast volume: 100 ml; Contrast route: INTRAVENOUS (IV); COMPARISON: CT ANGIO CHEST 03/08/2019 4:26 AM FINDINGS: Pulmonary arteries: Normal. No pulmonary emboli. Aorta: Unremarkable. No aortic aneurysm. No aortic dissection. Lungs: Diffuse emphysematous changes. Pleural spaces: Unremarkable. No pneumothorax. No pleural effusion. Heart: Unremarkable. No cardiomegaly. No pericardial effusion. Mediastinal space: There is thickening of the lower esophagus wall. Lymph nodes: Unremarkable. No enlarged lymph nodes. Liver: Multiple subcentimeter hypodense lesions in the liver. Bones/joints: Degenerative changes of the spine. Soft tissues: Unremarkable. IMPRESSION: No pulmonary embolism. Diffuse emphysematous changes. Wall thickening of the lower esophagus. Etiology inflammation/neoplastic. Direct visualization with endoscopy is suggested. Electronically signed by: Matthew Doss On 04/30/2021 18:38:03 PM
[2021-04-30] MEDS ORDERED: SUCRALFATE SUSP 1GM/10ML UD PO ONE (19:45)
[2021-04-30] MEDS ORDERED: SUCR1TA PO (19:46)
[2021-04-30] MEDS ORDERED: OMEP40CA97 PO (19:46)
[2021-04-30 20:00] VITALS: BP 146/85
--- NOTE | 2021-05-01 12:59 | ED PDOC ---
Post-Departure Follow-Up dr mahan faxed formal report of cta chest for fu Almaz Farah MD May 01, 2021 12:59
== END 2021-04-30 20:24 | disposition home or self-care (01) ==
LOC: M ED 13:41
DX: R10.13 Epigastric pain (principal); K22.9 Disease of esophagus, unspecified; K76.89 Other specified diseases of liver; N28.1 Cyst of kidney, acquired; R05 Cough; I48.91 Unspecified atrial fibrillation; I10 Essential (primary) hypertension; J44.9 Chronic obstructive pulmonary disease, unspecified; E78.5 Hyperlipidemia, unspecified; Z87.891 Personal history of nicotine dependence
CPT/HCPCS: 36415; 71045; 71275; 74177; 80048; 80076; 82550; 82553; 83605; 83880; 84436; 84443; 84484; 85025; 87040; 87798; 93005; 93041; 94760; 99285; Q9967

== ENCOUNTER 2021-05-04 12:35 | Inpatient (IN) | payer MEDICARE, BC, OTHER ==
[2021-05-04] VITALS (9 sets, daily range): BP systolic 105–166; BP diastolic 56–87; O2SAT 99–100
[~2021-05-04] VITALS: Ht 152.4 cm; Wt 61.0 kg
[~2021-05-04 12:35] MED LIST changes: +OMEP40CA4 PO; +SUCR1TA PO
[2021-05-04 13:29] LABS: HEMATOCRIT 31.9 % (36.0-47.0); HEMOGLOBIN 9.2 g/dl (12.0-15.5); MEAN CORPUSCULAR HEMOGLOBIN 26.7 pg (27.0-33.0); MEAN CORPUSCULAR HGB CONC 28.8 g/dl (32.0-36.5); MEAN CORPUSCULAR VOLUME 92.7 fl (80.0-96.0); PLATELET COUNT, AUTOMATED 283 10^3/uL (150-450); RED BLOOD COUNT 3.44 10^6/uL (4.00-5.40); WHITE BLOOD COUNT 11.7 10^3/uL (4.0-10.0)
[2021-05-04] MEDS ORDERED: IPRATROPIUM 0.5MG/ALBUTEROL 2.5MG INH SOL UD 3ML (DUONEB) NEB ONE (13:30)
[2021-05-04] MEDS ORDERED: methylPREDNISolone 40MG 1ML VIAL IV ONE (13:30)
[2021-05-04] MEDS ORDERED: ALBUTEROL SULFATE 2.5 MG/0.5 ML INH NEB SOLN INH ONE (13:30)
--- NOTE | 2021-05-04 13:38 | REP ---
INDICATION: DYSPNEA/COUGH. COMPARISON: 04/30/2021. TECHNIQUE: Single portable AP view of the chest was performed. FINDINGS: There is no acute infiltrate or pulmonary edema. Lungs are clear. The heart is not significantly enlarged. The mediastinal silhouette is unchanged. Calcification is noted of the aortic arch. The visualized osseous structures are intact. IMPRESSION: No acute pulmonary disease. <Electronically signed by Rickey Johnson > 05/04/21 [id number]
[2021-05-04 14:05] LABS: ALBUMIN 2.9 GM/DL (3.2-5.2); ALT/SGPT 21 U/L (12-78); BILIRUBIN,DIRECT 0.1 MG/DL (0.0-0.2); BILIRUBIN,TOTAL 0.3 MG/DL (0.2-1.0); BLOOD UREA NITROGEN 33 MG/DL (7-18); CALCIUM LEVEL 9.6 MG/DL (8.8-10.2); CARBON DIOXIDE LEVEL 32 MEQ/L (21-32); CHLORIDE LEVEL 106 MEQ/L (98-107); CK-MB VALUE MASS 1.5 NG/ML (<3.6); CPK CREATINE PHOSPHOKINASE 51 U/L (26-192); CREATININE FOR GFR 1.32 MG/DL (0.55-1.30); FREE T4 1.08 NG/DL (0.76-1.46); GLOMERULAR FILTRATION RATE 41.4 (>39); GLUCOSE, FASTING 96 MG/DL (70-100); LIPASE 192 U/L (73-393); MB/CK RELATIVE INDEX 2.94 (< OR =4); NT-PRO BNP 784 PG/ML (<450); POTASSIUM SERUM 4.1 MEQ/L (3.5-5.1); SODIUM LEVEL 140 MEQ/L (136-145); TOTAL PROTEIN 5.7 GM/DL (6.4-8.2); TROPONIN I < 0.02 NG/ML (< 0.10)
[2021-05-04 14:11] LABS: BASOPHILS 2 % (0-1); EOSINOPHILS 2 % (0-3); LYMPHOCYTES 4 % (16-44); MONOCYTES 4 % (0-5); NEUTROPHILS 88 % (28-66)
[2021-05-04 14:12] LABS: ANISOCYTOSIS 1+; PLATELET ESTIMATE NORMAL (NORMAL)
[2021-05-04] MEDS ORDERED: PRED10TA2 PO (15:05)
[2021-05-04] MEDS ORDERED: OMEP-221 PO (15:05)
[2021-05-04] MEDS ORDERED: ELIQ5TAB PO (15:05)
[2021-05-04] MEDS ORDERED: SUCR1TAB56 PO (15:05)
[2021-05-04] MEDS ORDERED: IPRA0.00 NEB (15:08)
[2021-05-04] MEDS ORDERED: ALBUTEROL 90 MCG/ACT 8GM HFA INHALER INH PRN (16:05)
[2021-05-04] MEDS ORDERED: MOM 30ML SUSPENSION UDC PO PRN (16:10)
--- NOTE | 2021-05-04 16:41 | HPEPDOC ---
[facility] Medical History & Physical Date of Admission May 04, 2021 Date of Service: May 04, 2021 Primary Care Physician: Bay Sesay MD Attending Physician: REMA GRULLON MD History and Physical CHIEF COMPLAINT: Shortness of breath HISTORY OF PRESENT ILLNESS: Trinidad is a 80yo female w/ notable PMHx of chronic hypoxic respiratory failure 2/2 continuous O2-dep (2L)stage Gold 4 COPD, htn, pAfib on eliquis, hypothyroidism, CKD 3, DLD, GERD, and former smoker (quit 15 years ago), who presented to the [facility] ED on the morning of 05/04/2021 via EMS with a chief complaint of shortness of breath. Patient story actually began on Friday of this week (04/30), when she was seen in the ED for the same chief complaint. She saturated well throughout that initial presentation and subsequently discharged from the ED. The patient had some mild improvement over the next few days but had relatively poor oral intake. Beginning on yesterday (05/03), patient began using her home inhalers more frequently. When she awoke this morning, she was extremely weak, in fact her was unable to lift her out of bed. In addition, she was working much harder to breathe with significant chest and belly breathing. At this time, patient and both decided calling 911 was warranted. Relevant review of systems is positive for intermittent productive cough of clear sputum that been unchanged from her baseline. Patient also denied any orthopnea, pleuritic chest pain, fever, chills, night sweats, chest pain, chest pressure, or palpitations. Patient denies any recent travel, sick contacts, taking all of her home medications up through yesterday as prescribed. Also of note, she is fully vaccinated against COVID-19. Of note, the majority of this history was obtained from the patient's Linus due to patient's somnolence during examination. Upon presentation to the ED, patient was tachycardic (HR 112) with leukocytosis (WBC 11.7) and left shift, normocytic hypochromic anemia (hemoglobin 9.2), serum creatinine 1.32 (baseline appears to be about 0.9-1), BNP 784 (was 350 four days ago), anion gap of 2, ABG (on 2.5 L NC after previously being on 6 L NC) pH 7.24/PCO2 73.8/bicarb 32. A portable chest x-ray showed no acute cardiopulmonary disease. As a result of the hypercapnia, patient was started on BiPAP around 1400 with settings of inspiratory pressure 18/expiratory pressure 8/35% FiO2. One-time methylprednisolone 125 mg IV dose administered in the ED along with one-time DuoNeb and one-time albuterol inhaler. Relevant background information: Patient was seen by her primary care physician (Dr. Sesay) yesterday, at which time patient's reports he decreased a blood pressure medication from "5 mg to 2.5 mg." Upon review of her home med list, this appears to be amlodipine. During her presentation to the ED 4 days ago (on 04/30) patient's white count was 12.7 with lactic acid of 2.3, she saturated quite well throughout on 2 L nasal cannula and was borderline tachypneic. CT angiography showed no pulmonary embolism, there were emphysematous changes seen, and there was some wall thickening of the lower esophagus. Chest x-ray was unremarkable for any acute cardiopulmonary disease, and a CT abdomen pelvis was also unremarkable for any acute abdominal pelvic abnormalities. PAST MEDICAL HISTORY: -Chronic hypoxic respiratory failure secondary to end-stage Gold stage IV COPD, on continuous 2 L nasal cannula O2 at home -Paroxysmal atrial fibrillation (new onset in February 2019 during hospitalization), on Eliquis -Hypertension -Chronic kidney disease stage III -GERD -Generalized anxiety disorder -Hypothyroidism -Former smoker -Hiatal hernia (DX on March 2012 EGD, Dr. Shah) -Small tubular adenoma, removed in March 2012 colonoscopy -Allergic rhinitis -Dyslipidemia -Grade 1 diastolic dysfunction via transthoracic echocardiogram in February 2019 [facility] hospitalization PAST SURGICAL HISTORY: Tubal ligation SOCIAL HISTORY: , lives in the town of [place] with her Linus. Has 3 grown children (2 girls and 1 boy). She is retired and formerly worked for 39 years in the [employer]. She is a former cigarette smoker, having quit 15 years ago after smoking half a pack per day for 20 years (66-psld-stax history) She has very occasional alcohol use, averaging approximately 1 drink every few months on social occasions. Denies any current or former illegal drug use and/or IV drug use. FAMILY HISTORY: Father: at age 32; hypertension Mother: ; hypertension Siblings: She has 4 brothers; one brother sadly within the past few months and had a history of coronary artery disease and was recently status post FL and PCI. Children: No significant illnesses and 3 grown children ALLERGIES: Please see below. REVIEW OF SYSTEMS: (Majority of review of systems was obtained from patient's ) CONSTITUTIONAL: Reports increased weakness, especially this morning. Denies any recent fever, chills, unintentional change in weight, or night sweats. CARDIOVASCULAR: Denies any chest pain, chest pressure, or palpitations RESPIRATORY: Reports shortness of breath that initially began 4 days ago causing an ED presentation, improved a little bit and worsened somewhat yesterday and especially this morning with increased work of breathing and increased use of home inhalers. Also reports chronic intermittent productive cough of clear sputum. Uses 2 L nasal cannula continuously supplement oxygen at home that will increase to 33 0.5 with ambulation. Denies any pleuritic chest pain or orthopnea. GASTROINTESTINAL: Denies any nausea, vomiting, diarrhea, or blood in stool GENITOURINARY: Denies any dysuria or hematuria MUSCULOSKELETAL: Reports significant weakness as described above. ENDOCRINE: Reports both heat and cold intolerance as baseline HEMATOLOGIC: Reports easy bruising (on Eliquis). LYMPHATIC: Denies any new lumps or bumps HOME MEDICATIONS: Please see below. PHYSICAL EXAMINATION: VITAL SIGNS: Please see below. GENERAL APPEARANCE: Elderly female currently on BiPAP. She is somnolent and struggles to maintain eye contact throughout the exam but is arousable to both voice and sternal rub. Accompanied by her . Appears to be in mild respiratory distress. HEENT: Normocephalic, atraumatic. Noninjected, anicteric sclera. She is wearing BiPAP mask. PERRLA. Oral cavity: Dry mucous membranes. No pharyngeal erythema or exudate appreciated. Neck: Quite wide and obese making it difficult to assess for JVD. Supple. CARDIOVASCULAR: Very difficult to appreciate for heart sounds due to ambient sounds from BiPAP sounds. She is borderline tachycardic on telemetry. Delayed capillary refill, 2-3 seconds. LUNGS: Breathing with BiPAP (inspiratory 18/expiratory 8/35% FiO2), and is spontaneously breathing over the machine. Overall, significantly decreased breath sounds throughout. There is moderate belly breathing and prolonged expiratory phase. There is some mild right base crackles posteriorly and intermittent mild wheezes. Only able to speak a few words at a time. ABDOMEN: There is visible abdominal breathing. Abdomen itself is soft, nontender and nondistended. Hypoactive bowel sounds throughout. Abdominal striae present. No guarding or rigidity. EXTREMITIES: Patient is moving all 4 extremities full range of motion. Her skin over all extremities is extremely thin with significant bruising, particularly over the left upper extremity. There is bilateral 2+ pedal edema as well as 1+ right lower extremity edema and trace swelling over the left lower extremity. There is some visible shaking/tremor-like activity of the right upper extremity. NEUROLOGICAL: Patient is quite somnolent but is arousable to vocal stimuli as well as sternal rub. She struggles to maintain concentration but is able to answer all questions appropriately and does follow simple commands. Speaking only in a few words at a time. Speech is nondysarthric. PSYCHIATRIC: Difficult to assess for mood and affect in the setting of somnolence. LABORATORY DATA: Please see below. IMAGING: Portable chest x-ray, 05/04/2021 FINDINGS: There is no acute infiltrate or pulmonary edema. Lungs are clear. The heart is not significantly enlarged. The mediastinal silhouette is unchanged. Calcification is noted of the aortic arch. The visualized osseous structures are intact. IMPRESSION: No acute pulmonary disease. MICROBIOLOGY: Please see below. ASSESSMENT & PLAN: This is a 80-year-old female with history of chronic hypoxic respiratory failure secondary to end-stage COPD (continuously on 2 L), paroxysmal A. fib on Eliquis, hypertension, dyslipidemia, hypothyroidism, CKD 3, and GERD who presented to the ED on 05/04/2021 by EMS with chief complaint of shortness of breath. She was found to be in acute hypercapnic respiratory failure superimposed on her chronic hypoxic respiratory failure with respiratory acidosis and started on BiPAP. She was subsequently admitted to the ICU primarily for continued management of her acute on chronic respiratory failure. #Acute hypercapnic respiratory failure on chronic hypoxic respiratory failure secondary to likely COPD exacerbation -Trigger of exacerbation at this time is unknown -Patient was saturating relatively well but ABG showed significant respiratory acidosis (PCO2 73.8, pH 7.24). BiPAP started in the ED and a repeat ABG was ordered. -Of note, patient is a chronic retainer with recent baseline PCO2 in the 50s. -Status post Solu-Medrol 125 mg IV dose in the ED along with one-time doses of DuoNeb and albuterol inhaler. Chest x-ray unremarkable for any acute cardiopulmonary disease. Respiratory viral panel ordered along with blood cultures, sputum cultures and procalcitonin. -Due to patient's significant hypercapnia as well as decreased breath sounds and increased work of breathing, IV Solu-Medrol schedule dosing (60 mg every 8) was started upon admission. -Due to borderline tachycardia, Xopenex nebulizer scheduled ordered.-Patient's home inhalers (Pulmicort, inh spiriva, as needed albuterol) both continue upon admission -Based on results of repeat ABG, will consider whether or not to continue with BiPAP or, should she have an improvement, return to nasal cannula supplemental oxygen. -Chest CT without contrast to follow ABG -Oxygen titration orders set at 88 to 92% -Both Acapella and incentive spirometry have been ordered. -Admit to ICU with BiPAP -Patient denies any significant change in medication, travel, or sick contacts. Patient is completely vaccinated against COVID-19. -Of note, patient did present for days early on 04/30 to the ED with shortness of breath and was discharged home. A CTA was done at that time which was negative for any pulmonary embolism but did show emphysematous changes. #Encephalopathy secondary to hypercarbia -As documented above, patient was quite somnolent during the exam. She was however arousable by voice and/or sternal rub, but again had to be addressed and reorientated multiple times during exam. -This is likely the result of hypercarbia from acute hypercapnic respiratory failure. By addressing the hypercapnia with BiPAP and improvement on repeat ABG, will continue to monitor to see if her mental status improves. #Chronic hypoxic respiratory failure secondary to end-stage, Gold class IV COPD on chronic home oxygen -Chronically on 2 L nasal cannula continuously at home. -It appears as though patient is currently in an acute exacerbation of her COPD, please see plan above. #Leukocytosis -WBC 11.7; of relevant note, WBC 12.74 days ago during ED presentation -Unclear source at this time, blood cultures, sputum culture, respiratory viral panel have all been ordered. Potential for reactive increased white count -Patient is afebrile -Procalcitonin also ordered -Will continue to monitor on repeat blood count #Acute kidney injury on CKD 3 -Serum creatinine of 1.3; recent baseline creatinine appears to be around 0.9-1 -Urine electrolytes along with urine urea ordered to calculate fractional excretion of urea as patient is on home diuretics -Patient does appear to be volume overloaded on exam based on her LE edema - Will await imaging to evaluate for pulmonary vascular congestion #Tachycardia -Patient initially presented with heart rate of 112; upon examination in the ED for admission, heart rate was around 90 -Likely secondary to acute on chronic respiratory failure -Placed on telemetry #History of paroxysmal atrial fibrillation, on Eliquis -A. fib was new onset during February 2019 admission for respiratory failure -On telemetry -Home beta-edith (metoprolol tartrate) continued - c/w full anticoagulation with Eliquis #History of hypertension -Home metoprolol continued in the setting of tachycardia with paroxysmal atrial fibrillation history -In the setting of acute kidney injury, home lisinopril and amlodipine initially held #Grade 1 diastolic dysfunction via February 2019 TTE -Patient appears to be volume overloaded on presentation today -Home diuretics initially held in the setting of acute kidney injury -Should there be no vascular congestion appreciated on chest CT, will likely c ontinue holding any diuretic medication -Due to patient's end-stage COPD likely a increased risk for right-sided heart failure/increased pulmonary pressures #Hypothyroidism -home levothyroxine continued #DLD -Home simvastatin continued #GERD -home omeprazole not on [facility] formulary; equivalent protonix dose ordered #Lower esophageal wall thickening on CTA from 04/30 -recommend upon d/c f/u w/ pcp regarding this to explore potential egd to r/o neoplasm #Obesity -BMI 31 -This complicates care and with her wide neck, potentially has element of OHS and/or EVA #DVT prophylaxis: home eliquis contd Disposition: admit to ICU on BiPap pending results of repeat abg and ct chest; expect at least 2 midnight stays. Vital Signs Vital Signs Date Time Temp Pulse Resp B/P (MAP) Pulse Ox O2 Delivery O2 Flow Rate FiO2 05/04/21 12:55 Nasal Cannula 6.0 05/04/21 12:51 98.5 112 18 129/63 (85) 100 Laboratory Data Labs 24H Laboratory Tests 2 05/04/21 13:18: Neutrophils (%) (Auto) , Nucleated Red Blood Cells % (auto) 0.0, Neutrophils 88H, Lymphocytes (Manual) 4L, Monocytes (Manual) 4, Eosinophils (Manual) 2, Basophils (Manual) 2H, Anisocytosis 1+, Platelet Estimate NORMAL, Anion Gap 2L, Glomerular Filtration Rate 41.4, Calcium Level 9.6, Total Bilirubin 0.3, Direct Bilirubin 0.1, Aspartate Amino Transf (AST/SGOT) 21, Alanine Aminotransferase (ALT/SGPT) 21, Alkaline Phosphatase 44L, Total Creatine Kinase 51, Creatine Kinase MB 1.5, Creatine Kinase MB Relative Index 2.94, Troponin I < 0.02, DW-Sub-D-Type Natriuretic Peptide 784H, Total Protein 5.7L, Albumin 2.9L, Albumin/Globulin Ratio 1.0L, Lipase 192, Thyroid Stimulating Hormone (TSH) 1.230, Free Thyroxine 1.08 05/04/21 13:41: POC pH (Misc Panel) 7.247*L, POC Base Excess (Misc Panel) 5.0H, POC Saturated Percent O2 (Misc) 94L, POC pO2 (Misc Panel) 84.0, POC pCO2 (Misc Panel) 73.8*H, POC HCO3 (Misc Panel) 32.1H, POC Total CO2 (Misc Panel) 34.0H CBC/BMP Laboratory Tests 05/04/21 13:18 Microbiology Microbiology 05/04/21 Respiratory Virus Panel (PCR) ([facility]), Received Pending Home Medications Scheduled Amlodipine Besylate (Amlodipine Besylate) 5 Mg Tab, 5 MG PO DAILY Apixaban (Eliquis) 5 Mg Tablet, 5 MG PO BID Azithromycin (Azithromycin) 250 Mg Tablet, 250 MG PO DAILY Budesonide (Budesonide) 0.25 Mg/2 Ml Ampul.neb, 0.25 MG INH BID Budesonide/Formoterol (Symbicort 160-4.5 Mcg Inhaler) 6 Gm Hfa.aer.ad, 2 PUFF INH BID Furosemide (Furosemide) 20 Mg Tab, 40 MG PO DAILY Levothyroxine Sodium (Synthroid) 25 Mcg Tab, 25 MCG PO DAILY Lisinopril (Lisinopril) 10 Mg Tab, 10 MG PO BID Metoprolol Tartrate (Metoprolol Tartrate) 25 Mg Tab, 25 MG PO DAILY Omeprazole (Omeprazole) 40 Mg Capsule.dr, 40 MG PO DAILY Prednisone (Prednisone) 10 Mg Tablet, 10 MG PO DAILY Simvastatin (Zocor) 20 Mg Tab, 20 MG PO QHS Sucralfate (Sucralfate) 1 Gm Tablet, 1 GM PO ACHS Tiotropium [place] (Spiriva Respimat) 2.5 Mcg/Act Spr, 2 INHALATION INH DAILY Scheduled PRN Albuterol Sulfate (Proair Hfa) 8.5 Gm Hfa.aer.ad, 2 PUFF INH Q4-6H PRN for SHORTNESS OF BREATH Ipratropium/Albuterol Sulfate (Iprat-Albut 0.5-3(2.5) mg/3 ml) 3 Ml Ampul.neb, 1 VIAL NEB Q6H PRN for SOB/WHEEZING Allergies Coded Allergies: No Known Allergies (Unverified , 03/08/19) A-FIB/CHADSVASC A-FIB History Current/History of A-Fib/PAF?: Yes Current PO Anticoag Therapy: Yes (eliquis) GME ATTESTATION GME ATTESTATION My faculty preceptor for this patient encounter was physically present during the encounter and was fully available. All aspects of the patient interview, examination, medical decision making process, and medical care plan development were reviewed and approved by the faculty preceptor. The faculty preceptor is aware and concurs with the plan as stated in the body of this note and will attest to such by his/her cosignature. ATTENDING NOTE I, Rema Grullon, have independently examined this patient and performed my own physical exam, as well as reviewed the documentation and edited where necessary. I have discussed in detail with the resident / student the findings and plan of treatment as documented by the resident / student and edited their note. I agree with their findings and treatment plan and have edited their documentation. I will continue to follow the patient during this hospital stay. FELISA ANDERSON D.O. May 04, 2021 16:41 REMA GRULLON MD May 04, 2021 18:52
[2021-05-04] MEDS: SUCRALFATE 1 GM TAB PO SCH ×2 (17:30→21:42)
[2021-05-04 17:53] LABS: PARTIAL THROMBOPLASTIN TIME 26.1 SECONDS (24.2-38.5); PROTHROMBIN TIME 13.4 SECONDS (12.5-14.3)
[2021-05-04 18:02] LABS: CREATININE FOR GFR 1.43 MG/DL (0.55-1.30); GLOMERULAR FILTRATION RATE 37.8 (>39)
--- NOTE | 2021-05-04 18:44 | REPVR ---
PROCEDURE INFORMATION: Exam: CT Chest Without Contrast; Diagnostic Exam date and time: 05/04/2021 5:18 PM Age: 80 years old Clinical indication: Other: Acute hypercapnic resp failure TECHNIQUE: Imaging protocol: Diagnostic computed tomography of the chest without contrast. 3D rendering (Not supervised by radiologist): MIP and/or 3D reconstructed images were created by the technologist. Radiation optimization: All CT scans at this facility use at least one of these dose optimization techniques: automated exposure control; mA and/or kV adjustment per patient size (includes targeted exams where dose is matched to clinical indication); or iterative reconstruction. COMPARISON: CT ANGIO CHEST 04/30/2021 5:15 PM FINDINGS: Lungs: Diffuse centrilobular and bran acinar type emphysema. 2.4 mm nodule left upper lobe (series 202, image 43) 4.3 mm nodule left lower lobe (series 202, image 66). Pleural spaces: Unremarkable. No pneumothorax. No pleural effusion. Heart: There is coronary artery calcification. Mediastinal space: Small sliding hiatal hernia. Aorta: Unremarkable. No aortic aneurysm. Lymph nodes: Unremarkable. No enlarged lymph nodes. Liver: 1.6 cm low-density lesion with partially calcified rim lateral segment of the left lobe of the liver. Kidneys and ureters: 1.5 cm low-density lesion mid right kidney. No hydronephrosis in the visualized portion of either kidney Bones/joints: Unremarkable. No acute fracture. Soft tissues: Unremarkable. IMPRESSION: 1. Moderately advanced emphysema. No acute infiltrates. 2. Two pulmonary nodules in the left lower lobe without change from previous study dated 03/08/2019 and 08/06/2015. Lack of change indicates benign etiology. No follow-up recommended. 3. Partially calcified hepatic cyst. While the calcification has increased since 2014, the size of the cyst remains relatively stable. Appearance suggests benign etiology and no follow-up is indicated. 4. Low-density lesion mid right kidney demonstrated to be a simple cyst on CT 04/30/2021. No follow-up indicated. COMMENTS: Consistent with the [employer]'s Incidental Findings Committee white paper (J Am Lionel Radiol 2018): Any incidental renal lesion less than 1 cm or classified as too small to characterize, or any incidental cystic renal lesion characterized as simple-appearing, is likely benign. No follow-up imaging is recommended for these lesions per consensus recommendations based on imaging criteria. Electronically signed by: Chanel Laughlin On 05/04/2021 18:44:11 PM
[2021-05-04 19:31] LABS: SODIUM,RANDOM URINE < 10 MEQ/L; UREA NITROGEN RANDOM URINE 735 MG/DL
[2021-05-04] MEDS: LEVALBUTEROL 1.25 MG/0.5 ML CONCENTRATE NEB NEB SCH ×2 (20:00→23:25)
[2021-05-04] MEDS: SYMBICORT 160/4.5MCG INHALER 6GM INH SCH (20:01)
[2021-05-04] MEDS: BUDESONIDE 0.25 MG/2 ML INHALATION SUSPENSION INH SCH (20:02)
[2021-05-04 20:19] LABS: ABG BASE EXCESS -1.4 (-2.0-2.0); ABG O2 SATURATION 98.8 % (95.0-99.0); ABG PARTIAL PRESSURE O2 166.1 mmHg (75.0-100.0); ABG STANDARD HCO3 23.4 MEQ/L (22.0-26.0); ABG TOTAL CO2 27.8 MEQ/L (23.0-31.0)
[2021-05-04] MEDS: APIXABAN 5 MG TAB (ELIQUIS) PO SCH (21:41)
[2021-05-04] MEDS: methylPREDNISolone 40MG 1ML VIAL IV SCH (21:42)
[2021-05-04] MEDS: SIMVASTATIN 20 MG TAB PO SCH (21:42)
[2021-05-05] VITALS (17 sets, daily range): BP systolic 99–140; BP diastolic 48–91; O2SAT 93–100
[2021-05-05] MEDS: LEVALBUTEROL 1.25 MG/0.5 ML CONCENTRATE NEB NEB SCH ×6 (03:56→23:14)
[2021-05-05 04:51] LABS: HEMATOCRIT 28.4 % (36.0-47.0); HEMOGLOBIN 8.3 g/dl (12.0-15.5); MEAN CORPUSCULAR HEMOGLOBIN 26.4 pg (27.0-33.0); MEAN CORPUSCULAR HGB CONC 29.2 g/dl (32.0-36.5); MEAN CORPUSCULAR VOLUME 90.4 fl (80.0-96.0); PLATELET COUNT, AUTOMATED 236 10^3/uL (150-450); RED BLOOD COUNT 3.14 10^6/uL (4.00-5.40); WHITE BLOOD COUNT 8.9 10^3/uL (4.0-10.0)
[2021-05-05 05:10] LABS: CALCIUM LEVEL 9.5 MG/DL (8.8-10.2); CREATININE FOR GFR 1.47 MG/DL (0.55-1.30); GLOMERULAR FILTRATION RATE 36.6 (>39); MAGNESIUM LEVEL 2.2 MG/DL (1.8-2.4); POTASSIUM SERUM 4.9 MEQ/L (3.5-5.1)
[2021-05-05 05:14] LABS: LYMPHOCYTES 3 % (16-44); NEUTROPHILS 96 % (28-66); PLATELET ESTIMATE NORMAL (NORMAL)
[2021-05-05 05:15] LABS: ANISOCYTOSIS 1+
[2021-05-05] MEDS: methylPREDNISolone 40MG 1ML VIAL IV SCH ×3 (05:45→21:52)
[2021-05-05] MEDS: LEVOTHYROXINE 25MCG TABLET (0.025MG) PO SCH (05:45)
--- NOTE | 2021-05-05 06:54 | ECGEPIP ---
[facility] - ED Test Date: 2021-05-04 Pat Name: HONEY KRISHNAN Department: Room: - Gender: Female Intelligence Manager: HC : [id number] Requested By: Almaz Arzola Order Number: [id number] Reading MD: Oniel Pan Measurements Intervals [place] Rate: 88 P: 73 OK: 124 QRS: 45 QRSD: 84 T: 75 QT: 340 QTc: 411 Interpretive Statements Normal sinus rhythm with sinus arrhythmia Low voltage QRS Nonspecific ST-T wave abnormalities Similar to tracing done 04-30-21 Electronically Signed on 05-05-2021 6:54:06 EDT by Oniel Pan
[2021-05-05] MEDS: BUDESONIDE 0.25 MG/2 ML INHALATION SUSPENSION INH SCH (07:45)
[2021-05-05] MEDS: SYMBICORT 160/4.5MCG INHALER 6GM INH SCH (07:51)
[2021-05-05] MEDS: TIOTROPIUM INHALER/CAPSULE (SPIRIVA) INH SCH (07:51)
[2021-05-05] MEDS: APIXABAN 5 MG TAB (ELIQUIS) PO SCH ×2 (08:49→21:52)
[2021-05-05] MEDS: PANTOPRAZOLE 40MG TAB (PROTONIX) PO SCH (08:49)
[2021-05-05] MEDS: METOPROLOL TART 25 MG TABLET PO SCH (08:50)
[2021-05-05] MEDS: SUCRALFATE 1 GM TAB PO SCH ×4 (08:50→21:52)
--- NOTE | 2021-05-05 09:32 | REP ---
INDICATION: CAMRYN. COMPARISON: None. FINDINGS: Multiple ultrasonographic images of the right kidney show the right kidney to measure 10 x 4.8 x 4.9 cm. The renal cortical echotexture is unremarkable. There are no solid masses. There is good corticomedullary differentiation. There is no hydronephrosis. There are no perinephric fluid collections. There is a cyst in the inferior pole which measures 4.7 cm. Multiple ultrasonographic images of the left kidney show the left kidney to measure 12.3 x 3.8 x 5.8 cm. There are 3 cysts present 1 in the upper pole which measures 1.5 cm, 1 in the mid polar region which measures 3.5 cm, and 1 in the lower pole which measures 3.2 cm. . The renal cortical echotexture is unremarkable. There are no solid masses. There is good corticomedullary differentiation. There is no hydronephrosis. There are no perinephric fluid collections. IMPRESSION: Multiple renal cysts <Electronically signed by Noah Pinto > 05/05/21 0928
--- NOTE | 2021-05-05 11:32 | IPNPDOC ---
Date Seen The patient was seen on 05/05/21. Progress Note SUBJECTIVE: Trinidad was seen and examined this morning by the hospitalist service while lying upright in bed. Her mentation is much improved today from yesterday. She has been saturating well through the evening and overnight on 2 L of nasal cannula supplemental oxygen. Upon arrival to the ICU yesterday evening, her repeat ABG showed significant improvement in her hypercarbia and respiratory acidosis. As result, her BiPAP was stopped and she was switched over to the aforementioned 2 L NC. She reports some morning productive cough of white sputum, which was subsequently sent for sputum culture. She has not had a cough before nor since this morning. Overall, she reports her breathing seems relatively unchanged prior to presenting to the ED, with moderate increased work of breathing. She de nies any pleuritic chest pain. She reports some urinary incontinence since admission and has not had a bowel movement to this point during her stay. She is eating and drinking without any issues. Patient also denies any current or overnight fever, chills, night sweats, chest pain, chest pressure, palpitations, nausea, vomiting, or abdominal pain. OBJECTIVE PHYSICAL EXAMINATION: VITAL SIGNS: Please see below. GENERAL APPEARANCE: Pleasant elderly female who is much more alert today versus admission exam yesterday. She does not have to be consistently oriented like yesterday, and is maintaining good eye contact responding to questions and commands appropriately. She is on supplemental oxygen. HEENT: Normocephalic, atraumatic. Noninjected, anicteric sclera. Receiving supplemental oxygen. Oral cavity: Mucous membranes slightly more moist today versus yesterday. No pharyngeal erythema or exudate appreciated. Neck: Quite wide and obese; as result, difficult to assess for JVD. Supple. No lymphadenopathy. CARDIOVASCULAR: Heart sounds remain distant, but more audible today now that she is off BiPAP. Possible 1/6 systolic murmur. Regular rate, regular rhythm. No rubs are appreciated. LUNGS: Currently receiving 2 L nasal cannula supplemental oxygen. She continues to have visualized belly breathing with significantly diminished breath sounds throughout and decreased tidal volume. There are diffuse wheezes throughout. Symmetric chest expansion. She is able to speak more than a few words without stopping unlike yesterday's exam. ABDOMEN: There remains visible abdominal breathing. Abdomen itself is soft, nontender and nondistended. Normoactive bowel sounds throughout. No guarding or rigidity. EXTREMITIES: Skin over all extremities is extremely thin with significant bruis ing, particularly over the upper extremity. There remains bilateral 2+ pedal edema as well as 1+ right lower extremity edema and trace swelling over the left lower extremity. Continues to be visualized moderate shaking/tremor like movement of right upper extremity NEUROLOGICAL: Patient much more alert today with good eye contact. Does not need to be reoriented during exam. No gross focal neurologic deficits are appreciated. Nondysarthric speech. PSYCHIATRIC: Mood and affect appear appropriate. LABORATORY DATA, IMAGING STUDIES, MICROBIOLOGY: Please see below. Echocardiogram: Ordered upon admission on 05/04/2021. ASSESSMENT & PLAN: This is a 80-year-old female with history of chronic hypoxic respiratory failure secondary to end-stage COPD (continuously on 2 L), paroxysmal A. fib on Eliquis, hypertension, dyslipidemia, hypothyroidism, CKD 3, and GERD who presented to the ED on 05/04/21 by EMS with chief complaint of shortness of breath. She was found to be in acute hypercapnic respiratory failure superimposed on her chronic hypoxic respiratory failure with respiratory acidosis and started on BiPAP. She was subsequently admitted to the ICU primarily for continued management of her acute on chronic respiratory failure. #Acute hypercapnic respiratory failure on chronic hypoxic respiratory failure secondary to likely COPD exacerbation, improved -Trigger of exacerbation remains unknown -Repeat ABG while on BiPAP yesterday afternoon showed significant improvement in hypercarbia back to her recent outpatient baseline (PCO2 in the 50s), with improvement in respiratory acidosis (pH increased to 7.32 from 7.24) -Due to improvement on repeat ABG, patient switched off BiPAP and back to nasal cannula supplemental oxygen with titration orders of 88 to 92% -A follow-up (third since admission) yesterday evening showed continued stability of PCO2 at baseline with slight decrease in pH/mild worsening of acidosis. -Patient had no reported overnight events and continues to saturate well on 2 L nasal cannula -Of note, patient is a chronic retainer with recent baseline PCO2 in the 50s. -For now, we will continue with the 60 mg every 8 hours IV Solu-Medrol. Should patient continue to show stability from a respiratory standpoint, may consider less frequent dosing and/or transition to oral steroids -Continue with scheduled Xopenex, incentive spirometry, Acapella, and home inhalers (inhaled Spiriva, Pulmicort, as needed albuterol) -S/p Solu-Medrol 125 mg IV dose in the ED along with x1 doses of DuoNeb and albuterol inhaler. -Chest x-ray upon admission unremarkable for any acute cardiopulmonary disease. -Chest CT ordered yesterday showed no acute infiltrates with moderately advanced emphysema. There were also two pulmonary nodules in the left lower lobe that were unchanged from previous studies. -Respiratory viral panel negative -Procalcitonin unremarkable -Blood cultures, sputum cultures and procalcitonin. -Oxygen titration orders set at 88 to 92% -Relevant background: -Patient denies any significant change in medication, travel, or sick contacts. Patient is completely vaccinated against COVID-19. -Of note, patient did present for days early on 04/30 to the ED with shortness of breath and was discharged home. A CTA was done at that time which was negative for any pulmonary embolism but did show emphysematous changes. #Encephalopathy likely secondary to hypercarbia, resolved -As documented in physical exam, patient's mentation significantly improved today. #Chronic hypoxic respiratory failure secondary to end-stage, Gold class IV COPD on chronic home oxygen -Chronically on 2 L nasal cannula continuously at home. -Patient has been back on her baseline 2 L after improvement in hypercapnia and respiratory acidosis with BiPAP yesterday. -Please see plan above for acute hypercapnic respiratory failure #Leukocytosis, resolved -WBC this morning was 8 (down from 11.7 upon admission) -WBC 11.7; of relevant note, WBC 12.74 days ago during ED presentation -Unclear source at this time -Respiratory viral panel negative -blood cultures and sputum culture pending -There is a potential for reactive process causing the increased white count upon admission -Patient is afebrile -Procalcitonin unremarkable -Will continue to monitor repeat blood counts #Acute kidney injury on CKD 3, worsened -Serum creatinine this morning increased to 1.47 (up from 1.32 on admission) -recent outpatient baseline creatinine appears to be around 0.9-1 -Urine electrolytes along with urine urea ordered upon admission to calculate fractional excretion of urea which -Fractional excretion of urea was 19.7%; as this is less than 35%, it is suggestive of prerenal disease/etiology -Patient continues to appear volume overloaded on exam based on her LE edema -Chest CT ordered on 6/18 did not show pleural effusions, significant pulmonary edema or pulmonary congestion a repeat BNP was ordered #Tachycardia, improved -Patient remained in the high 80s to low 90s for heart rate overnight. -She initially presented with heart rate of 112 -Likely secondary to acute on chronic respiratory failure -c/w telemetry #History of paroxysmal atrial fibrillation, on Eliquis -A. fib was new onset during February 2019 admission for respiratory failure -On telemetry -Home beta-edith (metoprolol tartrate) continued - c/w full anticoagulation with Eliquis #History of hypertension -Home metoprolol continued in the setting of tachycardia with paroxysmal atrial fibrillation history -In the setting of acute kidney injury, home lisinopril initially held -Home amlodipine was also held #Grade 1 diastolic dysfunction via February 2019 TTE -Patient again appears to be volume overloaded on today's exam -Continuing to hold home diuretics as CAMRYN slightly worsened today and no pulmonary edema/vascular congestion was appreciated upon CT of the chest -Due to patient's end-stage COPD, there is likely an element of/increased risk for right-sided heart failure and increased pulmonary pressures #Hypothyroidism -home levothyroxine continued #DLD -Home simvastatin continued #GERD -home omeprazole not on [facility] formulary; equivalent protonix dose ordered #Lower esophageal wall thickening on CTA from 04/30 -recommend upon d/c f/u w/ pcp regarding this to explore potential egd to r/o neoplasm #Obesity -BMI 31 -This complicates care and with her wide neck, potentially has element of OHS and/or EVA #DVT prophylaxis: home eliquis contd Disposition: Patient remains ICU for now but downgraded possible pending continued stability of respiratory status. VS, I&O, 24H, Fishbone Vital Signs/I&O Vital Signs Date Time Temp Pulse Resp B/P (MAP) Pulse Ox O2 Delivery O2 Flow Rate FiO2 05/05/21 08:50 103 106/58 05/05/21 08:00 2.0 05/05/21 08:00 98.3 22 100 Nasal Cannula 05/04/21 18:00 30 I&O- Last 24 Hours up to 6 AM 05/05/21 06:00 Intake Total 0 ml Output Total 210 ml Balance -210 ml Laboratory Data 24H LABS Laboratory Tests 2 05/04/21 13:18: Neutrophils (%) (Auto) , Nucleated Red Blood Cells % (auto) 0.0, Neutrophils 88H, Lymphocytes (Manual) 4L, Monocytes (Manual) 4, Eosinophils (Manual) 2, Basophils (Manual) 2H, Anisocytosis 1+, Platelet Estimate NORMAL, Anion Gap 2L, Glomerular Filtration Rate 41.4, Calcium Level 9.6, Total Bilirubin 0.3, Direct Bilirubin 0.1, Aspartate Amino Transf (AST/SGOT) 21, Alanine Aminotransferase (ALT/SGPT) 21, Alkaline Phosphatase 44L, Total Creatine Kinase 51, Creatine Kinase MB 1.5, Creatine Kinase MB Relative Index 2.94, Troponin I < 0.02, BN-Upt-L-Type Natriuretic Peptide 784H, Total Protein 5.7L, Albumin 2.9L, Albumin/Globulin Ratio 1.0L, Lipase 192, Procalcitonin 0.13, Thyroid Stimulating Hormone (TSH) 1.230, Free Thyroxine 1.08 05/04/21 13:41: POC pH (Misc Panel) 7.247*L, POC Base Excess (Misc Panel) 5.0H, POC Saturated Percent O2 (Misc) 94L, POC pO2 (Misc Panel) 84.0, POC pCO2 (Misc Panel) 73.8*H, POC HCO3 (Misc Panel) 32.1H, POC Total CO2 (Misc Panel) 34.0H 05/04/21 16:41: POC pH (Misc Panel) 7.329L, POC Base Excess (Misc Panel) 5.0H, POC Saturated Percent O2 (Misc) 98, POC pO2 (Misc Panel) 121.0H, POC pCO2 (Misc Panel) 58.7H, POC HCO3 (Misc Panel) 30.9H, POC Total CO2 (Misc Panel) 33.0H 05/04/21 17:23: Glomerular Filtration Rate 37.8L, Prothrombin Time 13.4, Prothromb Time International Ratio 1.00, Activated Partial Thromboplast Time 26.1 05/04/21 18:43: Urine Random Creatinine 149.0, Urine Random Sodium < 10, Urine Random Urea Nitrogen 735 05/04/21 20:08: Blood Gas Bicarbonate Standard 23.4, Arterial Blood pH 7.270L, Arterial Blood Partial Pressure CO2 58.0H, Arterial Blood Partial Pressure O2 166.1H, Arterial Blood Total CO2 27.8, Arterial Blood HCO3 26.0, Arterial Blood Base Excess -1.4, Arterial Blood Oxygen Saturation 98.8 05/05/21 04:33: Neutrophils (%) (Auto) , Nucleated Red Blood Cells % (auto) 0.0, Neutrophils 96H, Band Neutrophils 1, Lymphocytes (Manual) 3L, Anisocytosis 1+, Platelet Estimate NORMAL, Anion Gap 7L, Glomerular Filtration Rate 36.6L, Calcium Level 9.5, Magnesium Level 2.2, ZM-Zlc-Z-Type Natriuretic Peptide 1033H CBC/BMP Laboratory Tests 05/04/21 13:18 05/04/21 17:23 05/05/21 04:33 Microbiology Microbiology 05/05/21 Gram Stain, Received Pending 05/05/21 Sputum Culture, Received Pending 05/04/21 Blood Culture, Received Pending 05/04/21 Blood Culture, Received Pending 05/04/21 Respiratory Virus Panel (PCR) (DILLAN) - Final, Complete GME ATTESTATION GME ATTESTATION My faculty preceptor for this patient encounter was physically present during the encounter and was fully available. All aspects of the patient interview, examination, medical decision making process, and medical care plan development were reviewed and approved by the faculty preceptor. The faculty preceptor is aware and concurs with the plan as stated in the body of this note and will attest to such by his/her cosignature. ATTENDING NOTE I, Rema Vides, have independently examined this patient and performed my own physical exam, as well as reviewed the documentation and edited where necessary. I have discussed in detail with the resident / student the findings and plan of treatment as documented by the resident / student and edited their note. I agree with their findings and treatment plan and have edited their documentation. I will continue to follow the patient during this hospital stay. FELISA ANDERSON D.O. May 05, 2021 11:32 REMA VIDES MD May 05, 2021 16:35
[2021-05-05] MEDS ORDERED: NS 500 ML IV SCH (12:25)
--- NOTE | 2021-05-05 18:11 | ECHO ---
ECHOCARDIOGRAM DATE OF PROCEDURE: 05/05/2021 Age: Gender: Height: Weight: REFERRING PHYSICIAN: Dr. Wayne Cartwright INDICATION: Dyspnea, unspecified. 2D MEASUREMENTS: Right ventricle: 3.0 cm Aortic root: 3.2 cm Aortic annulus: 2.0 cm Ventricular septum: 1.70 cm Posterior wall: 1.17 cm Left ventricle diastole 3.3 cm Inferior vena cava: 1.3 cm (more than 50% respiratory variation) Left atrium: 3.2 cm DOPPLER MEASUREMENTS: Mild aortic regurgitation. No aortic stenosis. Aortic regurgitation pressure half-time: 393 msec. Aortic valve velocity 211 cm/s. LVOT velocity 103 cm/s. LVOT VTI 23.6 cm. No mitral regurgitation. Mitral E velocity: 88.7 cm/s Mitral A velocity: 115 cm/s Mitral deceleration time 158 msec Very mild tricuspid regurgitation. Estimated right ventricular systolic pressure 34-39 mmHg No pulmonic regurgitation Pulmonary relaxation time 98 msec, consistent with mild pulmonary hypertension. MITRAL ANNULAR TISSUE DOPPLER E prime septal 4.6 cm/s E prime lateral 9.37 cm/s DESCRIPTION: Rhythm was sinus. This was a moderately technically difficult echocardiogram with no parasternal windows available. The study was primarily obtained from the apical window. No pericardial effusion. CONCLUSIONS: 1. Normal left ventricle size and wall thickness. Normal regional LV wall motion and wall thickening. Normal LV systolic function. LVEF 65% by visual estimate. Grade 1 LV diastolic dysfunction (impaired relaxation filling pattern). 2. Suggestive of mild elevation of pulmonary artery systolic pressure and estimated right ventricle systolic pressure. Very mild tricuspid regurgitation, suggestive of normal central venous pressure (CVP). Normal right ventricle size and systolic function. 3. Mild aortic valve sclerosis. Difficult to determine the number of aortic cusps, as no parasternal window available. Mild aortic regurgitation. No aortic stenosis. 4. Cardiac adiposity and presence of lipomatous hypertrophy of the interatrial septum. 5. No pericardial effusion. MTDD
[2021-05-05 18:39] LABS: CALCIUM LEVEL 9.5 MG/DL (8.8-10.2); CREATININE FOR GFR 1.71 MG/DL (0.55-1.30); GLOMERULAR FILTRATION RATE 30.7 (>39); POTASSIUM SERUM 4.4 MEQ/L (3.5-5.1)
[2021-05-05] MEDS ORDERED: FUROSEMIDE 20MG/2ML VIAL (J1940) IV ONE (18:50)
[2021-05-05] MEDS: BUDESONIDE 0.5 MG/2 ML INHALATION SUSPENSION INH SCH (20:10)
[2021-05-05] MEDS: SIMVASTATIN 20 MG TAB PO SCH (21:53)
[2021-05-06] MEDS: guaiFENesin SYRUP 200 MG/10 ML UDC PO PRN (00:28)
[2021-05-06] MEDS: LEVALBUTEROL 1.25 MG/0.5 ML CONCENTRATE NEB NEB SCH ×5 (02:47→20:18)
[2021-05-06] MEDS: BENZONATATE 100 MG CAP PO PRN (03:05)
[2021-05-06] MEDS: LEVOTHYROXINE 25MCG TABLET (0.025MG) PO SCH (05:55)
[2021-05-06] MEDS: methylPREDNISolone 40MG 1ML VIAL IV SCH (05:55)
[2021-05-06 06:00] VITALS: BP 134/78
[2021-05-06] MEDS: TIOTROPIUM INHALER/CAPSULE (SPIRIVA) INH SCH (07:09)
[2021-05-06] MEDS: BUDESONIDE 0.5 MG/2 ML INHALATION SUSPENSION INH SCH ×2 (07:09→20:18)
[2021-05-06 07:11] LABS: BASO % 0.1 % (0.0-1.0); HEMATOCRIT 24.3 % (36.0-47.0); HEMOGLOBIN 7.3 g/dl (12.0-15.5); LYMPH # 0.4 10^3/uL (1.5-5.0); LYMPH % 2.3 % (24.0-44.0); MEAN CORPUSCULAR HEMOGLOBIN 26.6 pg (27.0-33.0); MEAN CORPUSCULAR VOLUME 88.7 fl (80.0-96.0); MONO # 0.8 10^3/uL (0.0-0.8); MONO % 4.5 % (2.0-8.0); NEUTROPHILS # 16.8 10^3/uL (1.5-8.5); NEUTROPHILS % 92.1 % (36.0-66.0); PLATELET COUNT, AUTOMATED 271 10^3/uL (150-450); RED BLOOD COUNT 2.74 10^6/uL (4.00-5.40); WHITE BLOOD COUNT 18.2 10^3/uL (4.0-10.0)
[2021-05-06 07:39] LABS: CALCIUM LEVEL 9.5 MG/DL (8.8-10.2); CREATININE FOR GFR 1.81 MG/DL (0.55-1.30); GLOMERULAR FILTRATION RATE 28.8 (>39); MAGNESIUM LEVEL 2.2 MG/DL (1.8-2.4); POTASSIUM SERUM 4.1 MEQ/L (3.5-5.1)
[2021-05-06] MEDS ORDERED: FUROSEMIDE 40MG/4ML VIAL (J1940) IV ONE (09:00)
[2021-05-06] MEDS: PANTOPRAZOLE 40MG TAB (PROTONIX) PO SCH (09:14)
[2021-05-06] MEDS: APIXABAN 5 MG TAB (ELIQUIS) PO SCH ×2 (09:14→20:11)
[2021-05-06] MEDS: SUCRALFATE 1 GM TAB PO SCH ×4 (09:14→20:11)
[2021-05-06] MEDS: METOPROLOL TART 25 MG TABLET PO SCH (09:17)
--- NOTE | 2021-05-06 10:39 | REP ---
INDICATION: SOB. COMPARISON: 05/04/2021 latest prior TECHNIQUE: Portable FINDINGS: The technique utilized in obtaining the radiograph has magnified the cardiac silhouette and accentuated the interstitial markings. The superior mediastinal structures are midline. The cardiac silhouette is unremarkable in size, shape, and position. The diaphragmatic surfaces of the lungs are regular, and the costophrenic angles are clear. The pulmonary rinaldi are unchanged. The imaged osseous structures are intact. IMPRESSION: There is no acute cardiopulmonary disease. No significant change from the prior exam <Electronically signed by Noah Pinto > 05/06/21 1035
[2021-05-06 10:54] LABS: ABG BASE EXCESS 2.1 (-2.0-2.0); ABG HCO3 28.3 MEQ/L (22.0-26.0); ABG O2 SATURATION 97.2 % (95.0-99.0); ABG PARTIAL PRESSURE CO2 53.4 mmHg (35.0-45.0); ABG PARTIAL PRESSURE O2 93.3 mmHg (75.0-100.0); ABG STANDARD HCO3 26.3 MEQ/L (22.0-26.0); ABG TOTAL CO2 29.9 MEQ/L (23.0-31.0); ABG pH (ARTERIAL) 7.342 UNITS (7.350-7.450)
--- NOTE | 2021-05-06 11:03 | IPNPDOC ---
Text Note Date of Service The patient was seen on 05/06/21. NOTE Subjective: Patient is a 80-year-old female with a PMHx of Chronic hypoxic respiratory failure (2L at home), COPD, HTN, Paroxysmal A. fib eliquis, DLD, H ypothyroidism, CKD3, GERD who presented to the hospital with complaints of shortness of breath. Upon arrival to emergency room, patient was found to have hypercapnia and respiratory acidosis. Patient was placed on a BiPAP in the emergency room and was subsequently admitted to the intensive care unit. Patient did not require any further BiPAP. Patient was admitted to the hospitalist service for COPD exacerbation. Patient was seen and examined at the bedside. Patient denies any chest pain, significant cough or palpitations. Reports her lower extremities have become more swollen. She denies any nausea, vomiting or abdominal pain. Objective: Vitals (See below) General: Lying in bed, appears comfortable, is awake and alert, oriented 3 HEENT: NC, AT CVS: +S1S2 Lungs: Fair air entry b/l, there are faint crackles appreciated bilaterally. No evidence of significant wheezing or rhonchi Abdomen: Soft, ND, NT Extremities: 1+ Pitting edema bilaterally, - Calf tenderness Imaging: CXR 05/04: No acute pulmonary disease. Chest CT 05/04: 1. Moderately advanced emphysema. No acute infiltrates. 2. Two pulmonary nodules in the left lower lobe without change from previous study dated 03/08/2019 and 08/06/2015. Lack of change indicates benign etiology. No follow-up recommended. 3. Partially calcified hepatic cyst. While the calcification has increased since 2014, the size of the cyst remains relatively stable. Appearance suggests benign etiology and no follow-up is indicated. 4. Low-density lesion mid right kidney demonstrated to be a simple cyst on CT 04/30/2021. No follow-up indicated. Renal US 05/05: Multiple renal cysts Assessment and plan: Acute on Chronic hypercapnic respiratory failure on Chronic hypoxic respiratory failure - likely 2/2 acute COPD exacerbation, possibly 2/2 component of Diastolic CHF exacerbation - Currently patient reports her breathing is doing better - Physical reveals crackles, no significant wheezing - Saturation has remained at 99% on 2 L; will reduce supplemental oxygen to maintain saturation between 88 and 92% - s/p BIPAP - Imaging noted above - Will start Prednisone; Will DC Solumedrol - c/w Inhaled therapy as ordered - Will c/w Guaifenesin / Acapella / Incentive spirometry Metabolic encephalopathy - likely 2/2 hypercarbic respiratory failure - Patient has had some confusion this morning - Will repeat ABG Chronic hypoxic respiratory failure 2/2 COPD - Patient uses 2 L nasal cannula continuously at home - Patient has required less oxygen to maintain saturation between 88-92% while at rest Decompensated Grade 1 Diastolic CHF - Physical reveals evidence of fluid overload; crackles in lower extremity edema - BNP has trended up - Will transfer to PCU for continued cardiac monitoring - Will start IV diuretics Leukocytosis - likely 2/2 reactive etiology 2/2 corticosteroids - Review of systems is negative for any source of infection - Afebrile and hemodynamically stable - PCT negative - Blood cultures 05/04: Negative at 24 hours - Respiratory panel 05/04: Negative - Sputum culture 05/05: Pending - No antibiotics indicated currently CAMRYN on CKD3 - possibly 2/2 cardiorenal syndrome - Cr has trended up - Physical with evidence of fluid overload - Will start Diuresis - Will consider consultation with nephrology if kidney function fails to improve Pulmonary nodules in the left lower lobe - Unchanged from previous studies - Will have outpatient follow-up with pulmonology on discharge Paroxysmal atrial fibrillation - Continue with rate control with metoprolol - c/w full anticoagulation with Eliquis HTN - BP well controlled - c/w Metoprolol - Amlodipine / Lisinopril on hold - Will start IV Furosemide Hypothyroidism - c/w Levothyroxine DLP - c/w Simvastatin Lower esophageal wall thickening - Fount on CTA from 04/30 - Patient will likely require EGD for evaluation of neoplasm - Patient he has been advised of findings and the importance of follow-up with primary care provider for gastroenterology referral Obesity - Complicating medical care GERD - c/w Protonix DVT prophylaxis - c/w full anticoagulation with Eliquis Disposition: - Patient was seen in [facility] today - Will upgrade patient to PCU for continued monitoring given her new onset congestive heart failure decompensation / confusion / will get ABG VS,Fishbone, I+O VS, Fishbone, I+O Laboratory Tests 05/05/21 17:50 05/06/21 06:58 Vital Signs Date Time Temp Pulse Resp B/P (MAP) Pulse Ox O2 Delivery O2 Flow Rate FiO2 05/06/21 10:18 88 Nasal Cannula 1.0 05/06/21 09:17 90 127/70 05/06/21 06:00 98.8 20 05/04/21 18:00 30 I&O- Last 24 Hours up to 6 AM 05/06/21 06:00 Intake Total 1010 ml Output Total 650 ml Balance 360 ml BISHOP VIDES MD May 06, 2021 11:03
[2021-05-06 12:00] VITALS: BP 117/67
[2021-05-06 13:00] VITALS: O2SAT 100
[2021-05-06] MEDS ORDERED: predniSONE 20 MG TAB PO ONE (13:00)
[2021-05-06 13:01] LABS: HEMATOCRIT 25.2 % (36.0-47.0); HEMOGLOBIN 7.8 g/dl (12.0-15.5)
[2021-05-06 14:00] VITALS: O2SAT 97
[2021-05-06 16:00] VITALS: BP 118/55
[2021-05-06] MEDS ORDERED: FUROSEMIDE 40MG/4ML VIAL (J1940) IV SCH (17:00)
[2021-05-06 17:18] LABS: HEMATOCRIT 25.4 % (36.0-47.0); HEMOGLOBIN 7.6 g/dl (12.0-15.5)
[2021-05-06 17:43] LABS: CALCIUM LEVEL 9.3 MG/DL (8.8-10.2); CREATININE FOR GFR 1.83 MG/DL (0.55-1.30); GLOMERULAR FILTRATION RATE 28.4 (>39); POTASSIUM SERUM 4.3 MEQ/L (3.5-5.1)
[2021-05-06 20:00] VITALS: BP 132/62; O2SAT 100
[2021-05-06] MEDS: SIMVASTATIN 20 MG TAB PO SCH (20:11)
[2021-05-07] VITALS (24 sets, daily range): BP systolic 119–163; BP diastolic 58–88; O2SAT 94–100
[2021-05-07 00:19] LABS: HEMATOCRIT 24.5 % (36.0-47.0); HEMOGLOBIN 7.3 g/dl (12.0-15.5)
[2021-05-07] MEDS: LEVALBUTEROL 1.25 MG/0.5 ML CONCENTRATE NEB NEB SCH ×7 (00:24→23:57)
[2021-05-07] MEDS: ACETAMINOPHEN TAB 650MG DOSE (2X325MG) PO PRN ×2 (00:57→20:52)
[2021-05-07 05:54] LABS: BASO % 0.1 % (0.0-1.0); HEMATOCRIT 24.1 % (36.0-47.0); HEMOGLOBIN 7.1 g/dl (12.0-15.5); LYMPH # 0.4 10^3/uL (1.5-5.0); LYMPH % 2.8 % (24.0-44.0); MEAN CORPUSCULAR HEMOGLOBIN 26.4 pg (27.0-33.0); MEAN CORPUSCULAR HGB CONC 29.5 g/dl (32.0-36.5); MEAN CORPUSCULAR VOLUME 89.6 fl (80.0-96.0); MONO # 0.8 10^3/uL (0.0-0.8); MONO % 4.9 % (2.0-8.0); NEUTROPHILS # 13.8 10^3/uL (1.5-8.5); NEUTROPHILS % 90.4 % (36.0-66.0); PLATELET COUNT, AUTOMATED 258 10^3/uL (150-450); RED BLOOD COUNT 2.69 10^6/uL (4.00-5.40); WHITE BLOOD COUNT 15.3 10^3/uL (4.0-10.0)
[2021-05-07] MEDS: LEVOTHYROXINE 25MCG TABLET (0.025MG) PO SCH (06:17)
[2021-05-07 06:22] LABS: CALCIUM LEVEL 9.3 MG/DL (8.8-10.2); CREATININE FOR GFR 2.14 MG/DL (0.55-1.30); GLOMERULAR FILTRATION RATE 23.7 (>39); MAGNESIUM LEVEL 2.3 MG/DL (1.8-2.4)
[2021-05-07] MEDS: BUDESONIDE 0.5 MG/2 ML INHALATION SUSPENSION INH SCH ×2 (07:26→20:13)
[2021-05-07] MEDS: TIOTROPIUM INHALER/CAPSULE (SPIRIVA) INH SCH (07:27)
[2021-05-07] MEDS: APIXABAN 5 MG TAB (ELIQUIS) PO SCH (09:00)
[2021-05-07] MEDS: SUCRALFATE 1 GM TAB PO SCH ×4 (09:03→20:27)
[2021-05-07] MEDS: predniSONE 20 MG TAB PO SCH (09:04)
[2021-05-07] MEDS: METOPROLOL TART 25 MG TABLET PO SCH (09:04)
[2021-05-07] MEDS: PANTOPRAZOLE 40MG TAB (PROTONIX) PO SCH (09:04)
[2021-05-07] MEDS ORDERED: CEFEPIME HCL 2 GM in D5W MINI-BAG PLUS 50 ML IV SCH (10:00)
--- NOTE | 2021-05-07 10:07 | IPNPDOC ---
Text Note Date of Service The patient was seen on 05/07/21. NOTE Subjective: Patient is a 80-year-old female with a PMHx of Chronic hypoxic respiratory failure (2L at home), COPD, HTN, Paroxysmal A. fib eliquis, DLD, H ypothyroidism, CKD3, GERD who presented to the hospital with complaints of shortness of breath. Upon arrival to emergency room, patient was found to have hypercapnia and respiratory acidosis. Patient was placed on a BiPAP in the emergency room and was subsequently admitted to the intensive care unit. Patient did not require any further BiPAP. Patient was admitted to the hospitalist service for COPD exacerbation. Patient was seen and examined at the bedside. Currently patient reports that her breathing is doing relatively better, still is coughing but nonproductive. Denies any chest pain or palpitations. Has not spent any nausea, vomiting or abdominal pain. Patient is a Feliz catheter in place with some pink/clements colored urine. Denies any diarrhea. Objective: Vitals (See below) General: Sitting up in bed, appears to be comfortable without any acute distress, awake and alert HEENT: Normocephalic and atraumatic CVS: +S1S2 Lungs: Fair entry appears to be fair bilaterally. There is faint wheezing that is noted. No appreciable crackles or rhonchi Abdomen: Soft, nondistended and nontender Extremities: Again lower extremities reveal 1+ pitting edema bilaterally Imaging: CXR 05/04: No acute pulmonary disease. Chest CT 05/04: 1. Moderately advanced emphysema. No acute infiltrates. 2. Two pulmonary nodules in the left lower lobe without change from previous study dated 03/08/2019 and 08/06/2015. Lack of change indicates benign etiology. No follow-up recommended. 3. Partially calcified hepatic cyst. While the calcification has increased since 2014, the size of the cyst remains relatively stable. Appearance suggests benign etiology and no follow-up is indicated. 4. Low-density lesion mid right kidney demonstrated to be a simple cyst on CT 04/30/2021. No follow-up indicated. Renal US 05/05: Multiple renal cysts Assessment and plan: Acute on Chronic hypercapnic respiratory failure on Chronic hypoxic respiratory failure - likely 2/2 acute COPD exacerbation, possibly 2/2 component of Diastolic CHF exacerbation - Reports breathing is doing better and a nonproductive cough - Faint wheezing appreciated bilaterally - Saturation has remained at 99% on 2 L; will reduce supplemental oxygen to maintain saturation between 88 and 92% - s/p BIPAP - Imaging noted above - c/w Prednisone; s/p Solumedrol - c/w Inhaled therapy as ordered - c/w Guaifenesin / Acapella / Incentive spirometry s/p Metabolic encephalopathy - likely 2/2 hypercarbic respiratory failure - Patient appears to be fully oriented this morning Chronic hypoxic respiratory failure 2/2 COPD - Patient uses 2 L nasal cannula continuously at home - Patient has required less oxygen to maintain saturation between 88-92% while at rest Decompensated Grade 1 Diastolic CHF - Physical still reveals 1+ pitting edema bilaterally - BNP has trended up - s/p Furosemide (received 2 doses yesterday) - Will consult nephrology Leukocytosis - possibly 2/2 pseudomonas, possibly 2/2 reactive etiology 2/2 corticosteroids - Improving - Afebrile and hemodynamically stable - PCT negative - Blood cultures 05/04: Negative at 24 hours - Respiratory panel 05/04: Negative - Sputum culture 05/05: Pseudomonas - Will start Cefepime (Day #1) Normocytic anemia - Hg has trended down throughout hospitalization - Hematuria noted - Will check iron panel / b12 / folate / reticulocyte count - Will transfuse 2 units PRBC CAMRYN on CKD3 - Cr has trended up - Physical with evidence of fluid overload - Consulted nephrology Pulmonary nodules in the left lower lobe - Unchanged from previous studies - Will have outpatient follow-up with pulmonology on discharge Paroxysmal atrial fibrillation - Continue with rate control with metoprolol - c/w full anticoagulation with Eliquis; Will hold for now (re: Hematuria) HTN - BP slightly elevated this morning - c/w Metoprolol - Amlodipine / Lisinopril on hold Hypothyroidism - c/w Levothyroxine DLP - c/w Simvastatin Lower esophageal wall thickening - Fount on CTA from 04/30 - Patient will likely require EGD for evaluation of neoplasm - Patient he has been advised of findings and the importance of follow-up with primary care provider for gastroenterology referral Obesity - Complicating medical care GERD - c/w Protonix DVT prophylaxis - c/w full anticoagulation with Eliquis Disposition: - Will consult nephrology - Will transfuse 2 units PRBC VS,Fishbone, I+O VS, Fishbone, I+O Laboratory Tests 05/06/21 12:49 05/06/21 17:09 05/07/21 00:07 05/07/21 05:23 Vital Signs Date Time Temp Pulse Resp B/P (MAP) Pulse Ox O2 Delivery O2 Flow Rate FiO2 05/07/21 09:04 88 149/68 05/07/21 08:00 98.8 18 95 Nasal Cannula 1.0 05/04/21 18:00 30 I&O- Last 24 Hours up to 6 AM 05/07/21 06:00 Intake Total 760 ml Output Total 1500 ml Balance -740 ml BISHOP VIDES MD May 07, 2021 10:07
[2021-05-07 10:27] LABS: APPEARANCE, URINE CLOUDY (CLEAR); BACTERIA, URINE AUTO 1+ (NEGATIVE); BILIRUBIN, URINE AUTO NEGATIVE (NEGATIVE); BLOOD, URINE BLOOD 3+ (NEGATIVE); COLOR, URINE RED (YELLOW); GLUCOSE, URINE (UA) AUTO NEGATIVE (NEGATIVE); KETONE, URINE AUTO NEGATIVE (NEGATIVE); LEUKOCYTE ESTERASE, URINE AUTO 1+ (NEGATIVE); NITRITE, URINE AUTO NEGATIVE (NEGATIVE); PROTEIN, URINE AUTO 2+ mg/dL (NEGATIVE); RBC, URINE AUTO TNTC /HPF (0-3); SPECIFIC GRAVITY URINE AUTO 1.011 (1.002-1.035); SQUAMOUS EPITHELIAL CELL UR AU 2 /HPF (0-6); UROBILINOGEN, URINE AUTO 0.2 mg/dL (0.0-2.0); WBC, URINE AUTO TNTC /HPF (0-3)
[2021-05-07 10:48] LABS: PERCENT SATURATION 7.7 % (13.2-45.0)
[2021-05-07] MEDS: CEFEPIME HCL 1 GM in D5W MINI-BAG PLUS 50 ML IV SCH ×2 (11:04→22:46)
--- NOTE | 2021-05-07 13:28 | CR ---
CONSULTATION DATE: 05/07/2021 REASON FOR CONSULTATION: Acute kidney injury superimposed on chronic kidney disease in this lady with shortness of breath. HISTORY OF PRESENT ILLNESS: Miss Gonzalez is a 80-year-old female with multiple chronic mental problems including a history of hypoxic respiratory failure requiring home oxygen. She had history of paroxysmal atrial fibrillation, hypothyroidism, gastroesophageal reflux disease, chronic kidney disease and congestive heart failure. She was admitted with shortness of breath on May 04 and has been diuresed. She has developed worsening kidney function due to which a nephrology consultation was requested this morning. PAST MEDICAL AND SURGICAL HISTORY: 1. Advanced COPD requiring home oxygen. 2. Paroxysmal atrial fibrillation. 3. Hypertension. 4. Stage C chronic kidney disease. 5. Gastroesophageal reflux disease. 6. History of anxiety. 7. Hypothyroidism. 8. History of hiatal hernia. 9. History of dyslipidemia. 10. History of diastolic congestive heart failure. 11. History of allergic rhinitis. PAST SURGICAL HISTORY: Tubal ligation. PERSONAL AND SOCIAL HISTORY: Patient is and lives with her . She quite smoking about 15 years ago. Occasional alcohol use and no other drug use. FAMILY HISTORY: Significant for hypertension and coronary artery disease. HOME MEDICATIONS: 1. Amlodipine 5 mg daily. 2. Eliquis 5 mg b.i.d. 3. Azithromycin 250 mg daily. 4. Furosemide 40 mg daily. 5. Levothyroxine 25 mcg daily. 6. Lisinopril 10 mg b.i.d. 7. Metoprolol 25 mg daily. 8. Omeprazole 40 mg daily. 9. Prednisone 10 mg daily. 10. Simvastatin 20 mg daily. 11. Carafate 1 gm before meals and at bedtime. 12. Spiriva inhaler two inhalations once a day. 13. Albuterol and Ipratropium inhalers as needed. 14. She also uses Budesonide inhaler twice a day. ALLERGIES: She has no known drug allergies. REVIEW OF SYSTEMS: Patient is still short of breath. She is using oxygen. She denies any fever or chills. Ears, nose and throat are unremarkable. Cardiovascular system: Significant for shortness of breath in the setting of diastolic congestive heart failure and atrial fibrillation. Respiratory system is significant for advanced COPD requiring home oxygen. She has cough and denies any hemoptysis. GI system is negative for vomiting or diarrhea. system is negative for dysuria or hematuria. Musculoskeletal system is significant for chronic leg edema and painful legs. She would not allow me to touch. Neurological system is significant for neuropathy. Psychosocial system significant for anxiety. Hematological system is significant for anemia. She probably has prior history of GI bleed as she has been on PPI and Carafate. PHYSICAL EXAMINATION: Vital signs: Temperature 98.8 degrees Fahrenheit, heart rate 88 per minute and respiratory rate 20 per minute. Blood pressure 149/68 mmHg and oxygen saturation 95% on one liter oxygen. Head is atraumatic. Neck: Supple and JVD difficult to be assessed. Lungs have bilateral rhonchi and wheezing. Heart sounds are irregular in rhythm. Abdomen is soft and nontender and bowel sounds are normal. Extremities without any cyanosis or clubbing. She has large areas of ecchymosis on her upper extremities and small patches of erythema on the lower extremities. She seems to have some edema. However, she would not allow me to touch her legs. Neurologically she is awake and without a focal deficit. LABORATORY DATA: On admission, her sodium was 142 and potassium 4.9. BUN 39 and creatinine 1.47. Glucose 149 and calcium 9.5. A proBNP level was 1033. Today her sodium is 140, potassium 4.0, CO2 32, BUN 54 and creatinine 2.14. Glucose 126 and calcium 9.3. Her iron level is only and saturation is 7.7%. Hemoglobin on admission was 7.3 and hematocrit 24.3. WBC count was 18.2. Today her WBC count is 15.3, hemoglobin 7.1 and hematocrit 24.1. Platelets are 258. Urinalysis showed 2+ protein and 3+ blood. She has too numerous to count WBCs and too numerous to count RBCs. Chest x-ray done yesterday showed no acute cardiopulmonary disease. She had a chest CT scan done on the day of admission which did not shown any pleural effusions. Her renal ultrasound showed normal size kidney without any hydronephrosis but she does have multiple renal cysts. PROBLEMS: 1. Acute kidney injury superimposed on chronic kidney disease most likely related to diuresis. I do not feel that patient's shortness of breath is related to decompensated congestive heart failure. She was lying flat at the time of my visit and her chest CT scan did not show any pleural effusion and no significant evidence for volume overload. At this point, I would recommend stopping her diuretic and treat her COPD more aggressively. 2. Acute kidney injury superimposed on chronic kidney disease most likely caused by diuresis. Diuretics have been stopped and we will monitor her kidney function closely. Her renal ultrasound was unremarkable. 3. Anemia. She does have significant anemia and I would strongly recommend transfusion as she has history of advanced COPD and severe anemia is most likely contributing to her hypoxemia. She also has severe iron deficiency which indicates probably chronic blood loss. Thank you for involving me in the care of Miss Gonzalez. I will follow her along with you.
[2021-05-07 13:56] LABS: FOLATE 8.9 NG/ML (>5.4)
[2021-05-07] MEDS: SIMVASTATIN 20 MG TAB PO SCH (20:27)
[2021-05-08] VITALS (15 sets, daily range): BP systolic 128–156; BP diastolic 60–72; O2SAT 68–99
[2021-05-08] MEDS: ACETAMINOPHEN TAB 650MG DOSE (2X325MG) PO PRN ×2 (03:04→20:59)
[2021-05-08] MEDS: LEVALBUTEROL 1.25 MG/0.5 ML CONCENTRATE NEB NEB SCH ×5 (03:26→20:00)
[2021-05-08] MEDS: LEVOTHYROXINE 25MCG TABLET (0.025MG) PO SCH (05:54)
[2021-05-08 06:14] LABS: HEMATOCRIT 35.1 % (36.0-47.0); MEAN CORPUSCULAR HEMOGLOBIN 27.7 pg (27.0-33.0); MEAN CORPUSCULAR HGB CONC 31.3 g/dl (32.0-36.5); MEAN CORPUSCULAR VOLUME 88.4 fl (80.0-96.0); PLATELET COUNT, AUTOMATED 252 10^3/uL (150-450); RED BLOOD COUNT 3.97 10^6/uL (4.00-5.40); WHITE BLOOD COUNT 11.6 10^3/uL (4.0-10.0)
[2021-05-08 06:31] LABS: CALCIUM LEVEL 9.4 MG/DL (8.8-10.2); CREATININE FOR GFR 1.87 MG/DL (0.55-1.30); GLOMERULAR FILTRATION RATE 27.7 (>39); MAGNESIUM LEVEL 2.1 MG/DL (1.8-2.4); POTASSIUM SERUM 3.9 MEQ/L (3.5-5.1)
[2021-05-08 06:38] LABS: LYMPHOCYTES 8 % (16-44); MONOCYTES 6 % (0-5); NEUTROPHILS 86 % (28-66); PLATELET ESTIMATE NORMAL (NORMAL)
[2021-05-08] MEDS: BUDESONIDE 0.5 MG/2 ML INHALATION SUSPENSION INH SCH ×2 (07:23→21:01)
[2021-05-08] MEDS: TIOTROPIUM INHALER/CAPSULE (SPIRIVA) INH SCH (07:23)
[2021-05-08] MEDS: predniSONE 20 MG TAB PO SCH (09:20)
[2021-05-08] MEDS: SUCRALFATE 1 GM TAB PO SCH ×4 (09:20→20:59)
[2021-05-08] MEDS: PANTOPRAZOLE 40MG TAB (PROTONIX) PO SCH (09:20)
[2021-05-08] MEDS: METOPROLOL TART 25 MG TABLET PO SCH (09:21)
--- NOTE | 2021-05-08 10:45 | IPN ---
PROGRESS NOTE DATE: 05/08/2021 SUBJECTIVE: Trinidad is seen in the PCU, admitted with COPD exacerbation. I had not seen her in a few years, she had become quite Cushingoid and much more debilitated. She says she feels weak, tired and cannot take care of herself. She requires almost total care at home from her with bathing, feeding, and hygiene activities. She says she is less short of breath than yesterday but still worse from her baseline. OBJECTIVE: VITAL SIGNS: Blood pressure 143/67, O2 saturation 94% on 1 liter. GENERAL: She is alert, conversant, Cushingoid appearing. NECK: No JVD. LUNGS: Decreased breath sounds, wheezes at both bases. HEART: Regular rhythm. ABDOMEN: Soft, obese, nontender. EXTREMITIES: Trace peripheral edema. LABORATORY DATA: White count 11.6, hemoglobin 11, platelets 252,000. potassium 3.9, BUN is 85, creatinine 1.87. Sputum grew out pseudomonas. IMPRESSION: 1. Exacerbation of COPD secondary to pseudomonas. She is on Cefepime, oral prednisone and nebulized bronchodilator. 2. Acute kidney injury, diuretics were held yesterday. 3. Acute kidney injury superimposed on chronic kidney disease, diuretics were held. Nephrology has been consulted. 4. Leukocytosis secondary to pseudomonas infection as well as steroids. 5. Paroxysmal atrial fibrillation, she is typically on Eliquis, this is on hold now for some mild hematuria, restart this tomorrow if the hematuria has not persisted. 6. Hypertension. Blood pressure is under good control. 7. Hyperlipidemia, continue simvastatin. 8. Lower esophageal wall thickening. Will need EGD after discharge or at least consideration of this after discussion. MTDD
[2021-05-08] MEDS: CEFEPIME HCL 1 GM in D5W MINI-BAG PLUS 50 ML IV SCH ×2 (11:16→23:37)
--- NOTE | 2021-05-08 20:33 | IPN ---
PROGRESS NOTE DATE: 05/08/2021 SUBJECTIVE: Ms. Gonzalez is seen this morning on her bedside. She is laying in her bed using her nebulizer at present. She remains short of breath with obvious wheezing. She denies any nausea or vomiting. PHYSICAL EXAMINATION: VITALS: Temperature 99 degrees Fahrenheit, heart rate 74 per minute, respiratory rate 18 per minute, blood pressure 128/60 mmHg, oxygen saturation 96% on 2 liter oxygen. HEENT: Head is atraumatic. Neck veins are difficult to be assessed. LUNGS: With bilateral expiratory wheezing. HEART: Sounds are irregular. ABDOMEN: Soft and nontender. Bowel sounds are normal. EXTREMITIES: Without any cyanosis or clubbing. Her lower legs are very tender to touch. NEUROLOGIC: She is at her baseline mentation. LAB STUDIES: Today's labs show WBC 11.6, hemoglobin 11.0, hematocrit 35.1, platelets 252,000. Sodium 142, potassium 3.9, CO2 35, BUN 55, creatinine 1.87. PROBLEMS: 1. Acute kidney injury superimposed on chronic kidney disease: Kidney function has started to improve as her diuretic has been stopped. I think that she was over diuresed. 2. Shortness of breath: Mostly this is related to COPD and not congestive heart failure. At present, she is still quite wheezing and has been on full spectrum treatment for her COPD exacerbation with antibiotic, steroids and nebulizers. 3. Anemia: Her anemia has improved significantly following transfusion.
[2021-05-08] MEDS: SIMVASTATIN 20 MG TAB PO SCH (20:59)
[2021-05-09] VITALS (9 sets, daily range): BP systolic 130–148; BP diastolic 56–89; O2SAT 91–97
[2021-05-09] MEDS: LEVALBUTEROL 1.25 MG/0.5 ML CONCENTRATE NEB NEB SCH ×6 (00:24→19:31)
[2021-05-09 06:02] LABS: HEMATOCRIT 35.8 % (36.0-47.0); HEMOGLOBIN 10.9 g/dl (12.0-15.5); MEAN CORPUSCULAR HEMOGLOBIN 27.2 pg (27.0-33.0); MEAN CORPUSCULAR HGB CONC 30.4 g/dl (32.0-36.5); MEAN CORPUSCULAR VOLUME 89.3 fl (80.0-96.0); PLATELET COUNT, AUTOMATED 241 10^3/uL (150-450); RED BLOOD COUNT 4.01 10^6/uL (4.00-5.40); WHITE BLOOD COUNT 10.3 10^3/uL (4.0-10.0)
[2021-05-09 06:26] LABS: CREATININE FOR GFR 1.24 MG/DL (0.55-1.30); GLOMERULAR FILTRATION RATE 44.5 (>39); MAGNESIUM LEVEL 2.3 MG/DL (1.8-2.4); POTASSIUM SERUM 3.9 MEQ/L (3.5-5.1)
[2021-05-09 06:34] LABS: LYMPHOCYTES 14 % (16-44); MONOCYTES 5 % (0-5); NEUTROPHILS 81 % (28-66); PLATELET ESTIMATE NORMAL (NORMAL)
[2021-05-09] MEDS: ACETAMINOPHEN TAB 650MG DOSE (2X325MG) PO PRN (06:39)
[2021-05-09] MEDS: LEVOTHYROXINE 25MCG TABLET (0.025MG) PO SCH (06:39)
[2021-05-09] MEDS: BUDESONIDE 0.5 MG/2 ML INHALATION SUSPENSION INH SCH ×2 (07:20→19:31)
[2021-05-09] MEDS: TIOTROPIUM INHALER/CAPSULE (SPIRIVA) INH SCH (07:20)
[2021-05-09] MEDS: PANTOPRAZOLE 40MG TAB (PROTONIX) PO SCH (08:26)
[2021-05-09] MEDS: predniSONE 20 MG TAB PO SCH (08:26)
[2021-05-09] MEDS: SUCRALFATE 1 GM TAB PO SCH ×4 (08:26→20:46)
[2021-05-09] MEDS: METOPROLOL TART 25 MG TABLET PO SCH (08:33)
[2021-05-09] MEDS ORDERED: FUROSEMIDE 40 MG TAB PO ONE (09:30)
[2021-05-09] MEDS: APIXABAN 5 MG TAB (ELIQUIS) PO SCH ×2 (10:19→20:46)
[2021-05-09] MEDS: CEFEPIME HCL 1 GM in D5W MINI-BAG PLUS 50 ML IV SCH (10:21)
--- NOTE | 2021-05-09 10:24 | IPN ---
PROGRESS NOTE DATE: 05/09/2021 SUBJECTIVE: Trinidad is still a little short of breath. She has severe COPD, steroid dependent, now has a pseudomonas pulmonary infection, is on Cefepime for this. Renal function has returned to baseline. I think she was over-diuresed and renal function has steadily improved holding her diuretic. She feels less short of breath since her blood transfusion. No fever or chills. No hemoptysis or sputum production. OBJECTIVE: VITAL SIGNS: Blood pressure 130/70, pulse 73, respiratory rate 18, 99% O2 saturated on 1 liter. GENERAL APPEARANCE: She is Cushingoid. No distress. HEENT: Unremarkable. NECK: No JVD. LUNGS: Decreased breath sounds but clear. HEART: Regular rhythm without murmur. ABDOMEN: Soft, nontender, no masses. EXTREMITIES: No peripheral edema. LABORATORY DATA: White count 10.3, hemoglobin 10.9, platelets 241,000, sodium 143, potassium 3.9, BUN 44, creatinine is down to 1.24, it peaked at 2.1. ASSESSMENT AND PLAN: 1. Exacerbation of COPD secondary to pseudomonas lung infection. Continue Cefepime, oral prednisone and nebulized bronchodilator. 2. Acute kidney injury. This is resolved, holding her diuretics. 3. Leukocytosis, probably from her steroids as well as pseudomonas infection. 4. Paroxysmal atrial fibrillation, start Eliquis. She has some mild hematuria. We are going to remove her Feliz catheter and restart Eliquis therapy. 5. Hypertension, well-controlled on current regimen. 6. Lower esophageal thickening, consider EGD after discharge. She can discuss this with her primary care physician. 7. Hyperlipidemia, continue simvastatin.
[2021-05-09] MEDS ORDERED: FERRIC CARBOXYMALTOSE INJ 750 MG, VIAL MATE ADAPTER 1 EACH in NS 250 ML IV ONE (15:00)
--- NOTE | 2021-05-09 17:05 | IPN ---
NEPHROLOGY PROGRESS NOTE DATE: 05/09/2021 SUBJECTIVE: Ms. Gonzalez is seen this morning on her bedside. She is laying in the bed almost flat. She remains on 2-3 liters of oxygen. PHYSICAL EXAMINATION: Temperature 99.2 degrees Fahrenheit, heart rate 76 per minute, respiratory rate 18 per minute, blood pressure 144/7 mmHg, oxygen saturation 96% on 2 liters of oxygen. HEAD: Atraumatic. NECK: Supple and jugular venous distention (JVD) difficult to be assessed. HEART SOUNDS: Regular. LUNGS: Bilateral expiratory wheezing, which is improved compared to yesterday. ABDOMEN: Soft and nontender. Bowel sounds are normal. EXTREMITIES: Without any cyanosis or clubbing. She does have bilateral lower extremity edema. NEUROLOGIC: She is at her baseline mentation. LABORATORY DATA: Today's labs show WBC 10.3, hemoglobin 10.9, hematocrit 35.8, platelets 241. Sodium 145, potassium 3.9, CO2 34, BUN 44, creatinine 1.24, calcium level 10.0, magnesium 2.3. PROBLEMS: 1. Acute kidney injury superimposed on chronic kidney disease. Kidney function has improved significantly since her diuretic has been held. Acute kidney injury was most probably caused by overdiuresis. 2. Shortness of breath. Mostly related to her chronic obstructive pulmonary disease (COPD) exacerbation and she is being treated with steroids, nebulizers and antibiotic. She does have a history of congestive heart failure, too; however, her kidney function worsened with diuresis, due to which her diuretic was put on hold. I am going to resume her oral diuretic. 3. Congestive heart failure. She has chronic congestive heart failure with some chronic leg edema. Patient will be started on furosemide 40 mg daily and we will monitor her electrolytes and renal function. 4. Anemia with iron deficiency. Patient has severe iron deficiency; however, her anemia is now improved following transfusion. Will give her one dose of intravenous iron while she is here in the hospital.
[2021-05-09] MEDS: SIMVASTATIN 20 MG TAB PO SCH (20:46)
[2021-05-10] MEDS: CEFEPIME HCL 1 GM in D5W MINI-BAG PLUS 50 ML IV SCH ×3 (00:22→23:49)
[2021-05-10] MEDS: LEVALBUTEROL 1.25 MG/0.5 ML CONCENTRATE NEB NEB SCH ×7 (00:51→23:43)
[2021-05-10] MEDS: LEVOTHYROXINE 25MCG TABLET (0.025MG) PO SCH (05:44)
[2021-05-10 06:00] VITALS: BP 155/73
[2021-05-10 06:55] LABS: HEMATOCRIT 38.8 % (36.0-47.0); HEMOGLOBIN 12.1 g/dl (12.0-15.5); MEAN CORPUSCULAR HEMOGLOBIN 27.8 pg (27.0-33.0); MEAN CORPUSCULAR HGB CONC 31.2 g/dl (32.0-36.5); PLATELET COUNT, AUTOMATED 235 10^3/uL (150-450); RED BLOOD COUNT 4.36 10^6/uL (4.00-5.40); WHITE BLOOD COUNT 13.1 10^3/uL (4.0-10.0)
[2021-05-10 07:23] LABS: CALCIUM LEVEL 9.7 MG/DL (8.8-10.2); CREATININE FOR GFR 1.14 MG/DL (0.55-1.30); GLOMERULAR FILTRATION RATE 49.1 (>39); MAGNESIUM LEVEL 2.1 MG/DL (1.8-2.4); POTASSIUM SERUM 3.6 MEQ/L (3.5-5.1)
[2021-05-10] MEDS: TIOTROPIUM INHALER/CAPSULE (SPIRIVA) INH SCH (07:30)
[2021-05-10] MEDS: BUDESONIDE 0.5 MG/2 ML INHALATION SUSPENSION INH SCH ×2 (07:31→20:17)
[2021-05-10 08:00] LABS: ANISOCYTOSIS 1+; ATYPICAL LYMPH 1 % (0-5); EOSINOPHILS 1 % (0-3); LYMPHOCYTES 4 % (16-44); METAMYELOCYTES 1 % (0-0); MONOCYTES 5 % (0-5); NEUTROPHILS 87 % (28-66); PLATELET ESTIMATE NORMAL (NORMAL)
[2021-05-10] MEDS ORDERED: FUROSEMIDE 40 MG TAB PO SCH (09:00)
[2021-05-10] MEDS ORDERED: FUROSEMIDE 40 MG TAB PO ONE (10:15)
[2021-05-10] MEDS: SUCRALFATE 1 GM TAB PO SCH ×4 (10:20→21:25)
[2021-05-10] MEDS: predniSONE 20 MG TAB PO SCH (10:30)
[2021-05-10] MEDS: BENZONATATE 100 MG CAP PO PRN (10:31)
[2021-05-10] MEDS: PANTOPRAZOLE 40MG TAB (PROTONIX) PO SCH (10:31)
[2021-05-10] MEDS: METOPROLOL TART 25 MG TABLET PO SCH (10:31)
[2021-05-10] MEDS: APIXABAN 5 MG TAB (ELIQUIS) PO SCH ×2 (10:32→21:25)
--- NOTE | 2021-05-10 11:11 | IPN ---
PROGRESS NOTE DATE: 05/10/2021 SUBJECTIVE: Trinidad is up on 5 Dove now. She seems a little wheezy today. She is being treated for a pseudomonas pulmonary infection with exacerbation of COPD. Overall, she says she feels better although she does sound more wheezy. Her oxygen was weaned down 1/2 liter yesterday. OBJECTIVE: VITAL SIGNS: Afebrile. Vital signs stable. O2 saturation 100% on 1/2 liter. GENERAL APPEARANCE: Cushingoid. LUNGS: Expiratory wheezes at both bases. HEART: Regular rhythm. ABDOMEN: Soft, nontender. EXTREMITIES: Trace peripheral edema. LABORATORY DATA: White count 13 when on steroids, hemoglobin 12.1, platelets 235,000. Electrolytes unremarkable. IMPRESSION: 1. Pseudomonas lung infection with exacerbation of COPD. Continue Cefepime, steroids and nebulized bronchodilator. 2. Acute kidney injury, this is resolved with holding her diuretics. 3. History of CHF (cor pulmonale), diuretics were restarted. She was given a single dose of furosemide orally today. She is on 60 mg daily starting tomorrow. Daily labs have been ordered to follow this.
[2021-05-10] MEDS ORDERED: POTASSIUM CHLORIDE 10 MEQ SR TABLET PO ONE (12:00)
--- NOTE | 2021-05-10 12:49 | IPN ---
PROGRESS NOTE DATE: 05/10/2021 SUBJECTIVE: Ms. Gonzalez is seen this morning on her bedside. She is feeling more short of breath today but denies any nausea or vomiting. She has no fever or chills. She was on half liter oxygen earlier this morning but now she is on 2 liters of oxygen. OBJECTIVE: VITAL SIGNS: Temperature 97.2 degrees Fahrenheit, heart rate is 64 per minute, respiratory rate 18 per minute. Blood pressure is 155/73 mmHg and oxygen saturation 100%. GENERAL APPEARANCE: She looks comfortable laying down in the bed. HEAD AND NECK: Her head is atraumatic. Neck veins difficult to be assessed. HEART: Heart sounds are regular. LUNGS: Bilateral expiratory wheezing and diminished breath sounds at bases. ABDOMEN: Soft and nontender. Bowel sounds are normal. EXTREMITIES: Without any cyanosis or clubbing. Lower extremity edema is 2+. NEUROLOGIC: She is awake, alert and oriented x3. LABORATORY DATA: Today's labs shows a WBC count of 13.1, hemoglobin 12.1 and hematocrit of 38.8. Sodium 143, potassium is 3.6, BUN 44 and creatinine 1.1. Calcium is 9.7 and magnesium 2.1. PROBLEMS; 1. Shortness of breath. She has significant COPD and has been doing well with nebulizer treatments, oral steroids and antibiotics. Her diuretic was held due to over-diuresis and acute kidney injury, now she is probably slightly volume overloaded. I resumed her Lasix 40 mg once a day yesterday and I am going to give her an extra dose of 40 mg today and try to get a negative fluid balance which will help with her shortness of breath. 2. Acute kidney injury superimposed on chronic kidney disease. Kidney function has improved after her diuretic was held. Will continue to monitor closely. 3. Hypokalemia, her potassium has been trending down and I am going to give her one dose of oral potassium chloride 40 mEq today. With the increased diuretic dose, she is likely to have further drop in her potassium level. 4. Hypertension, blood pressure seems reasonably well-controlled on current medications.
[2021-05-10 14:00] VITALS: BP 145/79
[2021-05-10] MEDS: SIMVASTATIN 20 MG TAB PO SCH (21:25)
[2021-05-10 22:00] VITALS: BP 138/71
[2021-05-11] MEDS: LEVALBUTEROL 1.25 MG/0.5 ML CONCENTRATE NEB NEB SCH ×6 (03:30→23:43)
[2021-05-11 06:00] VITALS: BP 142/75
[2021-05-11 06:11] LABS: HEMATOCRIT 35.8 % (36.0-47.0); HEMOGLOBIN 11.1 g/dl (12.0-15.5); MEAN CORPUSCULAR HEMOGLOBIN 28.5 pg (27.0-33.0); MEAN CORPUSCULAR VOLUME 91.8 fl (80.0-96.0); PLATELET COUNT, AUTOMATED 226 10^3/uL (150-450); WHITE BLOOD COUNT 12.7 10^3/uL (4.0-10.0)
[2021-05-11] MEDS: LEVOTHYROXINE 25MCG TABLET (0.025MG) PO SCH (06:25)
[2021-05-11] MEDS: BENZONATATE 100 MG CAP PO PRN (06:31)
[2021-05-11 06:35] LABS: CALCIUM LEVEL 9.2 MG/DL (8.8-10.2); CREATININE FOR GFR 1.09 MG/DL (0.55-1.30); GLOMERULAR FILTRATION RATE 51.7 (>39); POTASSIUM SERUM 4.2 MEQ/L (3.5-5.1)
[2021-05-11 06:48] LABS: EOSINOPHILS 1 % (0-3); LYMPHOCYTES 4 % (16-44); METAMYELOCYTES 4 % (0-0); MONOCYTES 6 % (0-5); NEUTROPHILS 84 % (28-66); PLATELET ESTIMATE NORMAL (NORMAL)
[2021-05-11] MEDS: TIOTROPIUM INHALER/CAPSULE (SPIRIVA) INH SCH (07:11)
[2021-05-11] MEDS: BUDESONIDE 0.5 MG/2 ML INHALATION SUSPENSION INH SCH ×2 (07:11→19:27)
[2021-05-11] MEDS ORDERED: FUROSEMIDE 20 MG TAB PO SCH (09:00)
--- NOTE | 2021-05-11 09:42 | IPN ---
PROGRESS NOTE DATE: 05/11/2021 SUBJECTIVE: Trinidad is a little more wheezy today. She does not feel more short of breath than usual. She was restarted on diuretics yesterday. Still waiting for diuresis from this. OBJECTIVE: VITAL SIGNS: Blood pressure 142/75, O2 saturation 98% on half a liter. GENERAL APPEARANCE: Alert, conversant, in no distress, Cushingoid. LUNGS: Decreased breath sounds, expiratory wheezes at both bases. HEART: Regular rhythm. ABDOMEN: Soft, nontender. EXTREMITIES: No peripheral edema. LABORATORY DATA: CBC unremarkable. Electrolytes unremarkable. IMPRESSION: 1. Exacerbation of COPD secondary to pseudomonas lung infection, continue Cefepime, nebulized bronchodilator and steroids. Anticipate continuing intravenous antibiotic through the weekend. 2. Acute kidney injury. Nephrology restarted diuretics yesterday, watch renal function closely on this. 3. History of cor pulmonale, diuretics have just been restarted. Watch renal function with daily lab work. 4. Would like to see consideration of her being transferred to ARU after the weekend and plan intravenous antibiotics through the weekend.
[2021-05-11] MEDS: guaiFENesin SYRUP 200 MG/10 ML UDC PO PRN (09:52)
[2021-05-11] MEDS: PANTOPRAZOLE 40MG TAB (PROTONIX) PO SCH (09:53)
[2021-05-11] MEDS: CEFEPIME HCL 1 GM in D5W MINI-BAG PLUS 50 ML IV SCH (09:53)
[2021-05-11] MEDS: APIXABAN 5 MG TAB (ELIQUIS) PO SCH ×2 (09:53→21:43)
[2021-05-11] MEDS: predniSONE 20 MG TAB PO SCH (09:54)
[2021-05-11] MEDS: METOPROLOL TART 25 MG TABLET PO SCH (09:54)
[2021-05-11] MEDS: ACETAMINOPHEN TAB 650MG DOSE (2X325MG) PO PRN (09:54)
[2021-05-11] MEDS: SUCRALFATE 1 GM TAB PO SCH ×4 (09:56→21:43)
[2021-05-11] MEDS ORDERED: FUROSEMIDE 100MG/10ML VIAL (J1940) IV ONE (11:00)
[2021-05-11 14:00] VITALS: BP 141/70
--- NOTE | 2021-05-11 16:35 | IPN ---
NEPHROLOGY PROGRESS NOTE DATE: 05/11/2021 SUBJECTIVE: Ms. Gonzalez is seen this morning on her bedside. She reports not feeling well. She continues to have shortness of breath again. Yesterday she was doing much better and through the night she was on only 0.5 liters of oxygen. However, this morning she is on 2 liters again. She has no fever or chills. She denies any nausea or vomiting. Intake and output records from yesterday are incomplete and she has not been weighed today. PHYSICAL EXAMINATION: Temperature 98.4 degrees Fahrenheit, heart rate 70 per minute, respiratory rate 20 per minute, blood pressure 142/75 mmHg, oxygen saturation 98%. HEAD: Atraumatic. NECK: Supple and jugular venous distention (JVD) difficult to be assessed. She is on oxygen nasal cannula. HEART SOUNDS: Regular. LUNGS: Bilateral expiratory wheezing. She has diminished breath sounds at dependent parts. ABDOMEN: Soft, obese and nontender. Bowel sounds are normal. EXTREMITIES: Without any cyanosis or clubbing. Lower extremity edema is 2+ bilaterally. NEUROLOGIC: She is awake, alert and at her baseline mentation. LABORATORY DATA: Today's labs show WBC 12.7, hemoglobin 11.1, hematocrit 35.8, platelets 226. Sodium 143, potassium 4.2, CO2 36, BUN 40, creatinine 1.09, calcium 9.2, magnesium 2.0. PROBLEMS: 1. Shortness of breath. She has significant chronic obstructive pulmonary disease (COPD), but probably also has some volume overload now. Yesterday, I had given her 80 mg of furosemide and she did feel better after that. I am going to give her another dose of 80 mg Lasix intravenously today. I am increasing her maintenance diuretic of Lasix to 60 mg twice a day from tomorrow. She is also being treated with oral steroids and her nebulizers for COPD. 2. Acute kidney injury superimposed on chronic kidney disease. Initially, she did develop acute renal failure when she was aggressively diuresed, then her kidney function improved after diuretics were held. Now we are gradually increasing her diuretic and kidney function seems to be stable, at least for the last 24 hours. Renal function will be checked again tomorrow. 3. Anemia. Her anemia is mild and stable since she was transfused a few days ago. 4. Hypertension. Blood pressure seems well-controlled on current medications.
[2021-05-11 21:00] VITALS: O2SAT 91
[2021-05-11] MEDS: CEFEPIME HCL 2 GM in D5W MINI-BAG PLUS 50 ML IV SCH (21:43)
[2021-05-11] MEDS: SIMVASTATIN 20 MG TAB PO SCH (21:43)
[2021-05-11 22:00] VITALS: BP 144/71
[2021-05-12] MEDS: ACETAMINOPHEN TAB 650MG DOSE (2X325MG) PO PRN ×2 (00:11→22:06)
[2021-05-12] MEDS: LEVALBUTEROL 1.25 MG/0.5 ML CONCENTRATE NEB NEB SCH ×5 (03:04→19:18)
[2021-05-12] MEDS: LEVOTHYROXINE 25MCG TABLET (0.025MG) PO SCH (05:21)
[2021-05-12] MEDS: guaiFENesin SYRUP 200 MG/10 ML UDC PO PRN ×4 (05:21→22:05)
[2021-05-12 06:00] VITALS: BP 143/66
[2021-05-12] MEDS: BUDESONIDE 0.5 MG/2 ML INHALATION SUSPENSION INH SCH ×2 (07:06→19:19)
[2021-05-12] MEDS: TIOTROPIUM INHALER/CAPSULE (SPIRIVA) INH SCH (07:06)
[2021-05-12 08:00] VITALS: BP 133/70
[2021-05-12] MEDS: APIXABAN 5 MG TAB (ELIQUIS) PO SCH ×2 (08:05→22:05)
[2021-05-12] MEDS: predniSONE 20 MG TAB PO SCH (08:05)
[2021-05-12] MEDS: SUCRALFATE 1 GM TAB PO SCH ×4 (08:05→22:05)
[2021-05-12] MEDS: METOPROLOL TART 25 MG TABLET PO SCH (08:07)
[2021-05-12] MEDS: PANTOPRAZOLE 40MG TAB (PROTONIX) PO SCH (08:07)
[2021-05-12] MEDS: FUROSEMIDE 20 MG TAB PO SCH ×2 (08:11→17:17)
--- NOTE | 2021-05-12 09:43 | IPN ---
PROGRESS NOTE DATE: 05/12/2021 SUBJECTIVE: No real change in [place]. She is a little wheezy this morning. Says she always feels short of breath until she gets her diuretic. OBJECTIVE: VITAL SIGNS: Stable. GENERAL: She is resting comfortably in no distress. LUNGS: Expiratory wheezes both bases. HEART: Regular rate and rhythm. ABDOMEN: Soft and nontender. EXTREMITIES: Trace peripheral edema. LABORATORY DATA: No labs today. ASSESSMENT/PLAN: Exacerbation of chronic obstructive pulmonary disease (COPD) from pseudomonas lung infection. Continue intravenous (IV) antibiotics through the weekend. Anticipate discharge or transfer to acute rehabilitation unit (ARU) on Friday.
[2021-05-12] MEDS: CEFEPIME HCL 2 GM in D5W MINI-BAG PLUS 50 ML IV SCH ×2 (10:23→22:05)
[2021-05-12] MEDS: BENZONATATE 100 MG CAP PO PRN (11:39)
[2021-05-12 14:00] VITALS: BP 132/80
--- NOTE | 2021-05-12 15:14 | IPN ---
NEPHROLOGY PROGRESS NOTE DATE: 05/12/2021 SUBJECTIVE: Patient was seen and examined at the bedside today morning. She is afebrile, hemodynamically stable. She is wearing a nasal cannula, reports her breathing is better. She is currently on diuretics. Her renal function is stable. Her creatinine is 1.09. OBJECTIVE: VITAL SIGNS: Temperature 98.1 degrees Fahrenheit, blood pressure 133/70, pulse 84, respiratory rate 22, saturating 97% on nasal cannula at 3 liters. INTAKE AND OUTPUT: Urine output was not recorded. She is having incontinent voids. Weight in the bed scale is 61.4 kg. PHYSICAL EXAMINATION: GENERAL: Patient is awake, alert, oriented times two, laying in bed, mild respiratory distress. HEAD AND NECK EXAM: Extraocular muscles intact. Pupils equally round and reactive to light. Mucous membranes are moist. Neck is supple. Mildly elevated jugular venous distention (JVD). CARDIOVASCULAR: S1, S2. Regular rate. 2+ edema of the bilateral lower extremities. RESPIRATORY: Mild respiratory rhonchi bilaterally at the bases. ABDOMEN: Soft. Obese. Positive bowel sounds. MUSCULOSKELETAL: No clubbing or cyanosis. CENTRAL NERVOUS SYSTEM (SEISMOGRAPHER): No focal deficits. Power is 5/5 in all extremities. LABORATORY STUDIES: CBC showed WBC 12.7, hemoglobin 11.1. This is from yesterday. BMP is from yesterday, with a creatinine of 1.09. CURRENT INPATIENT MEDICATIONS: Patient's medications were all reviewed by myself. She currently is on Lasix 60 mg by mouth twice a day which was started today morning. No other significant change in the medications today. ASSESSMENT AND PLAN: 1. Acute kidney injury superimposed on chronic disease. It has resolved now and diuretic dose has been adjusted. Creatinine is stable. Okay to continue Lasix 60 mg by mouth twice a day. 2. Acute chronic obstructive pulmonary disease (COPD) exacerbation. Patient's volume status is optimal. She continues to be on antibiotics and prednisone, along with nebulizations. 3. Acute decompensated diastolic congestive heart failure. Patient was initially aggressively diuresed. However, her current diuretic dose is optimal. Volume status is getting better. She has grade 1 diastolic dysfunction on the echocardiogram.
[2021-05-12 21:00] VITALS: O2SAT 97
[2021-05-12 22:00] VITALS: BP 130/66
[2021-05-12] MEDS: SIMVASTATIN 20 MG TAB PO SCH (22:05)
[2021-05-13] MEDS: LEVALBUTEROL 1.25 MG/0.5 ML CONCENTRATE NEB NEB SCH ×7 (00:02→23:06)
[2021-05-13] MEDS: LEVOTHYROXINE 25MCG TABLET (0.025MG) PO SCH (05:00)
[2021-05-13] MEDS: BENZONATATE 100 MG CAP PO PRN ×3 (05:09→23:35)
[2021-05-13] MEDS: guaiFENesin SYRUP 200 MG/10 ML UDC PO PRN ×3 (05:09→16:43)
[2021-05-13 06:00] VITALS: BP 124/80
[2021-05-13 06:54] LABS: HEMATOCRIT 36.6 % (36.0-47.0); HEMOGLOBIN 11.6 g/dl (12.0-15.5); MEAN CORPUSCULAR HEMOGLOBIN 28.3 pg (27.0-33.0); MEAN CORPUSCULAR HGB CONC 31.7 g/dl (32.0-36.5); MEAN CORPUSCULAR VOLUME 89.3 fl (80.0-96.0); PLATELET COUNT, AUTOMATED 227 10^3/uL (150-450)
[2021-05-13] MEDS: BUDESONIDE 0.5 MG/2 ML INHALATION SUSPENSION INH SCH ×2 (07:04→20:31)
[2021-05-13] MEDS: TIOTROPIUM INHALER/CAPSULE (SPIRIVA) INH SCH (07:04)
[2021-05-13 07:10] LABS: CALCIUM LEVEL 9.5 MG/DL (8.8-10.2); CREATININE FOR GFR 1.22 MG/DL (0.55-1.30); GLOMERULAR FILTRATION RATE 45.4 (>39); POTASSIUM SERUM 3.2 MEQ/L (3.5-5.1)
[2021-05-13] MEDS: SUCRALFATE 1 GM TAB PO SCH ×4 (07:48→21:47)
[2021-05-13] MEDS: FUROSEMIDE 20 MG TAB PO SCH (07:49)
[2021-05-13] MEDS: METOPROLOL TART 25 MG TABLET PO SCH (07:49)
[2021-05-13] MEDS: PANTOPRAZOLE 40MG TAB (PROTONIX) PO SCH (07:49)
[2021-05-13] MEDS: predniSONE 20 MG TAB PO SCH (07:49)
[2021-05-13] MEDS: APIXABAN 5 MG TAB (ELIQUIS) PO SCH ×2 (07:50→21:47)
[2021-05-13] MEDS ORDERED: ONDANSETRON 4 MG TAB PO PRN (08:45)
[2021-05-13] MEDS ORDERED: POTASSIUM CHLORIDE 10 MEQ SR TABLET PO SCH (09:00)
[2021-05-13] MEDS: CEFEPIME HCL 2 GM in D5W MINI-BAG PLUS 50 ML IV SCH ×2 (09:26→21:47)
--- NOTE | 2021-05-13 09:44 | IPN ---
PROGRESS NOTE DATE: 05/13/2021 SUBJECTIVE: Trinidad is seen in [facility], still not getting out of bed much, feels about the same as she did the last few weeks. Seems to have plateaued in her improvement, essentially approaching her baseline. OBJECTIVE: Afebrile. Vital signs stable. O2 saturation 98% on room air. She appears to be resting comfortable, eating her breakfast. She says she is dyspneic but shows no distress at all. Is cushingoid. Lungs: Decreased breath sounds, wheezes both bases. Heart regular rhythm. Abdomen soft, nontender. No peripheral edema. LABS: White count 13.0 on steroids, hemoglobin 11.6, platelets 227. Potassium down to 3.2. ASSESSMENT/PLAN: Pseudomonas lung infection with COPD exacerbation. Continue her IV antibiotic; continue her current treatment including her diuresis and her potassium. Tomorrow on care rounds will discuss subacute rehab versus ARU.
--- NOTE | 2021-05-13 15:45 | IPN ---
NEPHROLOGY PROGRESS NOTE DATE: 05/13/2021 SUBJECTIVE: Patient was seen and examined at the bedside today morning. She is afebrile, hemodynamically stable. She reports that her breathing is getting better. She remains oxygen dependent. She is currently on diuretics. There is a slight bump in creatinine from 1.09 to 1.2 today. OBJECTIVE: VITAL SIGNS: Temperature 98.3 degrees Fahrenheit, blood pressure 124/80, pulse 75, respiratory rate 22, saturating 98% on nasal cannula at 1 liter. INTAKE AND OUTPUT: Urine output is not recorded. She has had six voids yesterday and three voids today since overnight. Weight in the bed scale is 61.9 kg. PHYSICAL EXAMINATION: GENERAL: Patient is awake, alert, oriented times three, laying in bed, no apparent distress. HEAD AND NECK EXAM: Extraocular muscles intact. Pupils equally round and reactive to light. Mucous membranes are moist. Neck is supple. There is no significant jugular venous distention (JVD). CARDIOVASCULAR: S1, S2. Regular rate. 1+ edema of the ankles is noted. RESPIRATORY: Moderate expiratory rhonchi at the bases is noted and mid-lung zones. She is dependent on oxygen. ABDOMEN: Soft. Positive bowel sounds. Nontender. No organomegaly MUSCULOSKELETAL: Clubbing of the fingernails is noted. CENTRAL NERVOUS SYSTEM (COMBER SETTER): No focal deficit. Power is 5/5 in all extremities. LABORATORY STUDIES: CBC showed WBC 13, hemoglobin 11.6, platelets 227. BMP showed sodium 138, potassium 3.2, chloride 95, bicarbonate 37, BUN 46, creatinine 1.2, it was 1.09 yesterday. CURRENT INPATIENT MEDICATIONS: Patient's medications were all reviewed by myself. I have decreased the potassium chloride dose to 40 mEq by mouth once a day and furosemide dose has been decreased to 60 mg by mouth daily. ASSESSMENT AND PLAN: 1. Acute renal failure superimposed on chronic kidney disease. Patient's creatinine has gone up with current dose of diuretics. Diuretic dose has been decreased to Lasix 60 mg by mouth once a day only. 2. Hypokalemia. It is secondary to use of loop diuretic. She has been started on potassium 40 mEq daily. 3. Acute chronic obstructive pulmonary disease (COPD) exacerbation and Pseudomonas aeruginosa infection. Patient's sputum cultures are positive for pseudomonas. She is currently on intravenous (IV) cefepime. She continues to be on oxygen and nebulizations along with tapering dose of prednisone. Clinically, she is feeling better. 4. Acute on chronic diastolic congestive heart failure. Patient's volume status is getting better. Lasix dose has been decreased, as mentioned above, because of rising creatinine.
[2021-05-13 20:00] VITALS: BP 143/86
[2021-05-13] MEDS: SIMVASTATIN 20 MG TAB PO SCH (21:46)
[2021-05-14] VITALS (9 sets, daily range): BP systolic 136–141; BP diastolic 76–88; O2SAT 94–99
[2021-05-14] MEDS: guaiFENesin SYRUP 200 MG/10 ML UDC PO PRN ×4 (00:40→23:03)
[2021-05-14] MEDS: ACETAMINOPHEN TAB 650MG DOSE (2X325MG) PO PRN ×4 (02:21→23:05)
[2021-05-14] MEDS: LEVALBUTEROL 1.25 MG/0.5 ML CONCENTRATE NEB NEB SCH ×5 (03:28→19:59)
[2021-05-14] MEDS: LEVOTHYROXINE 25MCG TABLET (0.025MG) PO SCH (05:06)
[2021-05-14 06:42] LABS: HEMATOCRIT 38.3 % (36.0-47.0); HEMOGLOBIN 11.9 g/dl (12.0-15.5); MEAN CORPUSCULAR HEMOGLOBIN 28.1 pg (27.0-33.0); MEAN CORPUSCULAR HGB CONC 31.1 g/dl (32.0-36.5); MEAN CORPUSCULAR VOLUME 90.3 fl (80.0-96.0); PLATELET COUNT, AUTOMATED 239 10^3/uL (150-450); RED BLOOD COUNT 4.24 10^6/uL (4.00-5.40); WHITE BLOOD COUNT 14.2 10^3/uL (4.0-10.0)
[2021-05-14 07:03] LABS: CALCIUM LEVEL 9.3 MG/DL (8.8-10.2); CREATININE FOR GFR 1.6 MG/DL (0.55-1.30); GLOMERULAR FILTRATION RATE 33.2 (>39); POTASSIUM SERUM 3.9 MEQ/L (3.5-5.1)
[2021-05-14] MEDS ORDERED: FUROSEMIDE 20 MG TAB PO SCH (09:00)
[2021-05-14] MEDS ORDERED: POTASSIUM CHLORIDE 10 MEQ SR TABLET PO SCH (09:00)
[2021-05-14] MEDS: BUDESONIDE 0.5 MG/2 ML INHALATION SUSPENSION INH SCH ×2 (09:01→19:59)
[2021-05-14] MEDS: TIOTROPIUM INHALER/CAPSULE (SPIRIVA) INH SCH (09:03)
[2021-05-14] MEDS: SUCRALFATE 1 GM TAB PO SCH ×4 (09:18→23:03)
[2021-05-14] MEDS: predniSONE 20 MG TAB PO SCH (09:18)
[2021-05-14] MEDS: APIXABAN 5 MG TAB (ELIQUIS) PO SCH ×2 (09:19→23:04)
[2021-05-14] MEDS: METOPROLOL TART 25 MG TABLET PO SCH (09:21)
[2021-05-14] MEDS: PANTOPRAZOLE 40MG TAB (PROTONIX) PO SCH (09:22)
[2021-05-14] MEDS: CEFEPIME HCL 2 GM in D5W MINI-BAG PLUS 50 ML IV SCH (09:54)
[2021-05-14] MEDS: BENZONATATE 100 MG CAP PO PRN ×2 (09:55→23:03)
[2021-05-14] MEDS ORDERED: LEVO500T3 PO (10:11)
--- NOTE | 2021-05-14 11:47 | DSES ---
DISCHARGE SUMMARY DATE OF ADMISSION: 05/04/2021 DATE OF DISCHARGE: 05/14/2021 DIAGNOSIS: Exacerbation of chronic obstructive pulmonary disease secondary to pseudomonas pulmonary infection. SECONDARY DIAGNOSES: 1. 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 2. Paroxysmal atrial fibrillation. 3. Hypertensive heart disease. 4. Chronic kidney disease stage 3. 5. Gastroesophageal reflux disease. 6. Generalized anxiety disorder. 7. Hypothyroidism. 8. Acute kidney injury superimposed on chronic kidney disease. 9. Hypertensive heart disease. 10. Hyperlipidemia. 11. Lower esophageal wall thickening on CT scan - EGD advised as outpatient. BRIEF HISTORY: Trinidad Gonzalez was admitted with shortness of breath. Please see details in history and physical from admission. HOSPITAL COURSE: She has severe COPD which is end-stage. She grew out pseudomonas on sputum culture. She was put on Cefepime. The last day of treatment is today with IV antibiotics. Plan is for discharge home with steroids. She has not been doing much with physical therapy but apparently she does not do much at home. Her pushes her around; she does not really walk very much. She had some acute kidney injury on admission and diuretics were held and this resolved. She was followed by nephrology during her admission. They have been adjusting the dose of her diuretics; they did note her creatinine has taken a slight rise near discharge so that dose was reduced. She carries the diagnosis of [id number] diastolic congestive heart failure. I have reviewed that diagnosis skeptically; I think she almost certainly has cor pulmonale related to her severe COPD with right-sided failure that manifests itself with edema. SIGNIFICANT LABS: Sodium 138, potassium 3.9, BUN 55, creatinine 1.6, glucose 81. White count 14.2 on steroids, hemoglobin 11.9, platelets 239. Renal ultrasound showed multiple renal cysts, no obstruction. CT of the chest showed advanced emphysema, no infiltrate, unchanged pulmonary nodules left lower lobe, simple cysts right kidney. DISPOSITION: Discharged home in stable condition. Her exercise tolerance is poor and her activity is quite minimal at baseline. She will follow up with her primary care provider in one week. Oxygen 2 liters nasal cannula. Activity as tolerated. 2 gm sodium diet, 1800 mL per day fluid restriction. DISCHARGE MEDICATIONS: 1. Albuterol inhaler as needed. 2. Amlodipine 5 mg daily. 3. Eliquis 5 mg twice daily. 4. Budesonide 0.25 mg nebulized twice daily. 5. Symbicort 160/4.5 inhaler, two puffs twice daily. 6. Furosemide 40 mg daily. 7. DuoNeb every 6 hours PRN. 8. Levothyroxine 25 mcg daily. 9. Lisinopril 10 mg daily. 10. Metoprolol Tartrate 25 mg daily. 11. Omeprazole 40 mg daily. 12. Simvastatin 20 mg daily. 13. Carafate gm before meals and at bedtime. 14. Spiriva two inhalations daily. 15. Prednisone dose 40 mg daily for 5 days, 20 mg daily for 5 days and then per her primary care provider. ANTIBIOTIC ON DISCHARGE: Levaquin 500 mg daily for 7 more days. OVERALL PROGNOSIS: Poor due to the severity of her COPD.
--- NOTE | 2021-05-14 12:08 | IPN ---
NEPHROLOGY PROGRESS NOTE DATE: 05/14/2021 SUBJECTIVE: The patient was seen and examined at the bedside today morning. She is afebrile, hemodynamically stable, laying in the bed. She is still requiring oxygen via nasal cannula. She is on diuretic and her renal function has deteriorated today as compared with yesterday. Creatinine has bumped up to 1.6. OBJECTIVE: VITAL SIGNS: Temperature is 98 degrees Fahrenheit, blood pressure is 136/88, pulse is 102, respiratory rate of 20, saturating 94% on nasal cannula at 2 liters. INTAKE AND OUTPUT: Urine output is not recorded. She has incontinent voids. Weight in the bed scale was 64.9 kg yesterday. PHYSICAL EXAMINATION: GENERAL APPEARANCE: The patient is awake, alert, oriented x3, in mild respiratory distress, laying in bed. HEAD AND NECK: Extraocular muscles intact. Pupils are equally round and reactive to light. Mucous membranes are moist. Neck is supple. CARDIOVASCULAR: S1, S2, regular rate. EXTREMITIES: 1+ edema of the bilateral lower extremities. RESPIRATORY: Decreased breath sounds at the bases and mild expiratory rhonchi bilaterally from the bases up to the mid lung zones. ABDOMEN: Soft, positive bowel sounds, nontender, no organomegaly. MUSCULOSKELETAL: She has clubbing of the fingernails and edema of the bilateral lower extremities. BABY FORMULA WORKER: No focal deficits. Power is 5/5 in all extremities. LAB REVIEW: CBC showed a WBC count of 14.2, hemoglobin 11.9, platelet count 239. BMP showed sodium of 138, potassium 3.9, chloride 95, bicarbonate is 35, BUN 55, creatinine is 1.6; it was 1.2 yesterday. CURRENT INPATIENT MEDICATIONS: The patient's medications were all reviewed by myself. Because of the rising creatinine, I have stopped her oral potassium and oral Furosemide. No other significant change in the medications today. IV Cefepime has been stopped now. She has been started on Levaquin. ASSESSMENT AND PLAN: 1. Acute renal failure superimposed on chronic kidney disease - The patient was getting diuretics. Even though the dose was decreased, creatinine is still rising. I have stopped the diuretic now. Continue to monitor the renal function off of diuretics. 2. Acute COPD exacerbation clinically she is stable. She is status post IV antibiotic for pseudomonas aeruginosa infection. She is currently on Levaquin. The rest of the management is as per the Medical Team. 3. [id number] diastolic congestive heart failure - The patient looks clinically slightly volume depleted. Creatinine is rising. Diuretics have been stopped as mentioned above. 4. Hypokalemia it has resolved with oral potassium. Potassium is being stopped now since loop diuretics have been held.
[2021-05-14] MEDS: SIMVASTATIN 20 MG TAB PO SCH (23:04)
[2021-05-15] VITALS: O2SAT 98
[2021-05-15 01:00] VITALS: O2SAT 97
[2021-05-15 02:00] VITALS: O2SAT 97
[2021-05-15 03:00] VITALS: O2SAT 93
[2021-05-15] MEDS: LEVALBUTEROL 1.25 MG/0.5 ML CONCENTRATE NEB NEB SCH ×3 (04:00→07:11)
[2021-05-15 06:48] VITALS: BP 145/70
[2021-05-15 06:53] LABS: HEMATOCRIT 37.1 % (36.0-47.0); HEMOGLOBIN 11.7 g/dl (12.0-15.5); MEAN CORPUSCULAR HEMOGLOBIN 28.6 pg (27.0-33.0); MEAN CORPUSCULAR HGB CONC 31.5 g/dl (32.0-36.5); MEAN CORPUSCULAR VOLUME 90.7 fl (80.0-96.0); PLATELET COUNT, AUTOMATED 253 10^3/uL (150-450); RED BLOOD COUNT 4.09 10^6/uL (4.00-5.40); WHITE BLOOD COUNT 16.2 10^3/uL (4.0-10.0)
[2021-05-15] MEDS: BENZONATATE 100 MG CAP PO PRN (06:54)
[2021-05-15] MEDS: SUCRALFATE 1 GM TAB PO SCH (06:55)
[2021-05-15] MEDS: LEVOTHYROXINE 25MCG TABLET (0.025MG) PO SCH (06:55)
[2021-05-15] MEDS: guaiFENesin SYRUP 200 MG/10 ML UDC PO PRN (06:55)
[2021-05-15] MEDS: PANTOPRAZOLE 40MG TAB (PROTONIX) PO SCH (07:00)
[2021-05-15 07:01] VITALS: BP 145/70
[2021-05-15] MEDS: METOPROLOL TART 25 MG TABLET PO SCH (07:01)
[2021-05-15] MEDS: predniSONE 20 MG TAB PO SCH (07:01)
[2021-05-15] MEDS: APIXABAN 5 MG TAB (ELIQUIS) PO SCH (07:01)
[2021-05-15] MEDS: BUDESONIDE 0.5 MG/2 ML INHALATION SUSPENSION INH SCH (07:11)
[2021-05-15] MEDS: TIOTROPIUM INHALER/CAPSULE (SPIRIVA) INH SCH (07:21)
[2021-05-15 07:24] LABS: CALCIUM LEVEL 9.4 MG/DL (8.8-10.2); CREATININE FOR GFR 1.54 MG/DL (0.55-1.30); GLOMERULAR FILTRATION RATE 34.7 (>39); POTASSIUM SERUM 3.8 MEQ/L (3.5-5.1)
[2021-05-15] MEDS ORDERED: LevoFLOXacin 500 MG TABLET PO ONE (08:00)
[2021-05-16] MEDS ORDERED: LevoFLOXacin 250 MG TABLET PO SCH (06:00)
== END 2021-05-15 08:03 | disposition other institution (70) | DRG 177 ==
LOC: M ED 12:35 → M ED INP 15:53 → ENRESERV 16:27 → M ICU 17:47 → M MSPAV 05-05 20:37 → M PCU 05-06 11:48 → M MS5PR 05-09 14:55
PROVIDERS: ADMIT Internal Medicine; ATTEND Family Medicine
PROC: 30233N1 Transfusion of Nonautologous Red Blood Cells into Peripheral Vein, Percutaneous Approach (ICD-10-PCS; principal; 2021-05-07)
DX: J15.1 Pneumonia due to Pseudomonas (principal); J96.22 Acute and chronic respiratory failure with hypercapnia; G93.41 Metabolic encephalopathy; I50.33 Acute on chronic diastolic (congestive) heart failure; J44.1 Chronic obstructive pulmonary disease with (acute) exacerbation; I13.0 Hypertensive heart and chronic kidney disease with heart failure and stage 1 through stage 4 chronic kidney disease, or unspecified chronic kidney disease; N17.9 Acute kidney failure, unspecified; J96.11 Chronic respiratory failure with hypoxia; N18.30 Chronic kidney disease, stage 3 unspecified; I48.0 Paroxysmal atrial fibrillation; K21.9 Gastro-esophageal reflux disease without esophagitis; E78.5 Hyperlipidemia, unspecified; F41.1 Generalized anxiety disorder; E03.9 Hypothyroidism, unspecified; I27.81 Cor pulmonale (chronic); Z79.52 Long term (current) use of systemic steroids; Z79.899 Other long term (current) drug therapy; Z79.01 Long term (current) use of anticoagulants; Z99.81 Dependence on supplemental oxygen; Z87.891 Personal history of nicotine dependence; K44.9 Diaphragmatic hernia without obstruction or gangrene; D72.829 Elevated white blood cell count, unspecified; R00.0 Tachycardia, unspecified; E66.9 Obesity, unspecified; Z68.31 Body mass index [BMI] 31.0-31.9, adult; R31.9 Hematuria, unspecified; E87.6 Hypokalemia

== ENCOUNTER 2021-05-16 17:44 | Inpatient (IN) | payer MEDICARE, BC, OTHER ==
[~2021-05-16] VITALS: Ht 154.9 cm; Wt 72.9 kg
[~2021-05-16 17:44] MED LIST changes: +LEVO500T3 PO; +OMEP-221 PO; +SUCR1TAB56 PO
[2021-05-16] MEDS: IPRATROPIUM 0.5MG/ALBUTEROL 2.5MG INH SOL UD 3ML (DUONEB) NEB SCH ×3 (20:16→20:36)
[2021-05-16 20:24] LABS: HEMATOCRIT 37.6 % (36.0-47.0); HEMOGLOBIN 11.4 g/dl (12.0-15.5); MEAN CORPUSCULAR HEMOGLOBIN 28.1 pg (27.0-33.0); MEAN CORPUSCULAR HGB CONC 30.3 g/dl (32.0-36.5); MEAN CORPUSCULAR VOLUME 92.8 fl (80.0-96.0); PLATELET COUNT, AUTOMATED 252 10^3/uL (150-450); RED BLOOD COUNT 4.05 10^6/uL (4.00-5.40)
[2021-05-16 20:49] LABS: LYMPHOCYTES 1 % (16-44); METAMYELOCYTES 1 % (0-0); MONOCYTES 3 % (0-5); NEUTROPHILS 89 % (28-66); PLATELET ESTIMATE NORMAL (NORMAL)
[2021-05-16] MEDS ORDERED: CEFEPIME HCL 1 GM in D5W MINI-BAG PLUS 50 ML IV ONE (20:55)
[2021-05-16 21:00] LABS: ALBUMIN 2.3 GM/DL (3.2-5.2); ALT/SGPT 23 U/L (12-78); BILIRUBIN,DIRECT < 0.1 MG/DL (0.0-0.2); BILIRUBIN,TOTAL 0.3 MG/DL (0.2-1.0); BILIRUBIN,TOTAL 0.4 MG/DL (0.2-1.0); BLOOD UREA NITROGEN 72 MG/DL (7-18); CALCIUM LEVEL 8.8 MG/DL (8.8-10.2); CARBON DIOXIDE LEVEL 34 MEQ/L (21-32); CHLORIDE LEVEL 97 MEQ/L (98-107); CK-MB VALUE MASS 3.1 NG/ML (<3.6); CPK CREATINE PHOSPHOKINASE 46 U/L (26-192); CREATININE FOR GFR 2.49 MG/DL (0.55-1.30); GLOMERULAR FILTRATION RATE 19.9 (>39); GLUCOSE, FASTING 104 MG/DL (70-100); LIPASE 205 U/L (73-393); MB/CK RELATIVE INDEX 6.74 (< OR =4); NT-PRO BNP 974 PG/ML (<450); POTASSIUM SERUM 4.2 MEQ/L (3.5-5.1); SODIUM LEVEL 136 MEQ/L (136-145); TOTAL PROTEIN 5.1 GM/DL (6.4-8.2); TROPONIN I 0.18 NG/ML (< 0.10)
[2021-05-16] MEDS ORDERED: APIXABAN 5 MG TAB (ELIQUIS) PO SCH (21:00)
[2021-05-16] MEDS ORDERED: SIMVASTATIN 20 MG TAB PO SCH (21:00)
[2021-05-16] MEDS ORDERED: NS 1,000 ML IV ONE (21:15)
--- NOTE | 2021-05-16 21:35 | REPVR ---
PROCEDURE INFORMATION: Exam: XR Chest Exam date and time: 05/16/2021 7:29 PM Age: 80 years old Clinical indication: Other: Dyspnea; Additional info: Dyspnea/cough TECHNIQUE: Imaging protocol: XR of the chest. Views: 1 view. COMPARISON: 1. [facility] PORTABLE CHEST X-RAY 2021-05-06 08:[address] Chest without contrast 2021-05-04 17:27 3. [place] PORTABLE CHEST X-RAY 2021-05-04 13:25 4. [place] PORTABLE CHEST X-RAY 2021-04-30 15:58 FINDINGS: Lungs: Unremarkable. No consolidation. Pleural spaces: Unremarkable. No pleural effusion. No pneumothorax. Heart/Mediastinum: Unremarkable. No cardiomegaly. Bones/joints: Unremarkable. IMPRESSION: No acute findings. Electronically signed by: Oniel Merino On 05/16/2021 21:34:41 PM
[2021-05-16 22:58] LABS: CK-MB VALUE MASS 3.9 NG/ML (<3.6); MB/CK RELATIVE INDEX 9.51 (< OR =4); TROPONIN I 0.18 NG/ML (< 0.10)
[2021-05-17] VITALS (14 sets, daily range): BP systolic 71–174; BP diastolic 43–108
[2021-05-17] MEDS ORDERED: FUROSEMIDE 100MG/10ML VIAL (J1940) IV ONE (00:25)
[2021-05-17] MEDS ORDERED: ALBUTEROL SULFATE 2.5 MG/0.5 ML INH NEB SOLN NEB PRN (00:25)
[2021-05-17] MEDS ORDERED: ACETAMINOPHEN TAB 650MG DOSE (2X325MG) PO PRN (00:25)
--- NOTE | 2021-05-17 01:03 | HPEPDOC ---
General Date of Admission 05/16/21 Date of Service: May 17, 2021 Chief Complaint The patient is a 80-year-old female admitted with a reason for visit of Shortness Of Breath. Source: Patient Exam Limitations: Clinical conditions History of Present Illness Patient is 80 years old female with past medical history of of chronic hypoxic respiratory failure 2/2 continuous O2-dep (2L)stage Gold 4 COPD, htn, pAfib on eliquis, hypothyroidism, CKD 3, DLD, GERD, and former smoker (quit 15 years ago), who presented to the ER with increased shortness of breath. Of note patient was discharged from [facility] on 05/14/2021, during the h ospital stay patient was diagnosed with acute hypoxemic respiratory failure, COPD exacerbation, she completed a course of cefepime due to positive sputum culture for Pseudomonas aeruginosa. According to family member patient has been having increased shortness of breath since yesterday. In ER patient was found to have tachypnea, she was placed on the BiPAP. ABG showed pH 7.2 with CO2 77.5. Patient developed a leukocytosis of 25, creatinine 2.4, troponin 0.18, BNP 974. X-ray showed no any acute infiltrates. Home Medications Scheduled Amlodipine Besylate (Amlodipine Besylate) 5 Mg Tab, 5 MG PO DAILY, (Reported) Apixaban (Eliquis) 5 Mg Tablet, 5 MG PO BID, (Reported) Budesonide (Budesonide) 0.25 Mg/2 Ml Ampul.neb, 0.25 MG INH BID, (Reported) Budesonide/Formoterol (Symbicort 160-4.5 Mcg Inhaler) 6 Gm Hfa.aer.ad, 2 PUFF INH BID, (Reported) Furosemide (Furosemide) 20 Mg Tab, 40 MG PO DAILY, (Reported) Levofloxacin (Levofloxacin) 500 Mg Tablet, 1 TAB PO DAILY Levothyroxine Sodium (Synthroid) 25 Mcg Tab, 25 MCG PO DAILY, (Reported) Lisinopril (Lisinopril) 10 Mg Tab, 10 MG PO BID, (Reported) Metoprolol Tartrate (Metoprolol Tartrate) 25 Mg Tab, 25 MG PO DAILY, (Reported) Omeprazole (Omeprazole) 40 Mg Capsule.dr, 40 MG PO DAILY, (Reported) Simvastatin (Zocor) 20 Mg Tab, 20 MG PO QHS, (Reported) Sucralfate (Sucralfate) 1 Gm Tablet, 1 GM PO ACHS, (Reported) Tiotropium [place] (Spiriva Respimat) 2.5 Mcg/Act Spr, 2 INHALATION INH DAILY, (Reported) Scheduled PRN Albuterol Sulfate (Proair Hfa) 8.5 Gm Hfa.aer.ad, 2 PUFF INH Q4-6H PRN for SHORTNESS OF BREATH, (Reported) Ipratropium/Albuterol Sulfate (Iprat-Albut 0.5-3(2.5) mg/3 ml) 3 Ml Ampul.neb, 1 VIAL NEB Q6H PRN for SOB/WHEEZING, (Reported) Allergies Coded Allergies: No Known Allergies (Unverified , 03/08/19) Past Medical History Medical History -Chronic hypoxic respiratory failure secondary to end-stage Gold stage IV COPD, on continuous 2 L nasal cannula O2 at home -Paroxysmal atrial fibrillation (new onset in February 2019 during hospitalization), on Eliquis -Hypertension -Chronic kidney disease stage III -GERD -Generalized anxiety disorder -Hypothyroidism -Former smoker -Hiatal hernia (DX on March 2012 EGD, Dr. Shah) -Small tubular adenoma, removed in March 2012 colonoscopy -Allergic rhinitis -Dyslipidemia -Grade 1 diastolic dysfunction via transthoracic echocardiogram in February 2019 during hospitalization Surgical History Tubal ligation Family History Father: at age 32; hypertension Mother: ; hypertension Siblings: She has 4 brothers; one brother sadly within the past few months and had a history of coronary artery disease and was recently status post ND and PCI. Children: No significant illnesses and 3 grown children Social History * Smoker: former Smoker Alcohol: Denies Drugs: denies A-FIB/CHADSVASC A-FIB History Current/History of A-Fib/PAF?: Yes Current PO Anticoag Therapy: Yes Review of Systems Constitutional: Reports: Weakness; Denies: Chills, Fever Eyes: Denies: Pain ENT: Denies: Head Aches Skin: Denies: Rash, Lesions Pulmonary: Reports: Dyspnea Cardiovascular: Denies: Chest Pain, Palpitations Gastrointestinal: Denies: Nausea Genitourinary: Denies: Dysuria Hematologic: Denies: Bruising Endocrine: Denies: Polydipsia Musculoskeletal: Denies: Neck Pain Neurological: Denies: Weakness Psych: Reports: Mood Normal Physical Examination General Exam: Positive: Alert, Moderate Distress Eye Exam: Positive: PERRLA ENT Exam: Positive: Atraumatic Neck Exam: Positive: Supple, JVD Chest Exam: Positive: Wheezing Heart Exam: Positive: Irregular Rhythm Telemetry: Positive: Atrial fibrillation Abdomen Exam: Positive: Normal bowel sounds Extremity Exam: Positive: Clubbing; Negative: Cyanosis Skin Exam: Positive: Nl turgor and temperature Neuro Exam: Positive: Cranial Nerves 3-12 NL Psych Exam: Positive: Mental status NL Vital Signs Vital Signs Date Time Temp Pulse Resp B/P (MAP) Pulse Ox O2 Delivery O2 Flow Rate FiO2 05/16/21 23:16 82 19 108/65 (79) 98 NIPPV (BIPAP/CPAP) 05/16/21 21:03 98.0 05/16/21 17:55 2.0 Laboratory Data Labs 24H Laboratory Tests 2 05/16/21 20:14: Immature Granulocyte % (Auto) , Neutrophils (%) (Auto) , Nucleated Red Blood Cells % (auto) 0.0, Neutrophils 89H, Band Neutrophils 6, Lymphocytes (Manual) 1L, Monocytes (Manual) 3, Metamyelocytes 1H, Red Blood Cell Morphology NORMAL, Platelet Estimate NORMAL, Anion Gap 5L, Glomerular Filtration Rate 19.9L, Lactic Acid Level 0.8, Calcium Level 8.8, Total Bilirubin 0.4, Direct Bilirubin < 0.1, Aspartate Amino Transf (AST/SGOT) 25, Alanine Aminotransferase (ALT/SGPT) 23, Alkaline Phosphatase 43L, Total Creatine Kinase 46, Creatine Kinase MB 3.1, Creatine Kinase MB Relative Index 6.74H, Troponin I 0.18H, MM-Lkc-P-Type Natr iuretic Peptide 974H, Total Protein 5.0L, Albumin 2.3L, Albumin/Globulin Ratio 0.9L, Lipase 205 05/16/21 20:28: POC pH (Misc Panel) 7.250L, POC Base Excess (Misc Panel) 7.0H, POC Saturated Percent O2 (Misc) 95, POC pO2 (Misc Panel) 95.0, POC pCO2 (Misc Panel) 77.5*H, POC HCO3 (Misc Panel) 34.0H, POC Total CO2 (Misc Panel) 36.0H 05/16/21 22:12: Total Creatine Kinase 41, Creatine Kinase MB 3.9H, Creatine Kinase MB Relative Index 9.51H, Troponin I 0.18H 05/16/21 22:22: POC pH (Misc Panel) 7.231*L, POC Base Excess (Misc Panel) 1.0, POC Saturated Percent O2 (Misc) 91L, POC pO2 (Misc Panel) 76.0L, POC pCO2 (Misc Panel) 68.7*H, POC HCO3 (Misc Panel) 28.9H, POC Total CO2 (Misc Panel) 31.0H 05/16/21 23:26: POC pH (Misc Panel) 7.280L, POC Base Excess (Misc Panel) 2.0, POC Saturated Percent O2 (Misc) 91L, POC pO2 (Misc Panel) 72.0L, POC pCO2 (Misc Panel) 61.8*H, POC HCO3 (Misc Panel) 29.0H, POC Total CO2 (Misc Panel) 31.0H CBC/BMP Laboratory Tests 05/16/21 20:14 Microbiology Microbiology 05/16/21 Blood Culture, Received Pending 05/16/21 Blood Culture, Received Pending 05/16/21 Respiratory Virus Panel (PCR) ([facility]) - Final, Complete Assessment/Plan Patient is 80 years old female with past medical history of of chronic hypoxic respiratory failure 2/2 continuous O2-dep (2L)stage Gold 4 COPD, htn, pAfib on eliquis, hypothyroidism, CKD 3, DLD, GERD, and former smoker (quit 15 years ago), who presented to the ER with increased shortness of breath. Of note patient was discharged from [facility] on 05/14/2021, during the hospital stay patient was diagnosed with acute hypoxemic respiratory failure, COPD exacerbation, she completed a course of cefepime due to positive sputum culture for Pseudomonas aeruginosa. According to family member patient has been having increased shortness of breath since yesterday. In ER patient was found to have tachypnea, she was placed on the BiPAP. ABG showed pH 7.2 with CO2 77.5. Patient developed a leukocytosis of 25, creatinine 2.4, troponin 0.18, BNP 974. X-ray showed no any acute infiltrates. Problems (1) Acute respiratory failure with hypercapnia Status: Acute Problem Text: Patient developed acute respiratory acidosis Most likely secondary to COPD exacerbation Continue BiPAP, we will continue to monitor blood gas Continue inhalers, IV steroids Due to leukocytosis and previous positive sputum culture for Pseudomonas aeruginosa I will give Zosyn IV. Will check procalcitonin Incentive spirometry (2) Atrial fibrillation Status: Chronic Problem Text: Heart rate under control Continue oral targeted anticoagulation (3) Acute kidney injury Status: Acute Problem Text: Most likely secondary to intravascular depletion Continue to monitor Lisinopril on hold (4) Acute diastolic CHF (congestive heart failure) Status: Acute Problem Text: Superimposed with cor pulmonale BNP elevated to 974 Plus JVD, orthopnea Lasix IV Is Os (5) Hyperlipidemia Status: Chronic Problem Text: Continue statin (6) Hypertension Status: Chronic Problem Text: Blood pressure under control Continue home cardioprotective medications (7) Elevated troponin Status: Acute Problem Text: Most likely secondary to demand ischemia Continue to monitor EKG does not show acute ischemic changes, no chest pain (8) Hypothyroidism Status: Chronic Problem Text: Continue levothyroxine Plan / VTE VTE Prophylaxis Ordered?: Yes FOX KASPER DO May 17, 2021 01:03
[2021-05-17] MEDS ORDERED: AMLO2.5T3 PO (01:12)
[2021-05-17] MEDS ORDERED: FURO40TA2 PO (01:12)
[2021-05-17] MEDS ORDERED: IPRA0.00 INH (01:13)
[2021-05-17] MEDS ORDERED: LEVO500T3 PO (01:13)
[2021-05-17] MEDS ORDERED: BUDE0.5S6 INH (01:13)
[2021-05-17] MEDS ORDERED: ACET-907 PO (01:13)
[2021-05-17] MEDS: methylPREDNISolone 125MG 2ML VIAL IV SCH ×2 (02:47→09:30)
[2021-05-17] MEDS ORDERED: PIPERACILLIN/TAZOBACTAM SOD 2.25 GM in D5W MINI-BAG PLUS 50 ML IV SCH (03:00)
[2021-05-17] MEDS: IPRATROPIUM 0.5MG/ALBUTEROL 2.5MG INH SOL UD 3ML (DUONEB) NEB SCH ×4 (03:09→20:00)
[2021-05-17 05:28] LABS: ABG BASE EXCESS -1.2 (-2.0-2.0); ABG HCO3 23.9 MEQ/L (22.0-26.0); ABG PARTIAL PRESSURE CO2 41.4 mmHg (35.0-45.0); ABG PARTIAL PRESSURE O2 129.3 mmHg (75.0-100.0); ABG STANDARD HCO3 23.5 MEQ/L (22.0-26.0); ABG TOTAL CO2 25.2 MEQ/L (23.0-31.0); ABG pH (ARTERIAL) 7.379 UNITS (7.350-7.450)
[2021-05-17] MEDS ORDERED: LEVOTHYROXINE 25MCG TABLET (0.025MG) PO SCH (06:00)
[2021-05-17] MEDS: NYSTATIN 500,000 U/5 ML SUSP UDC SS SCH ×3 (06:06→18:00)
[2021-05-17] MEDS ORDERED: SUCRALFATE 1 GM TAB PO SCH (07:30)
[2021-05-17] MEDS: ADVAIR HFA 230/21MCG INHALER INH SCH ×2 (07:46→20:00)
[2021-05-17] MEDS: PANTOPRAZOLE 40MG VIAL (C9113 PER 1) IV SCH (09:00)
[2021-05-17] MEDS ORDERED: OMEPRAZOLE 20 MG CAP PO SCH (09:00)
[2021-05-17] MEDS ORDERED: FUROSEMIDE 40MG/4ML VIAL (J1940) IV SCH (09:00)
[2021-05-17] MEDS ORDERED: METOPROLOL TART 25 MG TABLET PO SCH (09:00)
[2021-05-17] MEDS ORDERED: ENOXAPARIN 30MG/0.3ML SYRINGE (J1650 PER 10MG) SC SCH (09:00)
[2021-05-17] MEDS ORDERED: NS 1,000 ML IV ONE (09:25)
[2021-05-17] MEDS ORDERED: ONDANSETRON 4MG/2ML VIAL IV PRN (10:30)
--- NOTE | 2021-05-17 10:34 | IPNPDOC ---
Text Note Date of Service The patient was seen on 05/17/21. NOTE Subjective: -ABG improved and now off BiPAP and on 2L NC and saturating well though she complaints that she feels like she cannot breathe -She is hypotensive to SBP 70s, after getting 1L in ED then 60 of IV lasix while potentially septic. Will give 1L bolus now and start on 100cc/hr NS General: Alert, uncomfortable but not labored on 2l NC Eye: EOMI, anicteric ENT: Atraumatic, on 2L NC, MMM Neck: no JVD Chest: Wheezing, mild tachypnea, no willow crackles Heart: Irregularly irregular, mild tachycardia, no noted murmurs Telemetry: Atrial fibrillation Abdomen: Normal bowel sounds, soft, NTND Extremities: Clubbing, otherwise WWP, no LE edema Neuro: Cranial Nerves 3-12 NL, grossly nonfocal Psych: Mental status NL, AOx3 Laboratory Data WBC at admission 25, with 6% bands. Pending AM labs Microbiology 05/16/21 Blood Culture, Received Pending 05/16/21 Blood Culture, Received Pending 05/16/21 Respiratory Virus Panel (PCR) ([facility]) - Final, Complete Assessment/Plan 80 years old W with chronic hypoxic respiratory failure on 2L at baseline, stage Gold 4 COPD, htn, pAfib on eliquis, hypothyroidism, CKD 3, DLD, GERD, and former smoker (quit 15 years ago), who presented to the ER with increased shortness of breath and admitted with appears to be sepsis likely 2/2 PNA with COPD exacerbation and acute on chronic hypercarbic hypoxemic respiratory failure. Problems Acute on chronic hypercarbic hypoxemic respiratory failure -Recently improved and transitioned to nasal canula but briefly back on BiPAP due to respiratory distress this AM. 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 Will discuss with her shortly. -Continue inhalers, IV steroids for now until GOC are clear -Due to leukocytosis and previous positive sputum culture for Pseudomonas aeruginosa I will give Zosyn IV. -follow up procalcitonin -Incentive spirometry Probable sepsis: leukocytosis, acute on chronic hypercarbic hypoxemic respiratory failure, hypotension likely 2/2 PNA -check dry CT chest since CXR did not show much -continue IV pip/tazo -follow up procal -f/u BCx -f/u SCx -discussing GOC -hold BP meds, goal MAP>65 Chronic Atrial fibrillation -Continue oral anticoagulation -holding metop this AM with hypotension Acute kidney injury -Most likely secondary to intravascular depletion -Continue to monitor -Lisinopril on hold Diastolic CHF (congestive heart failure) -Hold diuretics while potentially septic Hyperlipidemia -Continue statin History of Hypertension -hold antihypertensives while hypotensive. Elevated troponin -Most likely secondary to demand ischemia -Continue to monitor, trending troponins -EKG does not show acute ischemic changes, no chest pain Hypothyroidism -Continue levothyroxine DVT ppx: on NoAC Dispo: ICU, with ongoing GOC VS,Fishbone, I+O VS, Fishbone, I+O Laboratory Tests 05/16/21 20:14 Vital Signs Date Time Temp Pulse Resp B/P (MAP) Pulse Ox O2 Delivery O2 Flow Rate FiO2 05/17/21 06:33 NIPPV (BIPAP/CPAP) 30 05/17/21 06:06 90 91/50 (64) 98 2.0 05/17/21 04:00 97.6 20 I&O- Last 24 Hours up to 6 AM 05/17/21 05:59 Intake Total 1120 ml Output Total 100 ml Balance 1020 ml XAVIER LOMBARDO MD May 17, 2021 09:35
[2021-05-17] MEDS: MORPHINE 2 MG/ML 1ML VIAL (J2270) IV PRN ×4 (12:40→21:05)
--- NOTE | 2021-05-17 17:57 | ECGEPIP ---
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
[2021-05-18] MEDS: SCOPOLAMINE 1MG TRANSDERMAL PATCH TOP SCH ×2 (00:17)
[2021-05-18] MEDS: NYSTATIN 500,000 U/5 ML SUSP UDC SS SCH ×4 (06:00→18:00)
[2021-05-18] MEDS: MORPHINE 2 MG/ML 1ML VIAL (J2270) IV PRN ×4 (06:07→20:38)
[2021-05-18] MEDS ORDERED: LORazepam 2 MG/ML VIAL As Ordered ONE (06:55)
[2021-05-18] MEDS: LORazepam 2 MG/ML VIAL IV PRN (06:59)
[2021-05-18] MEDS: IPRATROPIUM 0.5MG/ALBUTEROL 2.5MG INH SOL UD 3ML (DUONEB) NEB SCH ×3 (07:41→20:00)
[2021-05-18] MEDS: ADVAIR HFA 230/21MCG INHALER INH SCH ×2 (07:43→20:00)
[2021-05-18] MEDS: PANTOPRAZOLE 40MG VIAL (C9113 PER 1) IV SCH (09:11)
[2021-05-19] MEDS: IPRATROPIUM 0.5MG/ALBUTEROL 2.5MG INH SOL UD 3ML (DUONEB) NEB SCH ×4 (02:00→20:00)
[2021-05-19] MEDS: MORPHINE 2 MG/ML 1ML VIAL (J2270) IV PRN ×8 (02:53→22:41)
[2021-05-19] MEDS: LORazepam 2 MG/ML VIAL IV PRN ×3 (02:53→22:41)
[2021-05-19] MEDS: NYSTATIN 500,000 U/5 ML SUSP UDC SS SCH ×5 (05:35→23:55)
[2021-05-19] MEDS: ADVAIR HFA 230/21MCG INHALER INH SCH ×2 (07:51→20:00)
[2021-05-19] MEDS: PANTOPRAZOLE 40MG VIAL (C9113 PER 1) IV SCH (08:06)
[2021-05-19] MEDS ORDERED: LORazepam 2 MG/ML VIAL As Ordered ONE (18:17)
[2021-05-20] MEDS: IPRATROPIUM 0.5MG/ALBUTEROL 2.5MG INH SOL UD 3ML (DUONEB) NEB SCH ×2 (02:00→07:34)
[2021-05-20] MEDS: LORazepam 2 MG/ML VIAL IV PRN ×3 (03:35→08:40)
[2021-05-20] MEDS: MORPHINE 2 MG/ML 1ML VIAL (J2270) IV PRN ×3 (03:35→08:40)
[2021-05-20] MEDS: NYSTATIN 500,000 U/5 ML SUSP UDC SS SCH (05:45)
[2021-05-20] MEDS: ADVAIR HFA 230/21MCG INHALER INH SCH (07:34)
[2021-05-20] MEDS ORDERED: SCOPOLAMINE 1MG TRANSDERMAL PATCH TOP SCH (09:00)
[2021-05-20] MEDS: PANTOPRAZOLE 40MG VIAL (C9113 PER 1) IV SCH (09:00)
== END 2021-05-20 09:53 | disposition expired | DRG 871 ==
LOC: EDBD 17:44 → M ED 17:44 → M ICU 17:45 → M ED INP 17:45 → UNDOADMOB 17:45 → M ICU 05-17 00:28 → M MSPAV 05-18 16:56 → UNDODISOB 05-20 09:53
PROVIDERS: ADMIT Internal Medicine; ATTEND Internal Medicine
DX: A41.9 Sepsis, unspecified organism (principal); I50.31 Acute diastolic (congestive) heart failure; J96.21 Acute and chronic respiratory failure with hypoxia; J96.22 Acute and chronic respiratory failure with hypercapnia; J18.9 Pneumonia, unspecified organism; J44.1 Chronic obstructive pulmonary disease with (acute) exacerbation; I48.20 Chronic atrial fibrillation, unspecified; N17.9 Acute kidney failure, unspecified; I13.0 Hypertensive heart and chronic kidney disease with heart failure and stage 1 through stage 4 chronic kidney disease, or unspecified chronic kidney disease; E87.2 Acidosis; I24.8 Other forms of acute ischemic heart disease; E03.9 Hypothyroidism, unspecified; Z51.5 Encounter for palliative care; Z66 Do not resuscitate; N18.30 Chronic kidney disease, stage 3 unspecified; K21.9 Gastro-esophageal reflux disease without esophagitis; J30.2 Other seasonal allergic rhinitis; I27.81 Cor pulmonale (chronic); K44.9 Diaphragmatic hernia without obstruction or gangrene; E78.5 Hyperlipidemia, unspecified; F41.1 Generalized anxiety disorder; Z99.81 Dependence on supplemental oxygen; Z79.01 Long term (current) use of anticoagulants; Z79.899 Other long term (current) drug therapy; Z87.891 Personal history of nicotine dependence